=== PATIENT | female | born 1975 ===

== ENCOUNTER 2020-05-16 13:18 | Outpatient (REF) | payer MEDICAID, SELFPAY ==
--- NOTE | 2020-05-16 | XR_ITS ---
EXAMINATION: XR CHEST 2 VIEWS CLINICAL INFORMATION: Cough. COMPARISON: None. TECHNIQUE: Frontal and lateral views of the chest were obtained. FINDINGS: The heart, great vessels, pulmonary vasculature and mediastinum are normal. The lungs show no focal infiltrate, effusion or pneumothorax. There is no acute osseous abnormality. IMPRESSION: No active cardiopulmonary disease.
== END 2020-05-16 13:19 | disposition home or self-care (01) ==
LOC: HO.XRAY 13:18
PROVIDERS: PCP Internal Medicine Geriatric Medicine; Visit Provider Family Medicine
DX: R05 Cough (principal)
CPT/HCPCS: 71046

== ENCOUNTER 2020-06-16 11:22 | Outpatient (REF) | payer MEDICAID, SELFPAY ==
--- NOTE | 2020-06-16 11:50 | XR_ITS ---
EXAMINATION: XR CHEST CLINICAL INFORMATION: Dyspnea. Cough. COMPARISON: Previous chest x-ray 05/16/2020 TECHNIQUE: 2 views of the chest were obtained. FINDINGS: No significant abnormality is noted involving the heart, lungs, mediastinum, bony thorax or soft tissues. XR/XR chest 2V IMPRESSION: Unremarkable examination.
[2020-06-16 12:44] LABS: MANUAL DIFF FLAG NO
[2020-06-16 12:48] LABS: Basophils Absolute Auto 0.1 X10*3/uL (0.0-0.2); Basophils Percent Auto 0.7 % (0-2); Eosinophils Absolute Auto 0.1 X10*3/uL (0.0-0.4); Eosinophils Percent Auto 1.6 % (0-4); Hematocrit 41.2 % (37-47); Hemoglobin 13.7 g/dl (12.0-16.0); Imm Gran Abs Auto 0.04 X10*3/uL (0.00-0.03); Imm Gran Pct Auto 0.5 % (0.0-0.4); Lymphocytes Absolute Auto 1.8 X10*3/uL (1.2-4.9); Lymphocytes Percent Auto 23.5 % (20-40); Mean Corpuscular HGB Conc 33.3 g/dl (31.0-35.0); Mean Corpuscular Hemoglobin 30.6 pg (27.0-33.0); Mean Platelet Volume 8.8 fL (9.4-12.3); Monocytes Absolute Auto 0.9 X10*3/uL (0.1-1.2); Monocytes Percent Auto 12.4 % (2-11); Neutrophils Absolute Auto 4.7 X10*3/uL (2.0-8.3); Neutrophils Percent Auto 61.3 % (45-73); Platelet Count 278 X10*3/uL (160-400); Red Blood Count 4.48 X10*6/uL (4.20-5.50); Red Cell Distribution Width 12.9 % (11.0-16.0); White Blood Count 7.6 X10*3/uL (4.8-10.8)
[2020-06-16 13:27] LABS: Erythrocyte Sedimentation Rate 33 MM/HR (0-20)
[2020-06-16 13:43] LABS: Rheumatoid Factor < 15.0 IU/mL (<15.0)
[2020-06-16 13:49] LABS: Alanine Aminotransferase 50 U/L (0-31); Albumin Level 4.4 g/dL (3.5-5.0); Alkaline Phosphatase 84 U/L (39-117); Anion Gap 15 (12-20); Aspartate Amino Transferase 39 U/L (5-31); Bilirubin Total 0.3 mg/dL (0.0-1.0); Blood Urea Nitrogen 8 mg/dL (9-16); C Reactive Protein 1.07 mg/dL (< or = 0.50); Calcium 8.6 mg/dL (8.4-10.2); Carbon Dioxide 23 mmol/L (22-29); Chloride 103 mmol/L (96-108); Estimated Glomerular Filt Rate > 60; Glucose Random 142 mg/dL (60-115); Sodium 137 mmol/L (135-145); Total Protein 7.5 g/dL (6.5-8.0)
[2020-06-16 14:13] LABS: SARS COV2 IgG Negative (Negative)
[2020-06-18 14:21] LABS: Cyclic Citrullinated Peptide <16 UNITS
[2020-06-19 11:17] LABS: Anti Nuclear Antibody Pattern Nuclear, Speckled; Anti Nuclear Antibody Screen POSITIVE (NEGATIVE); Anti Nuclear Antibody Titer 1:40 titer
== END 2020-06-16 11:23 | disposition home or self-care (01) ==
LOC: HO.LAB 11:22
PROVIDERS: PCP Internal Medicine Geriatric Medicine; Visit Provider Family Medicine
DX: M13.0 Polyarthritis, unspecified (principal); R05 Cough; R06.00 Dyspnea, unspecified; Z20.828 Contact with and (suspected) exposure to other viral communicable diseases
CPT/HCPCS: 36415; 71046; 80053; 84443; 85025; 85652; 86038; 86039; 86140; 86200; 86431; 86769

== ENCOUNTER 2020-06-26 14:48 | Outpatient (REF) | payer MEDICAID, SELFPAY ==
--- NOTE | 2020-06-26 | MR_ITS ---
EXAMINATION: MR LUMBAR SPINE WITHOUT CONTRAST CLINICAL INFORMATION: Lower back pain with bilateral leg pain and numbness for 1 year. COMPARISON: None TECHNIQUE: MRI of the lumbar spine was obtained using routine sequences without contrast. FINDINGS: VERTEBRAL BODIES AND PARASPINAL STRUCTURES: Normal vertebral body alignment. The lumbar lordosis is maintained. No acute fracture or subluxation. No loss of vertebral body height. Mild loss of intervertebral disc height and disc desiccation at L4-L5 and L5-S1. No abnormal marrow signal. The visualized paraspinal soft tissues are unremarkable. CONUS MEDULLARIS AND CAUDA EQUINA: Normal, terminating at the level of L1. SPINAL LEVELS: T12-L1: No significant disc bulge. No central canal or neural foraminal stenosis. L1-L2: No significant disc bulge. No central canal or neural foraminal stenosis. L2-L3: No significant disc bulge. No central canal or neural foraminal stenosis. L3-L4: No significant disc bulge. No central canal or neural foraminal stenosis. L4-L5: Broad-based disc bulge with a shallow right paracentral disc protrusion which abuts the traversing bilateral L5 nerve roots within the lateral recesses. Bilateral facet arthropathy and thickening of the ligamentum flavum with mild central canal as well as [id number] right and mild left neural foraminal stenosis. L5-S1: Broad-based disc bulge with a shallow posterior central disc protrusion where there is a small posterior annular fissure. Mild central canal stenosis. No significant neural foraminal stenosis. MR/MR lumbar spine wo con IMPRESSION: 1. L4-L5 broad-based disc bulge with a shallow right paracentral disc protrusion which abuts the traversing bilateral L5 nerve roots within the lateral recesses. Bilateral facet arthropathy and thickening of the ligamentum flavum with mild central canal as well as [id number] right and mild left neural foraminal stenosis. 2. L5-S1 broad-based disc bulge with a shallow posterior central disc protrusion and small posterior annular fissure causing mild central canal stenosis. No significant neural foraminal stenosis.
== END 2020-06-26 14:49 | disposition home or self-care (01) ==
LOC: HO.MRI 14:48
PROVIDERS: PCP Internal Medicine Geriatric Medicine; Visit Provider Internal Medicine Geriatric Medicine
DX: M48.062 Spinal stenosis, lumbar region with neurogenic claudication (principal)
CPT/HCPCS: 72148

== ENCOUNTER 2020-07-08 09:53 | Outpatient (REF) | payer MEDICAID, SELFPAY ==
--- NOTE | 2020-07-08 | PFT_ITS ---
FLOWS: FEV1 of 97% of predicted at 2.61 L. FVC 92% of predicted at 3.04 L. FEV1 to FVC ratio of 0.86. No bronchodilator response. LUNG VOLUMES: Total lung capacity 102% of predicted at 4.86 L. Residual volume 108% of predicted at 1.76 L. Slow vital capacity 99% of predicted at 3.10 L. Expiratory reserve volume 84% of predicted at 0.85 L. Diffusion capacity is mildly decreased. IMPRESSION: No obstructive or restrictive ventilatory defect. No bronchodilator response. Decreased diffusion capacity suggests emphysema. Dayron Velasquez MD AP/[facility] / [id number]
== END 2020-07-08 09:54 | disposition home or self-care (01) ==
LOC: HO.RESP 09:53
PROVIDERS: Visit Provider Family Medicine
DX: R06.00 Dyspnea, unspecified (principal); F17.200 Nicotine dependence, unspecified, uncomplicated
CPT/HCPCS: 94060; 94727; 94729

== ENCOUNTER 2021-01-06 10:10 | Outpatient (REF) | payer MEDICAID, SELFPAY ==
--- NOTE | ~2021-01-06 | XR_ITS ---
EXAMINATION: XR BILATERAL HANDS CLINICAL INFORMATION: Anesthesia of skin COMPARISON: None TECHNIQUE: 3 views of each hand FINDINGS: 3 views of the left hand do not demonstrate any evidence of acute fracture or dislocation. Joint spaces are maintained. There is some mild spurring seen about the 2nd and 3rd distal interphalangeal joints. No erosive changes appreciated. There is mild spurring seen about the 1st carpometacarpal joint. 3 views of the right hand do not demonstrate any evidence of acute fracture or dislocation. No erosive changes are seen. Joint spaces maintained. There is some mild spurring about the 2nd distal interphalangeal joint. No erosive changes identified. There is some chronic periosteal reaction about the radial aspects of both 1st metacarpals related to tendinous sheath insertions. XR/XR hand RT min 3V IMPRESSION: Mild degenerative changes as described without significant bony abnormality appreciated.
--- NOTE | ~2021-01-06 | XR_ITS ---
EXAMINATION: XR BILATERAL HANDS CLINICAL INFORMATION: Anesthesia of skin COMPARISON: None TECHNIQUE: 3 views of each hand FINDINGS: 3 views of the left hand do not demonstrate any evidence of acute fracture or dislocation. Joint spaces are maintained. There is some mild spurring seen about the 2nd and 3rd distal interphalangeal joints. No erosive changes appreciated. There is mild spurring seen about the 1st carpometacarpal joint. 3 views of the right hand do not demonstrate any evidence of acute fracture or dislocation. No erosive changes are seen. Joint spaces maintained. There is some mild spurring about the 2nd distal interphalangeal joint. No erosive changes identified. There is some chronic periosteal reaction about the radial aspects of both 1st metacarpals related to tendinous sheath insertions. XR/XR hand LT min 3V IMPRESSION: Mild degenerative changes as described without significant bony abnormality appreciated.
== END 2021-01-06 10:11 | disposition home or self-care (01) ==
LOC: HO.XRAY 10:10
PROVIDERS: Absent Provider Internal Medicine Geriatric Medicine; PCP Internal Medicine Geriatric Medicine; Visit Provider General Practice
DX: R20.0 Anesthesia of skin (principal)
CPT/HCPCS: 73130

== ENCOUNTER 2021-02-12 08:46 | Outpatient (REF) | payer MEDICAID, SELFPAY ==
--- NOTE | 2021-02-12 08:30 | EMG_ITS ---
Bilateral median and ulnar motor and sensory studies were performed. Bilateral radial sensory studies were performed and paraspinal muscles were tested with a needle. IMPRESSION: Mild bilateral median neuropathy across carpal tunnel. MD DEVON Coreas/[place] / [id number]
== END 2021-02-12 08:47 | disposition home or self-care (01) ==
LOC: HO.NEURO 08:46
PROVIDERS: Visit Provider General Practice
DX: R20.0 Anesthesia of skin (principal)
CPT/HCPCS: 95886; 95911

== ENCOUNTER 2021-02-28 16:07 | Emergency (ER) | payer MEDICAID, SELFPAY ==
[2021-02-28 16:10] VITALS: BP 123/78; PULSE 98; RESP 16; TEMP 36.2; O2SAT 98; BMI 28.3
--- NOTE | 2021-02-28 16:39 | ED.EXTPRO ---
HPI - Extremity Problem General Chief complaint: Extremity Problem Stated complaint: Hand swelling Time Seen by Provider: 02/28/21 16:39 Related Data Previous Rx's Medication Instructions Recorded cyclobenzaprine 10 mg PO BEDTIME #10 tab 02/28/21 ibuprofen 600 mg PO Q8H PRN #20 tab 02/28/21 Allergies Allergy/AdvReac Type Severity Reaction Status Date / Time quetiapine [From SEROQUEL] AdvReac Intermediate RLS Verified 02/28/21 16:10 symptoms Review of Systems Constitutional: Constitutional: Denies weight gain and Denies weight loss Cardiovascular: Cardiovascular: Reports no additional cardiovascular complaints Respiratory: Respiratory: Reports no additional respiratory complaints Gastrointestinal: Gastrointestinal: Denies abdominal pain, Denies belching, Denies melena, Denies bloating, Denies change in bowel habits, Denies dyspepsia, Denies heartburn, Denies nausea and Denies vomiting Musculoskeletal: Musculoskeletal: Reports other (Wrist pain and back pain) Neurologic: Reports system reviewed and no additional complaints, except as documented Psychiatric: Psychiatric: Reports no additional psychiatric complaints [facility] Past Medical History Medical History (Updated 02/28/21 @ 17:01 by Roxane James [facility]) No known health problems Social History Social History Advance Directives: No Advance Directives Information Provided: No Patient : No Physical Exam Vital Signs: Vital Signs: Last Vital Signs Temp 97.1 F 02/28/21 16:10 Pulse 98 02/28/21 16:10 Resp 16 02/28/21 16:10 BP 123/78 02/28/21 16:10 Pulse Ox 98 02/28/21 16:10 Body Mass Index 28.3 Const: General: healthy appearing, no acute distress and well developed Nutritional Appearance: well nourished Orientation/consciousness: patient oriented x3 Neck: Neck: Yes normal visual inspection, Yes full ROM and Yes trachea midline Thyroid: Thyroid normal Resp: Auscultation: clear to auscultation bilaterally Cardio: Rate: regular rate Rhythm: regular rhythm GI: Inspection: Yes normal to inspection and No distended Palpation (GI): No hepatosplenomegaly present Auscultation: normal bowel sounds Skin: General skin exam: elasticity normal, turgor normal and dry skin Neuro: General: patient oriented x3 Extrem: General: Yes full ROM, Yes capillary refill normal and Yes no joint enlargement Right upper extremity: normal to inspection, full ROM, normal capillary refill and no joint enlargement Left upper extremity: normal to inspection, full ROM, normal capillary refill and no joint enlargement Course Course Course Narrative: 45-year-old female is coming here today for complaints of bilateral wrist pain. Patient reports that she has carpal tunnel and has been doing heavy lifting at work. Also reports of lower back pain. Denies any injury to either her wrist or her back. Repeated movements with her hands causing her wrist to swell some time. Patient reports that she carries heavy trace with food. No swelling on exam today. Patient reports that she has been diagnosed with arthritis in her back. I will give her ibuprofen and send her home with NSAIDs and cyclobenzaprine. Discharge Plan Discharge Clinical Impression: Pain in wrist Qualifiers: Laterality: bilateral Qualified Code(s): M25.531 - Pain in right wrist Back pain Qualifiers: Back pain location: low back pain Chronicity: unspecified Back pain laterality: bilateral Sciatica presence: without sciatica Qualified Code(s): M54.5 - Low back pain Patient Disposition: Home, Self-Care Instructions: Arthralgia (ED), Back Pain (ED) Additional Instructions: You were seen here today for complaining of bilateral wrist and back pain. You were given anti-inflammatory medication. You may take ibuprofen as ordered. You may also take cyclobenzaprine for muscle spasms. Please to not operate any heavy machinery while you taking that medication. Please follow-up with your primary care physician in 2-3 days. You may also follow-up with [facility]. Phone number is [phone] Prescriptions: New ibuprofen 600 mg tablet 600 mg PO Q8H PRN (Reason: pain) Qty: 20 RF: 0 cyclobenzaprine 10 mg tablet 10 mg PO BEDTIME Qty: 10 RF: 0 Stand Alone Forms: Work/School Release
[2021-02-28] MEDS: Ibuprofen 600 MG TABLET PO (16:57)
== END 2021-02-28 17:21 | disposition home or self-care (01) ==
PROVIDERS: Emergency Provider Internal Medicine; PCP Internal Medicine Geriatric Medicine
DX: M25.531 Pain in right wrist (principal); M25.532 Pain in left wrist; M54.5 Low back pain
CPT/HCPCS: 99283; 99284

== ENCOUNTER 2021-03-12 15:00 | Outpatient (RCR) | payer MEDICAID, SELFPAY | END 2021-03-25 09:14 | disposition home or self-care (01) | LOC: HO.PT 15:00 | PROVIDERS: PCP Internal Medicine Geriatric Medicine; Visit Provider Physician Assistant | DX: M51.16 Intervertebral disc disorders with radiculopathy, lumbar region (principal) | CPT/HCPCS: 97014; 97110; 97140; 97150; 97161; 97530 ==

== ENCOUNTER 2021-06-17 10:30 | Outpatient (REF) | payer MEDICAID, SELFPAY ==
--- NOTE | ~2021-06-17 | US_ITS ---
EXAMINATION: ULTRASOUND OF THE PELVIS CLINICAL INFORMATION: Dysmenorrhea. COMPARISON: 03/09/2018. TECHNIQUE: Transabdominal and transvaginal pelvic ultrasound. Doppler evaluation with spectral analysis was performed. A transvaginal study was performed in addition to the transabdominal study which did not yield an adequate examination of the uterus and ovaries due to superimposed distended gas-filled loops of bowel. FINDINGS: The uterus is normal in size and appearance, measuring 9.5 x 4.3 x 6 cm longitudinally, anteroposteriorly and transversely. The endometrial stripe thickness is normal, measuring 0.8 cm in thickness. No focal myometrial mass is seen. Nabothian cysts at the cervix. The ovaries bilaterally are visualized and appear normal, with the right ovary measuring 2 x 1.6 x 1.6 cm and the left ovary measuring 1.5 x 0.8 x 1.6 cm. There are normal arterial and venous spectral waveforms bilaterally. No adnexal mass or free fluid collection seen. US/US pelvic and transvaginal IMPRESSION: Unremarkable pelvic ultrasound..
== END 2021-06-17 10:31 | disposition home or self-care (01) ==
LOC: HO.US 10:30
PROVIDERS: PCP Internal Medicine Geriatric Medicine; Visit Provider Advanced Practice Midwife
DX: N94.5 Secondary dysmenorrhea (principal)
CPT/HCPCS: 76830; 76856

== ENCOUNTER 2021-08-18 11:22 | Outpatient (REF) | payer MEDICAID, SELFPAY | END 2021-08-18 11:23 | disposition home or self-care (01) | LOC: HO.LAB 11:22 | PROVIDERS: PCP Internal Medicine Geriatric Medicine; Visit Provider Obstetrics & Gynecology | DX: B97.7 Papillomavirus as the cause of diseases classified elsewhere (principal); F17.200 Nicotine dependence, unspecified, uncomplicated | CPT/HCPCS: 57454; 88305; 88342; 88360 ==

== ENCOUNTER → 2021-09-01 10:41 | Outpatient (BNVA) | payer MEDICAID, SELFPAY | PROVIDERS: Visit Provider Obstetrics & Gynecology ==

== ENCOUNTER 2022-03-31 12:38 | Outpatient (REF) | payer MEDICAID, SELFPAY ==
--- NOTE | ~2022-03-31 | XR_ITS ---
EXAMINATION: XR CHEST CLINICAL INFORMATION: COPD COMPARISON: None TECHNIQUE: 2 views of the chest were obtained. FINDINGS: No significant abnormality is noted involving the heart, lungs, mediastinum, bony thorax or soft tissues. XR/XR chest 2V IMPRESSION: Unremarkable chest examination.
== END 2022-03-31 12:39 | disposition home or self-care (01) ==
LOC: HO.XRAY 12:38
PROVIDERS: PCP Internal Medicine Geriatric Medicine; Visit Provider Internal Medicine Geriatric Medicine
DX: J44.9 Chronic obstructive pulmonary disease, unspecified (principal)
CPT/HCPCS: 71046

== ENCOUNTER 2022-04-09 08:32 | Outpatient (REF) | payer MEDICAID, SELFPAY ==
--- NOTE | ~2022-04-09 | MM_ITS ---
EXAMINATION: MM SCREENING DIGITAL BREAST TOMOSYNTHESIS, BILATERAL CLINICAL INFORMATION: Screening. Asymptomatic. The lifetime risk of breast cancer based on the Tyrer-Cuzick Model is 8%. COMPARISON: Mammography: 01/09/2020, 02/08/2018 (baseline). TECHNIQUE: Digital breast tomosynthesis is performed in both the craniocaudal and mediolateral oblique views along with computer-aided detection (CAD). Synthesized 2D images are generated from the tomosynthesis. FINDINGS: There are scattered areas of fibroglandular density (ACR BI-RADS breast composition Category b). There are no significant masses, abnormal calcifications, or other abnormalities. Parenchymal pattern is similar to prior studies. There is no developing density or architectural abnormality. The axilla and skin contours are unremarkable. No significant changes. MM/MM tomosynthesis screening BI IMPRESSION: No mammographic evidence of malignancy. ASSESSMENT: BI-RADS 1: Negative RECOMMENDATION: Routine annual mammography screening. This patient's information was entered into a reminder system with a target due date for their next mammogram.
== END 2022-04-09 08:33 | disposition home or self-care (01) ==
LOC: HO.MAMMO 08:32
PROVIDERS: PCP Internal Medicine Geriatric Medicine; Visit Provider Internal Medicine Geriatric Medicine
DX: Z12.31 Encounter for screening mammogram for malignant neoplasm of breast (principal)
CPT/HCPCS: 77063; 77067

== ENCOUNTER 2022-06-21 11:05 | Outpatient (REF) | payer MEDICAID, SELFPAY ==
--- NOTE | 2022-06-21 | PFT_ITS ---
Forced vital capacity 90%, FEV1 91%, FEV1/FVC ratio is 86, MVV 78%. Post bronchodilator therapy, there is no change. Total lung capacity 128%. Residual volume 198%. Diffusion capacity 72%. CONCLUSION: Normal pulmonary function tests. There is no evidence of obstructive or restrictive pulmonary disorder. Markedly increased residual volume indicating air trapping is probably due to technical reason. MD AZAEL Mcdaniels/[facility] / [id number]
== END 2022-06-21 11:06 | disposition home or self-care (01) ==
LOC: HO.RESP 11:05
PROVIDERS: PCP Internal Medicine Geriatric Medicine; Visit Provider Internal Medicine Geriatric Medicine
DX: J44.9 Chronic obstructive pulmonary disease, unspecified (principal)
CPT/HCPCS: 94060; 94727; 94729

== ENCOUNTER 2022-09-01 14:21 | Outpatient (REF) | payer MEDICAID, SELFPAY ==
[2022-09-02 06:15] LABS: CT PCR NOT DETECTED (Not Detect.); NG PCR NOT DETECTED (Not Detect.)
[2022-09-02 13:50] LABS: BV Int Neg Control Negative (Negative); BV Int Pos Control Positive (Positive)
[2022-09-04 03:18] LABS: HPV mRNA E6/E7 rflx Not Detected (Not Detected)
== END 2022-09-01 14:22 | disposition home or self-care (01) ==
LOC: HO.LNP 14:21
PROVIDERS: PCP Internal Medicine Geriatric Medicine; Visit Provider Obstetrics & Gynecology
DX: Z01.419 Encounter for gynecological examination (general) (routine) without abnormal findings (principal)
CPT/HCPCS: 0353U; 87480; 87510; 87624; 87660; 88142

== ENCOUNTER 2023-02-17 13:50 | Outpatient (REF) | payer MEDICAID, SELFPAY ==
--- NOTE | ~2023-02-17 | XR_ITS ---
EXAMINATION: XR pelvis and left hip XR lumbosacral spine CLINICAL INFORMATION: Left hip pain. Spondylosis without myelopathy or radiculopathy. COMPARISON: None. TECHNIQUE: Single frontal view of the pelvis and 2 views of the left hip. Frontal, lateral and both oblique views of the lumbosacral spine. FINDINGS: Pelvis and left hip: The bony alignments are intact. The cortices are intact. Articular margins, joint space and periarticular soft tissues are unremarkable. Phleboliths are seen in the pelvis. Lumbosacral spine: The heights, alignments of the lumbar vertebrae are well-maintained. Intervertebral disc heights are well-maintained. The posterior appendages are intact. The paraspinal soft tissues are unremarkable. Incidental note is made of atherosclerotic calcific disease of the aorta. XR/XR lumbar spine 6V w bending IMPRESSION: 1. Unremarkable radiographic appearance of the pelvis and left hip. 2. Atherosclerotic calcification of the distal abdominal aorta. Otherwise unremarkable radiographic appearance of the lumbosacral spine.
--- NOTE | ~2023-02-17 | XR_ITS ---
EXAMINATION: XR pelvis and left hip XR lumbosacral spine CLINICAL INFORMATION: Left hip pain. Spondylosis without myelopathy or radiculopathy. COMPARISON: None. TECHNIQUE: Single frontal view of the pelvis and 2 views of the left hip. Frontal, lateral and both oblique views of the lumbosacral spine. FINDINGS: Pelvis and left hip: The bony alignments are intact. The cortices are intact. Articular margins, joint space and periarticular soft tissues are unremarkable. Phleboliths are seen in the pelvis. Lumbosacral spine: The heights, alignments of the lumbar vertebrae are well-maintained. Intervertebral disc heights are well-maintained. The posterior appendages are intact. The paraspinal soft tissues are unremarkable. Incidental note is made of atherosclerotic calcific disease of the aorta. XR/XR hip LT w PEL1V IMPRESSION: 1. Unremarkable radiographic appearance of the pelvis and left hip. 2. Atherosclerotic calcification of the distal abdominal aorta. Otherwise unremarkable radiographic appearance of the lumbosacral spine.
== END 2023-02-17 13:51 | disposition home or self-care (01) ==
LOC: HO.XRAY 13:50
PROVIDERS: PCP Internal Medicine Geriatric Medicine; Visit Provider Nurse Practitioner Family
DX: M25.552 Pain in left hip (principal); M47.816 Spondylosis without myelopathy or radiculopathy, lumbar region; M21.70 Unequal limb length (acquired), unspecified site; G89.29 Other chronic pain
CPT/HCPCS: 72114; 73502; 99202

== ENCOUNTER 2023-03-31 18:57 | Outpatient (REF) | payer MEDICAID, SELFPAY ==
[2023-04-05 11:58] LABS: Alphahydroxymidazolam,GCMS Ur NEGATIVE; Alphahydroxytriazolam, GCMS Ur NEGATIVE; Alprazolam, GCMS Urine NEGATIVE; Flurazepam Metabolite,GCMS Ur NEGATIVE; Lorazepam GCMS Urine NEGATIVE; Nordiazepam, GCMS Urine NEGATIVE; Oxazepam, GCMS Urine NEGATIVE; Temazepam, GCMS Urine NEGATIVE
== END 2023-03-31 18:58 | disposition home or self-care (01) ==
LOC: HO.HHCLNP 18:57
PROVIDERS: Visit Provider Internal Medicine Geriatric Medicine
DX: F41.9 Anxiety disorder, unspecified (principal)
CPT/HCPCS: 80346

== ENCOUNTER 2023-05-10 16:35 | Outpatient (REF) | payer MEDICAID, SELFPAY ==
[2023-05-10 17:17] LABS: MANUAL DIFF FLAG NO
[2023-05-10 17:27] LABS: Basophils Absolute Auto 0.1 X10*3/uL (0.0-0.2); Basophils Percent Auto 0.7 % (0-2); Eosinophils Absolute Auto 0.2 X10*3/uL (0.0-0.4); Eosinophils Percent Auto 2.6 % (0-4); Hemoglobin 13.6 g/dl (12.0-16.0); Imm Gran Abs Auto 0.04 X10*3/uL (0.00-0.03); Imm Gran Pct Auto 0.5 % (0.0-0.4); Lymphocytes Absolute Auto 3.5 X10*3/uL (1.2-4.9); Lymphocytes Percent Auto 39.3 % (20-40); Mean Corpuscular HGB Conc 33.2 g/dl (31.0-35.0); Mean Corpuscular Hemoglobin 30.5 pg (27.0-33.0); Mean Corpuscular Volume 91.9 fL (80.0-98.0); Mean Platelet Volume 8.7 fL (9.4-12.3); Monocytes Absolute Auto 0.7 X10*3/uL (0.1-1.2); Monocytes Percent Auto 7.7 % (2-11); Neutrophils Absolute Auto 4.4 x10*3/uL (2.0-8.3); Neutrophils Percent Auto 49.2 % (45-73); Platelet Count 301 X10*3/uL (160-400); Red Blood Count 4.46 X10*6/uL (4.20-5.50); Red Cell Distribution Width 12.8 % (11.0-16.0); White Blood Count 8.9 X10*3/uL (4.8-10.8)
[2023-05-10 18:27] LABS: Alanine Aminotransferase 31 U/L (0-31); Albumin Level 4.1 g/dL (3.5-5.0); Alkaline Phosphatase 79 U/L (39-117); Anion Gap 12 (12-20); Aspartate Amino Transferase 21 U/L (5-31); Bilirubin Total 0.2 mg/dL (0.0-1.0); Blood Urea Nitrogen 9 mg/dL (9-16); Calcium 9.3 mg/dL (8.4-10.2); Carbon Dioxide 25 mmol/L (22-29); Chloride 107 mmol/L (96-108); Estimated Glomerular Filt Rate > 60; Glucose Random 144 mg/dL (60-115); Potassium 4.1 mmol/L (3.3-5.1); Sodium 140 mmol/L (135-145); Total Protein 7.4 g/dL (6.5-8.0)
== END 2023-05-10 16:36 | disposition home or self-care (01) ==
LOC: HO.HHCL 16:35
PROVIDERS: Visit Provider Internal Medicine Geriatric Medicine
DX: E11.9 Type 2 diabetes mellitus without complications (principal); R14.0 Abdominal distension (gaseous); R30.0 Dysuria
CPT/HCPCS: 36415; 80053; 85025

== ENCOUNTER 2023-05-19 16:20 | Outpatient (REF) | payer MEDICAID, SELFPAY | END 2023-05-19 16:21 | disposition home or self-care (01) | LOC: HO.HHCLNP 16:20 | PROVIDERS: Visit Provider Internal Medicine Geriatric Medicine | DX: Z13.89 Encounter for screening for other disorder (principal) ==

== ENCOUNTER 2023-11-03 10:31 | Outpatient (REF) | payer MEDICAID, SELFPAY ==
--- NOTE | ~2023-11-03 | XR_ITS ---
EXAMINATION: XR CHEST CLINICAL INFORMATION: 2 months with pleuritic chest pain and cough COMPARISON: 03/31/2022 TECHNIQUE: 2 views of the chest were obtained. FINDINGS: No significant abnormality is noted involving the heart, lungs, mediastinum, bony thorax or soft tissues. XR/XR chest 2V IMPRESSION: Unremarkable examination.
[2023-11-03 11:47] LABS: MANUAL DIFF FLAG NO
[2023-11-03 12:02] LABS: Basophils Absolute Auto 0.1 X10*3/uL (0.0-0.2); Basophils Percent Auto 0.8 % (0-2); Eosinophils Absolute Auto 0.2 X10*3/uL (0.0-0.4); Eosinophils Percent Auto 2.5 % (0-4); Hemoglobin 13.9 g/dl (12.0-16.0); Imm Gran Abs Auto 0.03 X10*3/uL (0.00-0.03); Imm Gran Pct Auto 0.4 % (0.0-0.4); Lymphocytes Absolute Auto 3.4 X10*3/uL (1.2-4.9); Lymphocytes Percent Auto 39.4 % (20-40); Mean Corpuscular HGB Conc 33.1 g/dl (31.0-35.0); Mean Corpuscular Hemoglobin 30.5 pg (27.0-33.0); Mean Corpuscular Volume 92.1 fL (80.0-98.0); Mean Platelet Volume 8.5 fL (9.4-12.3); Monocytes Absolute Auto 0.8 X10*3/uL (0.1-1.2); Monocytes Percent Auto 9.1 % (2-11); Neutrophils Absolute Auto 4.1 x10*3/uL (2.0-8.3); Neutrophils Percent Auto 47.8 % (45-73); Platelet Count 340 X10*3/uL (160-400); Red Blood Count 4.56 X10*6/uL (4.20-5.50); Red Cell Distribution Width 13.1 % (11.0-16.0); White Blood Count 8.5 X10*3/uL (4.8-10.8)
[2023-11-03 12:14] LABS: Rheumatoid Factor < 13.0 IU/mL (<15.0)
[2023-11-03 12:23] LABS: Alanine Aminotransferase 22 U/L (0-31); Albumin Level 4.3 g/dL (3.5-5.0); Alkaline Phosphatase 80 U/L (39-117); Anion Gap 12 (12-20); Aspartate Amino Transferase 25 U/L (5-31); Bilirubin Total 0.4 mg/dL (0.0-1.0); Blood Urea Nitrogen 14 mg/dL (9-16); Calcium 9.7 mg/dL (8.4-10.2); Carbon Dioxide 27 mmol/L (22-29); Chloride 105 mmol/L (96-108); Cholesterol 336 mg/dL (<200); Estimated Glomerular Filt Rate > 60; Glucose Random 104 mg/dL (60-115); HDL Cholesterol 59 mg/dL (>40); LDL Cholesterol Calculated 234 mg/dL (<100); Potassium 4.7 mmol/L (3.3-5.1); Sodium 139 mmol/L (135-145); Triglycerides 216 mg/dL (<150)
[2023-11-03 12:41] LABS: Creatinine Urine 91.48 mg/dL; Microalbum/Creatinine Ratio Ur 8.7 ug/mg cr (<30); Vitamin D 25-OH Total 42.5 ng/mL (>30)
[2023-11-03 13:21] LABS: Erythrocyte Sedimentation Rate 31 MM/HR (0-20)
== END 2023-11-03 10:32 | disposition home or self-care (01) ==
LOC: HO.HHCL 10:31
PROVIDERS: Visit Provider Internal Medicine Geriatric Medicine
DX: R07.81 Pleurodynia (principal); E11.9 Type 2 diabetes mellitus without complications; M25.50 Pain in unspecified joint
CPT/HCPCS: 36415; 71046; 80053; 80061; 82043; 82306; 82570; 85025; 85652; 86431

== ENCOUNTER 2024-02-07 09:46 | Outpatient (REF) | payer MEDICAID, SELFPAY ==
[2024-02-07 17:32] LABS: CT PCR NOT DETECTED (Not Detect.); NG PCR NOT DETECTED (Not Detect.)
[2024-02-10 15:28] LABS: HPV mRNA E6/E7 Not Detected (Not Detected)
== END 2024-02-07 09:47 | disposition home or self-care (01) ==
LOC: HO.LNP 09:46
PROVIDERS: PCP Internal Medicine Geriatric Medicine; Visit Provider Obstetrics & Gynecology
DX: Z01.419 Encounter for gynecological examination (general) (routine) without abnormal findings (principal); R10.2 Pelvic and perineal pain; B97.7 Papillomavirus as the cause of diseases classified elsewhere; R31.29 Other microscopic hematuria
CPT/HCPCS: 0353U; 87086; 87624; 88175; 99396

== ENCOUNTER 2024-02-07 09:46 | Outpatient (AMB) | payer MEDICAID, SELFPAY ==
--- NOTE | 2024-02-07 09:47 | MHC.OFFVIS ---
Vital Signs 02/07/24 09:49 Height 5 ft 2 in Weight 119 lb 2 oz BMI 21.8 BP 114/60 Blood Pressure Location Lt brachial Position Sitting Intake Visit Reasons: annual Allergies quetiapine [From SEROQUEL] Adverse Reaction (Intermediate, Verified 02/07/24 09:48) RLS symptoms HPI Comments Details: Presenting for annual exam. Complaining of right sided pelvic pain over the last 2 years, worse premenstrual in improved afterwards. Last Pap/HPV was negative in 09/06 Last Mammogram was BI-RADS 1 in 04/05 We previous screening colonoscopy [facility] Medical History History of renal stone History of ovarian cyst Pulmonary emphysema Depression Tobacco use Chronic bilateral low back pain with bilateral sciatica Hyperlipidemia Diabetes Surgical History History of tubal ligation History of bladder surgery H/O LEEP Tubal ligation status Family History Mother Heart disease Social History Household Members: Significant Other Housing: Apartment Alcohol intake: never Patient Tobacco Use Status: Current everyday Tobacco user Cigarette Packs Per Day: 1 Years Smoked: 25 Substance Use Type: Marijuana service: No Current occupational status: unemployed Sexual orientation: Straight/Heterosexual Gender identity: Female Female Reproductive History Menstrual Age of Menarche: 7 Duration of menses: 3-5 days Date of last menstrual period: 02/01/24 control method: none Total pregnancies: 3 Full term: 3 Number of Living Children: 2 Date of last pap smear: 09/01/22 History of abnormal pap smear: Yes (HPV+ 2020) History of STI: No Date of Mammogram: 04/09/22 History of abnormal mammogram: No Review of Systems Const All systems reviewed & are unremarkable except as noted in HPI and below Card Reports as per HPI Resp Reports as per HPI GI Reports as per HPI and Reports no additional complaints Reports as per HPI Physical Exam Vital Signs: Last Vital Signs BP 114/60 02/07/24 09:49 BMI result Body Mass Index 21.8 Const General: cooperative, healthy appearing and comfortable Chest Chest palpation & inspection: normal inspection of the chest and normal palpation of entire chest wall Breast/axilla inspection: normal inspection of the breasts and normal inspection of the axillae Breast/axilla palpation: normal palpation of the breasts, normal palpation of the axillae and no axillary lymphadenopathy Resp Effort & Inspection: normal respiratory effort Auscultation: clear to auscultation bilaterally Percussion: percussion normal Cardio Palpation: normal PMI Rate: regular rate Rhythm: regular rhythm Heart sounds: no murmurs and no rubs Peripheral pulses: Peripheral pulses 2+ throughout GI Inspection: Yes normal to inspection Palpation (GI): Soft to palpation, nontender, no guarding, not rigid and No hepatosplenomegaly present Percussion: Yes normal to percussion Auscultation: normal bowel sounds Rectal Exam - Female: deferred General: Yes bladder normal to palpation External Female Exam: No lesion Speculum Exam - Vagina: normal appearance of the vagina, normal palpation, normal vaginal discharge and not erythematous Speculum Exam - Cervix: normal appearance of the cervix and normal palpation Bimanual exam- vagina & uterus: normal bimanual exam, normal palpation, uterine size normal, bladder normal to palpation, consistency normal and normal palpation Bimanual Exam- Adnexa, other: normal adnexae, no masses and no tenderness Assessment & Plan Assessment & Plan (1) Well woman exam: Code(s): Z01.419 - Encounter for gynecological examination (general) (routine) without abnormal findings Category: Medical Plan: Co testing done. Counseled the patient about the recommended dietary allowance of 1200 mg of Calcium & 600 IU of vitamin D. Mammogram ordered. The patient was referred to GI for screening colonoscopy . The patient was instructed to perform monthly self-breast exams and schedule annual exam in a year. All questions answered and the patient verbalized understanding. (2) Pelvic pain: Code(s): R10.2 - Pelvic and perineal pain Category: Medical Plan: Urine test done in the office was negative. GC and chlamydia taken and pelvic ultrasound ordered. Discussed with the patient the differential diagnosis of pelvic pain including but not limited to adnexal, uterine masses, pelvic infections (PID), GI the (Irritable bowel syndrome, diverticulitis, others), musculoskeletal, myofascial pain abdominal wall , adhesions, endometriosis, psychological and others causes. Will check results and treat accordingly. All questions answered, the patient verbalized understanding. Instructed the patient to schedule follow-up appointment in 2 weeks (3) Microscopic hematuria: Code(s): R31.29 - Other microscopic hematuria Category: Medical Plan: Urine dip showed microscopic hematuria, urine culture sent. Will repeat urine dip in 2 weeks. Discussed with the patient the possible causes of microscopic hematuria including but not limited to: interstitial cystitis, polyps, stones, masses, urethral inflammatory processes and others. If Urine Culture is negative and repeat urine dip in 2 weeks shows persistent microscopic hematuria, will proceed with CT abdomen/pelvis and urology referral. Instructions given the patient to schedule a 2 week urine dip follow-up appointment. All questions answered and the patient verbalized understanding. Orders: Orders MM tomosynthesis screening BI Today Z12.31 - Encounter for screening mammogram for malignant neoplasm of breast US pelvic and transvaginal Today R10.2 - Pelvic and perineal pain Referrals Gastroenterology Referral Z12.11 - Encounter for screening for malignant neoplasm of colon Coding Level of Care Code Est Pt Prev Care 40-64y(19002) Diagnoses Well woman exam Z01.419 Pelvic pain R10.2 Microscopic hematuria R31.29
[2024-02-07 09:49] VITALS: BP 114/60; BMI 21.8
== END 2024-02-07 10:32 | disposition home or self-care (01) ==
PROVIDERS: PCP Internal Medicine Geriatric Medicine; Visit Provider Obstetrics & Gynecology
DX: Z01.419 Encounter for gynecological examination (general) (routine) without abnormal findings (principal); R10.2 Pelvic and perineal pain; R31.29 Other microscopic hematuria
CPT/HCPCS: 99396

== ENCOUNTER 2024-02-15 12:41 | Outpatient (REF) | payer MEDICAID, SELFPAY ==
--- NOTE | ~2024-02-15 | US_ITS ---
EXAMINATION: US PELVIS CLINICAL INFORMATION: Pain in pelvis, last menstrual period 02/02/2024, left lower quadrant pain. COMPARISON: 06/17/2021. TECHNIQUE: Ultrasound of the pelvis is performed using both transabdominal and transvaginal transducers along with Doppler. Transvaginal imaging is performed due to inadequate visualization transabdominally. FINDINGS: The uterus measures 7.8 x 4.5 x 5.8 cm. Uterus is retroverted. Endometrial thickness is 8 mm. Uterus is heterogeneous. 3.0 x 2.0 x 2.7 cm fibroid was not identified on the prior exam. No significant free fluid. Nabothian cysts. Left ovary measures 3.1 x 1.2 x 2.2 cm, volume 4.3 mL and was suboptimally visualized due to bowel gas. Left ovary best seen on transabdominal ultrasound images. Right ovary measures 3.1 x 1.2 x 1.5 cm, volume 2.9 mL. A 1.1 cm left ovarian simple cyst. There is no specific indication for additional imaging at this time. US/US pelvic and transvaginal IMPRESSION: 1. Endometrial thickness is 8 mm. 2. A 3.0 cm fibroid was not identified on the prior exam.
== END 2024-02-15 12:42 | disposition home or self-care (01) ==
LOC: HO.US 12:41
PROVIDERS: PCP Internal Medicine Geriatric Medicine; Visit Provider Obstetrics & Gynecology
DX: R10.2 Pelvic and perineal pain (principal)
CPT/HCPCS: 76830; 76856

== ENCOUNTER 2024-05-25 09:44 | Outpatient (AMB) | payer MEDICAID, SELFPAY ==
--- NOTE | 2024-05-25 09:55 | A.OFFVIS_ITS ---
Vital Signs 3 05/25/24 10:06 Height 5 ft 2 in Weight 113 lb 12.136 oz BMI 20.8 BP 110/64 Blood Pressure Location Rt brachial Position Sitting Pulse 98 Intake Visit Reasons: Colonoscopy Screening Intake Note: Benigno presents as a new patient for colonoscopy screening. CC: Patient c/o diarrhea for a week, abdominal pain, and feeling like her throat is closing up when she eats. Denies other GI symptoms. Deputy Sheriff Generalist/Bailiff Required: No Accompanied by: Self / Same As Patient Allergies quetiapine [From SEROQUEL] Adverse Reaction (Intermediate, Verified 05/25/24 10:11) RLS symptoms HPI HPI Colonoscopy Screening: Details: 48-year-old female here for preprocedural meeting to discuss a screening colonoscopy. Referral source is unknown and there is no significant medical history supplied. P.m. X Smoker COPD Diabetes Nephrolithiasis Chronic low back pain High cholesterol Depression * SURGICAL HISTORY Tubal ligation Bladder surgery - Bulkamdi implant LEEP * ALLERGIES Seroquel * [facility]: Laboratory Tests 11/03/23 10:33 WBC 8.5 RBC 4.56 Hgb 13.9 Hct 42.0 Plt Count 340 Estimated GFR > 60 Total Bilirubin 0.4 AST 25 ALT 22 Alkaline Phosphatase 80 TODAY'S VISIT Apparently, she has had diarrhea for a week and is reporting that she feels like my throat is closing every time I eat. Her youngest son just in November and she is dealing with the stress. The diarrhea was of acute on set a week ago. She is having pain in the bilateral lower quads and when the pain is bad she has nausea. Over the past 3 weeks she will have dysphagia in the area just above the sternal notch with odysonphagia with solid foods an not liquids. All of this was preceded by a severe sinus infection with 3 rounds of abx. There are no prior problems with anesthesia or sedation. She denies any cardiac problems and her respiratory/COPD is well controlled. No ID problems There is no known FHX of crc of polyps, but an aunt of stomach cancer. [facility] Medical History (Updated 05/25/24 @ 10:24 by Jina Reddy, ANP-C) HPV in female Leg length discrepancy Well woman exam History of renal stone History of ovarian cyst Pulmonary emphysema Depression Tobacco use Chronic bilateral low back pain with bilateral sciatica Hyperlipidemia Diabetes Surgical History History of tubal ligation History of bladder surgery H/O LEEP Tubal ligation status Family History Mother Heart disease Social History Household Members: Significant Other Housing: Apartment Alcohol intake: never Patient Tobacco Use Status: Current everyday Tobacco user Cigarette Packs Per Day: 1 Years Smoked: 25 Substance Use Type: Marijuana service: No Current occupational status: unemployed Sexual orientation: Straight/Heterosexual Gender identity: Female Female Reproductive History Menstrual Age of Menarche: 7 Review of Systems Const Denies fatigue, Denies fever(s), Denies night sweats, Denies poor appetite and Denies weight loss Eyes Details: glasses Reports requires corrective lenses ENT Reports Normal hearing present, Denies dental pain, Reports dysphagia, Denies hearing loss, Denies mouth pain, Denies odynophagia, Denies throat swelling, Denies tongue swelling and Reports other (Dentition adequate) Card Reports no additional complaints Resp Reports no additional complaints GI Details: Reports abdominal pain, Denies melena, Denies bloating, Denies hematochezia, Denies constipation, Denies GI cramping, Reports dysphagia, Denies excessive flatus, Denies early satiety, Reports heartburn, Reports diarrhea, Denies nausea, Denies odynophagia, Denies vomiting and Denies hematemesis Skin/Breast Denies pruritus, Denies lesions, Denies rash and Denies jaundice Neuro Reports Normal hearing present and Denies Abnormal speech present Psych Reports anxiety and Reports depression Endo Denies fatigue Aller/Immun Denies throat swelling and Denies tongue swelling Physical Exam Vital Signs: Last Vital Signs Pulse 98 05/25/24 10:06 BP 110/64 05/25/24 10:06 BMI result Body Mass Index 20.8 Const General: cooperative, no acute distress, well developed and well groomed Nutritional Appearance: well nourished Orientation/consciousness: oriented to person, oriented to place and oriented to time Limitations: No language barrier HEENT Head: Yes normocephalic and Yes atraumatic Eyes General: appearance normal, both eyes and all related structures Pupils: Equal, round and reactive pupils present Neck Neck: Yes normal visual inspection and Yes no lymphadenopathy Thyroid: Thyroid normal Resp Effort & Inspection: normal respiratory effort and able to speak in complete sentences Auscultation: clear to auscultation bilaterally Cardio Rate: regular rate Rhythm: regular rhythm Heart sounds: Normal, physiologic split S2 sound present Peripheral pulses: radial pulses present and posterior tibial pulses present GI Inspection: No distended and No Abdominal panniculus present Palpation (GI): Soft to palpation, nontender, no guarding, not rigid and No hepatosplenomegaly present Percussion: Yes normal to percussion Auscultation: normal bowel sounds Rectal Exam - Female: deferred Abdomen image: 2 1. old trauma scar 2. surgical scar Skin General skin exam: no rashes or lesions noted, turgor normal, skin not dry, no jaundice, No spider nevi and no striae Rashes: no rashes Nails: normal Neuro General: oriented to person, oriented to place and oriented to time Cranial nerves: Yes Equal, round and reactive pupils present and Yes Normal hearing present Speech: No Abnormal speech present Extrem General: Yes normal to inspection, No clubbing, No cyanosis and No edema Psych Appearance: grossly normal and well kempt Mental Status: mental status grossly normal Speech and movement: Normal speech and movement present Affect: normal affect Attitude: cooperative Thought process: Normal thought process present and not confabulating Thought content: Normal thought content present Insight: Limited insight present (Psych) Judgement: Limited judgement present (Psych) Assessment & Plan Assessment & Plan (1) Pre-op examination: Code(s): Z01.818 - Encounter for other preprocedural examination Category: Medical (2) Pulmonary emphysema: Code(s): J43.9 - Emphysema, unspecified Category: Medical (3) Dysphagia: Code(s): R13.10 - Dysphagia, unspecified Category: Medical (4) Acute diarrhea: Code(s): R19.7 - Diarrhea, unspecified Category: Medical Plan Apparently, she has had diarrhea for a week and is reporting that she feels like my throat is closing every time I eat. Her youngest son just in November and she is dealing with the stress. The diarrhea was of acute on set a week ago. She is having pain in the bilateral lower quads and when the pain is bad she has nausea. Over the past 3 weeks she will have dysphagia in the area just above the sternal notch with odysonphagia with solid foods an not liquids. All of this was preceded by a severe sinus infection with 3 rounds of abx. There are no prior problems with anesthesia or sedation. She denies any cardiac problems and her respiratory/COPD is well controlled. No ID problems There is no known FHX of crc of polyps, but an aunt of stomach cancer. Orders: Orders 2 EGD/[place] Combo - GI Use Only 05/25/24 R13.10 - Dysphagia, unspecified, R19.7 - Diarrhea, unspecified FL barium swallow 05/25/24 R13.10 - Dysphagia, unspecified GI Panel 05/25/24 R19.7 - Diarrhea, unspecified, R13.10 - Dysphagia, unspecified H pylori Ag Stool 05/25/24 R19.7 - Diarrhea, unspecified C Reactive Protein 05/25/24 R19.7 - Diarrhea, unspecified Medications: New 2 bisacodyl (Dulcolax (bisacodyl)) 10 mg (2 x 5 mg) PO BEDTIME 4 tabs 0RF 2 days peg 3350-electrolytes 236-22.74-6.74 -5.86 gram (Golytely) until fecal effluent is clear; do not exceed a total volume of 2,000 mL 240 mL PO Q10M 4,000 mL 0RF 1 day Z12.11 - Encounter for screening for malignant neoplasm of colon Coding Level of Care Code New Pt Level 3 (00322) Diagnoses Pre-op examination Z01.818 Pulmonary emphysema J43.9 Dysphagia R13.10 Acute diarrhea R19.7
[2024-05-25 10:06] VITALS: BP 110/64; PULSE 98; BMI 20.8
== END 2024-05-25 11:09 | disposition home or self-care (01) ==
PROVIDERS: PCP Internal Medicine Geriatric Medicine; Visit Provider Nurse Practitioner
DX: Z01.818 Encounter for other preprocedural examination (principal); Z12.11 Encounter for screening for malignant neoplasm of colon; R19.7 Diarrhea, unspecified; R13.10 Dysphagia, unspecified
CPT/HCPCS: 99202

== ENCOUNTER 2024-05-25 09:44 | Outpatient (REF) | payer MEDICAID, SELFPAY ==
[2024-05-25 12:47] LABS: C Reactive Protein < 0.10 mg/dL (< or = 0.50)
== END 2024-05-25 09:45 | disposition home or self-care (01) ==
LOC: HO.LAB 09:44
PROVIDERS: PCP Internal Medicine Geriatric Medicine; Visit Provider Nurse Practitioner
DX: R19.7 Diarrhea, unspecified (principal)
CPT/HCPCS: 36415; 86140

== ENCOUNTER 2024-06-18 08:26 | Outpatient (REF) | payer MEDICAID, SELFPAY ==
[2024-06-18 12:43] LABS: Creatinine Urine 250.66 mg/dL; Microalbum/Creatinine Ratio Ur 5.1 ug/mg cr (<30)
[2024-06-18 13:04] LABS: Alanine Aminotransferase 25 U/L (0-31); Albumin Level 4.2 g/dL (3.5-5.0); Alkaline Phosphatase 79 U/L (39-117); Anion Gap 16 (12-20); Aspartate Amino Transferase 30 U/L (5-31); Bilirubin Total 0.6 mg/dL (0.0-1.0); Blood Urea Nitrogen 9 mg/dL (9-16); Calcium 9.6 mg/dL (8.4-10.2); Carbon Dioxide 22 mmol/L (22-29); Chloride 107 mmol/L (96-108); Cholesterol 277 mg/dL (<200); Estimated Glomerular Filt Rate > 60; Glucose Random 95 mg/dL (60-115); HDL Cholesterol 61 mg/dL (>40); LDL Cholesterol Calculated 186 mg/dL (<100); Potassium 3.7 mmol/L (3.3-5.1); Sodium 141 mmol/L (135-145); Total Protein 7.5 g/dL (6.5-8.0); Triglycerides 151 mg/dL (<150)
== END 2024-06-18 08:27 | disposition home or self-care (01) ==
LOC: HO.HHCL 08:26
PROVIDERS: Visit Provider Internal Medicine Geriatric Medicine
DX: E11.9 Type 2 diabetes mellitus without complications (principal)
CPT/HCPCS: 36415; 80053; 80061; 82043; 82570

== ENCOUNTER 2024-06-28 14:43 | Outpatient (REF) | payer MEDICAID, SELFPAY ==
--- NOTE | 2024-06-28 14:46 | EMG_ITS ---
Chief complaint: Chronic hand numbness. EMG done by Dr. Sinha 2020 reported bilateral mild Carpal Tunnel Syndrome. Reason for referral: Evaluate for Carpal Tunnel Syndrome Referred by: Dr. Beatty Procedure done: Bilateral upper extremities NCS/EMG Precautions and/or limitations: None The limb temperature was monitored continuously and remained between 32-36 degrees C during the performance of the NCS. Nerve Conduction Studies Anti Sensory Summary Table ?Stim Site NR Onset (ms) Norm Onset (ms) Peak (ms) Norm Peak (ms) O-P Amp (?V) Norm O-P Amp Site1 Site2 Delta-0 (ms) Dist (cm) Vinicio (m/s) Norm Vinicio (m/s) Left Median Anti Sensory (2nd Digit) Wrist ? 2.8 3.8 <3.6 27.5 >10 Wrist 2nd Digit 2.8 14.0 50 Right Median Anti Sensory (2nd Digit) Wrist ? 2.8 3.7 <3.6 44.3 >10 Wrist 2nd Digit 2.8 14.0 50 Left Ulnar Anti Sensory (5th Digit) Wrist ? 2.2 3.3 <3.7 60.3 >15.0 Wrist 5th Digit 2.2 14.0 64 Right Ulnar Anti Sensory (5th Digit) Wrist ? 2.1 3.1 <3.7 58.0 >15.0 Wrist 5th Digit 2.1 14.0 67 Motor Summary Table ?Stim Site NR Onset (ms) Norm Onset (ms) O-P Amp (mV) Norm O-P Amp iAmp (mV) Amp (1st) (%) Site1 Site2 Delta-0 (ms) Dist (cm) Vinicio (m/s) Norm Vinicio (m/s) Left Median Motor (Abd Poll Brev) Wrist ? 3.7 <3.9 9.8 >4.5 10.9 100.0 Elbow Wrist 3.5 18.0 51 >45 Elbow ? 7.2 8.6 9.5 87.8 Right Median Motor (Abd Poll Brev) Wrist ? 3.7 <3.9 5.4 >4.5 6.4 100.0 Elbow Wrist 3.4 18.0 53 >45 Elbow ? 7.1 6.2 7.6 114.8 Left Ulnar Motor (Abd Dig Minimi) Wrist ? 3.0 <3.0 12.0 >5 14.8 100.0 B Elbow Wrist 2.7 15.5 57 >45 B Elbow ? 5.7 11.4 14.4 95.0 A Elbow B Elbow 1.6 10.0 63 >45 A Elbow ? 7.3 10.9 13.8 90.8 Right Ulnar Motor (Abd Dig Minimi) Wrist ? 2.7 <3.0 9.7 >5 12.6 100.0 B Elbow Wrist 3.0 16.0 53 >45 B Elbow ? 5.7 9.8 12.7 101.0 A Elbow B Elbow 1.3 10.0 77 >45 A Elbow ? 7.0 9.7 12.6 100.0 Comparison Summary Table ?Stim Site NR Peak (ms) Norm Peak (ms) P-T Amp (?V) Site1 Site2 Delta-P (ms) Norm Delta (ms) Right Median/Radial Dig I Comparison (Digit 1 - 10cm) Median ? 2.9 <2.9 76.6 Median Radial -0.1 Radial ? 3.0 <2.8 217.2 EMG ?Side Muscle Nerve Root Ins Act Fibs Psw Amp Dur Poly Recrt Int Pat Comment Right 1stDorInt Ulnar C8-T1 Nml Nml Nml Nml Nml 0 Nml Complete Right FlexCarRad Median C6-7 Nml Nml Nml Nml Nml 0 Nml Complete Right Biceps Musculocut C5-6 Nml Nml Nml Nml Nml 0 Nml Complete Right Triceps Radial C6-7-8 Nml Nml Nml Nml Nml 0 Nml Complete Right Deltoid Axillary C5-6 Nml Nml Nml Nml Nml 0 Nml Complete Left 1stDorInt Ulnar C8-T1 Nml Nml Nml Nml Nml 0 Nml Complete Left FlexCarRad Median C6-7 Nml Nml Nml Nml Nml 0 Nml Complete Left Biceps Musculocut C5-6 Nml Nml Nml Nml Nml 0 Nml Complete Left Triceps Radial C6-7-8 Nml Nml Nml Nml Nml 0 Nml Complete Left Deltoid Axillary C5-6 Nml Nml Nml Nml Nml 0 Nml Complete FINDINGS: Bilateral median sensory nerve showed prolonged peak latency. All other nerves tested were within normal. Concentric needle EMG was performed in selected muscles of the bilateral upper extremities. Study did not reveal signs of electric abnormalities as shown in the table above. IMPRESSION: 1. This is an abnormal study. 2. There is electrodiagnostic evidence for bilateral mild median neuropathy at the wrist, consistent with carpal tunnel syndrome. 3. There is no electrodiagnostic evidence for ulnar neuropathy, brachial plexopathy, or cervical radiculopathy. Thank you for your kind referral. Toyin Magana MD, JOHANNY Board Certified, [place] Board [employer] and Rehabilitation (ABPMR) Board Certified, [place] Board of Electrodiagnostic Medicine (ABEM) CODIN [phone] 2 MTDD
== END 2024-06-28 14:44 | disposition home or self-care (01) ==
LOC: HO.NEURO 14:43
PROVIDERS: PCP Internal Medicine Geriatric Medicine; Visit Provider Internal Medicine Geriatric Medicine
DX: G56.03 Carpal tunnel syndrome, bilateral upper limbs (principal)
CPT/HCPCS: 95886; 95911

== ENCOUNTER → 2024-06-28 14:46 | Outpatient (BNV) | payer MEDICAID, SELFPAY | PROVIDERS: PCP Internal Medicine Geriatric Medicine; Visit Provider Physical Medicine & Rehabilitation | DX: G56.03 Carpal tunnel syndrome, bilateral upper limbs (principal) | CPT/HCPCS: 95886; 95911 ==

== ENCOUNTER 2024-08-16 09:41 | Outpatient (REF) | payer MEDICAID, SELFPAY ==
--- NOTE | ~2024-08-16 | FL_ITS ---
EXAMINATION: XR FLUOROSCOPY UPPER GI WITH AIR CLINICAL INFORMATION: Dysphagia. COMPARISON: None TECHNIQUE: Fluoroscopic air contrast upper GI examination was performed utilizing standard techniques with thin and thick barium and effervescent granules. Numerous spot images were obtained. FINDINGS: Lateral cine images of the oropharynx and hypopharynx demonstrate normal swallow mechanism with normal epiglottic inversion and soft palate elevation. No tracheal penetration, glottic or subglottic aspiration identified. No nasopharyngeal reflux present. Hypopharyngeal structures appear normal without evidence of mass or diverticulum. There was no significant cricopharyngeal achalasia. Dual and single contrast images of the esophagus demonstrate normal caliber, contour, and mucosal pattern. No evidence of stricture, mass, or ulcerations identified. Esophageal peristalsis is mildly disorganized. No hiatus hernia identified. No significant gastroesophageal reflux was seen during the course of the examination and on reflux views. Dual contrast and single contrast images of the stomach demonstrated a normal contour. The areae gastrica have a thickened appearance, suggestive of gastritis. And mucosal pattern without evidence of mass, ulceration, or other abnormality. Contrast freely passed into the gastric antrum and duodenal bulb without delay. Single and air-contrast images of the duodenal bulb demonstrate no abnormality. The duodenal sweep has a normal appearance, course, and mucosal fold appearance. The imaged proximal jejunum has a normal fold pattern and caliber. FLUOROSCOPY TIME: 3 minutes 43 seconds Number of Spot Images: 7 Number of Cine: 15 DOSE AREA PRODUCT: 1478 uGy-m2 (microgray-meter squared) FL/FL barium swallow IMPRESSION: 1. Mildly disorganized esophageal peristalsis. 2. Thickened appearance of the areae gastrica, suggestive of gastritis. This procedure was performed by Pedro Jackson PA-C, and supervised by Dr. Kathleen. Electronically signed by: Jakob Kathleen MD 08/16/2024 03:35 PM [facility] [place]
== END 2024-08-16 09:42 | disposition home or self-care (01) ==
LOC: HO.XRAY 09:41
PROVIDERS: PCP Internal Medicine Geriatric Medicine; Visit Provider Nurse Practitioner
DX: R13.10 Dysphagia, unspecified (principal)
CPT/HCPCS: 74220

== ENCOUNTER → 2024-08-16 09:44 | Outpatient (BNV) | payer MEDICAID, SELFPAY | PROVIDERS: PCP Internal Medicine Geriatric Medicine; Visit Provider Physician Assistant Surgical | DX: K21.00 Gastro-esophageal reflux disease with esophagitis, without bleeding (principal) | CPT/HCPCS: 74246 ==

== ENCOUNTER → 2024-09-20 13:00 | Outpatient (BNVA) | payer MEDICAID, SELFPAY | PROVIDERS: PCP Internal Medicine Geriatric Medicine; Visit Provider Obstetrics & Gynecology ==

== ENCOUNTER 2024-09-26 14:32 | Outpatient (REF) | payer MEDICAID, SELFPAY ==
--- OUTSIDE RECORDS SUMMARY | 2024-09-26 15:48 | XMS_ITS | Encounter Summary ---
Author Organization [facility] [employer] [facility] Address [address] [place] [address] [address] [place] [address] Care Team Providers Care Phone Triage Specialist Name Role Phone NameSteve MD Primary Care Provider [phone] Reason for Visit * Reason Comments Med Change Request Encounter Details Date Type Department Care Team (Late Contact Info) Description 05/10/2023 Refill [facility] [address] [place] [address] [phone] NameSteve MD [address] [place] [phone] Social History Tobacco Use Types Packs/Day Years Used Date Smoking Tobacco: Every Day Cigarettes Smokeless Tobacco: Never Alcohol Use Standard Drinks/Week Comments Never 0 (1 standard drink = 0.6 oz pur e alcohol) Depression Answer Date Recorded Patient Health Questionnaire-9 Score 16 05/10/2023 Depression Answer Date Recorded Patient Health Questionnaire-2 Score 4 05/10/2023 Comments Unknown Sex and Gender Information Value Date Recorded Sex Assigned at Female 06/14/2022 10:34 AM EDT Legal Sex Female 10:34 AM EDT Gender Identity Female 06/14/2022 10:34 AM EDT Sexual Orientation Straight 06/14/2022 10 :34 AM EDT documented as of this encounter Plan of Treatment Upcoming Encounters Date Type Department Care Team (Late st Contact Info) Description 10/08/2024 3:45 PM EST Office Visit [facility] [address] [place] [address] [phone] Steve Beatty MD [address] [place] [address] [phone] 12/31/2024 2:30 PM EDT Office Visit [facility] [address] [place], [place] [phone] Denisse Rai, OD [address] [place] [address] documented as of this encounter Visit Diagnoses Not on filedocumented in this encounter Additional Health Concerns Assessment Noted Time PHQ-9 Depression Total Score: 16 023 3:49 PM EDT documented as of this encounter Care Teams Phone Triage Specialist Relationship Specialty Start Date End Date Name, MD Steve [address] [place], [place] [phone] PCP - General Family Medicine 01/23/18 [facility] 07/01/24 documented as of this encounter
--- OUTSIDE RECORDS SUMMARY | 2024-09-26 15:48 | XMS_ITS | Encounter Summary ---
Author Organization [employer] Address [address] [facility] [address] [place] [address] Care Team Providers Care Light Fixture Servicer Name Role Phone Name, Steve MCCURDY Primary Care Provider [phone] Reason for Visit * Reason Onset Date Comments Med Refill 05/26/2023 Encounter Details Date Type Department Care Team (Late st Contact Info) Description 05/26/2023 Telephone [facility] [address] [place], [place] [phone] Name, MD Steve [address] [place] [address] Med Refill Social History Tobacco Use Types Packs/Day Years Used Date Smoking Tobacco: Every Day Cigarettes Smokeless Tobacco: Never Alcohol Use Standard Drinks/Week Comments Never 0 (1 standard drink = 0.6 oz pur e alcohol) Depression Answer Date Recorded Patient Health Questionnaire-9 Score 21 01/02/2024 Patient Health Questionnaire-9 Score 21 01/02/2024 Last PHQ-9: Questionnaire Data Not on file 0 01/02/2024 Housing Stability Answer Date Recorded What is your housing situation today? I have shahzad abdi 06/09/[address] you li ve. Do you have problems with any of the following? None of the above 06/09/2023 Food Insecurity Answer Date Recorded Within the past 12 months, y ou worried that your food would run out before you got money to buy more: Never True 06/09/2023 Within the past 12 months,th e food you bought just didn't last and you didn't have enough money to get more: Never True Transportation Answer Date Recorded In the past 12 months, has l ack of transportation kept you from medical appts, meetings, work or from getting things needed for daily living? No 06/09/2023 Utilities Answer Date Recorded In the past 12 months, has t he electric, gas, oil or water company threatened to shut off services in your home? Yes 05/23/2023 Depression Answer Date Recorded Patient Health Questionnaire-2 Score 6 01/02/2024 Comments Unknown Sex and Gender Information Value Date Recorded Sex Assigned at Female 06/14/2022 10:34 AM EDT Legal Sex Female 10:34 AM EDT Gender Identity Female 06/14/2022 10:34 AM EDT Sexual Orientation Straight 06/14/2022 10 :34 AM EDT documented as of this encounter Miscellaneous Notes * Telephone Encounter - Merrill Tinsley - 05/26/2023 1:10 PM EDT Tc from pt requesting medication clonazePAM (KlonoPIN) 0.5 MG tablet to be sent to [address] [place] [phone], states [facility] on file is currently out of stock. documented in this encounter Plan of Treatment Upcoming Encounters Date Type Department Care Team (Late st Contact Info) Description 10/08/2024 3:45 PM EST Office Visit [facility] [address] [place] [address] Name, MD Steve [address] [place] [address] 12/31/2024 2:30 PM EDT Office Visit [facility] OPTOMETRY [address] [place] [address] Denisse Rai, OD [address] [place] [address] documented as of this encounter Visit Diagnoses Not on filedocumented in this encounter Additional Health Concerns Assessment Noted Time PHQ-9 Depression Total Score: 16 023 3:49 PM EDT documented as of this encounter Care Teams Light Fixture Servicer Relationship Specialty Start Date End Date Name, MD Steve [address] [place] [address] PCP - General Family Medicine 01/23/18 [facility] 07/01/24 documented as of this encounter
--- OUTSIDE RECORDS SUMMARY | 2024-09-26 15:48 | XMS_ITS | Encounter Summary ---
Author Organization [employer] Address [address] [facility] [address] [place] [address] Care Team Providers Care Life Science Teacher Name Role Phone Name, Steve MCCURDY Primary Care Provider [phone] Reason for Visit * Reason Comments Med Refill Encounter Details Date Type Department Care Team ([facility] st Contact Info) Description 12/07/2023 Refill [facility] [address] [place], [place] [phone] Name, MD Steve [address] [place] [address] Social History Tobacco Use Types Packs/Day Years Used Date Smoking Tobacco: Every Day Cigarettes Smokeless Tobacco: Never Alcohol Use Standard Drinks/Week Comments Never 0 (1 standard drink = 0.6 oz pur e alcohol) Depression Answer Date Recorded Patient Health Questionnaire-9 Score 16 05/10/2023 Housing Stability Answer Date Recorded What is [...] Description 10/08/2024 3:45 PM EST Office Visit [facility] [address] [place] [address] NameSteve MD [address] [place] [phone] 12/31/2024 2:30 PM EDT Office Visit [facility] OPTOMETRY [address] [place] [address] Fredi, Denisse, OD [address] [place] [address] documented as of this encounter Visit Diagnoses Not on filedocumented in this encounter Additional Health Concerns Assessment Noted Time PHQ-9 Depression Total Score: 16 023 3:49 PM EDT documented as of this encounter Care Teams Life Science Teacher Relationship Specialty Start Date End Date NameSteve MD [address] [place] [phone] PCP - General Family Medicine 01/23/18 [employer] [facility] 07/01/24 documented as of this encounter
--- OUTSIDE RECORDS SUMMARY | 2024-09-26 15:48 | XMS_ITS | Encounter Summary ---
Author Organization [employer] Address [address] [facility] [address] [place] [address] Care Team Providers Care Vein Pumper Name Role Phone Name, Steve MCCURDY Primary Care Provider [phone] Encounter Details Date Type Department Care Team (Late st Contact Info) Description 09/11/2024 Orders Only [facility] [address] [place] [address] Provider, MD Raisa Social History Tobacco Use Types Packs/Day Years Used Date Smoking Tobacco: Every Day Cigarettes Passive Smoke Exposure: Current Smokeless Tobacco: Never Alcohol Use Standard Drinks/Week [...] Patient Health Questionnaire-2 Score 6 01/02/2024 Comments No Sex and Gender Information Value Date Recorded Sex Assigned at Female 06/14/2022 10:34 AM EDT Legal Sex Female 10:34 AM EDT Gender Identity Female 06/14/2022 10:34 AM EDT Sexual Orientation Straight 06/14/2022 10 :34 AM EDT documented as of this encounter Plan of Treatment Upcoming Encounters Date Type Department Care Team (Late st Contact Info) Description 10/08/2024 3:45 PM EST Office Visit [facility] [address] [place] [address] Name, MD Steve [address] [place] [address] 12/31/2024 2:30 PM EDT Office Visit [facility] OPTOMETRY [address] [place] [address] Fredi, Denisse, OD [address] [place] [address] documented as of this encounter Procedures Procedure Name Priority Date/Time Associated Diagnosis Comments CT ABDOMEN PELVIS W CONTRAST Routine 09/10/2024 11:32 AM EST documented in this encounter Results * CT Abdomen Pelvis w/ Contrast (09/10/2024 11:32 AM EST) Anatomical Region Laterality Modality Body, Pelvis, Abdomen Computed T omography us Historical Provider MD GUSMAN CT PROCEDURES Final R esult documented in this encounter Visit Diagnoses Not on filedocumented in this encounter Additional Health Concerns Assessment Noted Time PHQ-9 Depression Total Score: 21 024 10:52 AM EDT documented as of this encounter Care Teams Vein Pumper Relationship Specialty Start Date End Date Name, MD Steve [address] [place] [phone] PCP - General Family Medicine 01/23/18 [facility] 07/01/24 documented as of this encounter
--- OUTSIDE RECORDS SUMMARY | 2024-09-26 15:49 | XMS_ITS | Encounter Summary ---
Author Organization [employer] [facility] [employer] Address [address] [facility] [address] [place] [address] Care Team Providers Care Manager Drug Name Role Phone Name, Steve MCCURDY Primary Care Provider [phone] Reason for Visit * Reason Comments Care Coordination CM/CHW appt reminder Encounter Details Date Type Department Care Team (Latest Contact Info) Description 09/26/2024 Patient Outreach [facility] [address] [place] [address] Name, MD Steve [address] [place] [address] Care Coordination (CM/CHW appt reminder) Social History Tobacco Use Types Packs/Day Years Used Date Smoking Tobacco: Every Day Cigarettes Passive Smoke Exposure: Current Smokeless Tobacco: Never Alcohol Use Standard Drinks/Week Comments Never 0 (1 standard drink = 0.6 oz pur e alcohol) Depression Answer Date Recorded Patient Health Questionnaire-9 Score 15 09/26/2024 Patient Health Questionnaire-9 Score 15 09/26/2024 Last PHQ-9: Questionnaire Data Not on file 0 09/26/2024 Housing Stability Answer Date Recorded What is [...] Answer Date Recorded Patient Health Questionnaire-2 Score 3 09/26/2024 Comments No Sex and Gender Information Value Date Recorded Sex Assigned at Female 06/14/2022 10:34 AM EDT Legal Sex Female 10:34 AM EDT Gender Identity Female 06/14/2022 10:34 AM EDT Sexual Orientation Straight 06/14/2022 10 :34 AM EDT documented as of this encounter Progress Notes * Cristal Jacob - 09/26/2024 10:08 AM EST CHW Cristal Jacob placed outbound call to patient introducing herself from [facility] CM Department, in regard to remind patient of Adult Complex Care program initial assessment appt for tomorrow 09/26/24@ 1PM via telephone with CM Pepe Tran RN. Patient's name and was confirmed. Patient is aware and confirmed will be available for call and has no barriers on attending call. Patient verbalized understanding and agrees with plan. documented in this encounter Plan of Treatment Upcoming Encounters Date Type Department Care Team (Late st Contact Info) Description 10/08/2024 3:45 PM EST Office Visit [facility] [address] [place] [address] Name, MD Steve [address] [place] [address] 12/31/2024 2:30 PM EDT Office Visit [facility] [address] [place] [address] Denisse Rai, OD [address] [place] [address] documented as of this encounter Visit Diagnoses Not on filedocumented in this encounter Additional Health Concerns Assessment Noted Time PHQ-9 Depression Total Score: 15 025 2:29 PM EST documented as of this encounter Care Teams Manager Drug Relationship Specialty Start Date End Date Name, MD Steve [address] [place] [address] PCP - General Family Medicine 01/23/18 [email or web address] [facility] 07/01/24 documented as of this encounter
--- OUTSIDE RECORDS SUMMARY | 2024-09-26 15:49 | XMS_ITS | Clinical Summary ---
Author Organization [employer] Address [address] [place] [address] Care Team Providers Care Licensed Veterinary Technician Name Role Phone Name, Steve MCCURDY Primary Care Provider [phone] Allergies No known active allergies Medications FREESTYLE LITE test strip USE 1 BY TO CHECK BLOOD SUGAR EVERY DAY 100 strip 07/05/20 23 Active omeprazole (PriLOSEC) [address] capsuleIndicat ions:Type 2 diabetes mellitus without complication, without long-term current use of insulin (CMS/HCC) Take 1 capsule (40 mg) by mouth before breakfast. Do not crush or chew. 30 capsule 01/02/20 24 025 Active atorvastatin (Lipitor) 40 MG tabletIndicati ons:Type 2 diabetes mellitus without complication, without long-term current use of insulin (CMS/HCC) Take 1 tablet (40 mg) by mouth Once per day. 30 tablet 01/02/20 24 025 Active dulaglutide (Trulicity) 0.75 MG/0.5ML solution pen-injectorIn dications:Type 2 diabetes mellitus without complication, without long-term current use of insulin (CMS/HCC) Inject 0.75 mg under the skin 1 (one) time per week. 4 each 01/02/20 24 Active zolpidem (Ambien) 10 MG tablet Take 10 mg by mouth at bedtime. 01/02/20 24 Active clonazePAM (KlonoPIN) 1 MG tablet TAKE 1/2 TABLET BY MOUTH THREE TIMES A DAY NEEDED FOR ANXIETY 01/05/20 24 Active venlafaxine XR (Effexor XR) 150 MG 24 hr capsule TAKE 1 CAPSULE BY MOUTH ONCE A DAY TAKE WITH 75MG 12/02/19 24 Active celecoxib (CeleBREX) 400 MG capsule TAKE 1 CAPSULE BY MOUTH TWICE A DAY FOR 20 DAYS 40 capsule 05/02/20 24 Active fluticasone furoate (Arnuity Ellipta) 100 MCG/ACT inhalerIndicat ions:Type 2 diabetes mellitus without complication, without long-term current use of insulin (CMS/[facility]) Inhale 1 puff Once per day. Rinse mouth with water after use to reduce aftertaste and incidence of candidiasis. Do not swallow. 1 each 05/09/20 24 025 Active albuterol (Ventolin HFA) 108 (90 Base) MCG/ACT inhalerIndicat ions:Type 2 diabetes mellitus without complication, without long-term current use of insulin (CMS/HCC) TAKE 2 PUFFS BY MOUTH EVERY 4 TO 6 HOURS NEEDED 18 g 1 05/24/20 24 Active SUMAtriptan (Imitrex) 25 MG tablet TAKE 1 TAB BY MOUTH AT ONSET OF MIGRAINE MAY REPEAT AFTER 2 HOURS IF HEADACHE RETURNS MAX 200MG/24HR 9 tablet 06/27/20 24 Active lidocaine (Lidoderm) 5 % patchIndicatio ns:Type 2 diabetes mellitus without complication, without long-term current use of insulin (CMS/HCC) APPLY 1 PATCH EVERY DAY MAY WEAR UP TO 12 HOURS 30 patch 06/27/20 24 Active fluticasone (Flonase) 50 MCG/ACT nasal spray ADMINISTER 1 SPRAY INTO EACH NOSTRIL ONCE PER DAY. 48 mL 08/22/19 25 Active ARIPiprazole (Abilify) 5 MG tablet Take 1 tablet by mouth Once per day. 08/22/19 25 Active melatonin 3 MG tablet Take 2 tablets by mouth if needed at bedtime for sleep. 08/22/19 25 Active venlafaxine XR (Effexor XR) 37.5 MG 24 hr capsule Take 1 capsule by mouth Once per day. 08/22/19 25 Active venlafaxine XR (Effexor XR) 75 MG 24 hr capsule TAKE 2 CAPSULES BY MOUTH EVERY MORNING. DO NOT CRUSH OR CHEW. 60 capsule 1 07/05/20 23 025 Discontinued(Me d list cleanup (will not trigger notification to Pharmacy)) Active Problems Problem Noted Date Diagnosed Date Hypokalemia 09/26/2024 Gastroenteritis 09/26/2024 Syncope 09/11/2024 Dehydration 09/11/2024 Acute gastroenteropathy due to Norovirus 025 Hypotension 09/10/2024 Subacute maxillary sinusitis 04/23/2024 Assessment & Plan (04/23/2024 4:52 PM EDT): Likely as complication of initial URI. Rx Augmentin x 7d + Flonase daily up to 1m + Nasal saline + Tyelnol prn YOUSSEF, sore throat. Advised to constant hand washing, wear masks until cough resolves , max 5d. Re consult prn. Bilateral carpal tunnel syndrome 05/10/2023 Cough 05/10/2023 Emphysema, unspecified 05/10/2023 Overview (10/31/2023): [place] [address] Pulmonary Function Report Draft Patient: Benigno Pickett MR#: [id number] 03 : 1975 Acct:[id number] Age/Sex: 44 / F ADM Date: 07/08/20 Loc: HO.RESP Attending Dr: Angélica Pierre / [facility] Ordering Physician: ANGÉLICA PIERRE MD Date of Service: 07/08/20 Procedure(s): RT pulmonary function test Accession Number(s): [id number] cc: FLOWS: FEV1 of 97% of predicted at 2.61 L. FVC 92% of predicted at 3.04 L. FEV1 to FVC ratio of 0.86. No bronchodilator response. LUNG VOLUMES: Total lung capacity 102% of predicted at 4.86 L. Residual volume 108% of predicted at 1.76 L. Slow vital capacity 99% of predicted at 3.10 L. Expiratory reserve volume 84% of predicted at 0.85 L. Diffusion capacity is mildly decreased. IMPRESSION: No obstructive or restrictive ventilatory defect. No bronchodilator response. Decreased diffusion capacity suggests emphysema. Dayron Velasquez MD Hypercholesterolemia 05/10/2023 Nipple discharge 05/10/2023 History of tubal ligation 05/10/2023 Type 2 diabetes mellitus without complication Tobacco use 10/29/2022 Neurogenic claudication 10/01/2022 Assessment & Plan (10/01/2022 5:43 PM EST): Exacerbation of chronic lumbar back pain, seen before at [facility]. She has an MRI showing a broad based disc bulge L4-5. Using baclofen and Celebrex as a bridge pain management until her ortho appointment. Depression with anxiety 02/08/2018 Resolved Problems Problem Noted Date Diagnosed Date Resolved Date Suspected respiratory disease 05/10/2023 01/02/2024 Encounters Date Type Department Care Team Description 09/26/2024 2:00 PM EST Office Visit [address] [address] Grace Wolf FNP Gastroenteritis (Primary Dx); Hypokalemia 09/26/2024 Travel 09/26/2024 Patient Outreach [address] [address] Steve Beatty MD Care Coordination (CM/CHW appt reminder) 09/24/[address] [address] Vianey Valladares [place] Chart Prep 09/13/2024 Patient Outreach [address] [address] Steve Beatty MD Transition Of Care (Tcm) (HDF- scheduled) 09/13/2024 Patient Outreach [address] [address] Steve Beatty MD Care Coordination (CM/CHW outreach) 09/13/2024 Patient Outreach [address] [address] Steve Beatty MD Care Coordination (CM/CHW outreach) 09/11/2024 Orders Only [facility] [employer] [facility] [address] [place] [address] Provider, MD Raisa 09/11/2024 Patient Outreach [address] [address] Steve Beatty MD Care Coordination (CHW facility check) 09/11/[address] [address] Pepe Tran, [place] Care Management (C3- chart review) 08/22/2024 Refill [facility] [address] [place] [address] Carolyn Novoa MD 08/21/[address] [address] Yifan Celestin MA feb recall 08/16/2024 Orders Only [facility] External Provider, [facility] 08/03/[address] [address] Yifan Celestin [place] DME-BILATERNAL WRIST BRACE 07/17/[address] [address] NameSteve MD [employer] Medical Equipment 07/10/[address] [address] Steve Beatty MD Durable Medical Equipment 07/02/[address] [address] Anibal Collado, [place] Call Back Request from Last 3 Months Immunizations Name Administration Dates Next Due Pfizer Covid-19 Vaccine 12+ 05/06/2021, 1 Pneumococcal Polysaccharide PPSV23 03/30/2022 TD (adult), 2 Lf tetanus tox oid, preservative free, adsorbed 12/08/2017 Tdap 12/08/2017 Family History Medical History Relation Name Comments Breast cancer Cousin Relation Name Status Comments Cousin Social History Tobacco Use Types Packs/Day Years Used Date Smoking Tobacco: Every Day Cigarettes Passive Smoke Exposure: Current Smokeless Tobacco: Never Tobacco Cessation:Ready to Q uit: Not Asked; Counseling Given: Not Answered Alcohol Use Standard Drinks/Week Comments Never 0 [...] Orientation Straight 06/14/2022 10 :34 AM EDT Last Filed Vital Signs Vital Sign Reading Time Taken Comments Blood Pressure 113/70 09/26/2024 2:11 PM EST Pulse 94 09/26/2024 2:11 PM EST Temperature 36.7 ??C (98.1 ??F) 09/26/2024 2:11 PM ES T Respiratory Rate 22 09/26/2024 2:11 PM EST Oxygen Saturation 98% 09/26/2024 2:11 PM EST Inhaled Oxygen Concentration - - Weight 56.5 kg (124 lb 9.6 oz) 09/26/2024 2:11 P M EST Height 157.5 cm (5' 2 ) 09/26/2024 2:11 PM EST Body Mass Index 22.79 09/26/2024 2:11 PM EST Plan of Treatment Upcoming Encounters Date Type Department Care Team (Late st Contact Info) Description 10/08/2024 3:45 PM EST Office Visit [facility] [address] [place] [phone] Name, MD Steve [address] [place] [address] 12/31/2024 2:30 PM EDT Office Visit [facility] [address] [place], [place] [phone] Denisse Rai, OD [address] [place], [place] [phone] Health Maintenance Due Date Last Done Comments CT Colonography 1975 Colonoscopy 1975 Colorectal Cancer Screening 1975 FIT DNA/Cologuard 1975 FIT 1975 FOBT 1975 HIV Screening 1975 Sigmoidoscopy 1975 Diabetes: Foot Exam 12/05/1983 Alcohol/Substance Use Screening 1985 Family Planning (PISQ) 1988 Hepatitis C Screening 12/05/1991 Hepatitis B Vaccines (1 of 3 - 19+ 3-dose series) 1992 Pneumococcal Vaccine: 50+ Years (2 of 2 - PCV) 03/30/2023 03/30/2022 Zoster Vaccines (1 of 2) 12/05/2023 Mammogram 04/09/2024 04/09/2022, 12/14, 02/09/2018 COVID-19 Vaccine ( - season) 2024 05/06/2021, 04/15/2021 Influenza Vaccine (#1) 2024 SDOH Screening 05/10/2024 05/10/2023 Diabetes: Hemoglobin A1C 11/27/2024 024, 01/02/2024, 07/20/2023, Additional history exists Depression Monitoring (PHQ-9) 03/26/2025 09/26/2024, 09/26/2024 Diabetes: Urine Protein Screening 06/18/2025 06/18/2024, 11/03/2023 Lipid Panel 06/18/2025 06/18/2024, 10/14, 03/31/2022 Pap Smear 09/01/2025 09/01/2022, 05/06/2021 Depression Screening 09/26/2025 09/26/2024, 09/26/19 25 Tobacco Screening 09/26/2025 09/26/2024 Eye Exam 12/22/2025 12/23/2023, 12/13, 12/23/2023, Additional history exists Cervical Cancer Screening 09/01/2027 HPV/Cotest 09/01/2027 09/01/2022, 04/16, 02/23/2018 DTaP/Tdap/Td Vaccines (3 - Td or Tdap) 12/09/2027 12/08/2017, 12/08/2017 RSV Patients and Patients Aged 60 years or older (1 - 1-dose 75+ series) 2048 HIB Vaccines Aged Out No longer eligi ble based on patient's age to complete this topic HPV Vaccines Aged Out No longer eligi ble based on patient's age to complete this topic Hepatitis A Vaccines Aged Out No long er eligible based on patient's age to complete this topic IPV Vaccines Aged Out No longer eligi ble based on patient's age to complete this topic Meningococcal Vaccine Aged Out No tara ayala eligible based on patient's age to complete this topic RSV under 20 months Aged Out No longe r eligible based on patient's age to complete this topic Rotavirus Vaccines Aged Out No longer eligible based on patient's age to complete this topic Procedures Procedure Name Priority Date/Time Associated Diagnosis Comments CT ABDOMEN PELVIS W CONTRAST Routine 09/10/2024 11:32 AM EST FL ESOPHAGUS BARIUM SWALLOW Routine 08/16/2024 10:00 AM EST ALBUMIN, RANDOM URINE W/CREATININE Routine 06/18/2024 8:30 AM EST Type 2 diabetes mellitus without complication, without long-term current use of insulin ([facility]/HCC) LIPID PANEL, STANDARD Routine 06/18/2024 8:30 AM EST Type 2 diabetes mellitus without complication, without long-term current use of insulin (CMS/HCC) POCT GLYCATED HEMOGLOBIN, TOTAL Routine 05/29/2024 11:39 AM EDT Type 2 diabetes mellitus without complication, without long-term current use of insulin (CMS/HCC) HPV MRNA E6/E7 REFLEX TO HPV 16, 18/45 Routine 09/01/2022 3:17 PM EST PAP SMEAR Routine 09/01/2022 3:17 PM EST MAMMOGRAM GENERIC Routine 04/09/2022 9:0 0 AM EDT from Last 3 Months or Most Recently Relevant to Health Maintenance Results * CT Abdomen Pelvis w/ Contrast (09/10/2024 11:32 AM EST) Anatomical Region Laterality Modality Body, Pelvis, Abdomen Computed T omography us Historical Provider IMG CT PROCEDURES Final R esult * FL Esophagus Barium Swallow (08/16/2024 10:00 AM EST) Anatomical Region Laterality Modality Head, Neck Radiographic Kasia ging 08/16/2024 10:0 0 AM EST Narrative 08/16/2024 3:38 PM EST ? [facility] ?[address] ?[place] [address] ? Fluoroscopy Report ? Signed ? Patient: NievesBenigno ?MR#: [id number] ?? 03 ? : 1975 ?Acct:[id number] ? Age/Sex: 48 / F ?ADM Date: 08/16/24 ? Loc: HO.XRAY ? Attending Dr: Jina Reddy ANP-C ? Ordering Physician: Jina Reddy ?? Date of Service: 08/16/24 ?? Procedure(s): FL barium swallow ?? Accession Number(s): [id number] ? cc: Jina Reddy-C; Name,Steve MCCURDY ? EXAMINATION: ?? XR FLUOROSCOPY UPPER GI WITH AIR ? CLINICAL INFORMATION: ?? Dysphagia. ? COMPARISON: ?? None ? TECHNIQUE: ?? Fluoroscopic air contrast upper GI examination was performed utilizing ?? standard techniques with thin and thick barium and effervescent ?? granules. Numerous spot images were obtained. ? FINDINGS: ?? Lateral cine images of the oropharynx and hypopharynx demonstrate ?? normal swallow mechanism with normal epiglottic inversion and soft ?? palate elevation. No tracheal penetration, glottic or subglottic ?? aspiration identified. No nasopharyngeal reflux present. Hypopharyngeal ?? structures appear normal without evidence of mass or diverticulum. ?? There was no significant cricopharyngeal achalasia. ? Dual and single contrast images of the esophagus demonstrate normal ?? caliber, contour, and mucosal pattern. No evidence of stricture, mass, ?? or ulcerations identified. Esophageal peristalsis is mildly ?? disorganized. ? No hiatus hernia identified. No significant gastroesophageal reflux was ?? seen during the course of the examination and on reflux views. ? Dual contrast and single contrast images of the stomach demonstrated a ?? normal contour. The areae gastrica have a thickened appearance, ?? suggestive of gastritis. And mucosal pattern without evidence of mass, ?? ulceration, or other abnormality. Contrast freely passed into the ?? gastric antrum and duodenal bulb without delay. ? Single and air-contrast images of the duodenal bulb demonstrate no ?? abnormality. The duodenal sweep has a normal appearance, course, and ?? mucosal fold appearance. The imaged proximal jejunum has a normal fold ?? pattern and caliber. ? FLUOROSCOPY TIME: ?? 3 minutes 43 seconds ? Number of Spot Images: 7 ?? Number of Cine: 15 ? DOSE AREA PRODUCT: ?? 1478 uGy-m2 (microgray-meter squared) ? FL/FL barium swallow ?? IMPRESSION: ?? 1. Mildly disorganized esophageal peristalsis. ? 2. Thickened appearance of the areae gastrica, suggestive of gastritis. ? This procedure was performed by Pedro Jackson PA-C, and supervised by ?? Dr. Kathleen. ? Electronically signed by: ??Jakob Kathleen MD ??08/16/2024 03:35 PM EST RP ? Dictated By: ?Pedro Jackson ? Signed By: ?<Electronically signed by Pedro Jackson in OV> ? 08/16/24 1535 ?<Electronically signed by Ajkob S Frannie MCCURDY in OV> ? 08/16/24 1538 ? DD/ 1000 ? TD/TT: 08/16/24 1015 ? Loan Servicing Officer: ? Procedure Note Shanta, Vinay - 08/16/[address] [place] [address] Fluoroscopy Report Signed Patient: Debi Pickett#: [id number] 03 : 1975Acct:[id number] Age/Sex: 48 / FADM Date: 08/16/24 Loc: HO.XRAY Attending Dr: Jina TUCKER Ordering Physician: Jina Reddy Date of Service: 08/16/24 Procedure(s): FL barium swallow Accession Number(s): [id number] cc: Jina Reddy; Name,Steve MCCURDY EXAMINATION: XR FLUOROSCOPY UPPER GI WITH AIR CLINICAL INFORMATION: Dysphagia. COMPARISON: None TECHNIQUE: Fluoroscopic air contrast upper GI examination was performed utilizing standard techniques with thin and thick barium and effervescent granules. Numerous spot images were obtained. FINDINGS: Lateral cine images of the oropharynx and hypopharynx demonstrate normal swallow mechanism with normal epiglottic inversion and soft palate elevation. No tracheal penetration, glottic or subglottic aspiration identified. No nasopharyngeal reflux present. Hypopharyngeal structures appear normal without evidence of mass or diverticulum. There was no significant cricopharyngeal achalasia. Dual and single contrast images of the esophagus demonstrate normal caliber, contour, and mucosal pattern. No evidence of stricture, mass, or ulcerations identified. Esophageal peristalsis is mildly disorganized. No hiatus hernia identified. No significant gastroesophageal reflux was seen during the course of the examination and on reflux views. Dual contrast and single contrast images of the stomach demonstrated a normal contour. The areae gastrica have a thickened appearance, suggestive of gastritis. And mucosal pattern without evidence of mass, ulceration, or other abnormality. Contrast freely passed into the gastric antrum and duodenal bulb without delay. Single and air-contrast images of the duodenal bulb demonstrate no abnormality. The duodenal sweep has a normal appearance, course, and mucosal fold appearance. The imaged proximal jejunum has a normal fold pattern and caliber. FLUOROSCOPY TIME: 3 minutes 43 seconds Number of Spot Images: 7 Number of Cine: 15 DOSE AREA PRODUCT: 1478 uGy-m2 (microgray-meter squared) FL/FL barium swallow IMPRESSION: 1. Mildly disorganized esophageal peristalsis. 2. Thickened appearance of the areae gastrica, suggestive of gastritis. This procedure was performed by Pedro Jackson PA-C, and supervised by Dr. Kathleen. Electronically signed by: Jakob Kathleen MD 08/16/2024 03:35 PM EST RP Dictated By: Pedro Jackson Signed By: <Electronically signed by Pedro Jackson in OV> 08/16/24 1535 <Electronically signed by Jakob Kathleen MD in OV> 08/16/24 1538 DD/ 1000 TD/TT: 08/16/24 1015 Loan Servicing Officer: [facility] Exter nal Provider IMG FLUOROSCOPY PROCEDURES Edited Result - Final * Albumin, Random Urine W/Creatinine (06/18/2024 8:30 AM EST) Creatinine, Urine 250.66 mg/dL [facility] Microalbumin Urine 13.0 mg/L [facility] Microalbum Creatinine Ratio Ur 5.1 <30 ug/mg cr [facility] Comment:Albumin/Creatinine R atio Reference Ranges: Normal: < 30 ug/mg creatinine Microalbuminuria: 30 - 300 ug/mg creatinineClinical Albuminuria: > 300 ug/mg creatinine Urine (Urine, Random) 06/18/2024 8:30 AM EST 06/18/2024 11:13 AM EST Steve Beatty MD LAB URINE ORDERABLES Final Resul t [facility] [address] [place] [phone] * (ABNORMAL) Lipid Panel, Standard (06/18/2024 8:30 AM EST) Triglycerides 151(H) <150 mg/dL [facility] Comment:Desirable Triglyceri de: less than 150 mg/dLBorderline High Triglyceride 150-199 mg/dLHigh Triglyceride: 200-499 mg/dLVery High Triglyceride: greater than or equal to 5OO mg/dL Cholesterol 277(H) <200 mg/dL [facility] Comment:Desirable Cholestero l: less than 200 mg/dLBorderline High Cholesterol: 200-239 mg/dLHigh Cholesterol: greater than 239 mg/dL LDL Cholesterol Calculated 186(H) <100 mg/dL [facility] Comment:Desirable LDL: less than 100 mg/dLNear Optimal/Above Optimal LDL: 110- 129 mg/dLBorderline High LDL: 130-159 mg/dLHigh LDL: 160-189 mg/dLVery High LDL: greater than or equal to 190 mg/dL HDL Cholesterol 61 >40 mg/dL [facility] Comment:Desirable HDL: great er than 40 mg/dL Note: This HDL assay may give artificially low results in patients with liver disease. Blood Venous blood specimen / Unknown 06/18/2024 8:30 AM EST 06/18/2024 11:10 AM EST us Steve Beatty MD LAB BLOOD ORDERABLES Final Resul t [facility] [address] [place] [phone] * POCT HGB A1C (05/29/2024 11:39 AM EDT) Hemoglobin A1C 5.6 4.0 - 6.0 % QC Media Lot # [id number] Lot# Expiration Date ,214,817 Blood 05/29/2024 11:3 9 AM EDT us Steve Beatty MD POINT OF CARE TEST ENTER/EDIT OR DERABLES Final Result * HPV mRNA E6/E7 w/Reflex to HPV Genotypes 16, 18/45 (09/01/2022 3:17 PM EST) HPV nRNA E6/E7 Not Detected Not Detected [facility] Comment:Methodology: Transcr iption-Mediated AmplificationThis assay detects E6/E7 viral messenger RNA (mRNA) from 14high-risk HPV types (16,18,31,33,35,39,45,51,52,56,58,59,66,68).Cervical sources are required for HPV testing.If a vaginal source from a patient who has had atotal hysterectomy with removal of cervix wassubmitted, please contact the testing laboratoryfor alternative testing options.For additional information, please refer tohttp://education.[employer]/faq/WTK832x6(This link if provided for information/educational purposes only.)THIS TEST WAS PERFORMED AT:[email or web address] [place] [address] (1)[place] [address]AAEWJDENNIS WAGGONER MD HPV mRNA E6/E7 TNP [facility] HPV 16 RNA TNP [facility] HPV 18/45 RNA TNP [facility] 09/01/2022 3:17 PM EST 09/01/2022 4:15 PM EST [facility] External Provider LAB CYT OLOGY ORDERABLES Final Result [facility] [address] [place] [address] [phone] * Pap Smear (09/01/2022 3:17 PM EST) 09/01/2022 3:17 PM EST 09/01/2022 4:15 PM EST Narrative [facility] - 09/17/2022 1:19 PM EST ----- ------- Name: Benigno Pickett ? Age/Sex: 46/F ? : 1975 Unit#: [id number] ?? Attend Dr: Efrem Samuel MD ?Re09/01/22 ?Status: DEP REF ? Location: HO.LNP ?Disch: ? ----- ------- SPEC : [id number] ? RECD: 09/01/22 ? STATUS: ??SOUT ? REQ NUM: [id number] ? CHARMAINE: 09/01/22 ? SUBM DR: Efrem Samuel MD ? ENTERED: ??09/01/22 ?SP TYPE: Pap Smr ?OTHR : Steve Beatty MD ? ORDERED: ??Pap Smear ? Interpretation ?? Satisfactory for evaluation. ?? No endocervical cells seen. ?? Negative for intraepithelial lesion or malignancy. ?? Fungal organisms consistent with Jen species. ? HPV mRNA E6/E7: ?NOT DETECTED ? This assay detects E6/E7 viral messenger RNA (mRNA) from 14 high-risk HPV types (16, 18, ?? 31, 33, 35, 39, 45, 51, 52, 56, 58, 59, 66, 68) ? HPV testing performed by [email or web address], [place], [place]. ??See reference laboratory ?? portion of the EMR for entire report. ?Clinical Information LMP: 08/11/2022 Previous PAP test: 2020, Abnormal Other history: HPV+ ? Material Received ?? ThinPrep-Cervical Copies To: ?? Name,Steve MCCURDY ?? [address] [facility] ?? [place] [address] ?? [phone] ?? Efrem Samuel MD ?? [address] [facility] [place] ?? [place] [address] ?? [phone] ----- ------- Signed (signature on file) Holley Cerna Nicholas 09/17/22 1319 ? ----- ------- ? END OF REPORT ? us [facility] External Provider LAB CYT OLOGY ORDERABLES Final Result [facility] [address] [place] [address] [phone] * Mammography Report 1 (04/09/2022 9:00 AM EDT) Anatomical Region Laterality Modality Breast Bilateral Mammography 04/09/2022 9:00 AM EDT Narrative 04/12/2022 10:00 AM EDT Refer to the Notes tab for result details [facility] Procedure: Mammography Report 1 Procedure Note Provider, MD Raisa - 11/07/2022 Refer to the Notes tab for result details [facility] Procedure: Mammography Report 1 us Steve Name MD GUSMAN BI PROCEDURES Final Result from Last 3 Months or Most Recently Relevant to Health Maintenance [place] [address] [place] [address] C3 HS FULL Care Teams Licensed Veterinary Technician Relationship Specialty Start Date End Date Name, MD Steve [address] [place] [phone] PCP - General Family Medicine 01/23/18 [facility] 07/01/24
--- OUTSIDE RECORDS SUMMARY | 2024-09-26 15:49 | XMS_ITS | Encounter Summary ---
Author Organization [employer] Address [address] [facility] 7t [place] [address] Care Team Providers Care Anthropology And Archeology Instructor Name Role Phone Name, Steve MCCURDY Primary Care Provider [phone] Reason for Visit * Reason Comments Care Coordination CM/CHW outreach Encounter Details Date Type Department Care Team (Latest Contact Info) Description 09/13/2024 Patient Outreach [facility] [address] [place], [place] [phone] Name, MD Steve [address] [place] [address] Care Coordination (CM/CHW outreach) Social History Tobacco Use Types Packs/Day Years [...] encounter Progress Notes * Cristal Jacob - 09/13/2024 9:21 AM EST CHW Cristal Jacob, placed outbound call to patient introducing herself from [facility] CM Department, in regard to offering services. Patient's name and was confirmed. Patient agrees to participate in program. Appt. for initial assessment scheduled for 09/27/24 @ 1PM tele with CM Pepe Tran RN. CHW reinforced direct contact information or for any additional questions or concerns and extended clinic hours on Mondays and Wednesdays, and [facility]. Patient provided with after-hours line for [facility], , which offer night time triage service and option to transfer to front clerk provider if needed. Patient verbalizes understanding, and able to repeat back to documentation writer. documented in this encounter Plan of Treatment Upcoming Encounters Date Type Department Care Team (Late st Contact Info) Description 10/08/2024 3:45 PM EST Office Visit [facility] [address] [place] [phone] Name, MD Steve [address] [place] [address] 12/31/2024 2:30 PM EDT Office Visit [facility] [address] [place] [address] Denisse Rai, OD [address] [place] [address] documented as of this encounter Visit Diagnoses Not on filedocumented in this encounter Additional Health Concerns Assessment Noted Time PHQ-9 Depression Total Score: 21 024 10:52 AM EDT documented as of this encounter Care Teams Anthropology And Archeology Instructor Relationship Specialty Start Date End Date Name, MD Steve [address] [place] [address] PCP - General Family Medicine 01/23/18 [employer] [facility] 07/01/24 documented as of this encounter
--- OUTSIDE RECORDS SUMMARY | 2024-09-26 15:49 | XMS_ITS | Encounter Summary ---
Author Organization [employer] Address 75 [facility] 7t [place] [address] Care Team Providers Care Tube Coverer Name Role Phone Name, Steve MCCURDY Primary Care Provider [phone] Reason for Visit * Reason Comments hospital follow up Encounter Details Date Type Department Care Team (Latest Contact Info) Description 09/26/2024 2:00 PM EST Office Visit [facility] [address] [place] [address] Grace Wolf, TANI [address] [place] [address] Gastroenteritis (Primary Dx); Hypokalemia Social History Tobacco Use Types Packs/Day Years [...] AM EDT documented as of this encounter Last Filed Vital Signs Vital Sign Reading [...] Mass Index 22.79 09/26/2024 2:11 PM EST documented in this encounter Plan of Treatment Upcoming Encounters Date Type Department Care Team (Late st Contact Info) Description 10/08/2024 3:45 PM EST Office Visit [facility] [address] [place] [address] Name, MD Steve [address] [place] [address] 12/31/2024 2:30 PM EDT Office Visit [facility] [address] [place] [address] Denisse Rai, OD [address] [place] [address] Scheduled Orders Name Type Priority Associated Diagnoses Orde r Schedule Potassium Lab Routine Hypokalemia Expected: 09/26/2024, Expires: 09/26/2025 documented as of this encounter Visit Diagnoses Diagnosis Gastroenteritis- Primary Other and unspecified noninfectious gastroenteritis and colitis Hypokalemia Hypopotassemia documented in this encounter Additional Health Concerns Assessment Noted Time PHQ-9 Depression Total Score: 15 025 2:29 PM EST documented as of this encounter Care Teams Tube Coverer Relationship Specialty Start Date End Date Name, MD Steve [address] [place] [address] PCP - General Family Medicine 01/23/18 [employer] [facility] 07/01/24 documented as of this encounter
--- OUTSIDE RECORDS SUMMARY | 2024-09-26 15:49 | XMS_ITS | Encounter Summary ---
Author Organization [employer] Address [address] [facility] 7[address] [place] [address] Care Team Providers Care Blocker And Cutter Contact Lens Name Role Phone Name, Steve MCCURDY Primary Care Provider [phone] Reason for Visit * Reason Comments Care Coordination CHW facility check Encounter Details Date Type Department Care Team (Latest Contact Info) Description 09/11/2024 Patient Outreach [facility] [address] [place], [place] [phone] Name, MD Steve [address] [place] [address] Care Coordination (CHW facility check) Social History Tobacco Use Types Packs/Day Years [...] encounter Progress Notes * Cristal Jacob - 09/11/2024 8:53 AM EST CHW Cristal Jacob placed outbound call to [facility] for discharge coordination as patient was admitted on 09/10/2024. CHW was connect to patient's nurse station spoke to medical social worker Teetee and confirmed patient is still admitted and no discharge date yet will call me after she meets with patient. Patient's name, and confirmed. CHW to follow up within the next 2 days. documented in this encounter Plan of Treatment Upcoming Encounters Date Type Department Care Team (Late st Contact Info) Description 10/08/2024 3:45 PM EST Office Visit [facility] [address] [place] [address] Name, MD Steve [address] [place] [address] 12/31/2024 2:30 PM EDT Office Visit [facility] [address] [place] [address] Denisse Rai, OD [address] [place] [address] documented as of this encounter Visit Diagnoses Not on filedocumented in this encounter Additional Health Concerns Assessment Noted Time PHQ-9 Depression Total Score: 21 024 10:52 AM EDT documented as of this encounter Care Teams Blocker And Cutter Contact Lens Relationship Specialty Start Date End Date Name, MD Steve [address] [place] [address] PCP - General Family Medicine 01/23/18 [employer] [facility] 07/01/24 documented as of this encounter
--- OUTSIDE RECORDS SUMMARY | 2024-09-26 15:49 | XMS_ITS | Encounter Summary ---
Author Organization [employer] Address [address] [facility] [address] [place] [address] Care Team Providers Care External Auditor Name Role Phone Name, Steve MCCURDY Primary Care Provider [phone] Reason for Visit * Reason Onset Date Comments Chart Prep 09/24/2024 Encounter Details Date Type Department Care Team (Late st Contact Info) Description 09/24/2024 Telephone [facility] [address] [place] [address] [facility] [place], [place] Chart Prep Social History Tobacco Use Types Packs/Day Years [...] encounter Miscellaneous Notes * Telephone Encounter - Vianey Valladares [place] - 09/24/2024 12:19 PM EST Chart Prep Labs: done Images: done Vaccines due: Covid Due, Hep B Due, PCV20 Due, Flu Due, and Shingles in pharmacy Due Referrals: Nerve conduct test completed Screenings: Colonoscopy , Mammogram, HIV screening, and Hep C Overdue care gaps: Glucose, SDOH, and PHQ-9 documented in this encounter Plan of Treatment Upcoming Encounters Date Type Department Care Team (Late st Contact Info) Description 10/08/2024 3:45 PM EST Office Visit [facility] [address] [place] [address] NameSteve MD [address] [place] [address] 12/31/2024 2:30 PM EDT Office Visit [facility] [address] [place] [address] Denisse Rai, OD [address] [place] [address] documented as of this encounter Visit Diagnoses Not on filedocumented in this encounter Additional Health Concerns Assessment Noted Time PHQ-9 Depression Total Score: 21 024 10:52 AM EDT documented as of this encounter Care Teams External Auditor Relationship Specialty Start Date End Date Steve Beatty MD [address] [place] [address] PCP - General Family Medicine 01/23/18 [employer] 07/01/24 documented as of this encounter
--- OUTSIDE RECORDS SUMMARY | 2024-09-26 15:49 | XMS_ITS | Encounter Summary ---
Author Organization [employer] Address [address] [facility] 7[address] [place] [address] Care Team Providers Care Chicken Buyer Name Role Phone Name, Steve MCCURDY Primary Care Provider [phone] Reason for Visit * Reason Comments Transition Of Care (Tcm) HDF- scheduled Encounter Details Date Type Department Care Team ([facility] st Contact Info) Description 09/13/2024 Patient Outreach [facility] [address] [place] [address] Name, MD Steve [address] [place] [address] Transition Of Care (Tcm) (HDF- scheduled) Social History Tobacco Use Types Packs/Day Years [...] as of this encounter Miscellaneous Notes * Significant Event - Laurie Townsend - 09/13/2024 9:32 AM EST 09/13/24 0931 Hospital Discharges and Admission for [facility] Type of Visit Hospital Admission Date of Admission/Visit 09/10/24 Date of Discharge 09/11/24 Facility [facility] Diagnosis Pending Disposition Discharged Home Follow-Up Actions Follow-Up Needed Provider appointment Follow-Up Outcome Spoke to Patient;Spoke to Caregiver;Booked Appointment Initial Contact Date 09/13/24 Received incoming call from the [facility]. CM Spoke with Cristal from Care Coordinators. Patient has been scheduled for an HDF appointment on 09/26/2024 at 2:[address] Loera. CM requested discharge summaries to be faxed to the Care Management Department at [phone]. CC will followup on discharge summary following patient's discharge. Insurance verified prior to scheduling. documented in this encounter Plan of Treatment Upcoming Encounters Date Type Department Care Team (Late st Contact Info) Description 10/08/2024 3:45 PM EST Office Visit [facility] [address] [place] [address] Name, MD Steve [address] [place] [address] 12/31/2024 2:30 PM EDT Office Visit [facility] [address] [place], [place] [phone] Denisse Rai, OD [address] [place] [address] documented as of this encounter Visit Diagnoses Not on filedocumented in this encounter Additional Health Concerns Assessment Noted Time PHQ-9 Depression Total Score: 21 024 10:52 AM EDT documented as of this encounter Care Teams Chicken Buyer Relationship Specialty Start Date End Date Name, MD Steve [address] [place] [address] PCP - General Family Medicine 01/23/18 [employer] [facility] 07/01/24 documented as of this encounter
--- OUTSIDE RECORDS SUMMARY | 2024-09-26 15:49 | XMS_ITS | Encounter Summary ---
Author Organization [employer] Address [address] [facility] [address] [place] [address] Care Team Providers Care Adobe Architect Name Role Phone Name, Steve MCCURDY Primary Care Provider [phone] Reason for Visit * Reason Comments Med Refill Encounter Details Date Type Department Care Team (Late st Contact Info) Description 05/01/2024 Refill [facility] [address] [place], [place] [phone] Carolyn Novoa MD [address] [place] [address] Social History Tobacco Use Types Packs/Day Years [...] Description 10/08/2024 3:45 PM EST Office Visit [facility] [address] [place] [address] Name, MD Steve [address] [place] [address] 12/31/2024 2:30 PM EDT Office Visit [facility] [address] [place] [address] Fredi, Denisse, OD [address] [place] [address] documented as of this encounter Visit Diagnoses Not on filedocumented in this encounter Additional Health Concerns Assessment Noted Time PHQ-9 Depression Total Score: 21 024 10:52 AM EDT documented as of this encounter Care Teams Adobe Architect Relationship Specialty Start Date End Date Name, MD Steve [address] [place] [address] PCP - General Family Medicine 01/23/18 [employer] [facility] 07/01/24 documented as of this encounter
--- OUTSIDE RECORDS SUMMARY | 2024-09-26 15:49 | XMS_ITS | Encounter Summary ---
Author Organization [facility] Address [address] [place] [address] Care Team Providers Care Cartridge Filler Name Role Phone Name, Steve MCCURDY Primary Care Provider [phone] Reason for Visit * Reason Comments Syncope * Auth/Cert (Routine) Specialty Diagnoses / Procedures Referred By Contganesh t Referred To Contact Diagnoses Hypotension Procedures . Jessica Alves MD [address] [place] [address] Phone: tel: fax: [facility] Emergency [address] [place] [phone] Phone: tel: Referral ID Status Reason Start Date Expiration Date Visits Re quested Visits Authorized [id number] 1 1 Encounter Details Date Type Department Care Team (Late st Contact Info) Description 09/10/2024 4:50 AM EST - 09/11/2024 3:55 PM EST Emergency [facility] Intermediate Care Unit [address] [place] [phone] Surendra Oh MD [address] [place] [id number] Priti Kohler DO [address] [place] [address] Jessica Alves MD [address] [place] [address] Sundeep Browne MD [address] [place] [phone] Syncope and collapse (Primary Dx); Acute gastroenteritis; Dehydration Discharge Disposition: Home or Self Care Social History Tobacco Use Types Packs/Day Years Used Date Smoking Tobacco: Every Day Cigarettes Tobacco Cessation:Ready to Q uit: Not Asked; Counseling Given: Not Answered Interpersonal Safety Answer Date Record ed Physical Abuse 09/11/2024 Verbal Abuse 09/11/2024 Comments Unknown Sex and Gender Information Value Date Recorded Sex Assigned at Female 09/10/2024 8:23 AM EST Legal Sex Female 8:50 PM EST Gender Identity Female 09/10/2024 8:23 AM EST Sexual Orientation Straight 09/10/2024 8: 23 AM EST documented as of this encounter Last Filed Vital Signs Vital Sign Reading Time Taken Comments Blood Pressure 123/74 09/11/2024 11:55 AM EST Pulse 64 09/11/2024 11:55 AM EST Temperature 36.8 ??C (98.2 ??F) 09/11/2024 1 1:51 AM EST Respiratory Rate 18 09/11/2024 11:5 1 AM EST Oxygen Saturation 100% 09/11/2024 11: 55 AM EST Inhaled Oxygen Concentration - - Weight 58.4 kg (128 lb 12.8 oz) 09/10/2024 7:44 PM EST Height 157.5 cm (5' 2 ) 09/10/2024 5:02 AM EST Body Mass Index 23.56 09/10/2024 5:02 AM EST documented in this encounter Functional Status * Are you deaf or do you have serious difficulty hearing? Answer Date of Assessment Author No 09/10/2024 5:42 AM EST Re Mercer RN * Are you blind or do you have serious difficulty seeing, even when wearing glasses? Answer Date of Assessment Author No 09/10/2024 5:42 AM EST Re Mercer RN * Do you have serious difficulty walking or climbing stairs? Answer Date of Assessment Author No 09/10/2024 5:42 AM EST Re Mercer RN * Do you have serious difficulty dressing or bathing? Answer Date of Assessment Author No 09/10/2024 5:42 AM Re Lassiter RN * Because of a physical, mental, or emotional condition, do you have serious difficulty doing errandsalone such as visiting the doctor? Answer Date of Assessment Author No 09/10/2024 5:42 AM Re Lassiter RN documented as of this encounter Mental Status * Because of a physical, mental, or emotional condition, do you have serious difficulty concentrating, remembering, or making decisions? (5 years old or older) Answer Entry Date Author No 09/10/2024 5:42 AM Re Lassiter RN documented in this encounter Discharge Summaries * Sundeep Browne MD - 09/11/2024 2:48 PM EST Images from the original note were not included. HARVARD DISCHARGE SUMMARY Patient Information Benigno Pickett : 1975 [48 y.o.] Admitting Provider Jessica Alves MD Discharge Provider Edmar Barrios MD, Sundeep Browne, * Primary Care Physician Steve Beatty MD Admission Date 09/10/2024 Discharge Date 09/11/2024 Summary of Hospital Problems Primary Discharge Diagnosis: Syncope Dehydration Norovirus gastroenteritis Hypokalemia Normocytic anemia Secondary Discharge Diagnosis: Diabetes mellitus Discharge Destination: Home, self-care Code Status at Discharge: Full code Hospital Course Summary As taken from the history and physical: Benigno Pickett is a 48 y.o. female past medical history significant for diabetes, hyperlipidemia, depression, anxiety, migraines headache and further history below presents to the ED for evaluation of syncopal episodes. Patient has been having gastrointestinal issues with abdominal cramping, nausea, vomiting, diarrhea since Tuesday. She has been trying to manage this at home with gbsg-osk-jijbpig medication. She also reports generalized weakness with subjective fever. 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 Arrival to ED, blood pressure 95/63, T92, respiratory 16, sat 96% room air, afebrile. Labs revealed no leukocytosis 5, mild anemia H&H 11.4/34.3, platelets 275, electrolytes WNL except mild hypokalemia 3.3, normal BUNs/creatinine 13/0.62, magnesium 2.1. CT head without contrast showed no acute intracranial findings. EKG showed normal sinus rhythm. Patient received total 3 L of IV bolus, potassium supplement, Zofran, ketorolac, and admitted hospital for further workup and treatment. The patient was then admitted to medicine for further evaluation and treatment. The following issues were addressed: Syncope Dehydration Norovirus gastroenteritis Hypokalemia Normocytic anemia Assessment and plan: Ms. Pickett presented to hospital following episode of syncope when she got up from the bed to thekitchen to drink some soda, the patient has been feeling sick for a few days since Tuesday with profuse nausea, vomiting and diarrhea, she has no sick contacts at home, she ate something at work that she believes made her sick, she was unable to keep up with her GI losses she became weak and complain ing of dizziness with ambulation. She was brought to the hospital after she passed out. The patientinitial evaluation shows evidence of hypotension, mild anemia, mild hypokalemia with normal renal function, serum test was negative, her CT scan of the brain shows no acute traumatic injury, CT scan of the abdomen and pelvis shows no evidence of acute pathology, some free fluid likely associated to aggressive IV fluid resuscitation. Her EKG was normal in sinus rhythm. Throughout the hospital stay, her cardiac telemetry shows sinus rhythm without ectopy. She was volume resuscitated with around 5 L of IV crystalloids and colloids throughout the hospital stay and her symptoms are really improved, her orthostatics are now negative, her blood pressure is normal, she is ambulatory and independent. Still having some mild dizziness with orthostasis but greatly improved. She is tolerating p.o., nausea and vomiting have resolved, still having some loose bowel movements but much improved. She has some abdominal cramps. Overall she feels improving and therefore she is interested for recheck with follow-up as an outpatient, her syncope was most likely orthostatic in the setting of severe volume depletion. Other issues treated during this admission including hypokalemia for which she was given potassium supplementation her last potassium was normal, this can be monitored as an outpatient, incidentally,she had mild anemia on admission which became more significant after IV fluid resuscitation, uncertain what is her more recent baseline, she denies any history of GI bleed, she has a history of heavy menses, prior to this admission, outpatient record shows a baseline hemoglobin around 13 back in October 2023, the patient was instructed to follow-up with PCP to evaluate her anemia, the patient acknowledged understanding. Her glucose through the hospital stay was well-controlled therefore no changes were made to her chronic medications. Providers consulted: None Procedures done: CT Abdomen Pelvis w Contrast Final Result Impression: 1. Trace bilateral pleural effusions, periportal low attenuation, and trace free fluid in the pelvis, likely secondary to fluid resuscitation. 2. Otherwise unremarkable CT of the abdomen and pelvis. [employer] MIRIAM ([id number]) -------- FINAL REPORT -------- Dictated By: Petrona Barreto Dictated Date: 09/10/2024 14:52 ET Assigned Physician: Petrona Barreto Reviewed and Electronically Signed By: Petrona Barreto Signed Date: 09/10/2024 14:58 ET Workstation ID: [id number] Transcribed By: Self Edit Transcribed Date: 09/10/2024 14:[address] Head wo Contrast Final Result 1. No acute intracranial findings. This document has been electronically signed by: Narayan Atkins MD on 09/10/2024 08:05:58 Condition upon discharge Patient is a middle-aged female, independent in her room, complains of some orthostatic dizziness at times, no nausea no vomiting, her appetite is fair, she denies any urinary symptoms, she is having occasional loose, nonbloody bowel movements, no cough or chest pain, no more fainting spells. She has some intermittent abdominal cramps. Visit Vitals BP 123/74 (BP Location: Right arm, Patient Position: Standing) Pulse 64 Temp 36.8 ??C (98.2 ??F) Resp 18 Temp (24hrs), Av.8 ??C (98.3 ??F), Min:36.5 ??C (97.7 ??F), Max:37.2 ??C (98.9 ??F) Normocephalic and atraumatic with moist oral mucosa, anicteric, fully alert and oriented Neck supple without JVD, lungs are clear to auscultation. Bilaterally, no increased work of breathing Heart regular without murmurs, heart rate is within normal limits. Abdomen is soft and nontender, bowel sounds are present, no peritoneal signs, mild abdominal discomfort. Extremities without clubbing, cyanosis or edema, patient is alert oriented x 3, grossly nonfocal, speech is clear, her gait is normal in her room. . Body mass index is 23.56 kg/m??. No results found for: PTWT , PTHT 45 minutes were spent in patient care including rhag-dj-qqts time, chart review, discussion with providers, documentation, order analyst. Moderate complexity medical decision making. This note was written using [employer] speech recognition software which is prone to typographical errors. If questions occur please do not hesitate to call this provider. Follow-Up Instructions and Recommendations Primary care provider (PCP) Steve Beatty MD [address] [place] [id number] Discharge Procedure Orders Primary care provider (PCP) Order Specific Question Answer Comments Follow-Up Within: 7 Follow-Up in: Days There are no outpatient Patient Instructions on file for this admission. Discharge Medications Your medication list START taking these medications Instructions Last Dose Given Next Dose Due acetaminophen 325 mg tablet Commonly known as: TYLENOL Take 2 tablets (650 mg total) by mouth every 6 (six) hours if needed for headaches for up to 10 days. ondansetron ODT 4 mg disintegrating tablet Commonly known as: ZOFRAN-ODT Take 1 tablet (4 mg total) by mouth every 8 (eight) hours if needed for vomiting or nausea for up to 7 days. CONTINUE taking these medications Instructions Last Dose Given Next Dose Due ARIPiprazole 5 mg tablet Commonly known as: ABILIFY Take 1 tablet (5 mg total) by mouth at bedtime. atorvastatin 40 mg tablet Commonly known as: LIPITOR Take 1 tablet (40 mg total) by mouth 1 (one) time each day. clonazePAM 1 mg tablet Commonly known as: KlonoPIN Take 1 tablet (1 mg total) by mouth 2 (two) times a day if needed for anxiety. fluticasone propionate 50 mcg/actuation nasal spray Commonly known as: FLONASE Administer 1 spray into each nostril 1 (one) time each day if needed for rhinitis. melatonin 3 mg tablet Take 2 tablets (6 mg total) by mouth at bedtime. omeprazole [address] capsule Commonly known as: PriLOSEC Take 1 capsule (40 mg total) by mouth 1 (one) time each day. SUMAtriptan 25 mg tablet Commonly known as: IMITREX Take 1 tablet (25 mg total) by mouth 1 (one) time if needed for migraine. Trulicity 0.75 mg/0.5 mL pen injector injection Generic drug: dulaglutide Inject 0.5 mL (0.75 mg total) under the skin 1 (one) time per week. venlafaxine XR 150 mg 24 hr capsule Commonly known as: EFFEXOR-XR Take 1 capsule (150 mg total) by mouth at bedtime. Take with 37.5mg daily venlafaxine XR 37.5 mg 24 hr capsule Commonly known as: EFFEXOR-XR Take 1 capsule (37.5 mg total) by mouth at bedtime. Take with 150mg daily Ventolin HFA 90 mcg/actuation inhaler Generic drug: albuterol HFA Inhale 2 puffs by mouth every 4 (four) hours if needed for wheezing or shortness of breath. every 4to 6 hours as needed zolpidem 10 mg tablet Commonly known as: AMBIEN Take 1 tablet (10 mg total) by mouth at bedtime. Where to Get Your Medications These medications were sent to [facility]/pharmacy #[id number] - [place] [address] acetaminophen 325 mg tablet ondansetron ODT 4 mg disintegrating tablet documented in this encounter Discharge Instructions * Discharge Instructions* Sundeep Browne MD - 09/10/2024 6:31 AM EST You were seen and evaluated in the emergency department today following an apparent fainting episode in the setting of a gastrointestinal illness including nausea, vomiting, diarrhea and abdominal cramping. The evaluation in the emergency department included blood work, examination, CT scan of your head. You were treated with IV fluid for rehydration, an antinausea medicine called Zofran/ondansetron andan anti-inflammatory medicine called Toradol for headache, body aches and pain. She also has a Carmona catheter which was corrected prior to discharge, was found to have new anemia compared with more recent available blood work 2 hours from October 2023, this is likely associated toheavy menses you have reported, your primary care physician can make arrangements to evaluate the cause of your anemia and treatment needed. The CT scan of your brain is reassuring. No evidence of a dangerous traumatic injury sustained fromthe fall, head injury as a result of the fainting episode. No bleeding of the brain, no skull fracture, no bruising of the brain. Fainting is likely a consequence of dehydration, and a temporary low blood pressure. Fortunately, the body responds quite quickly, and we are only passed out for a brief period of time. For your gastrointestinal symptoms, you can continue with the yfen-amf-dsuuegl antidiarrhea medicine, Imodium/loperamide. Take according to the package instructions. Please stay well-hydrated with plenty of beverages. Water, sports drinks, Pedialyte, popsicles, vitamin water, body armor, are all safe and effective. As you start to feel better, you can slowly introduce soft solids such as applesauce, rice, pudding, scrambled eggs, mashed potatoes, etc. At this time, it appears safe and appropriate to leave the hospital and return home. There, you cansafely continue to treat and recover from your illness. Please contact your primary care doctor and let them know about the visit to the emergency department. Please arrange for outpatient follow-up and reevaluation as needed. Return to the emergency department for any new, different, dangerous, life- threatening, symptoms orconditions. * Attachments The following attachments cannot be sent through Care Everywhere. * Gastroenteritis ([place]) * Fainting ([place]) * Anemia ([place]) documented in this encounter Medications at Time of Discharge ARIPiprazole (ABILIFY) 5 mg tablet Take 1 tablet (5 mg total) by mouth at bedtime. 08/22/2024 atorvastatin (LIPITOR) 40 mg tablet Take 1 tablet (40 mg total) by mouth 1 (one) time each day. melatonin 3 mg tablet Take 2 tablets (6 mg total) by mouth at bedtime. 08/22/2024 omeprazole (PriLOSEC) [address] capsule Take 1 capsule (40 mg total) by mouth 1 (one) time each day. Trulicity 0.75 mg/0.5 mL pen injector injection Inject 0.5 mL (0.75 mg total) under the skin 1 (one) time per week. 08/30/2024 venlafaxine XR (EFFEXOR-XR) 150 mg 24 hr capsule Take 1 capsule (150 mg total) by mouth at bedtime. Take with 37.5mg daily venlafaxine XR (EFFEXOR-XR) 37.5 mg 24 hr capsule Take 1 capsule (37.5 mg total) by mouth at bedtime. Take with 150mg daily 08/22/2024 zolpidem (AMBIEN) 10 mg tablet Take 1 tablet (10 mg total) by mouth at bedtime. clonazePAM (KlonoPIN) 1 mg tablet Take 1 tablet (1 mg total) by mouth 2 (two) times a day if needed for anxiety. 08/30/2024 fluticasone propionate (FLONASE) 50 mcg/actuation nasal spray Administer 1 spray into each nostril 1 (one) time each day if needed for rhinitis. 08/22/2024 SUMAtriptan (IMITREX) 25 mg tablet Take 1 tablet (25 mg total) by mouth 1 (one) time if needed for migraine. 06/27/2024 Ventolin HFA 90 mcg/actuation inhaler Inhale 2 puffs by mouth every 4 (four) hours if needed for wheezing or shortness of breath. every 4 to 6 hours as needed acetaminophen (TYLENOL) 325 mg tablet Take 2 tablets (650 mg total) by mouth every 6 (six) hours if needed for headaches for up to 10 days. 30 tablet 09/11/2024 5 ondansetron ODT (ZOFRAN-ODT) 4 mg disintegrating tablet Take 1 tablet (4 mg total) by mouth every 8 (eight) hours if needed for vomiting or nausea for up to 7 days. 20 tablet 09/11/2024 5 documented as of this encounter Ordered Prescriptions Prescription Sig Dispense Quantity Refills Last Filled Start Date End Date ondansetron ODT (ZOFRAN-ODT) 4 mg disintegrating tablet Take 1 tablet (4 mg total) by mouth every 8 (eight) hours if needed for vomiting or nausea for up to 7 days. 20 tablet 09/11/2024 5 acetaminophen (TYLENOL) 325 mg tablet Take 2 tablets (650 mg total) by mouth every 6 (six) hours if needed for headaches for up to 10 days. 30 tablet 09/11/2024 5 documented in this encounter Discharge Disposition Disposition Code Departure Means Destination Comment s Home or Self Care Car Home documented in this encounter Progress Notes * Teetee Townsend RN - 09/11/2024 3:31 PM EST 09/11/24 1531 Initial Transition Plan Initial Transition Plan Home Transportation Transportation at discharge Family What day is the transport expected? 09/11/24 Final Discharge Disposition Home or Self Care Medically cleared for [facility] home w/ Lyft to provide transport. * Teetee Townsend RN - 09/11/2024 9:27 AM EST 09/11/24 0925 Initial Transition Plan Initial Transition Plan Home Discharge Planning Living Arrangements Spouse/significant other Type of Residence Private residence Assistive Devices Eyeglasses Support Systems Spouse/significant other Medication Coverage Has Med Coverage Under Insurance Plan Yes Medication Affordability No concerns related to payment for meds Transportation Transportation at discharge Taxi (Lyft) ICC met w Pt at bedside, confirmed demographics. ROXANE: 09/12 Barriers: N/V/D w syncopal episode, Marijuana/Cannabis, IVF, GI panel, trend labs Dispo: L/W BF, works at a [employer] transportation info provided. 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 Smoking Status Every Day BSA 1.5 m?? Current Mental Status: A/O x [x]4, []3, []2, []1 Current Ambulation Status: steady gait IV Access: [x] Yes / [] No Field IV present: [] Yes / [x] No Hx of Violence: [] Yes / [x] No / [] Unknown Fall Risk:[] Yes / [x] No Yellow Bracelet Applied [] Yes / [x] No Yellow Socks Applied [] Yes / [x] No Patient Belongings inventoried and BL completed: [x] Yes / [] No Patient belongings stored in the security closet: [] Yes (If Yes please supply Security bag #): [x] No Patient Medications stored in Pharmacy: [] Yes (If Yes please supply Medication Security bag #): [x] No ED Summary of Care: Pt presented with vomiting/syncopal episode. Initially had persistent hypotension requiring 3 liters crystaloid to achieve SBP >100 Submitted by and Phone Extension: * Priti Kohler DO - 09/10/2024 1:04 PM EST ED Course as of 09/10/24 1305 Mon Sep 10, 2024 1305 On reevaluation. Patient remained hypotensive after third liter IV fluid. Her last blood pressure was 90/56. Heart rate remains at 78. However the Imodium was given to patient. She stated that the diarrhea has stopped after Imodium dose. Given her hypotension at this time. We will plan to admit the patient into the hospital for furtherobservation. Additional IV fluid be provided to the patient I reviewed her CT head scan. No sign of intracranial abnormality. Patient will be admitted to the hospital. [TC] ED Course User Index [TC] Priti Kohler DO Clinical Impressions as of 09/10/24 1305 Syncope and collapse Acute gastroenteritis Dehydration Admit to Inpatient 1. Syncope and collapse 2. Acute gastroenteritis 3. Dehydration Procedures Benigno Tatum Salstar * Jia hCeng RN - 09/10/2024 1:01 PM EST Pt reports she has not had to use bathroom after imodium. However rechecked BP and pt remains hypotensive. Provider made aware. Jia Cheng RN 09/10/24 1302 * Re Mercer RN - 09/10/2024 5:00 AM EST Pt arrives to ER via EMS from home s/p syncopal episode. Rpt she woke up to get a drink, then remembers waking up on the floor. +head strike. +loc. Rpts her is the one who heard her pass out and called EMS. C/O neck pain and generalized body pain. Arrives in c-collar. Endorses n/v/d x2days as well as subjective fevers. * Re Mercer RN - 09/10/2024 4:54 AM EST Pt arrives to ER via EMS from home s/p syncopal episode. +head strike. +loc. C/O neck pain. Arrivesin c-collar. Endorses n/v/d x2days as well as subjective fevers. Re Mercer RN 09/10/24 0456 * Surendra Oh MD - 09/10/2024 4:45 AM EST HPI Chief Complaint Patient presents with Syncope HPI This is a 48-year-old female, who presents to the emergency department, following an apparent syncopal episode which occurred at home. Patient states she has been feeling in her usual state of good health until 3 days ago, Tuesday, when she had abrupt onset of nausea, vomiting, and diarrhea with associated abdominal cramping. She states the gastrointestinal illness resulted in generalized weakness, subjective fevers, no hematemesis, no black or bloody stool. No cough, no shortness of breath, no respiratory symptoms. Patient states she has been trying to hydrate, more successful over the last day. This morning, she woke up, and was thirsty, she went to the kitchen to get a drink. There, she had an apparent unwitnessed syncopal episode. Patient states she woke up on the floor, with her partner standing over her calling her name. No reported seizure activity. No tongue trauma, no joint injury. No bowel or bladder incontinence. Patient states she still struck the back of her head on the countertop. No neck pain. No back pain. Intermittent abdominal cramping that seems to wax and wane, often improving following diarrhea. Patient states she took an nzcy-isl-lrornoy antidiarrheal, and Tylenol. Patient has a history of type 2 diabetes. Patient has a history of migraine headaches. Patient has a history of anxiety disorder, history of depression, and elevated cholesterol. Patient denies any prior episode of hypoglycemia. No prior history of syncope. No data recorded Patient History No past medical history on file. No past surgical history on file. No family history on file. Social History Tobacco Use Smoking status: Not on file Smokeless tobacco: Not on file Substance Use Topics Alcohol use: Not on file Drug use: Not on file Review of Systems Review of Systems 10+ systems were discussed and reviewed. Please see HPI above. Physical Exam ED Triage Vitals [09/10/24 0455] Temp Heart Rate Resp BP 36.8 ??C (98.2 ??F) 92 16 95/63 SpO2 Temp src Heart Rate Source Patient Position 96 % -- -- -- BP Location FiO2 (%) -- -- Physical Exam Patient is awake and alert, very well-appearing, pleasant, friendly, conversant, not acutely toxic. Normocephalic, no palpable skull fracture, no contusion, no laceration. No raccoon eyes, no hanks signs. Extraocular eye movements are intact. Visual acuity is grossly intact. No subconjunctival hemorrhage. No facial trauma. Face is symmetric. No oropharyngeal injury. No tongue injury, no dental trauma. No trismus. No stridor. Mucous membranes are moist Normal breathing, normal speech, no tachypnea, no hypoxemia, patient is conversant in complete sentences. Normal pulses, normal perfusion, no tachycardia. No cyanosis, no mottled skin. Abdomen is flat, patient is thin, soft, nontender, nondistended. No rebound or guarding. Patient has full range of motion of the back. No focal tenderness. Patient has full range of motion of all joints and extremities. No joint involvement. No deformity noted. GCS is 15. Normal strength, normal sensation, normal coordination. No focal neurodeficit noted. Visualized skin is warm dry and intact. No diaphoresis. No pallor. ED Course & MDM EKG: Normal sinus rhythm at 87 bpm. Narrow complex QRS at 88 ms. Normal QTc of 450 ms. Normal rate,normal rhythm, normal axis. No ectopy. No dysrhythmia. No A- fib or a flutter. No ECGs available for comparison. Independently viewed and interpreted by me, ED attending. ED Course as of 09/12/24 2312 TueSep 10, 2024 1305 On reevaluation. Patient remained hypotensive after third liter IV fluid. Her last blood pressure was 90/56. Heart rate remains at 78. However the Imodium was given to patient. She stated that the diarrhea has stopped after Imodium dose. Given her hypotension at this time. We will plan to admit the patient into the hospital for furtherobservation. Additional IV fluid be provided to the patient I reviewed her CT head scan. No sign of intracranial abnormality. Patient will be admitted to the hospital. [TC] ED Course User Index [TC] Priti Kohler DO Clinical Impressions as of 09/12/24 2312 Syncope and collapse Acute gastroenteritis Dehydration DDx: Hypoglycemia, versus hypovolemia, versus electrolyte abnormality, versus bradycardia, versus other cardiac dysrhythmia, Medical Decision Making MDM: This is a 48-year-old female, with type 2 diabetes, depression, anxiety, hypercholesterolemia,migraine headaches, who presents to the emergency department for evaluation of an apparent syncopalepisode in the setting of a gastrointestinal illness. In the emergency department, the patient's GCS is 15. She is awake, alert, with no evidence to suggest seizure disorder/episode or dangerous traumatic head injury. Bedside discussion with the patient reviewing the investigation into the apparent syncopal episode,in the setting of a gastrointestinal illness and subsequent head strike as a consequence of the syncope. Patient provides verbal consent for IV placement, lab testing, IV fluid, Zofran, Toradol, and CT imaging of the brain to look for skull fracture or cerebral contusion. Overall, very low index of suspicion for any intracranial trauma. Procedures Surendra Oh MD 09/10/24 0542 Surendra Oh MD 09/12/242314 documented in this encounter H&P Notes * MIRIAM Ann - 09/10/2024 1:21 PM EST Images from the original note were not included. [facility] HISTORY AND PHYSICAL Please contact author [MIRIAM Ann] via eToro/SetJam. Patient: Benigno Pickett Admission Date/Time: 09/10/2024 4:50 AM : 1975 [48 y.o.] Patient's PCP: Steve Beatty MD Attending Provider: Surendra Oh MD;Priti * CHIEF COMPLAINT Syncope HISTORY OF PRESENT ILLNESS Benigno Pickett is a 48 y.o. female past medical history significant for diabetes, hyperlipidemia,depression, anxiety, migraines headache and further history below presents to the ED for evaluationof syncopal episodes. Patient has been having gastrointestinal issues with abdominal cramping, nausea, vomiting, diarrhea since Tuesday. She has been trying to manage this at home with [id number] medication. She also reports generalized weakness with subjective fever. 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 Arrival to ED, blood pressure 95/63, T92, respiratory 16, sat 96% room air, afebrile. Labs revealed no leukocytosis 5, mild anemia H&H 11.4/34.3, platelets 275, electrolytes WNL except mild hypokalemia 3.3, normal BUNs/creatinine 13/0.62, magnesium 2.1. CT head without contrast showed no acute intracranial findings. EKG showed normal sinus rhythm. Patient received total 3 L of IV bolus, potassium supplement, Zofran, ketorolac, and admitted hospital for further workup and treatment. Review of Systems All points in 12 point review of systems are negative or as per above MEDICAL HISTORY Past Medical History Past Medical History: Diagnosis Date Anxiety Chronic insomnia Depression Diabetes mellitus (CMS/HCC) Hypercholesteremia Past Surgical History Past Surgical History: Procedure Laterality Date BLADDER SUSPENSION TUBAL LIGATION Social History reports that she has been smoking cigarettes. She does not have any smokeless tobacco history on file. She reports current drug use. Drug: Marijuana/Cannabis. Denies any illicit drug use Lives with her boyfriend Works at [employer] Family History family history includes Diabetes in her maternal grandmother; Heart disease in her mother. Allergies has No Known Allergies. Home Medications Current Outpatient Medications Medication Instructions ARIPiprazole (ABILIFY) 5 mg, oral, Nightly atorvastatin (LIPITOR) 40 mg, oral, Daily clonazePAM (KLONOPIN) 1 mg, oral, 2 times daily PRN fluticasone propionate (FLONASE) 50 mcg/actuation nasal spray 1 spray, Each Nostril, Daily PRN melatonin 6 mg, oral, Nightly omeprazole (PRILOSEC) 40 mg, oral, Daily SUMAtriptan (IMITREX) 25 mg, oral, Once as needed Trulicity 0.75 mg, subcutaneous, Weekly venlafaxine XR (EFFEXOR-XR) 150 mg, oral, Nightly, Take with 37.5mg daily venlafaxine XR (EFFEXOR-XR) 37.5 mg, oral, Nightly, Take with 150mg daily Ventolin HFA 90 mcg/actuation inhaler 2 puffs, inhalation, Every 4 hours PRN, every 4 to 6 hours asneeded zolpidem (AMBIEN) 10 mg, oral, Nightly OBJECTIVE Vitals Visit Vitals BP 90/56 Pulse 78 Temp 36.8 ??C (98.3 ??F) (Oral) Resp 16 Temp (24hrs), Av.8 ??C (98.3 ??F), Min:36.8 ??C (98.2 ??F), Max:36.8 ??C (98.3 ??F) Body mass index is 20.67 kg/m??. No results found for: PTWT , PTHT Physical Examination General: Age appropriate, pleasant. No acute distress. Laying comfortably on exam stretcher. Skin: Warm, dry, intact, no diaphoresis. HEENT: Atraumatic, normocephalic head, Patient is handling secretions without trismus or drooling. Speaking in full sentences. Neck: Soft/supple, full range of motion. No cervical spine tenderness noted. Cardiology: Regular rate and rhythm, no rubs or gallops, S1 and S2 auscultated. Respiratory: Clear to auscultation bilaterally, no wheezes, rales or rhonchi. No accessory muscle use, retractions or tripoding; speaking in full sentences without difficulties. Abdominal/GI: Abdomen is not distended, Normal bowel sounds, abdomen soft and non-tender. No CVA tenderness. Peripheral Vascular: No edema on lower legs. Radial pulse 2 + and Dorsalis Pedis 1+ bilaterally. Neurological: No focal deficit. CN II-XII grossly intact. Musculoskeletal: No calf tenderness or asymmetry. Moving all extremities at the major joint spaces without difficulty. Psychiatric: Cooperative, appropriate mood & affect. ECG: Was ECG Performed? Yes . Sinus Rhythm? Yes. Signs of acute ischemia? No Further Interpretation: NSR LAB RESULTS (most recent) HEMATOLOGY Lab Results Component Value Date WBC 5.0 09/10/2024 HGB 11.4 (L) 09/10/2024 HCT 34.3 (L) 09/10/2024 MCV 92.2 09/10/2024 PLT 275 09/10/2024 CHEMISTRY Lab Results Component Value Date GLUCOSE 127 (H) 09/10/2024 NA 137 09/10/2024 K 3.3 (L) 09/10/2024 CO2 26 09/10/2024 CL 107 09/10/2024 BUN 13 09/10/2024 CREATININE 0.62 09/10/2024 EGFR 109 09/10/2024 CALCIUM 8.2 (L) 09/10/2024 MG 2.1 09/10/2024 ANIONGAP 4 09/10/[address] Head wo Contrast Final Result 1. No acute intracranial findings. This document has been electronically signed by: Narayan Atkins MD on 09/10/2024 08:05:58 CT Abdomen Pelvis w Contrast (Results Pending) ASSESSMENT & PLAN Syncope This is more likely due to hypotension from severe dehydration. CT brain without contrast showed no acute intracranial findings. Patient denies history of seizure. Hypotension Intractable nausea, vomiting, diarrhea Patient states her symptoms started on Tuesday with diarrhea and later progressed to nausea and vomiting. States unable to keep anything p.o. since then. Reports several episodes of watery diarrhea. Admits abdominal cramping, subjective fever, chills, malaise, body aches. She is tender on palpation midepigastric area and right lower quadrant. Blood pressure sustaining in 90s systolically despite 3 L of IV bolus. In ED she was given Imodium which helped with diarrhea -Will do CT abdomen and pelvis to rule out acute findings -Respiratory viral and GI panel ordered-pending -Continue IV hydration and albumin GI panel came back positive for Norovirus Diabetes Patient takes Trulicity, does not take insulin or p.o. meds. Will check POC every 6 hours Hyperlipidemia Continue home med atorvastatin Depression and anxiety Continue home med Abilify, venlafaxine, clonazepam as needed Insomnia Continue home med zolpidem Tobacco and marijuana use Counseled on smoking cessation for greater than 5 minutes with multiple cessation techniques offered. Patient offered nicotine patch, though declines DVT Prophylaxis: Lovenox Pneumoboots Code Status: Full code HCP:her boyfriend George [phone] Alves 75 minutes or greater was spent on performing a medically appropriate history and physical examination, review of laboratory and radiology data requiring a high level of medical decision making. Disclaimer: Speech recognition software was utilized to dictate portions of this document. Errors in paving rammer may be present. Please call / cortext me if any questions. Portions of this note such ROS, Exam, Assessment and Plan were copy pasted from previous notes. Information was reviewed and changes were made accordingly. I agree with above mentioned information Cosigned by Jessica Alves MD at 09/11/2024 10:43 AM EST Associated attestation - Jessica Alves MD - 09/11/2024 10:43 AM EST This is a split/shared visit with MIRIAM Ann. I personally performed the medical decision making (MDM) for the care of this patient on 09/10/24 asdocumented below This is a 48-year-old female with diabetes and frequent migraines currently evaluated for syncopal episode. She has been having gastroenteritis since Tuesday and has had poor p.o. intake. She is hypotensive in emergency room with blood pressure 95/63. The laboratory data that I have reviewed showed mild anemia but also hypokalemia and magnesium is within normal levels. She has hyponatremia I have reviewed CT of the head that did not show any intracranial hemorrhage or masses. EKG showed normal sinus rhythm with no ischemic changes. After discussion with the emergency room team final decision has been made to admit this patient [facility] for resuscitation and repletion of electrolytes. Agree with ordering GI panel and IV hydration with electrolyte replacement along with albumin for volume expansion. Hold oral diabetic medications and cover with sliding scale if needed. Chronic management as above Jessica Alves MD 09/11/24 10:41 AM EST documented in this encounter Plan of Treatment Not on file documented as of this encounter Procedures Procedure Name Priority Date/Time Associated Diagnosis Comments POCT GLUCOSE BLOOD Routine 09/11/2024 11 :55 AM EST POCT GLUCOSE BLOOD Routine 09/11/2024 8: 05 AM EST CBC WITH AUTO DIFFERENTIAL Routine 09/11/2024 5:33 AM EST CBC AND DIFFERENTIAL Routine 09/11/2024 5:33 AM EST BASIC METABOLIC PANEL Routine 09/11/2024 5:33 AM EST POCT GLUCOSE BLOOD Routine 09/10/2024 7: 45 PM EST GASTROINTESTINAL PATHOGENS BY PCR Routine 09/10/2024 6:21 PM EST RESPIRATORY VIRUS PANEL MOLECULAR STUDY Routine 09/10/2024 3:[address] ABDOMEN PELVIS W CONTRAST STAT 09/10/2024 2:[address] HEAD WO CONTRAST STAT 09/10/2024 6 :41 AM EST CBC WITH AUTO DIFFERENTIAL STAT 09/10/2024 5:31 AM EST CBC AND DIFFERENTIAL STAT 09/10/2024 5:31 AM EST HCG, SERUM, QUALITATIVE STAT 09/10/19 5:31 AM EST MAGNESIUM STAT 09/10/2024 5:31 AM EST HEPATIC FUNCTION PANEL Add-On 5:31 AM EST BASIC METABOLIC PANEL STAT 09/10/2024 5:31 AM EST ECG 12-LEAD STAT 09/10/2024 5:14 AM EST ECG ANNOTATED 09/10/2024 documented in this encounter Results * (ABNORMAL) POCT Glucose, blood (09/11/2024 11:55 AM EST) [facility] Glucose POCT 105(H) 70 - 100 mg/dL 09/11/2024 11:56 AM EST [facility] Blood Capillary blood specimen / Unknown 09/11/2024 11:55 AM EST 09/11/2024 11:57 AM EST us Sundeep Browne MD LAB POINT OF ARE TEST DOCKED DEVICE UNSOLICITED RESULTS Final Result [facility] [address] [place] [address], [place] [phone] * POCT Glucose, blood (09/11/2024 8:05 AM EST) [facility] Glucose POCT 90 70 - 100 mg/dL 09/11/2024 8:05 AM EST [facility] Blood Capillary blood specimen / Unknown 09/11/2024 8:05 AM EST 09/11/2024 8:07 AM EST us Sundeep Browne MD LAB POINT OF C ARE TEST DOCKED DEVICE UNSOLICITED RESULTS Final Result [facility] [address] [place] [address], [place] [phone] * (ABNORMAL) CBC auto differential (09/11/2024 5:33 AM EST) [facility] WBC 5.7 4.8 - 10.8 K/[facility] LAB HEMETOLOGY METHOD 09/11/2024 6:42 AM EST [facility] RBC 3.10(L) 3.80 - 4.80 M/[facility] LAB HEMETOLOGY METHOD 09/11/2024 6:42 AM [facility] Hemoglobin 9.5(L) 11.5 - 16.0 g/dL LAB HEMETOLOGY METHOD 09/11/2024 6:42 AM [facility] Hematocrit 28.9(L) 35.0 - 47.0 % LAB HEMETOLOGY METHOD 09/11/2024 6:42 AM [facility] MCV 92.9 79.0 - 98.0 FL LAB HEMETOLOGY METHOD 09/11/2024 6:42 AM [facility] MCH 30.5 27.0 - 32.0 pcg LAB HEMETOLOGY METHOD 09/11/2024 6:42 AM [facility] MCHC 32.9 32.0 - 37.0 g/dL LAB HEMETOLOGY METHOD 09/11/2024 6:42 AM [facility] RDW 13.4 11.0 - 15.0 % LAB HEMETOLOGY METHOD 09/11/2024 6:42 AM [facility] Platelets 217 130 - 400 K/mcL LAB HEMETOLOGY METHOD 09/11/2024 6:42 AM [facility] MPV 8.5 7.0 - 11.0 FL LAB HEMETOLOGY METHOD 09/11/2024 6:42 AM [facility] NRBC 0.0 <1.0 % LAB HEMETOLOGY METHOD 09/11/2024 6:42 AM [facility] NRBC Absolute 0.00 <0.10 K/mcL LAB HEMETOLOGY METHOD 09/11/2024 6:42 AM [facility] Neutrophils Relative 40.3 % LAB HEMETOLOGY METHOD 09/11/2024 6:42 AM [facility] Lymphocytes Relative 49.1 % LAB HEMETOLOGY METHOD 09/11/2024 6:42 AM [facility] Monocytes Relative 9.1 % LAB HEMETOLOGY METHOD 09/11/2024 6:42 AM [facility] Eosinophils Relative 1.0 % LAB HEMETOLOGY METHOD 09/11/2024 6:42 AM [facility] Basophils Relative 0.3 % LAB HEMETOLOGY METHOD 09/11/2024 6:42 AM [facility] Immature Granulocytes Relative 0.2 % LAB HEMETOLOGY METHOD 09/11/2024 6:42 AM [facility] Neutrophils Absolute 2.30 1.50 - 7.00 K/mcL LAB HEMETOLOGY METHOD 09/11/2024 6:42 AM [facility] Lymphocytes Absolute 2.81 1.00 - 5.00 K/mcL LAB HEMETOLOGY METHOD 09/11/2024 6:42 AM [facility] Monocytes Absolute 0.52 0.20 - 1.00 K/mcL LAB HEMETOLOGY METHOD 09/11/2024 6:42 AM EST [facility] Eosinophils Absolute 0.06 0.00 - 0.50 K/mcL LAB HEMETOLOGY METHOD 09/11/2024 6:42 AM [facility] Basophils Absolute 0.02 0.00 - 0.20 K/mcL LAB HEMETOLOGY METHOD 09/11/2024 6:42 AM [facility] Immature Granulocytes Absolute 0.01 0.00 - 0.03 K/mcL LAB HEMETOLOGY METHOD 09/11/2024 6:42 AM [facility] Blood Venous blood specimen / Unknown Venipuncture / Unknown 09/11/2024 5:33 AM EST 09/11/2024 6:22 AM EST us [facility] LAB BLOOD ORDERABLES Final Resu lt [facility] [address] [place] [address], * (ABNORMAL) Basic metabolic panel (09/11/2024 5:33 AM EST) Sodium 142 133 - 145 mmol/L LAB CHEMISTRY METHOD 09/11/2024 7:11 AM [facility] Potassium 3.5 3.5 - 5.5 mmol/L LAB CHEMISTRY METHOD 09/11/2024 7:11 AM [facility] Chloride 114(H) 96 - 110 mmol/L LAB CHEMISTRY METHOD 09/11/2024 7:11 AM [facility] CO2 23 21 - 32 mmol/L LAB CHEMISTRY METHOD 09/11/2024 7:11 AM [facility] Anion Gap 5 3 - 11 LAB CHEMISTRY METHOD 09/11/2024 7:11 AM [facility] Glucose 86 70 - 100 mg/dL LAB CHEMISTRY METHOD 09/11/2024 7:11 AM [facility] BUN 8 5 - 25 mg/dL LAB CHEMISTRY METHOD 09/11/2024 7:11 AM [facility] Creatinine 0.45(L) 0.50 - 1.10 mg/dL LAB CHEMISTRY METHOD 09/11/2024 7:11 AM [facility] eGFR 117 >=60 mL/min/1. 73m2 LAB CHEMISTRY METHOD 09/11/2024 7:11 AM [facility] Comment:Calculation based on the??Chronic Kidney Disease Epidemiology Collaboration (CKD-EPI) equation refit??without adjustment for race. BUN/Creatinine Ratio 17.8 LAB CHEMISTRY METHOD 09/11/2024 7:11 AM [facility] Calcium 7.8(L) 8.5 - 10.5 mg/dL LAB CHEMISTRY METHOD 09/11/2024 7:11 AM [facility] Blood Venous blood specimen / Unknown Venipuncture / Unknown 09/11/2024 5:33 AM EST 09/11/2024 6:20 AM EST Jessica Alves MD LAB BLOOD ORDERABLES Final Res ult [facility] [address] [place] [address], [place] [phone] * (ABNORMAL) POCT Glucose, blood (09/10/2024 7:45 PM EST) [facility] Glucose POCT 103(H) 70 - 100 mg/dL 09/10/2024 7:46 PM EST [facility] POCT Comment RN Notified 09/10/2024 7:46 PM [facility] Blood Capillary blood specimen / Unknown 09/10/2024 7:45 PM EST 09/10/2024 7:47 PM EST Jessica Alves MD LAB POINT OF CARE TE ST DOCKED DEVICE UNSOLICITED RESULTS Final Result Performing Organization Address City/[facility]/ZIP Co de Phone Number [facility] [address] [place] [address], [place] [phone] * (ABNORMAL) Gastrointestinal pathogens molecular study (09/10/2024 6:21 PM EST) [facility] Campylobacter Detection by PCR Not Detected Not Detected LAB MICROBIOLOGY METHOD 5 8:43 PM [facility] Plesiomonas shigelloides Detection by PCR Not Detected Not Detected LAB MICROBIOLOGY METHOD 5 8:43 PM EST [facility] Salmonella Detection by PCR Not Detected Not Detected LAB MICROBIOLOGY METHOD 5 8:43 PM [facility] Vibrio Detection by PCR Not Detected Not Detected LAB MICROBIOLOGY METHOD 5 8:43 PM EST [facility] Vibrio cholerae Detection by PCR Not Detected Not Detected LAB MICROBIOLOGY METHOD 5 8:43 PM EST [facility] Yersinia enterocolitica Detection by PCR Not Detected Not Detected LAB MICROBIOLOGY METHOD 5 8:43 PM [facility] Enteroaggregative E coli EAEC Detection by PCR Not Detected Not Detected LAB MICROBIOLOGY METHOD 5 8:43 PM [facility] Enteropathogenic E coli EPEC Detection Not Detected Not Detected LAB MICROBIOLOGY METHOD 5 8:43 PM [facility] Enterotoxigenic E coli ETEC LTST Detection Not Detected Not Detected LAB MICROBIOLOGY METHOD 5 8:43 PM [facility] Shiga-like toxin producing E coli STEC STX1 STX2 Det Not Detected Not Detected LAB MICROBIOLOGY METHOD 5 8:43 PM [facility] Shigella Enteroinvasive E coli EIEC Detection Not Detected Not Detected LAB MICROBIOLOGY METHOD 5 8:43 PM [facility] Cryptosporidium Detection by PCR Not Detected Not Detected LAB MICROBIOLOGY METHOD 5 8:43 PM [facility] Cyclospora cayetanensis Detection by PCR Not Detected Not Detected LAB MICROBIOLOGY METHOD 5 8:43 PM [facility] Entamoeba histolytica Detection by PCR Not Detected Not Detected LAB MICROBIOLOGY METHOD 5 8:43 PM [facility] Giardia lamblia Detection by PCR Not Detected Not Detected LAB MICROBIOLOGY METHOD 5 8:43 PM [facility] Adenovirus F 40 41 Detection by PCR Not Detected Not Detected LAB MICROBIOLOGY METHOD 5 8:43 PM [facility] Astrovirus Detection by PCR Not Detected Not Detected LAB MICROBIOLOGY METHOD 5 8:43 PM [facility] Norovirus GI GII Detection by PCR Detected(A ) Not Detected LAB MICROBIOLOGY METHOD 5 8:43 PM [facility] Comment:Alternate method rec ommended if results do not correlate with the clinical presentation. Sapovirus Detection by PCR Not Detected Not Detected LAB MICROBIOLOGY METHOD 8:43 PM [facility] Rotavirus A Detection by PCR Not Detected Not Detected LAB MICROBIOLOGY METHOD 8:43 PM [facility] Stool Rectum structure / Unknown Non-blood Collection / Unknown 09/10/2024 6:21 PM EST 09/10/2024 7:00 PM EST [facility] - 09/10/2024 8:43 PM EST PCR testing is much more sensitive than traditional techniques and allows for the detection of low numbers of stool pathogens. The clinical correlation of PCR results with the need for treatment and clinical outcomes has not been established. Therefore the results of PCR testing for stool pathogens must be taken into clinical context when making treatment decisions. This is a diagnostic test only, repeat testing for cure is not advised. You may consider infectious disease consult for additional guidance. ??Testing Performed by [facility] LAB MICROBIOLOGY - GENERAL ORDE STEPHON Edited Result - Final [facility] [address] [place] [address], * Respiratory virus panel molecular study (09/10/2024 3:45 PM EST) Adenovirus Detection by PCR Not Detected Not Detected LAB MICROBIOLOGY METHOD 09/10/2024 4:48 PM [facility] Influenza A PCR Not Detected Not Detected LAB MICROBIOLOGY METHOD 09/10/2024 4:48 PM [facility] Influenza B PCR Not Detected Not Detected LAB MICROBIOLOGY METHOD 09/10/2024 4:48 PM [facility] Coronavirus 229E Not Detected Not Detected LAB MICROBIOLOGY METHOD 09/10/2024 4:48 PM [facility] Coronavirus HKU1 Not Detected Not Detected LAB MICROBIOLOGY METHOD 09/10/2024 4:48 PM EST [facility] Coronavirus OC43 Not Detected Not Detected LAB MICROBIOLOGY METHOD 09/10/2024 4:48 PM [facility] Coronavirus NL63 Not Detected Not Detected LAB MICROBIOLOGY METHOD 09/10/2024 4:48 PM [facility] Parainfluenza Virus 1 Not Detected Not Detected LAB MICROBIOLOGY METHOD 09/10/2024 4:48 PM [facility] Parainfluenza Virus 2 Not Detected Not Detected LAB MICROBIOLOGY METHOD 09/10/2024 4:48 PM [facility] Parainfluenza Virus 3 Not Detected Not Detected LAB MICROBIOLOGY METHOD 09/10/2024 4:48 PM [facility] Parainfluenza Virus 4 Not Detected Not Detected LAB MICROBIOLOGY METHOD 09/10/2024 4:48 PM [facility] RSV PCR Not Detected Not Detected LAB MICROBIOLOGY METHOD 09/10/2024 4:48 PM [facility] Human Metapneumovirus A and B Not Detected Not Detected LAB MICROBIOLOGY METHOD 09/10/2024 4:48 PM [facility] Rhinovirus/Entero virus Not Detected Not Detected LAB MICROBIOLOGY METHOD 09/10/2024 4:48 PM [facility] Bordetella pertussis Not Detected Not Detected LAB MICROBIOLOGY METHOD 09/10/2024 4:48 PM [facility] Bordetella parapertussis Not Detected Not Detected LAB MICROBIOLOGY METHOD 09/10/2024 4:48 PM [facility] Mycoplasma pneumo by PCR Not Detected Not Detected LAB MICROBIOLOGY METHOD 09/10/2024 4:48 PM [facility] Chlamydia pneumoniae Not Detected Not Detected LAB MICROBIOLOGY METHOD 09/10/2024 4:48 PM [facility] SARS COV-2 Not Detected Not Detected LAB MICROBIOLOGY METHOD 09/10/2024 4:48 PM [facility] Swab Both anterior nares / Unknown Non-blood Collection / Unknown 09/10/2024 3:45 PM EST 09/10/2024 3:52 PM EST Narrative [facility] ([facility]) [facility] - 09/10/2024 4:48 PM EST Testing was performed using the Flasma Respiratory Pathogen PCR Assay. All results must be correlated with the clinical findings. Results should not be used as the sole basis for diagnosis. False Negative results may occur from the presence of sequence variants in the region targeted by the assay or the presence of inhibitors. Results may be affected by concurrent antiviral/antimicrobial therapy or levels of organisms that are below the limit of detection. us Lio PINEDA LAB MICROBIOLOGY - GENERAL ORDE RABTAMICA Final Result [facility] ([facility]) [facility] [address] [place] [address], [place] [phone] * CT Abdomen Pelvis w Contrast (09/10/2024 2:32 PM EST) Anatomical Region Laterality Modality Body Computed Tomogra phy 09/10/2024 2:52 PM EST Impressions 09/10/2024 2:58 PM EST Impression: 1. Trace bilateral pleural effusions, periportal low attenuation, and trace free fluid in the pelvis, likely secondary to fluid resuscitation. 2. Otherwise unremarkable CT of the abdomen and pelvis. Crispin PINEDA ([id number]) -------- FINAL REPORT -------- Dictated By: Petrona Barreto Dictated Date: 09/10/2024 14:52 ET Assigned Physician: Petrona Barreto Reviewed and Electronically Signed By: Petrona Barreto Signed Date: 09/10/2024 14:58 ET Workstation ID: [id number] Transcribed By: Self Edit Transcribed Date: 09/10/2024 14:52 ET Narrative 09/10/2024 2:58 PM EST History: Abdominal pain, acute, nonlocalized, with nausea, vomiting and diarrhea. Comparison: No comparison imaging at this institution. Technique: Helical volumetric imaging of the abdomen and pelvis was performed during the uneventful intravenous administration of 90 cc Isovue-370. DLP: 419.14 mGy/cm GE Lightspeed VCT Iterative reconstruction technique Findings: Trace bilateral pleural effusions layer dependently and there is mild periportal low attenuation, likely secondary to fluid resuscitation. The liver is normal in size and configuration. No masses are identified. The portal vein is patent. The gallbladder is physiologically distended. No evidence of biliary obstruction is noted. The spleen, pancreas and adrenal glands are unremarkable. The kidneys are normal in position and size, with symmetric, intact nephrograms and no evidence of hydronephrosis or mass. A trace amount of free fluid is seen in the dependent portion of the pelvis. The uterus and adnexa are grossly unremarkable for age. The urinary bladder is normal. Mild atherosclerotic calcification of the abdominal aorta is seen. No evidence of bowel obstruction is identified. The appendix is normal in caliber in the right lower quadrant. No abnormal perienteric or pericolonic fat stranding is identified. The regional skeleton is intact. Procedure Note Petrona Barreto MD - 09/10/2024 History: Abdominal pain, acute, nonlocalized, with nausea, vomiting anddiarrhea. Comparison: No comparison imaging at this institution. Technique: Helical volumetric imaging of the abdomen and pelvis wasperformed during the uneventful intravenous administration of 90 ccIsovue-370. DLP: 419.14 mGy/cm Bellcopeed VCT Iterative reconstruction technique Findings: Trace bilateral pleural effusions layer dependently and there is mildperiportal low attenuation, likely secondary to fluid resuscitation. The liver is normal in size and configuration. No masses are identified.The portal vein is patent. The gallbladder is physiologically distended.No evidence of biliary obstruction is noted. The spleen, pancreas and adrenal glands are unremarkable. The kidneys are normal in position and size, with symmetric, intactnephrograms and no evidence of hydronephrosis or mass. A trace amount of free fluid is seen in the dependent portion of thepelvis. The uterus and adnexa are grossly unremarkable for age. Theurinary bladder is normal. Mild atherosclerotic calcification of the abdominal aorta is seen. No evidence of bowel obstruction is identified. The appendix is normal incaliber in the right lower quadrant. No abnormal perienteric orpericolonic fat stranding is identified. The regional skeleton is intact. IMPRESSION: Impression: 1. Trace bilateral pleural effusions, periportal low attenuation, andtrace free fluid in the pelvis, likely secondary to fluid resuscitation. 2. Otherwise unremarkable CT of the abdomen and pelvis. Crispin PINEDA ([id number]) -------- FINAL REPORT -------- Dictated By: Petrona Barreto Dictated Date: 09/10/2024 14:52 ET Assigned Physician: Petrona Barreto Reviewed and Electronically Signed By: Petrona Barreto Signed Date: 09/10/2024 14:58 ET Workstation ID: [id number] Transcribed By: Self Edit Transcribed Date: 09/10/2024 14:52 ET Lio PINEDA IMG CT PROCEDURES Final Result * CT Head wo Contrast (09/10/2024 6:41 AM EST) Anatomical Region Laterality Modality Head and Neck Computed Tomogra phy 09/10/2024 8:05 AM EST Impressions 09/10/2024 8:05 AM EST 1. No acute intracranial findings. This document has been electronically signed by: Narayan Atkins MD on 09/10/2024 08:05:58 Narrative 09/10/2024 8:[address] head without contrast Comparison: None Findings: No intra-axial mass, midline shift, hydrocephalus, or acute hemorrhage. No significant atrophy-like change or white matter disease. Incidental partially empty sella. The visualized paranasal sinuses and mastoid air cells are normal. The orbits are unremarkable. No skull fracture. Procedure Note Narayan Atkins MD - 09/10/2024 CT head without contrast Comparison: None Findings: No intra-axial mass, midline shift, hydrocephalus, or acute hemorrhage. No significant atrophy-like change or white matter disease. Incidental partially empty sella. The visualized paranasal sinuses and mastoid air cells are normal. The orbits are unremarkable. No skull fracture. IMPRESSION: 1. No acute intracranial findings. This document has been electronically signed by: Narayan Atkins MD on 09/10/2024 08:05:58 Surendra Oh MD IMG CT PROCEDURES Final Result * Hepatic function panel (09/10/2024 5:31 AM EST) Total Protein 6.6 6.0 - 8.0 g/dL LAB CHEMISTRY METHOD 09/10/2024 2:39 PM [facility] Albumin 3.3 3.2 - 5.0 g/dL LAB CHEMISTRY METHOD 09/10/2024 2:39 PM [facility] Total Bilirubin 0.2 0.0 - 1.4 mg/dL LAB CHEMISTRY METHOD 09/10/2024 2:39 PM [facility] Bilirubin, Direct <0.1 0.0 - 0.3 mg/dL LAB CHEMISTRY METHOD 09/10/2024 2:39 PM [facility] Bilirubin, Indirect LAB CHEMISTRY METHOD 09/10/2024 2:39 PM [facility] Comment:Unable to calculate Indirect Bilirubin. ALT (SGPT) 31 10 - 60 unit/L LAB CHEMISTRY METHOD 09/10/2024 2:39 PM [facility] AST (SGOT) 26 10 - 42 unit/L LAB CHEMISTRY METHOD 09/10/2024 2:39 PM [facility] Alkaline Phosphatase 65 42 - 121 unit/L LAB CHEMISTRY METHOD 09/10/2024 2:39 PM [facility] Blood Venous blood specimen / Unknown Venipuncture / Unknown 09/10/2024 5:31 AM EST 09/10/2024 5:41 AM EST us Lio PINEDA LAB BLOOD ORDERABLES Final Resu lt [facility] [address] [place] [address], [place] [phone] * hCG, serum, qualitative (09/10/2024 5:31 AM EST) Pathologist [facility] hCG Qual Negative Negative 09/10/2024 6:28 AM EST [facility] Blood Venous blood specimen / Unknown Venipuncture / Unknown 09/10/2024 5:31 AM EST 09/10/2024 5:41 AM EST us Surendra Oh MD LAB BLOOD ORDERABLES Final Res ult [facility] [address] [place] [address], * (ABNORMAL) CBC auto differential (09/10/2024 5:31 AM EST) WBC 5.0 4.8 - 10.8 K/mcL LAB HEMETOLOGY METHOD 09/10/2024 6:23 AM [facility] RBC 3.70(L) 3.80 - 4.80 M/mcL LAB HEMETOLOGY METHOD 09/10/2024 6:23 AM [facility] Hemoglobin 11.4(L) 11.5 - 16.0 g/dL LAB HEMETOLOGY METHOD 09/10/2024 6:23 AM [facility] Hematocrit 34.3(L) 35.0 - 47.0 % LAB HEMETOLOGY METHOD 09/10/2024 6:23 AM [facility] MCV 92.2 79.0 - 98.0 FL LAB HEMETOLOGY METHOD 09/10/2024 6:23 AM [facility] MCH 30.6 27.0 - 32.0 pcg LAB HEMETOLOGY METHOD 09/10/2024 6:23 AM [facility] MCHC 33.2 32.0 - 37.0 g/dL LAB HEMETOLOGY METHOD 09/10/2024 6:23 AM [facility] RDW 13.2 11.0 - 15.0 % LAB HEMETOLOGY METHOD 09/10/2024 6:23 AM [facility] Platelets 275 130 - 400 K/mcL LAB HEMETOLOGY METHOD 09/10/2024 6:23 AM [facility] MPV 8.3 7.0 - 11.0 FL LAB HEMETOLOGY METHOD 09/10/2024 6:23 AM [facility] NRBC 0.0 <1.0 % LAB HEMETOLOGY METHOD 09/10/2024 6:23 AM [facility] NRBC Absolute 0.00 <0.10 K/mcL LAB HEMETOLOGY METHOD 09/10/2024 6:23 AM [facility] Neutrophils Relative 60.2 % LAB HEMETOLOGY METHOD 09/10/2024 6:23 AM [facility] Lymphocytes Relative 23.2 % LAB HEMETOLOGY METHOD 09/10/2024 6:23 AM [facility] Monocytes Relative 14.2 % LAB HEMETOLOGY METHOD 09/10/2024 6:23 AM [facility] Eosinophils Relative 1.0 % LAB HEMETOLOGY METHOD 09/10/2024 6:23 AM [facility] Basophils Relative 0.6 % LAB HEMETOLOGY METHOD 09/10/2024 6:23 AM [facility] Immature Granulocytes Relative 0.8 % LAB HEMETOLOGY METHOD 09/10/2024 6:23 AM [facility] Neutrophils Absolute 3.02 1.50 - 7.00 K/mcL LAB HEMETOLOGY METHOD 09/10/2024 6:23 AM [facility] Lymphocytes Absolute 1.16 1.00 - 5.00 K/mcL LAB HEMETOLOGY METHOD 09/10/2024 6:23 AM [facility] Monocytes Absolute 0.71 0.20 - 1.00 K/mcL LAB HEMETOLOGY METHOD 09/10/2024 6:23 AM [facility] Eosinophils Absolute 0.05 0.00 - 0.50 K/mcL LAB HEMETOLOGY METHOD 09/10/2024 6:23 AM EST [facility] Basophils Absolute 0.03 0.00 - 0.20 K/[facility] HEMETOLOGY METHOD 09/10/2024 6:23 AM EST [facility] Immature Granulocytes Absolute 0.04(H) 0.00 - 0.03 K/[facility] LAB HEMETOLOGY METHOD 09/10/2024 6:23 AM EST [facility] Blood Venous blood specimen / Unknown Venipuncture / Unknown 09/10/2024 5:31 AM EST 09/10/2024 6:22 AM EST us Surendra Oh MD LAB BLOOD ORDERABLES Final Res ult Performing Organization Address City/[facility]/ZIP Co de Phone Number [facility] [address] [place] [address], [place] [phone] * Magnesium (09/10/2024 5:31 AM EST) Pathologist [facility] Magnesium 2.1 1.9 - 2.6 mg/dL LAB CHEMISTRY METHOD 09/10/2024 6:05 AM EST [facility] Blood Venous blood specimen / Unknown Venipuncture / Unknown 09/10/2024 5:31 AM EST 09/10/2024 5:41 AM EST us Surendra Oh MD LAB BLOOD ORDERABLES Final Res ult [facility] [address] [place] [address], [place] [phone] * (ABNORMAL) Basic metabolic panel (09/10/2024 5:31 AM EST) Sodium 137 133 - 145 mmol/L LAB CHEMISTRY METHOD 09/10/2024 6:05 AM EST [facility] Potassium 3.3(L) 3.5 - 5.5 mmol/L LAB CHEMISTRY METHOD 09/10/2024 6:05 AM [facility] Chloride 107 96 - 110 mmol/L LAB CHEMISTRY METHOD 09/10/2024 6:05 AM [facility] CO2 26 21 - 32 mmol/L LAB CHEMISTRY METHOD 09/10/2024 6:05 AM [facility] Anion Gap 4 3 - 11 LAB CHEMISTRY METHOD 09/10/2024 6:05 AM [facility] Glucose 127(H) 70 - 100 mg/dL LAB CHEMISTRY METHOD 09/10/2024 6:05 AM [facility] BUN 13 5 - 25 mg/dL LAB CHEMISTRY METHOD 09/10/2024 6:05 AM [facility] Creatinine 0.62 0.50 - 1.10 mg/dL LAB CHEMISTRY METHOD 09/10/2024 6:05 AM [facility] eGFR 109 >=60 mL/min/1. 73m2 LAB CHEMISTRY METHOD 09/10/2024 6:05 AM [facility] Comment:Calculation based on the??Chronic Kidney Disease Epidemiology Collaboration (CKD-EPI) equation refit??without adjustment for race. BUN/Creatinine Ratio 21.0 LAB CHEMISTRY METHOD 09/10/2024 6:05 AM [facility] Calcium 8.2(L) 8.5 - 10.5 mg/dL LAB CHEMISTRY METHOD 09/10/2024 6:05 AM [facility] Blood Venous blood specimen / Unknown Venipuncture / Unknown 09/10/2024 5:31 AM EST 09/10/2024 5:41 AM EST us Surendra Oh MD LAB BLOOD ORDERABLES Final Res ult [facility] [address] [place] [address], * ECG 12 lead (09/10/2024 5:14 AM EST) Ventricular Rate ECG 87 BPM GEMUSE Atrial Rate 87 BPM GEMUSE P-R Interval 162 ms GEMUSE QRS Duration 88 ms GEMUSE Q-T Interval 374 ms GEMUSE QTc 450 ms GEMUSE P Wave [place] 78 degrees GEMUSE R [place] 65 degrees GEMUSE T [place] 59 degrees GEMUSE ECG Interpretation Normal sinus rhythm No previous ECGs available Confirmed by VIELKA NAIDU ([id number]) on 09/10/2024 9:10:00 PM GEMUSE 09/10/2024 5:14 AM EST 09/10/2024 9:10 PM EST Surendra Oh MD ECG ORDERABLES Final Result GEMUSE * ECG-Annotated (09/10/2024) Provider Onbase ECG ORDERABLES Final Result documented in this encounter Visit Diagnoses Diagnosis Hypotension- Primary Unspecified hypotension Syncope and collapse Acute gastroenteritis Other and unspecified noninfectious gastroenteritis and colitis Dehydration Syncope Syncope and collapse Dehydration Acute gastroenteropathy due to Norovirus documented in this encounter Admitting Diagnoses Diagnosis Hypotension Unspecified hypotension Dehydration documented in this encounter Administered Medications Inactive Administered Medications - up to 3 most recent administrations Medication Order MAR Action Action Date Dose Rate Site acetaminophen (TYLENOL) tablet 650 mg 650 mg, oral, Every 6 hours PRN, headaches, Starting on Tue09/11/24 at 0051 Given 09/11/2024 1:40 AM EST 650 mg albumin human 25 % infusion 25 g 25 g, intravenous, Once, On Tue09/10/24 at 1318, For 1 dose, FOR HYPOVOLEMIC SHOCK: Infuse 5% Albumin as rapidly as tolerated (500 mL over 1 - 2 hr) or (250 mL over 30 - 60 min), as blood volume approaches normal then infusion rate should not exceed 1 mL/min. Infusing too rapidly may cause vascular overload which may lead to pulmonary edema or cardiac failure. ROUTINE REPLACEMENT: (non-critical) Infuse 5% or 25% Albumin @ 100 mL/hr for routine albumin replacement in non-critical situations. Faster infusion rates are appropriate for hypovolemic shock (see above). ADMINISTRATION NOTE: A 15-micron filter is only required for Buminate; however, filters are NOT required for all other brands (Albuked, Albuminar, Albuminex, AlbuRx, Albutein, Flexbumin, Kedbumin, Plasbumin). Do not exceed 1 mL/minute in patients with normal plasma volume; 3 mL/minute in patients with hypoproteinemia., Indications: hypovolemic shockIndications:hypovolemic shock New Bag 09/10/2024 1:26 PM EST 25 g 100 mL/hr ARIPiprazole (ABILIFY) tablet 5 mg 5 mg, oral, Nightly, First dose on Tue09/10/24 at 2100 Given 09/10/2024 11:06 PM EST 5 mg atorvastatin (LIPITOR) tablet 40 mg 40 mg, oral, Daily, First dose on Tue09/10/24 at 1552 Given 09/11/2024 8:47 AM EST 40 mg Given 09/10/2024 5:05 PM EST 40 mg enoxaparin (LOVENOX) injection 40 mg 40 mg, subcutaneous, Every 24 hours scheduled, First dose on Tue09/11/24 at 0900, Indication: VTE/PE Prophylaxis Given 09/11/2024 8:47 AM EST 40 mg Left Upper Abdomen iopamidoL (ISOVUE-370) 370 mg iodine /mL (76 %) injection 90 mL 90 mL, intravenous, Once in imaging, Starting on Tue09/10/24 at 1425, For 1 dose Given 09/10/2024 2:26 PM EST 90 mL ketorolac (TORADOL) injection 15 mg 15 mg, intravenous, Once, On Tue09/10/24 at 0526, For 1 dose Given 09/10/2024 5:37 AM EST 15 mg lactated Ringer's infusion 125 mL/hr, intravenous, Continuous, Starting on Tue09/10/24 at 1317 Rate/Dose Verify 09/11/2024 1:19 PM EST 125 mL/hr 125 mL/hr New Bag 09/11/2024 6:15 AM EST 125 mL/hr 125 mL/hr Rate/Dose Verify 09/11/2024 6:00 AM EST 125 mL/hr 125 mL/ hr loperamide (IMODIUM) capsule 4 mg 4 mg, oral, Once, On Tue09/10/24 at 1034, For 1 dose Given 09/10/2024 10:59 AM EST 4 mg ondansetron (PF) (ZOFRAN) injection 4 mg 4 mg, intravenous, Once, On Tue09/10/24 at 0526, For 1 dose Given 09/10/2024 5:38 AM EST 4 mg ondansetron (PF) (ZOFRAN) injection 4 mg 4 mg, intravenous, Every 8 hours PRN, vomiting, nausea, Starting on Tue09/10/24 at 1417, -ONLY give IV if patient is unable to take orally. -If inadequate response within 30 minutes, proceed to next-line agent or contact provider if no further options ordered. ondansetron ODT (ZOFRAN-ODT) disintegrating tablet 4 mg 4 mg, oral, Every 8 hours PRN, vomiting, nausea, Starting on Tue09/10/24 at 1417, -Give IV if patient is unable to take orally. -If inadequate response within 30 minutes, proceed to next-line agent or contact provider if no further options ordered. For ODT tablets: -Do not remove from blister pack until just before administering. -Patient should allow tablet to dissolve on tongue. pantoprazole (PROTONIX) EC tablet 40 mg 40 mg, oral, Every morning before breakfast, First dose on Tue09/11/24 at 0700, Do not crush, chew, or split. Given 09/11/2024 6:15 AM EST 40 mg potassium chloride (KLOR-CON M20) CR tablet 40 mEq 40 mEq, oral, Once, On Tue09/10/24 at 0719, For 1 dose, Tablet may be swallowed whole (do not crush/chew/suck on) OR broken in half and each half swallowed separately OR dissolved (whole tablet) in ~4 ounces of water (allow ~2 minutes to dissolve, stir well and administer immediately). Given 09/10/2024 7:28 AM EST 40 mEq potassium chloride (KLOR-CON M20) CR tablet 40 mEq 40 mEq, oral, Once, On Tue09/11/24 at 0915, For 1 dose, Tablet may be swallowed whole (do not crush/chew/suck on) OR broken in half and each half swallowed separately OR dissolved (whole tablet) in ~4 ounces of water (allow ~2 minutes to dissolve, stir well and administer immediately). Given 09/11/2024 9:33 AM EST 40 mEq sodium chloride 0.9 % bolus 1,000 mL 1,000 mL, intravenous, at 2,000 mL/hr, Administer over 30 Minutes, Once, On Tue09/10/24 at 0526, For 1 dose New Bag 09/10/2024 5:38 AM EST 1,000 mL 2000 mL/hr sodium chloride 0.9 % bolus 1,000 mL 1,000 mL, intravenous, at 2,000 mL/hr, Administer over 30 Minutes, Once, On Tue09/10/24 at 0819, For 1 dose New Bag 09/10/2024 8:37 AM EST 1,000 mL 2000 mL/hr sodium chloride 0.9 % bolus 1,000 mL 1,000 mL, intravenous, at 2,000 mL/hr, Administer over 30 Minutes, Once, On Tue09/10/24 at 1034, For 1 dose New Bag 09/10/2024 10:59 AM EST 1,000 mL 2000 mL/hr sodium chloride 0.9 % flush 10 mL 10 mL, intravenous, Once, On Tue09/10/24 at 1426, For 1 dose Given 09/10/2024 2:26 PM EST 10 mL venlafaxine XR (EFFEXOR-XR) 24 hr capsule 150 mg 150 mg, oral, Nightly, First dose on Tue09/10/24 at 2100, Capsule may be swallowed whole, or may be opened and its contents sprinkled on applesauce if consumed immediately without chewing. Do not crush or chew. Given 09/10/2024 11:05 PM EST 150 mg venlafaxine XR (EFFEXOR-XR) 24 hr capsule 37.5 mg 37.5 mg, oral, Nightly, First dose on Tue09/10/24 at 2100, Capsule may be swallowed whole, or may be opened and its contents sprinkled on applesauce if consumed immediately without chewing. Do not crush or chew. Given 09/10/2024 11:05 PM EST 37.5 mg zolpidem (AMBIEN) tablet 10 mg 10 mg, oral, Nightly, First dose on Tue09/10/24 at 2100 Given 09/10/2024 9:04 PM EST 10 mg documented in this encounter Historical Medications * This list may reflect changes made after this encounter. zolpidem (AMBIEN) 10 mg tablet Take 1 tablet (10 mg total) by mouth at bedtime. venlafaxine XR (EFFEXOR-XR) 37.5 mg 24 hr capsule Take 1 capsule (37.5 mg total) by mouth at bedtime. Take with 150mg daily 08/22/2024 venlafaxine XR (EFFEXOR-XR) 150 mg 24 hr capsule Take 1 capsule (150 mg total) by mouth at bedtime. Take with 37.5mg daily SUMAtriptan (IMITREX) 25 mg tablet Take 1 tablet (25 mg total) by mouth 1 (one) time if needed for migraine. 06/27/2024 omeprazole (PriLOSEC) [address] capsule Take 1 capsule (40 mg total) by mouth 1 (one) time each day. melatonin 3 mg tablet Take 2 tablets (6 mg total) by mouth at bedtime. 08/22/2024 fluticasone propionate (FLONASE) 50 mcg/actuation nasal spray Administer 1 spray into each nostril 1 (one) time each day if needed for rhinitis. 08/22/2024 Trulicity 0.75 mg/0.5 mL pen injector injection Inject 0.5 mL (0.75 mg total) under the skin 1 (one) time per week. 08/30/2024 clonazePAM (KlonoPIN) 1 mg tablet Take 1 tablet (1 mg total) by mouth 2 (two) times a day if needed for anxiety. 08/30/2024 atorvastatin (LIPITOR) 40 mg tablet Take 1 tablet (40 mg total) by mouth 1 (one) time each day. ARIPiprazole (ABILIFY) 5 mg tablet Take 1 tablet (5 mg total) by mouth at bedtime. 08/22/2024 Ventolin HFA 90 mcg/actuation inhaler Inhale 2 puffs by mouth every 4 (four) hours if needed for wheezing or shortness of breath. every 4 to 6 hours as needed added in this encounter Active and Recently Administered Medications Times are shown in EST. Scheduled Medication Order 09/09/2024 09/10/2024 09/11/2024 albumin human 25 % infusion 25 g (COMPLETED) 25 g, intravenous, Once, On Tue09/10/24 at 1318, For 1 dose, FOR HYPOVOLEMIC SHOCK: Infuse 5% Albumin as rapidly as tolerated (500 mL over 1 - 2 hr) or (250 mL over 30 - 60 min), as blood volume approaches normal then infusion rate should not exceed 1 mL/min. Infusing too rapidly may cause vascular overload which may lead to pulmonary edema or cardiac failure. ROUTINE REPLACEMENT: (non-critical) Infuse 5% or 25% Albumin @ 100 mL/hr for routine albumin replacement in non-critical situations. Faster infusion rates are appropriate for hypovolemic shock (see above). ADMINISTRATION NOTE: A 15-micron filter is only required for Buminate; however, filters are NOT required for all other brands (Albuked, Albuminar, Albuminex, AlbuRx, Albutein, Flexbumin, Kedbumin, Plasbumin). Do not exceed 1 mL/minute in patients with normal plasma volume; 3 mL/minute in patients with hypoproteinemia., Indications: hypovolemic shock 1326 (New Bag - Provider: Jia Cheng RN)1542 (Stopped - Provider: Jia Cheng RN) ARIPiprazole (ABILIFY) tablet 5 mg 5 mg, oral, Nightly, First dose on Tue09/10/24 at 2100 2306 (Given - Provider: Polina Combs RN) atorvastatin (LIPITOR) tablet 40 mg 40 mg, oral, Daily, First dose on Tue09/10/24 at 1552 1705 (Given - Provider: Osbaldo Cavazos RN) 0847 (Given - Provider: Jewels Buchanan, MILAD) enoxaparin (LOVENOX) injection 40 mg 40 mg, subcutaneous, Every 24 hours scheduled, First dose on Tue09/11/24 at 0900, Indication: VTE/PE Prophylaxis 0847 (Given - Provid er: Jewels Buchanan RN) iopamidoL (ISOVUE-370) 370 mg iodine /mL (76 %) injection 90 mL (COMPLETED) 90 mL, intravenous, Once in imaging, Starting on Tue09/10/24 at 1425, For 1 dose 1426 (Given - Provider: Re Velarde) ketorolac (TORADOL) injection 15 mg (COMPLETED) 15 mg, intravenous, Once, On Tue09/10/24 at 0526, For 1 dose 0537 (Given - Provider: Re Mercer RN) loperamide (IMODIUM) capsule 4 mg (COMPLETED) 4 mg, oral, Once, On Tue09/10/24 at 1034, For 1 dose 1059 (Given - Provider: Noemy Corona RN) ondansetron (PF) (ZOFRAN) injection 4 mg (COMPLETED) 4 mg, intravenous, Once, On Tue09/10/24 at 0526, For 1 dose 0538 (Given - Provider: Re Mercer RN) pantoprazole (PROTONIX) EC tablet 40 mg 40 mg, oral, Every morning before breakfast, First dose on Tue09/11/24 at 0700, Do not crush, chew, or split. 0615 (Given - Provid er: Polina Combs RN) potassium chloride (KLOR-CON M20) CR tablet 40 mEq (COMPLETED) 40 mEq, oral, Once, On Tue09/10/24 at 0719, For 1 dose, Tablet may be swallowed whole (do not crush/chew/suck on) OR broken in half and each half swallowed separately OR dissolved (whole tablet) in ~4 ounces of water (allow ~2 minutes to dissolve, stir well and administer immediately). 0728 (Given - Provider: Noemy Corona RN) potassium chloride (KLOR-CON M20) CR tablet 40 mEq (COMPLETED) 40 mEq, oral, Once, On Tue09/11/24 at 0915, For 1 dose, Tablet may be swallowed whole (do not crush/chew/suck on) OR broken in half and each half swallowed separately OR dissolved (whole tablet) in ~4 ounces of water (allow ~2 minutes to dissolve, stir well and administer immediately). 0933 (Given - Provid er: Jewels Buchanan RN) sodium chloride 0.9 % bolus 1,000 mL (COMPLETED) 1,000 mL, intravenous, at 2,000 mL/hr, Administer over 30 Minutes, Once, On Tue09/10/24 at 0526, For 1 dose 0538 (New Bag - Provider: Re Mercer RN)0608 (Stopped - Provider: Noemy Corona RN) sodium chloride 0.9 % bolus 1,000 mL (COMPLETED) 1,000 mL, intravenous, at 2,000 mL/hr, Administer over 30 Minutes, Once, On Tue09/10/24 at 0819, For 1 dose 0837 (New Bag - Provider: Noemy Corona RN)0907 (Stopped - Provider: Noemy Corona RN) sodium chloride 0.9 % bolus 1,000 mL (COMPLETED) 1,000 mL, intravenous, at 2,000 mL/hr, Administer over 30 Minutes, Once, On Tue09/10/24 at 1034, For 1 dose 1059 (New Bag - Provider: Noemy Corona RN)1252 (Stopped - Provider: Jia Cheng RN) sodium chloride 0.9 % flush 10 mL (COMPLETED) 10 mL, intravenous, Once, On Tue09/10/24 at 1426, For 1 dose 1426 (Given - Provider: Re Velarde) venlafaxine XR (EFFEXOR-XR) 24 hr capsule 150 mg 150 mg, oral, Nightly, First dose on Tue09/10/24 at 2100, Capsule may be swallowed whole, or may be opened and its contents sprinkled on applesauce if consumed immediately without chewing. Do not crush or chew. 2305 (Given - Provider: Polina Combs RN) venlafaxine XR (EFFEXOR-XR) 24 hr capsule 37.5 mg 37.5 mg, oral, Nightly, First dose on Tue09/10/24 at 2100, Capsule may be swallowed whole, or may be opened and its contents sprinkled on applesauce if consumed immediately without chewing. Do not crush or chew. 2305 (Given - Provider: Polina Combs RN) zolpidem (AMBIEN) tablet 10 mg 10 mg, oral, Nightly, First dose on Tue09/10/24 at 2100 2104 (Given - Provider: Polina Combs RN) Continuous Medication Order 09/09/2024 09/10/2024 09/11/2024 lactated Ringer's infusion 125 mL/hr, intravenous, Continuous, Starting on Tue09/10/24 at 1317 1326 (New Bag - Provider: Jia Cheng RN)2308 (New Bag - Provider: Polina Combs RN) 0124 (Rate/Dose Verify - Provider: Polina Combs RN)0600 (Rate/Dose Verify - Provider: Polina Combs RN)0615 (New Bag - Provider: Polina Combs RN)1319 (Rate/Dose Verify - Provider: Jewels Buchanan, RN)1509 (Stopped - Provider: Rachel Thapa RN) PRN Medication Order 09/09/2024 09/10/2024 09/11/2024 acetaminophen (TYLENOL) tablet 650 mg 650 mg, oral, Every 6 hours PRN, headaches, Starting on Tue09/11/24 at 0051 0140 (Given - Provid er: Polina Combs RN) clonazePAM (KlonoPIN) tablet 1 mg 1 mg, oral, 2 times daily PRN, anxiety, Starting on Tue09/10/24 at 1551, HAZARDOUS Drug Precautions - Low Risk (Category A/NIOSH Group 3) Reproductive Risk Only: - Single pair of ASTM standard D6978 certified chemotherapy gloves - Eye protection (goggles or face shield) required only with a potential for facial contact (i.e. concern for spitting or vomiting of the dose during or after administration) - Staff at reproductive risk (actively trying to conceive, or may be become , and ): chemo certified gown and an N95 respirator required when crushing meds (crushing of tabs allowed only in closed pouches) or opening of capsules only for allowable dosage forms ondansetron (PF) (ZOFRAN) injection 4 mg(Linked Group 1) 4 mg, intravenous, Every 8 hours PRN, vomiting, nausea, Starting on Tue09/10/24 at 1417, -ONLY give IV if patient is unable to take orally. -If inadequate response within 30 minutes, proceed to next-line agent or contact provider if no further options ordered. ondansetron ODT (ZOFRAN-ODT) disintegrating tablet 4 mg(Linked Group 1) 4 mg, oral, Every 8 hours PRN, vomiting, nausea, Starting on Tue09/10/24 at 1417, -Give IV if patient is unable to take orally. -If inadequate response within 30 minutes, proceed to next-line agent or contact provider if no further options ordered. For ODT tablets: -Do not remove from blister pack until just before administering. -Patient should allow tablet to dissolve on tongue. Linked Groups Order Group 1: ondansetron ODT (ZOFRAN-ODT) disintegrating tablet 4 mgJump to med 4 mg, oral, Every 8 hours PRN, vomiting, nausea, Starting on 09/10/24 at 1417, -Give IV if patient is unable to take orally. -If inadequate response within 30 minutes, proceed to next-line agent or contact provider if no further options ordered. For ODT tablets: -Do not remove from blister pack until just before administering. -Patient should allow tablet to dissolve on tongue. Or ondansetron (PF) (ZOFRAN) injection 4 mgJump to med 4 mg, intravenous, Every 8 hours PRN, vomiting, nausea, Starting on Tue09/10/24 at 1417, -ONLY give IV if patient is unable to take orally. -If inadequate response within 30 minutes, proceed to next-line agent or contact provider if no further options ordered. documented in this encounter Orders Medications Ordered That Malachi ht Not Have Been Administered Count Last Ordered Date First Ordered Date clonazePAM (KlonoPIN) tablet 1 mg 1 025 ondansetron (PF) (ZOFRAN) injection 4 mg 1 09/10/2024 ondansetron ODT (ZOFRAN-ODT) disintegrating tablet 4 mg 1 09/10/2024 sodium chloride 0.9 % bolus 1,000 mL 1 08/16 Nursing Count Last Ordered Date First Orde red Date FOLLOW UP PRIMARY PHYSICIAN 1 09/11/2024 VITAL SIGNS 1 09/10/2024 Admission Count Last Ordered Date First Orde red Date INITIATE OBSERVATION STATUS 1 09/10/2024 Transfer Count Last Ordered Date First Orde red Date ED TO FLOOR BED REQUEST 1 09/10/2024 Discharge Count Last Ordered Date First Orde red Date DISCHARGE PATIENT 1 09/11/2024 documented in this encounter Additional Health Concerns Infection Onset Date Last Indicated Resolved Time Respiratory Rule-Out 09/10/2024 09/10/2024 025 4:48 PM EST COVID-19 Rule-Out 09/10/2024 09/10/2024 09/10/2024 4:48 PM EST Gastrointestinal Rule-Out 09/10/2024 09/10/20242025 8:40 PM EST Norovirus 09/10/2024 09/10/2024 documented as of this encounter Care Teams Cartridge Filler Relationship Specialty Start Date End Date Name, MD Steve [address] [place] [address] PCP - General Internal Medicine 09/10/24 documented as of this encounter
--- OUTSIDE RECORDS SUMMARY | 2024-09-26 15:49 | XMS_ITS | Encounter Summary ---
Author Organization [employer] Address [address] [facility] 7t [place] [address] Care Team Providers Care Marine Engineering Professor Name Role Phone Name, Steve MCCURDY Primary Care Provider [phone] Encounter Details Date Type Department Care Team (Latest Contact Info) Description 09/26/2024 Travel Social History Tobacco Use Types Packs/Day Years [...] Description 10/08/2024 3:45 PM EST Office Visit [facility] MEDICINE [address] [place] [address] Name, MD Steve [address] [place] [address] 12/31/2024 2:30 PM EDT Office Visit [facility] OPTOMETRY [address] [place], [place] [phone] Fredi, Denisse, OD [address] [place] [address] documented as of this encounter Visit Diagnoses Not on filedocumented in this encounter Additional Health Concerns Assessment Noted Time PHQ-9 Depression Total Score: 15 025 2:29 PM EST documented as of this encounter Care Teams Marine Engineering Professor Relationship Specialty Start Date End Date Name, MD Steve [address] [place] [address] PCP - General Family Medicine 01/23/18 [facility] 07/01/24 documented as of this encounter
--- OUTSIDE RECORDS SUMMARY | 2024-09-26 15:49 | XMS_ITS | Encounter Summary ---
Author Organization [employer] Address [address] [facility] 7t [place] [address] Care Team Providers Care Shaper Set Up Operator Name Role Phone Name, Steve MCCURDY Primary Care Provider [phone] Reason for Visit * Reason Onset Date Comments Care Management 09/11[facility] Encounter Details Date Type Department Care Team ([facility] st Contact Info) Description 09/11/2024 Telephone [facility] MEDICINE [address] [place] [address] Pepe Tran, MILAD [address] [place] [address] Care Management ([facility]- chart review) Social History Tobacco Use Types Packs/Day Years [...] encounter Miscellaneous Notes * Telephone Encounter - Pepe Tran RN - 09/11/2024 8:14 AM EST JESÚS Tran RN, performed chart review, in anticipation of initial assessment with patient, as patient has stratified for Adult Complex Care through the ADT feed. History significant for bilateral carpal tunnel syndrome, cough, emphysema, neurogenic claudication, Type 2 DM, subacute maxillary sinusitis, depression with anxiety, tobacco use, hypercholesterolemia, and history of tubal ligation. Specialists include [facility] GI, [facility] Women's Services, [facility] Pain Medicine and [facility] PT. ED visits within the last 12 months include [facility] ED 09/10/24 and [facility] ED 05/11/24. Patient admitted to [facility] on 09/10/24.Discharge pending. Last appointment in PCP office on 05/29/24. Next appointment scheduled for 10/08/24 at 3:45pm for f/u with PCP. documented in this encounter Plan of Treatment Upcoming Encounters Date Type Department Care Team (Late st Contact Info) Description 10/08/2024 3:45 PM EST Office Visit [facility] MEDICINE [address] [place] [phone] Name, MD Setve [address] [place] [address] 12/31/2024 2:30 PM EDT Office Visit [facility] OPTOMETRY [address] [place], [place] [phone] Denisse Rai, OD [address] [place] [address] documented as of this encounter Visit Diagnoses Not on filedocumented in this encounter Additional Health Concerns Assessment Noted Time PHQ-9 Depression Total Score: 21 024 10:52 AM EDT documented as of this encounter Care Teams Shaper Set Up Operator Relationship Specialty Start Date End Date Name, MD Steve [address] [place] [address] PCP - General Family Medicine 01/23/18 [facility] 07/01/24 documented as of this encounter
--- OUTSIDE RECORDS SUMMARY | 2024-09-26 15:49 | XMS_ITS | Encounter Summary ---
Author Organization [employer] Address [address] [place] [address] [address] [place] [address] Care Team Providers Care Business Services Associate Name Role Phone Name, Steve MCCURDY Primary Care Provider [phone] Reason for Visit * Reason Comments Med Refill Encounter Details Date Type Department Care Team (Late st Contact Info) Description 09/21/2022 Refill [facility] MED & PEDS [address] [place] [address] Steve Beatty MD [address] [place] [phone] Tobacco use Social History Tobacco Use Types Packs/Day Years Used Date Smoking Tobacco: Never Assessed Comments Unknown Sex and Gender Information Value [...] Description 10/08/2024 3:45 PM EST Office Visit [facility] MEDICINE [address] [place], [place] [phone] Steve Beatty MD [address] [place] [address] 12/31/2024 2:30 PM EDT Office Visit [facility] OPTOMETRY [address] [place] [address] Denisse Daniels, OD [address] [place] [address] documented as of this encounter Visit Diagnoses Diagnosis Tobacco use documented in this encounter Care Teams Business Services Associate Relationship Specialty Start Date End Date Name, MD Steve [address] [place] [address] PCP - General Family Medicine 01/23/18 [facility] 07/01/24 documented as of this encounter
--- OUTSIDE RECORDS SUMMARY | 2024-09-26 15:49 | XMS_ITS | Encounter Summary ---
Author Organization [employer] Address [address] [facility] [address]t [place] [address] Care Team Providers Care Paper Products Machine Operator Name Role Phone Name, Steve MCCURDY Primary Care Provider [phone] Reason for Visit * Reason Comments Care Coordination CM/CHW outreach Encounter Details Date Type Department Care Team (Latest Contact Info) Description 09/13/2024 Patient Outreach [facility] MEDICINE [address] [place], [place] [phone] Name, MD Steve [address] [place] [address] Care Coordination (CM/CHW outreach) Social History Tobacco [...] Progress Notes * Cristal Jacob - 09/13/2024 9:03 AM EST CHW Cristal Jacob placed call to patient, both phones are disco, spoke to patient's daughter angel who stated patients' phone is not working and will relay the message to her mom. CHW will reattempt in within 5 days. documented in this encounter Plan of Treatment Upcoming Encounters Date Type Department Care Team (Late st Contact Info) Description 10/08/2024 3:45 PM EST Office Visit [facility] MEDICINE [address] [place] [address] Name, MD Steve [address] [place] [address] 12/31/2024 2:30 PM EDT Office Visit [facility] OPTOMETRY [address] [place] [address] Denisse Rai, RUSS [address] [place] [address] documented as of this encounter Visit Diagnoses Not on filedocumented in this encounter Additional Health Concerns Assessment Noted Time PHQ-9 Depression Total Score: 21 024 10:52 AM EDT documented as of this encounter Care Teams Paper Products Machine Operator Relationship Specialty Start Date End Date Name, MD Steve [address] [place] [address] PCP - General Family Medicine 01/23/18 [facility] 07/01/24 documented as of this encounter
--- OUTSIDE RECORDS SUMMARY | 2024-09-26 15:49 | XMS_ITS | Encounter Summary ---
Author Organization [employer] Address [address] [facility] [address] [place] [address] Care Team Providers Care Primary Care Coordinator Name Role Phone Name, Steve MCCURDY Primary Care Provider [phone] Reason for Visit * Reason Onset Date Comments Med Refill 09/16/2023 Encounter Details Date Type Department Care Team (Late st Contact Info) Description 09/16/2023 Refill [facility] MEDICINE [address] [place], [place] [phone] Name, MD Steve [address] [place] [address] Social History Tobacco Use Types Packs/Day Years [...] Description 10/08/2024 3:45 PM EST Office Visit [facility] MEDICINE [address] [place] [address] NameSteve MD [address] [place] [address] 12/31/2024 2:30 PM EDT Office Visit [facility] OPTOMETRY [address] [place], [place] [phone] Fredi, Denisse, OD [address] [place] [address] documented as of this encounter Visit Diagnoses Not on filedocumented in this encounter Additional Health Concerns Assessment Noted Time PHQ-9 Depression Total Score: 16 023 3:49 PM EDT documented as of this encounter Care Teams Primary Care Coordinator Relationship Specialty Start Date End Date Name, MD Steve [address] [place] [address] PCP - General Family Medicine 01/23/18 [facility] 07/01/24 documented as of this encounter
--- OUTSIDE RECORDS SUMMARY | 2024-09-26 15:49 | XMS_ITS | Clinical Summary ---
Author Organization [facility] Address [address] [place] [address] Phone Care Team Providers Care Leader Tier Name Role Phone Name, Steve MCCURDY Primary Care Provider [phone] Allergies No known active allergies Medications Ventolin HFA 90 mcg/actuation inhaler Inhale 2 puffs by mouth every 4 (four) hours if needed for wheezing or shortness of breath. every 4 to 6 hours as needed Active ARIPiprazole (ABILIFY) 5 mg tablet Take 1 tablet (5 mg total) by mouth at bedtime. 08/22/19 25 Active atorvastatin (LIPITOR) 40 mg tablet Take 1 tablet (40 mg total) by mouth 1 (one) time each day. Active clonazePAM (KlonoPIN) 1 mg tablet Take 1 tablet (1 mg total) by mouth 2 (two) times a day if needed for anxiety. 08/30/19 25 Active Trulicity 0.75 mg/0.5 mL pen injector injection Inject 0.5 mL (0.75 mg total) under the skin 1 (one) time per week. 08/30/19 25 Active fluticasone propionate (FLONASE) 50 mcg/actuation nasal spray Administer 1 spray into each nostril 1 (one) time each day if needed for rhinitis. 08/22/19 25 Active melatonin 3 mg tablet Take 2 tablets (6 mg total) by mouth at bedtime. 08/22/19 25 Active omeprazole (PriLOSEC) [address] capsule Take 1 capsule (40 mg total) by mouth 1 (one) time each day. Active SUMAtriptan (IMITREX) 25 mg tablet Take 1 tablet (25 mg total) by mouth 1 (one) time if needed for migraine. 06/27/20 24 Active venlafaxine XR (EFFEXOR-XR) 150 mg 24 hr capsule Take 1 capsule (150 mg total) by mouth at bedtime. Take with 37.5mg daily Active venlafaxine XR (EFFEXOR-XR) 37.5 mg 24 hr capsule Take 1 capsule (37.5 mg total) by mouth at bedtime. Take with 150mg daily 08/22/19 25 Active zolpidem (AMBIEN) 10 mg tablet Take 1 tablet (10 mg total) by mouth at bedtime. Active acetaminophen (TYLENOL) 325 mg tablet Take 2 tablets (650 mg total) by mouth every 6 (six) hours if needed for headaches for up to 10 days. 30 tablet 09/11/19 25 025 ondansetron ODT (ZOFRAN-ODT) 4 mg disintegrating tablet Take 1 tablet (4 mg total) by mouth every 8 (eight) hours if needed for vomiting or nausea for up to 7 days. 20 tablet 09/11/19 25 025 Active Problems Problem Noted Date Diagnosed Date Syncope 09/11/2024 Dehydration 09/11/2024 Acute gastroenteropathy due to Norovirus 025 Hypotension 09/10/2024 Encounters Date Type Department Care Team Description 09/10/2024 4:50 AM EST - 09/11/2024 3:55 PM [facility] [address] [place] [id number] Surendra Oh MD Cheng, Ting Ho Danny, DO Bukalo, Nermina, MD Santoyo-Pacheco, Omar D, MD Syncope and collapse (Primary Dx); Acute gastroenteritis; Dehydration Discharge Disposition: Home or Self Care from Last 3 Months Surgical History Surgery Date Site/Laterality Comments TUBAL LIGATION BLADDER SUSPENSION Medical History Medical History Date Comments Diabetes mellitus (CMS/HCC) Hypercholesteremia Depression Anxiety Chronic insomnia Family History Medical History Relation Name Comments Diabetes Maternal Grandmother Heart disease Mother Relation Name Status Comments Maternal Grandmother Mother Social History Tobacco Use Types Packs/Day Years [...] Orientation Straight 09/10/2024 8: 23 AM EST Obstetrics History Last Filed Vital Signs Vital Sign Reading [...] Mass Index 23.56 09/10/2024 5:02 AM EST Plan of Treatment Health Maintenance Due Date Last Done Comments Diabetes: Annual Foot Exam 12/05/1983 Diabetes: Annual Retina Eye Exam 12/05/1983 Hepatitis B Vaccines (1 of 3 - 19+ 3-dose series) 1992 Pneumococcal Vaccine: 50+ Years (2 of 2 - PCV) 03/30/2023 03/30/2022 Pneumococcal Vaccine: Pediatrics (0 to 5 Years) and At-Risk Patients (6 to 64 Years) (2 of 2 - PCV) 03/30/2023 03/30/2022 Colorectal Cancer Screening: Colonoscopy 09/09/2023 HIV Screening 09/09/2023 Hepatitis C Screening 09/09/2023 Social Influencers of Health Screening 09/09/2023 Zoster Vaccines (1 of 2) 12/05/2023 Breast Cancer Screening 04/09/2024 04/09/2022 COVID-19 Vaccine (2023-2 5 season) 2024 05/06/2021, 04/15/2021 Influenza Vaccine (#1) 2024 Diabetes: Annual Urine Albumin-Creatinine Ratio (uACR) 09/10/2024 Diabetes: Blood Sugar Contro l Test (HGBA1C) 11/27/2024 05/29/2024 Depression Screening 01/01/2025 01/02/2024 Cervical Cancer Screening: P ap Smear 09/01/2025 09/01/2022 Diabetes: Annual GFR (Glomerular Filtration Rate) 09/11/2025 09/11/2024, 09/10/2024, 06/18/2024 DTaP,Tdap,and Td Vaccines (3 - Td or Tdap) 12/09/2027 12/08/2017, 12/08/2017 Cholesterol Screening (Lipid Panel) 06/18/2029 06/18/2024 HIB Vaccines Aged Out No longer eligi [...] on patient's age to complete this topic MMR Vaccines Aged Out No longer eligi ble based on patient's age to complete this topic Meningococcal ACWY Vaccine Aged Out N o longer eligible based on patient's age to complete this topic Meningococcal B Vacine Aged Out No lo nger eligible based on patient's age to complete this topic RSV Immunization Patients Under 20 months Aged Out No longer eligible b ased on patient's age to complete this topic Varicella Vaccines Aged Out No longer eligible based [...] CONTRAST STAT 09/10/2024 6 :41 AM EST HEPATIC FUNCTION PANEL Add-On 5:31 AM EST HCG, SERUM, QUALITATIVE STAT 09/10/19 5:31 AM EST CBC WITH AUTO DIFFERENTIAL STAT 09/10/2024 5:31 AM EST MAGNESIUM STAT 09/10/2024 5:31 AM EST BASIC METABOLIC PANEL STAT 09/10/2024 5:31 AM EST CBC AND DIFFERENTIAL STAT 09/10/2024 5:31 AM EST ECG 12-LEAD STAT 09/10/2024 5:14 AM EST ECG ANNOTATED 09/10/2024 from Last 3 Months Results * (ABNORMAL) POCT Glucose, blood (09/11/2024 11:55 AM EST) Only the most recent of3 resultswithin the time period is included. Glucose POCT 105(H) 70 - 100 mg/dL 09/11/2024 11:56 AM EST [facility] Blood Capillary blood specimen / Unknown 09/11/2024 11:55 AM EST 09/11/2024 11:57 AM EST us Sundeep Browne MD LAB POINT OF C ARE TEST DOCKED DEVICE UNSOLICITED RESULTS Final Result [facility] [address] [place] [address], * (ABNORMAL) CBC auto differential (09/11/2024 5:33 AM EST) Only the most recent of2 resultswithin the time period is included. WBC 5.7 4.8 - 10.8 K/mcL LAB HEMETOLOGY METHOD 09/11/2024 6:42 AM [facility] RBC 3.10(L) 3.80 - 4.80 M/mcL LAB HEMETOLOGY METHOD 09/11/2024 6:42 AM [facility] Hemoglobin 9.5(L) 11.5 - 16.0 g/dL LAB HEMETOLOGY METHOD 09/11/2024 6:42 AM [facility] Hematocrit 28.9(L) 35.0 - 47.0 % LAB HEMETOLOGY METHOD 09/11/2024 6:42 AM EST [facility] MCV 92.9 79.0 - 98.0 FL LAB HEMETOLOGY METHOD 09/11/2024 6:42 AM EST [facility] MCH 30.5 27.0 - 32.0 pcg LAB HEMETOLOGY METHOD 09/11/2024 6:42 AM EST [facility] MCHC 32.9 32.0 - 37.0 g/dL LAB HEMETOLOGY METHOD 09/11/2024 6:42 AM EST [facility] RDW 13.4 11.0 - 15.0 % LAB HEMETOLOGY METHOD 09/11/2024 6:42 AM [facility] Platelets 217 130 - 400 K/mcL LAB HEMETOLOGY METHOD 09/11/2024 6:42 AM [facility] MPV 8.5 7.0 - 11.0 FL LAB HEMETOLOGY METHOD 09/11/2024 6:42 AM EST [facility] NRBC 0.0 <1.0 % LAB HEMETOLOGY METHOD 09/11/2024 6:42 AM [facility] NRBC Absolute 0.00 <0.10 K/mcL LAB HEMETOLOGY METHOD 09/11/2024 6:42 AM [facility] Neutrophils Relative 40.3 % LAB HEMETOLOGY METHOD 09/11/2024 6:42 AM [facility] Lymphocytes Relative 49.1 % LAB HEMETOLOGY METHOD 09/11/2024 6:42 AM [facility] Monocytes Relative 9.1 % LAB HEMETOLOGY METHOD 09/11/2024 6:42 AM [facility] Eosinophils Relative 1.0 % LAB HEMETOLOGY METHOD 09/11/2024 6:42 AM [facility] Basophils Relative 0.3 % LAB HEMETOLOGY METHOD 09/11/2024 6:42 AM [facility] Immature Granulocytes Relative 0.2 % LAB HEMETOLOGY METHOD 09/11/2024 6:42 AM [facility] Neutrophils Absolute 2.30 1.50 - 7.00 K/mcL LAB HEMETOLOGY METHOD 09/11/2024 6:42 AM [facility] Lymphocytes Absolute 2.81 1.00 - 5.00 K/mcL LAB HEMETOLOGY METHOD 09/11/2024 6:42 AM [facility] Monocytes Absolute 0.52 0.20 - 1.00 K/mcL LAB HEMETOLOGY METHOD 09/11/2024 6:42 AM [facility] Eosinophils Absolute 0.06 0.00 - 0.50 K/mcL LAB HEMETOLOGY METHOD 09/11/2024 6:42 AM [facility] Basophils Absolute 0.02 0.00 - 0.20 K/mcL LAB HEMETOLOGY METHOD 09/11/2024 6:42 AM [facility] Immature Granulocytes Absolute 0.01 0.00 - 0.03 K/mcL LAB HEMETOLOGY METHOD 09/11/2024 6:42 AM EST [facility] Blood Venous blood specimen / Unknown Venipuncture / Unknown 09/11/2024 5:33 AM EST 09/11/2024 6:22 AM EST Lio PINEDA LAB BLOOD ORDERABLES Final Resu lt [facility] [address] [place] [address], [place] [phone] * (ABNORMAL) Basic metabolic panel (09/11/2024 5:33 AM EST) Only the most recent of2 resultswithin the time period is included. Sodium 142 133 - 145 mmol/L LAB CHEMISTRY METHOD 09/11/2024 7:11 AM [facility] Potassium 3.5 3.5 - 5.5 mmol/L LAB CHEMISTRY METHOD 09/11/2024 7:11 AM [facility] Chloride 114(H) 96 - 110 mmol/L LAB CHEMISTRY METHOD 09/11/2024 7:11 AM [facility] CO2 23 21 - 32 mmol/L LAB CHEMISTRY METHOD 09/11/2024 7:11 AM [facility] Anion Gap 5 3 - 11 LAB CHEMISTRY METHOD 09/11/2024 7:11 AM [facility] Glucose 86 70 - 100 mg/dL LAB CHEMISTRY METHOD 09/11/2024 7:11 AM [facility] BUN 8 5 - 25 mg/dL LAB CHEMISTRY METHOD 09/11/2024 7:11 AM [facility] Creatinine 0.45(L) 0.50 - 1.10 mg/dL LAB CHEMISTRY METHOD 09/11/2024 7:11 AM [facility] eGFR 117 >=60 mL/min/1. 73m2 LAB CHEMISTRY METHOD 09/11/2024 7:11 AM [facility] Comment:Calculation based on the??Chronic Kidney Disease Epidemiology Collaboration (CKD-EPI) equation refit??without adjustment for race. BUN/Creatinine Ratio 17.8 LAB CHEMISTRY METHOD 09/11/2024 7:11 AM [facility] Calcium 7.8(L) 8.5 - 10.5 mg/dL LAB CHEMISTRY METHOD 09/11/2024 7:11 AM [facility] Blood Venous blood specimen / Unknown Venipuncture / Unknown 09/11/2024 5:33 AM EST 09/11/2024 6:20 AM EST us Jessica Alves MD LAB BLOOD ORDERABLES Final Res ult [facility] [address] [place] [address], [place] [phone] * (ABNORMAL) Gastrointestinal pathogens molecular study (09/10/2024 6:21 PM EST) Campylobacter Detection by PCR Not Detected Not Detected LAB MICROBIOLOGY METHOD 5 8:43 PM [facility] Plesiomonas shigelloides Detection by PCR Not Detected Not Detected LAB MICROBIOLOGY METHOD 5 8:43 PM [facility] Salmonella Detection by PCR Not Detected Not Detected LAB MICROBIOLOGY METHOD 5 8:43 PM [facility] Vibrio Detection by PCR Not Detected Not Detected LAB MICROBIOLOGY METHOD 5 8:43 PM [facility] Vibrio cholerae Detection by PCR Not Detected Not Detected LAB MICROBIOLOGY METHOD 5 8:43 PM [facility] Yersinia enterocolitica Detection by PCR Not Detected Not Detected LAB MICROBIOLOGY METHOD 5 8:43 PM [facility] Enteroaggregative E coli EAEC Detection by PCR Not Detected Not Detected LAB MICROBIOLOGY METHOD 5 8:43 PM [facility] Enteropathogenic E coli EPEC Detection Not Detected Not Detected LAB MICROBIOLOGY METHOD 5 8:43 PM [facility] Enterotoxigenic E coli ETEC LTST Detection Not Detected Not Detected LAB MICROBIOLOGY METHOD 5 8:43 PM [facility] Shiga-like toxin producing E coli STEC STX1 STX2 Det Not Detected Not Detected LAB MICROBIOLOGY METHOD 5 8:43 PM [facility] Shigella Enteroinvasive E coli EIEC Detection Not Detected Not Detected LAB MICROBIOLOGY METHOD 5 8:43 PM [facility] Cryptosporidium Detection by PCR Not Detected Not Detected LAB MICROBIOLOGY METHOD 5 8:43 PM [facility] Cyclospora cayetanensis Detection by PCR Not Detected Not Detected LAB MICROBIOLOGY METHOD 5 8:43 PM [facility] Entamoeba histolytica Detection by PCR Not Detected Not Detected LAB MICROBIOLOGY METHOD 5 8:43 PM [facility] Giardia lamblia Detection by PCR Not Detected Not Detected LAB MICROBIOLOGY METHOD 5 8:43 PM [facility] Adenovirus F 40 41 Detection by PCR Not Detected Not Detected LAB MICROBIOLOGY METHOD 5 8:43 PM [facility] Astrovirus Detection by PCR Not Detected Not Detected LAB MICROBIOLOGY METHOD 5 8:43 PM [facility] Norovirus GI GII Detection by PCR Detected(A ) Not Detected LAB MICROBIOLOGY METHOD 5 8:43 PM [facility] Comment:Alternate method rec ommended if results do not correlate with the clinical presentation. Sapovirus Detection by PCR Not Detected Not Detected LAB MICROBIOLOGY METHOD 5 8:43 PM [facility] Rotavirus A Detection by PCR Not Detected Not Detected LAB MICROBIOLOGY METHOD 8:43 PM [facility] Stool Rectum structure / Unknown Non-blood Collection / Unknown 09/10/2024 6:21 PM EST 09/10/2024 7:00 PM EST [facility] - 09/10/2024 8:43 PM EST PCR [...] PCR Lio PINEDA LAB MICROBIOLOGY - GENERAL [place]UL[place] SZYMANSKI Edited Result - Final [facility] [address] [place] [address], * Respiratory virus panel molecular study (09/10/2024 3:45 PM EST) Adenovirus Detection by PCR Not Detected Not Detected LAB MICROBIOLOGY METHOD 09/10/2024 4:48 PM [facility] Influenza A PCR Not Detected Not Detected LAB MICROBIOLOGY METHOD 09/10/2024 4:48 PM [facility] Influenza B PCR Not Detected Not Detected LAB MICROBIOLOGY METHOD 09/10/2024 4:48 PM [facility] Coronavirus 229E Not Detected Not Detected LAB MICROBIOLOGY METHOD 09/10/2024 4:48 PM [facility] Coronavirus HKU1 Not Detected Not Detected LAB MICROBIOLOGY METHOD 09/10/2024 4:48 PM [facility] Coronavirus OC43 Not Detected Not Detected LAB MICROBIOLOGY METHOD 09/10/2024 4:48 PM [facility] Coronavirus NL63 Not Detected Not Detected LAB MICROBIOLOGY METHOD 09/10/2024 4:48 PM [facility] Parainfluenza Virus 1 Not Detected Not Detected LAB MICROBIOLOGY METHOD 09/10/2024 4:48 PM [facility] Parainfluenza Virus 2 Not Detected Not Detected LAB MICROBIOLOGY METHOD 09/10/2024 4:48 PM [facility] Parainfluenza Virus 3 Not Detected Not Detected LAB MICROBIOLOGY METHOD 09/10/2024 4:48 PM [facility] Parainfluenza Virus 4 Not Detected Not Detected LAB MICROBIOLOGY METHOD 09/10/2024 4:48 PM [facility] RSV PCR Not Detected Not Detected LAB MICROBIOLOGY METHOD 09/10/2024 4:48 PM [facility] Human Metapneumovirus A and B Not Detected Not Detected LAB MICROBIOLOGY METHOD 09/10/2024 4:48 PM [facility] Rhinovirus/Entero virus Not Detected Not Detected LAB MICROBIOLOGY METHOD 09/10/2024 4:48 PM [facility] Bordetella pertussis Not Detected Not Detected LAB MICROBIOLOGY METHOD 09/10/2024 4:48 PM [facility] Bordetella parapertussis Not Detected Not Detected LAB MICROBIOLOGY METHOD 09/10/2024 4:48 PM [facility] Mycoplasma pneumo by PCR Not Detected Not Detected LAB MICROBIOLOGY METHOD 09/10/2024 4:48 PM [facility] Chlamydia pneumoniae Not Detected Not Detected LAB MICROBIOLOGY METHOD 09/10/2024 4:48 PM [facility] SARS COV-2 Not Detected Not Detected LAB MICROBIOLOGY METHOD 09/10/2024 4:48 PM [facility] Swab Both anterior nares / Unknown Non-blood Collection / Unknown 09/10/2024 3:45 PM EST 09/10/2024 3:52 PM EST [facility] - 09/10/2024 4:48 PM EST Testing was performed using the Hyphen 8 Respiratory Pathogen PCR Assay. All results must [...] that are below the limit of detection. [facility] Final Result [facility]) [facility] [address] [place] [address], * CT Abdomen Pelvis w Contrast (09/10/2024 2:32 PM EST) Anatomical Region Laterality Modality Body Computed Tomogra phy 09/10/2024 2:52 PM EST Impressions 09/10/2024 2:58 PM EST Impression: 1. Trace bilateral pleural effusions, periportal low attenuation, and trace free fluid in the pelvis, likely secondary to fluid resuscitation. 2. Otherwise unremarkable CT of the abdomen and pelvis. Crispin PINEDA ([id number]) -------- FINAL REPORT -------- Dictated By: Petrona Barreto Dictated Date: 09/10/2024 14:52 ET Assigned Physician: Petrona Barreto Reviewed and Electronically Signed By: Petrona Barreto Signed Date: 09/10/2024 14:58 ET Workstation ID: [id number] Transcribed By: Self Edit Transcribed Date: 09/10/2024 14:52 ET Narrative 09/10/2024 2:58 PM EST History: Abdominal pain, acute, nonlocalized, with nausea, vomiting and diarrhea. Comparison: No comparison imaging at this institution. Technique: Helical volumetric imaging of the abdomen and pelvis was performed during the uneventful intravenous administration of 90 cc Isovue-370. DLP: 419.14 mGy/cm Zauber VCT Iterative reconstruction technique Findings: Trace bilateral [...] administration of 90 ccIsovue-370. DLP: 419.14 mGy/cm Zauber VCT Iterative reconstruction technique Findings: Trace bilateral [...] unremarkable CT of the abdomen and pelvis. Appear Here [place] ([id number]) -------- FINAL REPORT -------- Dictated By: Petrona Barreto Dictated Date: 09/10/2024 14:52 ET Assigned Physician: Petrona Barreto Reviewed and Electronically Signed By: Petrona Barreto Signed Date: 09/10/2024 14:58 ET Workstation ID: [id number] Transcribed By: Self Edit Transcribed Date: 09/10/2024 [...] MD IMG CT PROCEDURES Final Result * hCG, serum, qualitative (09/10/2024 5:31 AM EST) hCG Qual Negative Negative 09/10/2024 6:28 AM EST [facility] Blood Venous blood specimen / Unknown Venipuncture / Unknown 09/10/2024 5:31 AM EST 09/10/2024 5:41 AM EST us Surendra Oh MD LAB BLOOD ORDERABLES Final Res ult Performing Organization Address City/[facility]/ZIP Co de Phone Number [facility] [address] [place] [address], [place] [phone] * Magnesium (09/10/2024 5:31 AM EST) Magnesium 2.1 1.9 - 2.6 mg/dL LAB CHEMISTRY METHOD 09/10/2024 6:05 AM EST [facility] Blood Venous blood specimen / Unknown Venipuncture / Unknown 09/10/2024 5:31 AM EST 09/10/2024 5:41 AM EST us Surendra Oh MD LAB BLOOD ORDERABLES Final Res ult Performing Organization Address City/[facility]/ZIP Co de Phone Number [facility] [address] [place] [address], [place] [phone] * Hepatic function panel (09/10/2024 5:31 AM EST) Total Protein 6.6 6.0 - 8.0 g/dL LAB CHEMISTRY METHOD 09/10/2024 2:39 PM [facility] Albumin 3.3 3.2 - 5.0 g/dL LAB CHEMISTRY METHOD 09/10/2024 2:39 PM [facility] Total Bilirubin 0.2 0.0 - 1.4 mg/dL LAB CHEMISTRY METHOD 09/10/2024 2:39 PM [facility] Bilirubin, Direct <0.1 0.0 - 0.3 mg/dL LAB CHEMISTRY METHOD 09/10/2024 2:39 PM [facility] Bilirubin, Indirect LAB CHEMISTRY METHOD 09/10/2024 2:39 PM EST [facility] Comment:Unable to calculate Indirect Bilirubin. ALT (SGPT) 31 10 - 60 unit/L LAB CHEMISTRY METHOD 09/10/2024 2:39 PM EST [facility] AST (SGOT) 26 10 - 42 unit/L LAB CHEMISTRY METHOD 09/10/2024 2:39 PM EST [facility] Alkaline Phosphatase 65 42 - 121 unit/L LAB CHEMISTRY METHOD 09/10/2024 2:39 PM EST [facility] Blood Venous blood specimen / Unknown Venipuncture / Unknown 09/10/2024 5:31 AM EST 09/10/2024 5:41 AM EST Lio Cox PA LAB BLOOD ORDERABLES Final Resu lt Performing Organization Address City/[facility]/ZIP Co de Phone Number [facility]) [facility] [address] [place] [address], [place] [phone] * ECG 12 lead (09/10/2024 5:14 AM EST) Ventricular Rate ECG 87 BPM GEMUSE Atrial Rate 87 BPM GEMUSE P-R Interval 162 ms GEMUSE QRS Duration 88 ms GEMUSE Q-T Interval 374 ms GEMUSE QTc 450 ms GEMUSE P Wave Painter 78 degrees GEMUSE R Painter 65 degrees GEMUSE T Painter 59 degrees GEMUSE ECG Interpretation Normal sinus rhythm No previous ECGs available Confirmed by VIELKA NAIDU ([id number]) on 09/10/2024 9:10:00 PM GEMUSE 09/10/2024 5:14 AM EST 09/10/2024 9:10 PM EST us Surendra Oh MD ECG ORDERABLES Final Result GEMUSE * ECG-Annotated (09/10/2024) Provider Onrima MCCURDY ECG ORDERABLES Final Result from Last 3 Months Additional Health Concerns Infection Onset Date Last Indicated Norovirus 09/10/2024 09/10/2024 Insurance MEDICAID - [place] Advance Directives Documents on File Type Date Recorded Patient Slab Polisher Expl anation Advance Directives and Living Will 09/13/2024 9:15 AM PROXY Advance Directives and Living Will 09/11/2024 11:18 AM George Lynne Health Care Proxy * Full Code - Confirmed (Latest Code Status on File) Date Activated Date Inactivated Comments 09/10/2024 2:17 PM 09/11/2024 6:[address] atus was ascertained in the following way: Code status discussion: discussion with patient To update the patient's code status, place a code status order. Do not modify or discontinue any currently active code status orders. * Full Code - Default Date Activated Date Inactivated Comments 09/10/2024 1:16 PM 09/10/2024 2:17 PM This is orde r is used when code status has not been discussed with the patient, or code status is otherwise unknown/unconfirmed To update the patient's code status, place a code status order. Do not modify or discontinue any currently active code status orders. Healthcare Agents on File Name Relationship Healthcare Agent Relationsnd p Communication Hollie Lynne Daughter Second Danii hoyt Health Care Agent Care Teams Leader Tier Relationship Specialty Start Date End Date Name, MD [address] [place] [address] PCP - General Internal Medicine 09/10/24
== END 2024-09-26 14:33 | disposition home or self-care (01) ==
LOC: HO.HHCL 14:32
PROVIDERS: Visit Provider Nurse Practitioner Family
DX: E87.6 Hypokalemia (principal)
CPT/HCPCS: 36415; 84132

== ENCOUNTER 2024-10-12 11:12 | Outpatient (REF) | payer MEDICAID, SELFPAY ==
--- OUTSIDE RECORDS SUMMARY | 2024-10-12 13:12 | XMS_ITS | Encounter Summary ---
Author Organization [employer] Address 75 [facility] 7t [place] [address] Care Team Providers Care Club Steward Name Role Phone Name, Steve MCCURDY Primary Care Provider Pepe Tran RN Unavailable [phone] Reason for Visit * Reason Comments Care Coordination SDOH f/u Encounter Details Date Type Department Care Team (Latest Contact Info) Description 10/11/2024 Patient Outreach [facility] [address] [place], [place] [phone] Name, MD Steve [address] [place] [address] Care Coordination (SDOH f/u) Social History Tobacco Use Types Packs/Day Years [...] encounter Progress Notes * Cristal Jacob - 10/11/2024 11:40 AM EST CHW Cristal Jacob placed outbound call to patient to follow up on SDOH needs. Patient's name, and address confirmed. Patient states is doing well. No further questions or concerns. CHW reinforced direct contact information or CM for any additional questions or concerns and extended clinic hours on Mondays and Wednesdays, and Walk-In Urgent Care Located in [facility] of [facility]. Patient provided with after-hours line for [facility], , which offer night time triage service and option to transfer to roofing contractor provider if needed. Patient verbalizes understanding, and able to repeat back to headline writer. A follow up call willbe placed within 10 days, patient agrees with plan. documented in this encounter Plan of Treatment Upcoming Encounters Date Type Department Care Team (Late st Contact Info) Description 12/31/2024 2:30 PM EDT Office Visit [facility] [address] [place] [address] Denisse Rai, OD [address] [place], [place] [phone] 01/10/2025 10:30 AM EDT Office Visit [facility] [address] [place] [address] Name, MD Steve [address] [place] [address] documented as of this encounter Visit Diagnoses Not on filedocumented in this encounter Additional Health Concerns Assessment Noted Time PHQ-9 Depression Total Score: 15 025 2:29 PM EST documented as of this encounter Care Teams Club Steward Relationship Specialty Start Date End Date Name, MD Steve [address] [place] [address] PCP - General Family Medicine 01/23/18 Pepe Tran, MILAD [address] [place] [address] Plasma SpecialistScrew Machine Setter 09/27/24 [email or web address] [facility] 07/01/24 documented as of this encounter
--- OUTSIDE RECORDS SUMMARY | 2024-10-12 13:12 | XMS_ITS | Encounter Summary ---
Author Organization [employer] Address 75 [facility] 7t [place] [address] Care Team Providers Care Quill Machine Operator Name Role Phone Name, Steve MCCURDY Primary Care Provider [phone] Reason for Visit * Reason Comments Care Coordination CM/CHW outreach Encounter Details Date Type Department Care Team (Latest Contact Info) Description 09/13/2024 Patient Outreach [facility] [address] [place], [place] [phone] Name, MD Steve [address] [place] [address] Care Coordination (CM/CHW outreach) Social History Tobacco [...] 2:30 PM EDT Office Visit [facility] [address] [place] [address] Fredi, Denisse, OD 230 [place] [address] 01/10/2025 10:30 AM EDT Office Visit [facility] [address] [place] [address] Name, MD Steve [address] [place] [address] documented as of this encounter Visit Diagnoses Not on filedocumented in this encounter Additional Health Concerns Assessment Noted Time PHQ-9 Depression Total Score: 21 024 10:52 AM EDT documented as of this encounter Care Teams Quill Machine Operator Relationship Specialty Start Date End Date Name, MD Steve [address] [place] [address] PCP - General Family Medicine 01/23/18 [employer] [facility] 07/01/24 documented as of this encounter
--- OUTSIDE RECORDS SUMMARY | 2024-10-12 13:12 | XMS_ITS | Encounter Summary ---
Author Organization [facility] Address 75 [facility] 7t [place] [address] Care Team Providers Care Grape Crusher Name Role Phone Name, Steve MCCURDY Primary Care Provider [phone] Reason for Visit * Reason Comments Care Coordination CM/CHW outreach Encounter Details Date Type Department Care Team (Latest Contact Info) Description 09/13/2024 Patient Outreach [facility] 230 [place], [place] [phone] Name, MD Steve [address] [place] [address] Care Coordination (CM/CHW outreach) Social History Tobacco [...] outbound call to patient introducing herself from [facility] CM Department, in regard to offering services. Patient's name and was confirmed. Patient agrees to participate in program. Appt. for initial assessment scheduled for 09/27/24 @ 1PM tele with CM Pepe Tran RN. CHW reinforced direct contact information or for any additional questions or concerns and extended clinic hours on Mondays and Wednesdays, and [facility]. Patient provided with after-hours line for [facility], , which offer night time triage service and option to transfer to accreditation coordinator provider if needed. Patient verbalizes understanding, and able to repeat back to telegraphic typewriter operator chief. documented in this encounter Plan of Treatment Upcoming Encounters Date Type Department Care Team (Late st Contact Info) Description 12/31/2024 2:30 PM EDT Office Visit [facility] [address], [place] [phone] Denisse Rai, OD [address] [place], [place] [phone] 01/10/2025 10:30 AM EDT Office Visit [facility] [address] [place] [address] Name, MD Steve [address] [place] [address] documented as of this encounter Visit Diagnoses Not on filedocumented in this encounter Additional Health Concerns Assessment Noted Time PHQ-9 Depression Total Score: 21 024 10:52 AM EDT documented as of this encounter Care Teams Grape Crusher Relationship Specialty Start Date End Date Name, MD Steve [address] [place] [address] PCP - General Family Medicine 01/23/18 [employer] [facility] 07/01/24 documented as of this encounter
--- OUTSIDE RECORDS SUMMARY | 2024-10-12 13:12 | XMS_ITS | Encounter Summary ---
Author Organization [employer] Address 75 [facility] 7t [place] [address] Care Team Providers Care Cork Painter And Grader Name Role Phone Name, Steve MCCURDY Primary Care Provider [phone] Pepe Tran RN Unavailable [phone] Reason for Visit * Reason Onset Date Comments Durable Medical Equipment 10/09/2024 Wrist splints Encounter Details Date Type Department Care Team (Late st Contact Info) Description 10/09/2024 Telephone [facility] [address] [place], [place] [phone] Name, MD Steve [address] [place], [place] [phone] Durable Medical Equipment (Wrist splints) Social History Tobacco Use Types Packs/Day Years [...] encounter Miscellaneous Notes * Telephone Encounter - Zara Hayes - 10/09/2024 8:01 AM EST RX for wrist splints faxed to [facility] . Confirmation received and sent to scan. If patient calls to check status on above, please advise them to contact [facility] at [phone]. * Telephone Encounter - Zara Hayes - 10/09/2024 8:01 AM EST ----- Message from Steve Beatty MD sent at 10/08/2024 5:14 PM EST ----- This patient has been for new prescription for wrist splints. We prescribed her wrist splints in the past for carpal tunnel syndrome but apparently the prescription was not accepted because of her insurance documented in this encounter Plan of Treatment Upcoming Encounters Date Type Department Care Team (Late st Contact Info) Description 12/31/2024 2:30 PM EDT Office Visit [facility] OPTOM[facility] [address] [place] [address] Denisse Rai, OD [address] [place] [address] 01/10/2025 10:30 AM EDT Office Visit [facility] [address] [place], [place] [phone] Name, MD Steve [address] [place] [address] documented as of this encounter Visit Diagnoses Not on filedocumented in this encounter Additional Health Concerns Assessment Noted Time PHQ-9 Depression Total Score: 15 025 2:29 PM EST documented as of this encounter Care Teams Cork Painter And Grader Relationship Specialty Start Date End Date Name, MD Steve [address] [place], [place] [phone] PCP - General Family Medicine 01/23/18 Pepe Tran RN [address] [place] [address] Committee MemberPrincipal Database Developer 09/27/24 [employer] [facility] 07/01/24 documented as of this encounter
--- OUTSIDE RECORDS SUMMARY | 2024-10-12 13:12 | XMS_ITS | Encounter Summary ---
Author Organization [email or web address] Address 75 [facility] 7t [place] [address] Care Team Providers Care Agency Sales Management Assistant Name Role Phone Steve Beatty MD Primary Care Provider [phone] Pepe Tran RN Unavailable [phone] Reason for Referral * Consultation (Routine) - Authorized Specialty Diagnoses / Procedures Referred By Jacqueline zafar Referred To Contact Podiatry Diagnoses Callus of foot Steve Beatty MD [address] [place] [address] Phone: tel: fax: Case Roy DPM [address] [address] Phone: tel: fax: Referral ID Status Reason Start Date Expiration Date Visits Requested Visits Authorized [id number] Authorized Specialty Services Required 10/08/2024 10/08/2025 1 1 * Consultation (Routine) - Authorized Specialty Diagnoses / Procedures Referred By Jacqueline zafar Referred To Contact Hand Surgery Diagnoses Bilateral carpal tunnel syndrome Steve Beatty MD [address] [place] [address] Phone: tel: fax: [facility] [address] [place] [address] Phone: tel: Referral ID Status Reason Start Date Expiration Date Visits Requested Visits Authorized [id number] Authorized Specialty Services Required 10/08/2024 10/08/2025 6 6 Reason for Visit * Reason Comments Follow-up Encounter Details Date Type Department Care Team (Late st Contact Info) Description 10/08/2024 3:45 PM EST Office Visit [facility] [place] [address] Name, MD Steve [address] [place] [address] Type 2 diabetes mellitus without complication, without long-term current use of insulin (CMS/HCC) (Primary Dx); Bilateral carpal tunnel syndrome; Hand swelling; Callus of foot; Tinea pedis of both feet Social History Tobacco Use Types Packs/Day Years [...] Sign Reading Time Taken Comments Blood Pressure 103/67 10/08/2024 4:01 PM EST Pulse 87 10/08/2024 4:01 PM EST Temperature 35.8 ??C (96.4 ??F) 10/08/2024 4:01 PM ES T Respiratory Rate 16 10/08/2024 4:01 PM EST Oxygen Saturation 97% 10/08/2024 4:01 PM EST Inhaled Oxygen Concentration - - Weight 55.4 kg (122 lb 3.2 oz) 10/08/2024 4:01 P M EST Height - - Body Mass Index 22.35 09/26/2024 2:11 PM EST documented in this encounter Progress Notes * Steve Beatty MD - 10/08/2024 3:45 PM EST Subjective Patient ID: Benigno Pickett is a 48 y.o. female who presents for Follow-up. HPI Patient comes for a follow-up visit. Blood sugar is very well-controlled on current dose of Trulicity. She is not having any GI side effects of the medication. She has bilateral carpal tunnel syndrome. She has not seen hand surgery yet and I have referred hertoday. She continues to have symptoms of bilateral hand numbness and weakness. She also tells me she has occasional hand swelling. The physician that read her nerve conduction study in June recommended that she tells me about occasional symptom of bilateral hand swelling she has on and off and also that she has a family history of rheumatoid arthritis. She does not have any hand swelling during her visit today. She also asked me for a new prescription for wrist splints. I prescribed a wristsplints in the past but apparently the [facility] that she went to did not accept her in surance. Review of Systems Constitutional: Negative for chills and fever. HENT: Negative for sore throat. Respiratory: Negative for cough, shortness of breath and wheezing. Cardiovascular: Negative for chest pain, palpitations and leg swelling. Gastrointestinal: Negative for abdominal pain. Musculoskeletal: See HPI Visit Vitals BP 103/67 Pulse 87 Temp 96.4 ??F (35.8 ??C) (Temporal) Resp 16 Wt 122 lb 3.2 oz (55.4 kg) SpO2 97% BMI 22.35 kg/m?? OB Status Having periods Smoking Status Every Day BSA 1.56 m?? Objective Physical Exam Constitutional: Appearance: Normal appearance. Cardiovascular: Rate and Rhythm: Normal rate and regular rhythm. Pulses: Dorsalis pedis pulses are 2+ on the right side and 2+ on the left side. Posterior tibial pulses are 2+ on the right side and 2+ on the left side. Heart sounds: No murmur heard. No gallop. Pulmonary: Effort: Pulmonary effort is normal. No respiratory distress. Breath sounds: Normal breath sounds. No wheezing. Musculoskeletal: Right lower leg: No edema. Left lower leg: No edema. Right foot: Normal range of motion. Left foot: Normal range of motion. Feet: Right foot: Protective Sensation: 5 sites tested. 5 sites sensed. Toenail Condition: Right toenails are normal. Left foot: Protective Sensation: 5 sites tested. 5 sites sensed. Toenail Condition: Left toenails are normal. Comments: Dry cracked heel skin, calluses in both toes, mild tinea pedis on both feet Neurological: Mental Status: She is alert. Lab Results Component Value Date HGBA1C 5.8 10/08/2024 HGBA1C 5.6 05/29/2024 HGBA1C 5.7 01/02/2024 HGBA1C 6.6 (A) 07/20/2023 HGBA1C 9.2 (A) 05/10/2023 HGBA1C 7.5 (H) 03/31/2022 Assessment/Plan Diagnoses and all orders for this visit: Type 2 diabetes mellitus without complication, without long-term current use of insulin ([facility]) Comments: Well-controlled. Continue current meds and avoid sweets. Orders: - POCT Glucose - POCT HGB A1C Bilateral carpal tunnel syndrome Comments: Referral to hand surgery. I will message PA specialist to get her new wrist splints Orders: - Referral to Hand Surgery; Future Hand swelling Comments: History of hand swelling on and off. Family history of rheumatoid arthritis. I recommended evaluation with blood work listed below. Orders: - Sed Rate by Modified Westergren; Future - Rheumatoid Factor; Future Callus of foot Comments: I prescribed the patient urea cream for the heels. Clotrimazole cream between the toes. Referral topodiatry. Orders: - urea (Carmol) 10 % cream; Apply topically if needed for dry skin. - Referral to Podiatry; Future Tinea pedis of both feet Comments: See above Orders: - clotrimazole (Lotrimin) 1 % cream; Apply topically 2 times daily for 28 days. documented in this encounter Plan of Treatment Upcoming Encounters Date Type Department Care Team (Late st Contact Info) Description 12/31/2024 2:30 PM EDT Office Visit [facility] [address] [place] [address] Fredi, Denisse, OD [address] [place] [address] 01/10/2025 10:30 AM EDT Office Visit [facility] [address] [place] [address] Steve Beatty MD [address] [place] [address] Scheduled Orders Name Type Priority Associated Diagnoses Orde r Schedule Sed Rate by Modified Westergren Lab Routine Hand swelling Expected: 10/08/2024, Expires: 10/08/2025 Rheumatoid Factor Lab Routine Hand swelling Expected: 10/08/2024, Expires: 10/08/2025 Scheduled Referrals Name Type Priority Associated Diagnoses Orde r Schedule Referral to Hand Surgery Outpatient Referral Routine Bilateral carpal tunnel syndrome Expected: 10/08/2024 (Approximate), Expires: 10/08/2025 Referral to Podiatry Outpatient Referral Routine Callus of foot Expected: 10/08/2024 (Approximate), Expires: 10/08/2025 documented as of this encounter Procedures Procedure Name Priority Date/Time Associated Diagnosis Comments POCT GLYCATED HEMOGLOBIN, TOTAL Routine 10/08/2024 4:23 PM EST Type 2 diabetes mellitus without complication, without long-term current use of insulin ([facility]) POCT GLUCOSE Routine 10/08/2024 4:19 PM EST Type 2 diabetes mellitus without complication, without long-term current use of insulin ([facility]) documented in this encounter Results * POCT HGB A1C (10/08/2024 4:23 PM EST) Hemoglobin A1C 5.8 4.0 - 6.0 % QC Media Lot # [id number] Lot# Expiration Date 71,626 Blood 10/08/2024 4:23 PM EST us Steve Beatty MD POINT OF CARE TEST ENTER/EDIT OR DERABLES Final Result * POCT Glucose (10/08/2024 4:19 PM EST) Glucose Blood, POC 96 60 - 200 mg/dL QC Media Lot # [id number] Lot# Expiration Date 53,025 Blood Capillary blood specimen / Unknown 10/08/2024 4:19 PM EST us Steve Beatty MD POINT OF CARE TEST ENTER/EDIT OR DERABLES Final Result documented in this encounter Visit Diagnoses Diagnosis Type 2 diabetes mellitus without complication, without long-term current use of insulin ([facility])- Primary Bilateral carpal tunnel syndrome Carpal tunnel syndrome Hand swelling Swelling of limb Callus of foot Corns and callosities Tinea pedis of both feet documented in this encounter Additional Health Concerns Assessment Noted Time PHQ-9 Depression Total Score: 15 025 2:29 PM EST documented as of this encounter Care Teams Agency Sales Management Assistant Relationship Specialty Start Date End Date Name, MD Steve [address] [place] [address] PCP - General Family Medicine 01/23/18 Pepe Tran RN [address] [place] [address] Block HandlerStore Operations Specialist 09/27/24 [employer] [facility] 07/01/24 documented as of this encounter
--- OUTSIDE RECORDS SUMMARY | 2024-10-12 13:12 | XMS_ITS | Encounter Summary ---
Author Organization [employer] Address 75 [facility] 7t [place] [address] Care Team Providers Care Toolsmith Name Role Phone Name, Steve MCCURDY Primary Care Provider Pepe Tran RN Unavailable [phone] Reason for Visit * Reason Onset Date Comments Med Refill 09/16/2023 Encounter Details Date Type Department Care Team (Late st Contact Info) Description 09/16/2023 Refill [facility] [address] [place], [place] [phone] Name, MD Steve [address] [place], [place] [phone] Social History Tobacco Use Types Packs/Day Years [...] Visit [facility] [address] [place] [address] Fredi, Denisse, OD [address] [place] [address] 01/10/2025 10:30 AM EDT Office Visit [facility] [address] [place] [address] Name, MD Steve [address] [place] [address] documented as of this encounter Visit Diagnoses Not on filedocumented in this encounter Additional Health Concerns Assessment Noted Time PHQ-9 Depression Total Score: 16 023 3:49 PM EDT documented as of this encounter Care Teams Toolsmith Relationship Specialty Start Date End Date Name, MD Steve [address] [place] [address] PCP - General Family Medicine 01/23/18 Pepe Tran, MILAD [address] [place] [address] Software Developer Mid LevelGrey Percher 09/27/24 [facility] 07/01/24 documented as of this encounter
--- OUTSIDE RECORDS SUMMARY | 2024-10-12 13:12 | XMS_ITS | Encounter Summary ---
Author Organization [email or web address] Address 75 [facility] 7t [place] [address] Care Team Providers Care Juice Scaleman Name Role Phone Name, Steve MCCURDY Primary Care Provider [phone] Pepe Tran RN Unavailable [phone] Encounter Details Date Type Department Care Team (Latest Contact Info) Description 10/07/2024 Travel Social History Tobacco Use Types Packs/Day [...] Description 12/31/2024 2:30 PM EDT Office Visit [facility] OPT[facility]ETRY [address] [place] [address] FrediDenisse rice, OD [address] [place] [address] 01/10/2025 10:30 AM EDT Office Visit [facility] [address] [place] [address] Name, MD Steve [address] [place] [address] documented as of this encounter Visit Diagnoses Not on filedocumented in this encounter Additional Health Concerns Assessment Noted Time PHQ-9 Depression Total Score: 15 025 2:29 PM EST documented as of this encounter Care Teams Juice Scaleman Relationship Specialty Start Date End Date Name, MD Steve [address] [place] [address] PCP - General Family Medicine 01/23/18 Pepe Tran RN [address] [place] [address] Gutter Mouth CutterCarbon Capture Power Plant Engineer 09/27/24 [facility] 07/01/24 documented as of this encounter
--- OUTSIDE RECORDS SUMMARY | 2024-10-12 13:12 | XMS_ITS | Encounter Summary ---
Author Organization [employer] Address 75 [facility] 7t [place] [address] Care Team Providers Care Quartz Cutter Name Role Phone Name, Steve MCCURDY Primary Care Provider [phone] Pepe Tran RN Unavailable [phone] Reason for Visit * Reason Onset Date Comments Care Management 10/11/2024 C3CM- f/u call Encounter Details Date Type Department Care Team ([facility] st Contact Info) Description 10/11/2024 Telephone [facility] [address] [place], [place] [phone] Name, MD Steve [address] [place] [address] Care Management (C3CM- f/u call) Social History Tobacco Use Types Packs/Day Years [...] Telephone Encounter - Pepe Tran RN - 10/11/2024 11:40 AM EST CM Pepe Tran RN and ERASTOW Cristal Jacob placed outbound call to patient. Patient's name, and address confirmed. Patient states is doing well with no recent illnesses or emergency room visits.Patient confirms attending visit with PCP on 10/08/24. She states the visit went well. Per patient, sugars have been well controlled. Patient is aware that labs were ordered. She states she has not yet completed them but intends on doing so once the PT1 has been set. ADI Bee will assist. JESÚS informed patient that the script for wrist splints was sent to [facility] on 10/09. CM provided patient with office number. CM also advised that a referral to [facility] was placed. Advised no appt scheduled yet. CM provided patient with office contact information and advised that she contactthe office to schedule an appt. She agrees. Patient confirms that she was able to burr picker the meds that were prescribed by PCP following her office visit. She reports using Rx as directed and denies any concerns at this time. Patient has also not been contacted by Podiatry. JESÚS provided her with office contact information. She agrees to call the office to schedule an appt. Patient is aware that her visit with BUS AND TROLLEY DISPATCHER was rescheduled to 10/19/24 at 10:30am. She is requesting PT1. ADI Bee will assist with setting this up and will contact patient with a status. She agrees. No further questions or concerns. CM reinforced direct contact information or CHW for any additional questions or concerns. Education provided on Walk-In Urgent Care located in [facility]. Patient provided with after-hours line for [facility], , which offer night time triage service and option to transfer to nylon machine operator provider if needed. Patient verbalizes understanding, and able to repeat back to physician underwriter. A follow up call will be placed within 10 days, patientagrees with plan. documented in this encounter Plan of Treatment Upcoming Encounters Date Type Department Care Team ([facility] st Contact Info) Description 12/31/2024 2:30 PM EDT Office Visit [facility] [address] [place], [place] [phone] Fredi, Denisse, OD [address] [place] [address] 01/10/2025 10:30 AM EDT Office Visit [facility] MED[facility] [address] [place] [address] NameSteve MD [address] [place] [address] documented as of this encounter Visit Diagnoses Not on filedocumented in this encounter Additional Health Concerns Assessment Noted Time PHQ-9 Depression Total Score: 15 025 2:29 PM EST documented as of this encounter Care Teams Quartz Cutter Relationship Specialty Start Date End Date Steve Beatty MD [address] [place] [address] PCP - General Family Medicine 01/23/18 Pepe Tran RN [address] [place] [address] Photo TechnologistEyeglass Lens Generator 09/27/24 [facility] 07/01/24 documented as of this encounter
--- OUTSIDE RECORDS SUMMARY | 2024-10-12 13:12 | XMS_ITS | Encounter Summary ---
Author Organization [email or web address] Address 75 [facility] 7t [place] [address] Care Team Providers Care Frame Assembler Name Role Phone Name, Steve MCCURDY Primary Care Provider [phone] Pepe Tran RN Unavailable [phone] Reason for Visit * Reason Comments Care Coordination SDOH f/u Encounter Details Date Type Department Care Team (Latest Contact Info) Description 10/05/2024 Patient Outreach [facility] [address] [place], [place] [phone] Name, MD Steve [address] [place] [address] Care Coordination (SDOH f/u) Social History Tobacco [...] encounter Progress Notes * Cristal Jacob - 10/05/2024 1:23 PM EST CHW Cristal Jacob placed outbound call to patient to follow up on SDOH needs. Patient's name, and address confirmed. Patient states is doing well. Patient states she is struggling with food insecurity, CHW will send referral to flex services for project [employer] program and should get a call withing 5-7 days. CHW also let patient know that her pt1 was scheduled for appt with PCP on 10/08/24 forpick up time at 315pm. Patient understood and agreed to call me if there are any issues. No further questions or concerns. CHW reinforced direct contact information or CM for any additional questions or concerns and extended clinic hours on Mondays and Wednesdays, and Walk-In Urgent Care Located in [facility] of [facility]. Patient provided with after-hours line for [facility], , which offer night time triage service and option to transfer to court collections officer provider if needed. Patient verbalizes understanding, and able to repeat back to promotion writer. A follow up call willbe placed within 10 days, patient agrees with plan. documented in this encounter Plan of Treatment Upcoming Encounters Date Type Department Care Team (Allegra guerin Contact Info) Description 12/31/2024 2:30 PM EDT Office Visit [facility] OPT[facility] [address] [place], [place] [phone] Denisse Rai, OD [address] [place] [address] 01/10/2025 10:30 AM EDT Office Visit [facility] [address] [place] [address] Name, MD Steve [address] [place] [address] documented as of this encounter Visit Diagnoses Not on filedocumented in this encounter Additional Health Concerns Assessment Noted Time PHQ-9 Depression Total Score: 15 025 2:29 PM EST documented as of this encounter Care Teams Frame Assembler Relationship Specialty Start Date End Date Name, MD Steve [address] [place] [address] PCP - General Family Medicine 01/23/18 Pepe Tran RN [address] [place] [address] Clinical Trials SpecialistMetallurgical Engineer 09/27/24 [email or web address] [facility] 07/01/24 documented as of this encounter
--- OUTSIDE RECORDS SUMMARY | 2024-10-12 13:12 | XMS_ITS | Encounter Summary ---
Author Organization [employer] Address 75 [facility] 7t [place] [address] Care Team Providers Care Power And Recovery Shift Engineer Name Role Phone Name, Steve MCCURDY Primary Care Provider [phone] Pepe Tran RN Unavailable [phone] Reason for Visit * Reason Comments Med Refill Encounter Details Date Type Department Care Team (Late st Contact Info) Description 12/07/2023 Refill [facility] [address] [place], [place] [phone] Name, MD Steve [address] [place], [place] [phone] Social History Tobacco Use Types Packs/Day Years [...] Description 12/31/2024 2:30 PM EDT Office Visit [facility] OPTOMETRY [address] [place] [address] Fredi, Denisse, OD [address] [place] [address] 01/10/2025 10:30 AM EDT Office Visit [facility] [address] [place] [address] Name, MD Steve [address] [place] [address] documented as of this encounter Visit Diagnoses Not on filedocumented in this encounter Additional Health Concerns Assessment Noted Time PHQ-9 Depression Total Score: 16 023 3:49 PM EDT documented as of this encounter Care Teams Power And Recovery Shift Engineer Relationship Specialty Start Date End Date Name, MD Steve [address] [place] [address] PCP - General Family Medicine 01/23/18 Pepe Tran, MILAD [address] [place] [address] Medical Reimbursement SpecialistReview Coordinator 09/27/24 [employer] [facility] 07/01/24 documented as of this encounter
--- OUTSIDE RECORDS SUMMARY | 2024-10-12 13:12 | XMS_ITS | Clinical Summary ---
Author Organization [facility] Address [address] [place] [address] Phone Care Team Providers Care Singe Winder Name Role Phone Name, Steve MCCURDY Primary Care Provider [phone] Allergies No known active allergies Medications Ventolin [...] 4:50 AM EST - 09/11/2024 3:[address] [facility] [address] [place] [phone] Surendra Oh MD Cheng, Ting Ho [...] - 100 mg/dL 09/11/2024 11:56 AM EST [facility] ([facility]) [facility] Blood Capillary blood specimen / Unknown 09/11/2024 11:55 AM EST 09/11/2024 11:57 AM EST us Sundeep Browne MD LAB POINT OF C ARE TEST DOCKED DEVICE UNSOLICITED RESULTS Final Result [facility] [address] [place] [address], * (ABNORMAL) CBC auto differential (09/11/2024 5:33 AM EST) Only the most recent of2 resultswithin the time period is included. WBC 5.7 4.8 - 10.8 K/mcL LAB HEMETOLOGY METHOD 09/11/2024 6:[address] [facility] RBC 3.10(L) 3.80 - 4.80 M/mcL LAB HEMETOLOGY METHOD 09/11/2024 6:[address] [facility] Hemoglobin 9.5(L) 11.5 - 16.0 g/dL LAB HEMETOLOGY METHOD 09/11/2024 6:[address] [facility] Hematocrit 28.9(L) 35.0 - 47.0 % LAB HEMETOLOGY METHOD 09/11/2024 6:42 AM EST [facility] MCV 92.9 79.0 - 98.0 FL LAB HEMETOLOGY METHOD 09/11/2024 6:42 AM EST [facility] MCH 30.5 27.0 - 32.0 pcg LAB HEMETOLOGY METHOD 09/11/2024 6:42 AM EST [facility] MCHC 32.9 32.0 - 37.0 g/dL LAB HEMETOLOGY METHOD 09/11/2024 6:42 AM EST [facility] RDW 13.4 11.0 - 15.0 % LAB HEMETOLOGY METHOD 09/11/2024 6:[address] [facility] Platelets 217 130 - 400 K/mcL LAB HEMETOLOGY METHOD 09/11/2024 6:[address] [facility] MPV 8.5 7.0 - 11.0 FL LAB HEMETOLOGY METHOD 09/11/2024 6:42 AM EST [facility] NRBC 0.0 <1.0 % LAB HEMETOLOGY METHOD 09/11/2024 6:[address] [facility] NRBC Absolute 0.00 <0.10 K/mcL LAB HEMETOLOGY METHOD 09/11/2024 6:[address] [facility] Neutrophils Relative 40.3 % LAB HEMETOLOGY METHOD 09/11/2024 6:[address] [facility] Lymphocytes Relative 49.1 % LAB HEMETOLOGY METHOD 09/11/2024 6:[address] [facility] Monocytes Relative 9.1 % LAB HEMETOLOGY METHOD 09/11/2024 6:[address] [facility] Eosinophils Relative 1.0 % LAB HEMETOLOGY METHOD 09/11/2024 6:[address] [facility] Basophils Relative 0.3 % LAB HEMETOLOGY METHOD 09/11/2024 6:[address] [facility] Immature Granulocytes Relative 0.2 % LAB HEMETOLOGY METHOD 09/11/2024 6:[address] [facility] Neutrophils Absolute 2.30 1.50 - 7.00 K/mcL LAB HEMETOLOGY METHOD 09/11/2024 6:[address] [facility] Lymphocytes Absolute 2.81 1.00 - 5.00 K/mcL LAB HEMETOLOGY METHOD 09/11/2024 6:[address] [facility] Monocytes Absolute 0.52 0.20 - 1.00 K/mcL LAB HEMETOLOGY METHOD 09/11/2024 6:[address] [facility] Eosinophils Absolute 0.06 0.00 - 0.50 K/mcL LAB HEMETOLOGY METHOD 09/11/2024 6:[address] [facility] Basophils Absolute 0.02 0.00 - 0.20 K/mcL LAB HEMETOLOGY METHOD 09/11/2024 6:[address] [facility] Immature Granulocytes Absolute 0.01 0.00 - 0.03 K/mcL LAB HEMETOLOGY METHOD 09/11/2024 6:42 AM EST [facility] Blood Venous blood specimen / Unknown Venipuncture / Unknown 09/11/2024 5:33 AM EST 09/11/2024 6:22 AM EST Lio PINEDA LAB BLOOD ORDERABLES Final Resu lt [facility] [address] [place] [address], [place] [phone] * (ABNORMAL) Basic metabolic panel (09/11/2024 5:33 AM EST) Only the most recent of2 resultswithin the time period is included. Sodium 142 133 - 145 mmol/L LAB CHEMISTRY METHOD 09/11/2024 7:[address] [facility] Potassium 3.5 3.5 - 5.5 mmol/L LAB CHEMISTRY METHOD 09/11/2024 7:[address] [facility] Chloride 114(H) 96 - 110 mmol/L LAB CHEMISTRY METHOD 09/11/2024 7:[address] [facility] CO2 23 21 - 32 mmol/L LAB CHEMISTRY METHOD 09/11/2024 7:[address] [facility] Anion Gap 5 3 - 11 LAB CHEMISTRY METHOD 09/11/2024 7:[address] [facility] Glucose 86 70 - 100 mg/dL LAB CHEMISTRY METHOD 09/11/2024 7:[address] [facility] BUN 8 5 - 25 mg/dL LAB CHEMISTRY METHOD 09/11/2024 7:[address] [facility] Creatinine 0.45(L) 0.50 - 1.10 mg/dL LAB CHEMISTRY METHOD 09/11/2024 7:[address] [facility] eGFR 117 >=60 mL/min/1. 73m2 LAB CHEMISTRY METHOD 09/11/2024 7:[address] [facility] Comment:Calculation based on the??Chronic Kidney Disease Epidemiology Collaboration (CKD-EPI) equation refit??without adjustment for race. BUN/Creatinine Ratio 17.8 LAB CHEMISTRY METHOD 09/11/2024 7:[address] [facility] Calcium 7.8(L) 8.5 - 10.5 mg/dL LAB CHEMISTRY METHOD 09/11/2024 7:[address] [facility] Blood Venous blood specimen / Unknown Venipuncture / Unknown 09/11/2024 5:33 AM EST 09/11/2024 6:20 AM EST us Jessica Alves MD LAB BLOOD ORDERABLES Final Res ult [facility] [address] [place] [address], [place] [phone] * (ABNORMAL) Gastrointestinal pathogens molecular study (09/10/2024 6:21 PM EST) Campylobacter Detection by PCR Not Detected Not Detected LAB MICROBIOLOGY METHOD 5 8:[address] [facility] Plesiomonas shigelloides Detection by PCR Not Detected Not Detected LAB MICROBIOLOGY METHOD 5 8:[address] [facility] Salmonella Detection by PCR Not Detected Not Detected LAB MICROBIOLOGY METHOD 5 8:[address] [facility] Vibrio Detection by PCR Not Detected Not Detected LAB MICROBIOLOGY METHOD 5 8:[address] [facility] Vibrio cholerae Detection by PCR Not Detected Not Detected LAB MICROBIOLOGY METHOD 5 8:[address] [facility] Yersinia enterocolitica Detection by PCR Not Detected Not Detected LAB MICROBIOLOGY METHOD 5 8:[address] [facility] Enteroaggregative E coli EAEC Detection by PCR Not Detected Not Detected LAB MICROBIOLOGY METHOD 5 8:[address] [facility] Enteropathogenic E coli EPEC Detection Not Detected Not Detected LAB MICROBIOLOGY METHOD 5 8:[address] [facility] Enterotoxigenic E coli ETEC LTST Detection Not Detected Not Detected LAB MICROBIOLOGY METHOD 5 8:[address] [facility] Shiga-like toxin producing E coli STEC STX1 STX2 Det Not Detected Not Detected LAB MICROBIOLOGY METHOD 5 8:[address] [facility] Shigella Enteroinvasive E coli EIEC Detection Not Detected Not Detected LAB MICROBIOLOGY METHOD 5 8:[address] [facility] Cryptosporidium Detection by PCR Not Detected Not Detected LAB MICROBIOLOGY METHOD 5 8:[address] [facility] Cyclospora cayetanensis Detection by PCR Not Detected Not Detected LAB MICROBIOLOGY METHOD 5 8:[address] [facility] Entamoeba histolytica Detection by PCR Not Detected Not Detected LAB MICROBIOLOGY METHOD 5 8:[address] [facility] Giardia lamblia Detection by PCR Not Detected Not Detected LAB MICROBIOLOGY METHOD 5 8:[address] [facility] Adenovirus F 40 41 Detection by PCR Not Detected Not Detected LAB MICROBIOLOGY METHOD 5 8:[address] [facility] Astrovirus Detection by PCR Not Detected Not Detected LAB MICROBIOLOGY METHOD 5 8:[address] [facility] Norovirus GI GII Detection by PCR Detected(A ) Not Detected LAB MICROBIOLOGY METHOD 5 8:[address] [facility] Comment:Alternate method rec ommended if results do not correlate with the clinical presentation. Sapovirus Detection by PCR Not Detected Not Detected LAB MICROBIOLOGY METHOD 5 8:[address] [facility] Rotavirus A Detection by PCR Not Detected Not Detected LAB MICROBIOLOGY METHOD 8:[address] [facility] Stool Rectum structure / Unknown Non-blood Collection / Unknown 09/10/2024 6:21 PM EST 09/10/2024 7:00 PM EST [facility] - 09/10/2024 8:43 PM [...] GENERAL SULTANA SZYMANSKI Edited Result - Final [facility] [address] [place] [address], * Respiratory virus panel molecular study (09/10/2024 3:45 PM EST) Adenovirus Detection by PCR Not Detected Not Detected LAB MICROBIOLOGY METHOD 09/10/2024 4:[address] [facility] Influenza A PCR Not Detected Not Detected LAB MICROBIOLOGY METHOD 09/10/2024 4:[address] [facility] Influenza B PCR Not Detected Not Detected LAB MICROBIOLOGY METHOD 09/10/2024 4:[address] [facility] Coronavirus 229E Not Detected Not Detected LAB MICROBIOLOGY METHOD 09/10/2024 4:[address] [facility] Coronavirus HKU1 Not Detected Not Detected LAB MICROBIOLOGY METHOD 09/10/2024 4:[address] [facility] Coronavirus OC43 Not Detected Not Detected LAB MICROBIOLOGY METHOD 09/10/2024 4:[address] [facility] Coronavirus NL63 Not Detected Not Detected LAB MICROBIOLOGY METHOD 09/10/2024 4:[address] [facility] Parainfluenza Virus 1 Not Detected Not Detected LAB MICROBIOLOGY METHOD 09/10/2024 4:[address] [facility] Parainfluenza Virus 2 Not Detected Not Detected LAB MICROBIOLOGY METHOD 09/10/2024 4:[address] [facility] Parainfluenza Virus 3 Not Detected Not Detected LAB MICROBIOLOGY METHOD 09/10/2024 4:[address] [facility] Parainfluenza Virus 4 Not Detected Not Detected LAB MICROBIOLOGY METHOD 09/10/2024 4:[address] [facility] RSV PCR Not Detected Not Detected LAB MICROBIOLOGY METHOD 09/10/2024 4:[address] [facility] Human Metapneumovirus A and B Not Detected Not Detected LAB MICROBIOLOGY METHOD 09/10/2024 4:[address] [facility] Rhinovirus/Entero virus Not Detected Not Detected LAB MICROBIOLOGY METHOD 09/10/2024 4:[address] [facility] Bordetella pertussis Not Detected Not Detected LAB MICROBIOLOGY METHOD 09/10/2024 4:[address] [facility] Bordetella parapertussis Not Detected Not Detected LAB MICROBIOLOGY METHOD 09/10/2024 4:[address] [facility] Mycoplasma pneumo by PCR Not Detected Not Detected LAB MICROBIOLOGY METHOD 09/10/2024 4:[address] [facility] Chlamydia pneumoniae Not Detected Not Detected LAB MICROBIOLOGY METHOD 09/10/2024 4:[address] [facility] SARS COV-2 Not Detected Not Detected LAB MICROBIOLOGY METHOD 09/10/2024 4:[address] [facility] Swab Both anterior nares / Unknown Non-blood Collection / Unknown 09/10/2024 3:45 PM EST 09/10/2024 3:52 PM EST [facility] - 09/10/2024 4:48 PM EST Testing was performed using the [employer] In[employer] Respiratory Pathogen PCR Assay. All results must [...] detection. Lio PINEDA LAB [facility]CROBIOLOGY - [facility] Final Result [facility] ([facility]) [facility] [address] [place] [address], * CT Abdomen Pelvis w Contrast (09/10/2024 2:32 PM EST) Anatomical Region Laterality Modality Body Computed Tomogra phy 09/10/2024 2:52 PM EST Impressions 09/10/2024 2:58 PM EST Impression: 1. Trace bilateral pleural effusions, periportal low attenuation, and trace free fluid in the pelvis, likely secondary to fluid resuscitation. 2. Otherwise unremarkable CT of the abdomen and pelvis. Crispin PINEDA ([id number]) -------- FINAL REPORT -------- Dictated By: Petrona Barreto Dictated Date: 09/10/2024 14:52 ET Assigned Physician: Petrona Barreto Reviewed and Electronically Signed By: Petrona Barreto Signed Date: 09/10/2024 14:58 ET Workstation ID: [id number] Transcribed By: Self Edit Transcribed Date: 09/10/2024 14:52 ET Narrative 09/10/2024 2:58 PM EST History: Abdominal pain, acute, nonlocalized, with nausea, vomiting and diarrhea. Comparison: No comparison imaging at this institution. Technique: Helical volumetric imaging of the abdomen and pelvis was performed during the uneventful intravenous administration of 90 cc Isovue-370. DLP: 419.14 mGy/cm [employer]ix VCT Iterative reconstruction technique Findings: Trace bilateral [...] administration of 90 ccIsovue-370. DLP: 419.14 mGy/cm [employer] VCT Iterative reconstruction technique Findings: Trace bilateral [...] unremarkable CT of the abdomen and pelvis. [employer] [place] ([id number]) -------- FINAL REPORT -------- Dictated By: Petrona Barreto Dictated Date: 09/10/2024 14:52 ET Assigned Physician: Petrona Barreto Reviewed and Electronically Signed By: Petrona Barreto Signed Date: 09/10/2024 14:58 ET Workstation ID: [id number] Transcribed By: Self Edit Transcribed Date: 09/10/2024 [...] Qual Negative Negative 09/10/2024 6:28 AM EST [facility] Blood Venous blood specimen / Unknown Venipuncture / Unknown 09/10/2024 5:31 AM EST 09/10/2024 5:41 AM EST us Surendra Oh MD LAB BLOOD ORDERABLES Final Res ult Performing Organization Address City/[facility]/ZIP Co de Phone Number [facility] [address] [place] [address], [place] [phone] * Magnesium (09/10/2024 5:31 AM EST) Magnesium 2.1 1.9 - 2.6 mg/dL LAB CHEMISTRY METHOD 09/10/2024 6:05 AM EST [facility] Blood Venous blood specimen / Unknown Venipuncture / Unknown 09/10/2024 5:31 AM EST 09/10/2024 5:41 AM EST us Surendra Oh MD LAB BLOOD ORDERABLES Final Res ult Performing Organization Address City/[facility]/ZIP Co de Phone Number [facility] [address] [place] [address], [place] [phone] * Hepatic function panel (09/10/2024 5:31 AM EST) Total Protein 6.6 6.0 - 8.0 g/dL LAB CHEMISTRY METHOD 09/10/2024 2:[address] [facility] Albumin 3.3 3.2 - 5.0 g/dL LAB CHEMISTRY METHOD 09/10/2024 2:[address] [facility] Total Bilirubin 0.2 0.0 - 1.4 mg/dL LAB CHEMISTRY METHOD 09/10/2024 2:[address] [facility] Bilirubin, Direct <0.1 0.0 - 0.3 mg/dL LAB CHEMISTRY METHOD 09/10/2024 2:[address] [facility] Bilirubin, Indirect LAB CHEMISTRY METHOD 09/10/2024 2:39 PM EST [facility] Comment:Unable to calculate Indirect Bilirubin. ALT (SGPT) 31 10 - 60 unit/L LAB CHEMISTRY METHOD 09/10/2024 2:39 PM EST [facility] AST (SGOT) 26 10 - 42 unit/L LAB CHEMISTRY METHOD 09/10/2024 2:39 PM EST [facility] Alkaline Phosphatase 65 42 - 121 unit/L LAB CHEMISTRY METHOD 09/10/2024 2:39 PM EST [facility] Blood Venous blood specimen / Unknown Venipuncture / Unknown 09/10/2024 5:31 AM EST 09/10/2024 5:41 AM EST Lio Cox PA LAB BLOOD ORDERABLES Final Resu lt Performing Organization Address City/[facility]/ZIP Co de Phone Number [facility]) [facility] [address] [place] [address], [place] [phone] * ECG 12 lead (09/10/2024 5:14 AM EST) Ventricular Rate ECG 87 BPM GEMUSE Atrial Rate 87 BPM GEMUSE P-R Interval 162 ms GEMUSE QRS Duration 88 ms GEMUSE Q-T Interval 374 ms GEMUSE QTc 450 ms GEMUSE P Wave Gay 78 degrees GEMUSE R Gay 65 degrees GEMUSE T Gay 59 degrees GEMUSE ECG Interpretation Normal sinus [...] Documents on File Type Date Recorded 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
--- OUTSIDE RECORDS SUMMARY | 2024-10-12 13:12 | XMS_ITS | Encounter Summary ---
Author Organization [employer] Address 75 [facility] 7t [place] [address] Care Team Providers Care Medical Claims Manager Name Role Phone Name, Steve MCCURDY Primary Care Provider [phone] Pepe Tran RN Unavailable [phone] Encounter Details Date Type Department Care Team (Late st Contact Info) Description 09/11/2024 Orders Only [facility] [address] [place] [address] Provider, MD Raisa Social History Tobacco Use [...] Description 12/31/2024 2:30 PM EDT Office Visit [facility] [address] [place] [address] Fredi, Denisse, OD [address] [place] [address] 01/10/2025 10:30 AM EDT Office Visit [facility] [address] [place] [address] Name, MD Steve [address] [place] [address] documented as of this encounter Procedures Procedure [...] documented as of this encounter Care Teams Medical Claims Manager Relationship Specialty Start Date End Date Name, MD Steve [address] [place] [phone] PCP - General Family Medicine 01/23/18 Pepe Tran RN [address] [place] [address] Computer Service TechnicianLivestock Laborer 09/27/24 [employer] [facility] 07/01/24 documented as of this encounter
--- OUTSIDE RECORDS SUMMARY | 2024-10-12 13:12 | XMS_ITS | Encounter Summary ---
Author Organization [employer] Address 75 [facility] 7t [place] [address] Care Team Providers Care Customer Marketing Assistant Name Role Phone Name, Steve MCCURDY Primary Care Provider [phone] Pepe Tran RN Unavailable [phone] Reason for Visit * Reason Comments Med Refill Encounter Details Date Type Department Care Team (Late st Contact Info) Description 10/04/2024 Refill [facility] [address] [place], [place] [phone] Name, MD Steve [address] [place] [address] Social History Tobacco Use Types Packs/Day Years [...] 2:30 PM EDT Office Visit [facility] OPTOMETRY [address] [place] [place], [place] [phone] Fredi, Denisse, OD [address] [place] [address] 01/10/2025 10:30 AM EDT Office Visit [facility] [address] [place] [address] Name, MD Steve [address] [place] [address] documented as of this encounter Visit Diagnoses Not on filedocumented in this encounter Additional Health Concerns Assessment Noted Time PHQ-9 Depression Total Score: 15 025 2:29 PM EST documented as of this encounter Care Teams Customer Marketing Assistant Relationship Specialty Start Date End Date Name, MD Steve [address] [place] [address] PCP - General Family Medicine 01/23/18 Pepe Tran RN [address] [place] [address] Senior Case ManagerMilk Of Lime Slaker 09/27/24 [employer] [facility] 07/01/24 documented as of this encounter
--- OUTSIDE RECORDS SUMMARY | 2024-10-12 13:12 | XMS_ITS | Encounter Summary ---
Author Organization [employer] Address [address] [facility] 7t [place] [address] Care Team Providers Care Hot Plate Plywood Press Offbearer Name Role Phone Name, Steve MCCURDY Primary Care Provider [phone] Pepe Tran RN Unavailable Reason for Visit * Reason Comments Med Refill Encounter Details Date Type Department Care Team (Late Contact Info) Description 09/21/2022 Refill [facility] [address] [place] [address] Name, MD Steve [address] [place], [place] [phone] Tobacco use Social History Tobacco Use Types [...] Encounters Date Type Department Care Team (Late Contact Info) Description 12/31/2024 2:30 PM EDT Office Visit [facility] OPT[facility]ET[facility] [address] [place], [place] [phone] Fredi, Denisse, OD [address] [place], [place] [phone] 01/10/2025 10:30 AM EDT Office Visit [facility] [address] [place] [address] Name, MD Steve [address] [place] [address] documented as of this encounter Visit Diagnoses Diagnosis Tobacco use documented in this encounter Care Teams Hot Plate Plywood Press Offbearer Relationship Specialty Start Date End Date Name, MD Steve [address] [place] [address] PCP - General Family Medicine 01/23/18 Pepe Tran RN [address] [place] [address] Explosive Ordnance Disposal SpecialistTar Roofer 09/27/24 [employer] [facility] 07/01/24 documented as of this encounter
--- OUTSIDE RECORDS SUMMARY | 2024-10-12 13:12 | XMS_ITS | Encounter Summary ---
Author Organization [employer] [facility] Address [address] [place] [address] [address] [place] [address] Care Team Providers Care Maintenance Helper Name Role Phone Name, Steve MCCURDY Primary Care Provider [phone] Pepe Tran RN Unavailable [phone] Reason for Visit * Reason Comments Med Change Request Encounter Details Date Type Department Care Team ([facility] Contact Info) Description 05/10/2023 Refill [facility] MED[facility]INE [address] [place], [place] [phone] Name, MD Steve [address] [place], [place] [phone] Social History Tobacco Use Types Packs/Day Years [...] Upcoming Encounters Date Type Department Care Team ([facility] Contact Info) Description 12/31/2024 2:30 PM EDT Office Visit [facility] OPTOMETRY [address] [place], [place] [phone] Jackson Rain, OD [address] [place] [address] 01/10/2025 10:30 AM EDT Office Visit [facility] MEDICINE [address] [place] [address] Name, MD Steve [address] [place] [address] documented as of this encounter Visit Diagnoses Not on filedocumented in this encounter Additional Health Concerns Assessment Noted Time PHQ-9 Depression Total Score: 16 023 3:49 PM EDT documented as of this encounter Care Teams Maintenance Helper Relationship Specialty Start Date End Date Name, MD Steve [address] [place] [address] PCP - General Family Medicine 01/23/18 Pepe Tran RN [address] [place] [id number] [employer] EngineerLathe Winder 09/27/24 [facility] 07/01/24 documented as of this encounter
--- OUTSIDE RECORDS SUMMARY | 2024-10-12 13:12 | XMS_ITS | Encounter Summary ---
Author Organization [employer] Address [address] [facility] 7t [place] [address] Care Team Providers Care Database Security Administrator Name Role Phone Name, Steve MCCURDY Primary Care Provider [phone] Reason for Visit * Reason Comments Transition Of Care (Tcm) HDF- scheduled Encounter Details Date Type Department Care Team ([facility] st Contact Info) Description 09/13/2024 Patient Outreach [facility] MEDICINE [address] [place] [address] Name, MD Steve [address] [place] [address] Transition Of Care (Tcm) (HDF- scheduled) Social [...] Admission/Visit 09/10/24 Date of Discharge 09/11/24 Facility [facility] Diagnosis Pending Disposition Discharged Home Follow-Up Actions [...] faxed to the Care Management Department at [phone]. CC will followup on discharge summary following patient's discharge. Insurance verified prior to scheduling. documented in this encounter Plan of Treatment Upcoming Encounters Date Type Department Care Team (Late st Contact Info) Description 12/31/2024 2:30 PM EDT Office Visit [facility] OPTOMETRY [address] [place] [address] Fredi, Denisse, OD [address] [place], [place] [phone] 01/10/2025 10:30 AM EDT Office Visit [facility] MEDICINE [address] [place] [address] Name, MD Steve Tisha [facility] [place] [address] documented as of this encounter Visit Diagnoses Not on filedocumented in this encounter Additional Health Concerns Assessment Noted Time PHQ-9 Depression Total Score: 21 024 10:52 AM EDT documented as of this encounter Care Teams Database Security Administrator Relationship Specialty Start Date End Date Name, MD Steve T[facility] [place] [address] PCP - General Family Medicine 01/23/18 [employer] [facility] 07/01/24 documented as of this encounter
--- OUTSIDE RECORDS SUMMARY | 2024-10-12 13:13 | XMS_ITS | Encounter Summary ---
Author Organization [employer] Address [address] [facility] 7t [place] [address] Care Team Providers Care Photogrammetric Engineer Name Role Phone Name, Steve MCCURDY Primary Care Provider [phone] Pepe Tran RN Unavailable [phone] Reason for Visit * Reason Comments Med Refill Encounter Details Date Type Department Care Team (Late st Contact Info) Description 05/01/2024 Refill [facility] [address] [place], [place] [phone] Carolyn Novoa MD [address] [place] [address] Social History Tobacco Use Types Packs/Day Years [...] 12/31/2024 2:30 PM EDT Office Visit [facility] OPTOMETRY [address] [place] [address] Fredi, Denisse, OD [address] [place] [address] 01/10/2025 10:30 AM EDT Office Visit [facility] MEDICINE [address] [place] [address] Name, MD Steve [address] [place] [address] documented as of this encounter Visit Diagnoses Not on filedocumented in this encounter Additional Health Concerns Assessment Noted Time PHQ-9 Depression Total Score: 21 024 10:52 AM EDT documented as of this encounter Care Teams Photogrammetric Engineer Relationship Specialty Start Date End Date Name, MD Steve [address] [place] [address] PCP - General Family Medicine 01/23/18 Pepe Tran RN [address] [place] [address] Fisher LinePsychiatric Social Worker Supervisor 09/27/24 [email or web address] [facility] 07/01/24 documented as of this encounter
--- OUTSIDE RECORDS SUMMARY | 2024-10-12 13:13 | XMS_ITS | Encounter Summary ---
Author Organization [employer] Address [address] [facility] 7t [place] [address] Care Team Providers Care Mobile Home Laborer Name Role Phone Name, Steve MCCURDY Primary Care Provider [phone] Reason for Visit * Reason Onset Date Comments Chart Prep 09/24/2024 Encounter Details Date Type Department Care Team (Late st Contact Info) Description 09/24/2024 Telephone [facility] MED[facility]INE [address] [place] [address] [facility] [place], [place] Chart Prep Social History Tobacco Use [...] Description 12/31/2024 2:30 PM EDT Office Visit [facility] OPTOMETRY [address] [place] [address] Fredi, Denisse, OD [address] [place] [address] 01/10/2025 10:30 AM EDT Office Visit [facility] MEDICINE [address] [place] [address] NameSteve MD [address] [place] [address] documented as of this encounter Visit Diagnoses Not on filedocumented in this encounter Additional Health Concerns Assessment Noted Time PHQ-9 Depression Total Score: 21 024 10:52 AM EDT documented as of this encounter Care Teams Mobile Home Laborer Relationship Specialty Start Date End Date NameSteve MD [address] [place] [address] PCP - General Family Medicine 01/23/18 [employer] [facility] 07/01/24 documented as of this encounter
--- OUTSIDE RECORDS SUMMARY | 2024-10-12 13:13 | XMS_ITS | Encounter Summary ---
Author Organization [employer] Address [address] [facility] 7t [place] [address] Care Team Providers Care Steam Bone Press Tender Name Role Phone Name, Steve MCCURDY Primary Care Provider [phone] Reason for Visit * Reason Comments hospital follow up Encounter Details Date Type Department Care Team (Latest Contact Info) Description 09/26/2024 2:00 PM EST Office Visit [facility] MEDICINE [address] [place] [address] Grace Wolf FNP [address] [place] [address] Gastroenteritis due to norovirus (Primary Dx); Hypokalemia Social History Tobacco Use [...] documented in this encounter Progress Notes * TANI Gonzalez - 09/26/2024 2:00 PM EST Benigno Pickett who presents to the office today for a follow up after discharge from [facility] on the 09/11/24 . Patient was admitted on 09/10/24 with complaint of syncope Diagnoses: Syncope, Dehydration, Norovirus gastroenteritis, Hypokalemia & Normocytic anemia Diabetes mellitus New medication: Acetaminophen & ondansetron Adjusted medication: None Discontinued meds: None Discharge instructions: Home with self care. Continue to take your home medications DME required: None Current Outpatient Medications: albuterol (Ventolin HFA) 108 (90 Base) MCG/ACT inhaler, TAKE 2 PUFFS BY MOUTH EVERY 4 TO 6 HOURS ASNEEDED, Disp: 18 g, Rfl: 1 ARIPiprazole (Abilify) 5 MG tablet, Take 1 tablet by mouth Once per day., Disp: , Rfl: atorvastatin (Lipitor) 40 MG tablet, Take 1 tablet (40 mg) by mouth Once per day., Disp: 30 tablet,Rfl: 11 celecoxib (CeleBREX) 400 MG capsule, TAKE 1 CAPSULE BY MOUTH TWICE A DAY FOR 20 DAYS, Disp: 40 capsule, Rfl: 0 clonazePAM (KlonoPIN) 1 MG tablet, TAKE 1/2 TABLET BY MOUTH THREE TIMES A DAY NEEDED FOR ANXIETY, Disp: , Rfl: dulaglutide (Trulicity) 0.75 MG/0.5ML solution pen-injector, Inject 0.75 mg under the skin 1 (one) time per week., Disp: 4 each, Rfl: 11 fluticasone (Flonase) 50 MCG/ACT nasal spray, ADMINISTER 1 SPRAY INTO EACH NOSTRIL ONCE PER DAY., Disp: 48 mL, Rfl: 0 fluticasone furoate (Arnuity Ellipta) 100 MCG/ACT inhaler, Inhale 1 puff Once per day. Rinse mouth with water after use to reduce aftertaste and incidence of candidiasis. Do not swallow., Disp: 1 each, Rfl: 11 FREESTYLE LITE test strip, USE 1 BY TO CHECK BLOOD SUGAR EVERY DAY, Disp: 100 strip, Rfl: 11 lidocaine (Lidoderm) 5 % patch, APPLY 1 PATCH EVERY DAY MAY WEAR UP TO 12 HOURS, Disp: 30 patch, Rfl: 0 melatonin 3 MG tablet, Take 2 tablets by mouth if needed at bedtime for sleep., Disp: , Rfl: omeprazole (PriLOSEC) [address] capsule, Take 1 capsule (40 mg) by mouth before breakfast. Do not crush or chew., Disp: 30 capsule, Rfl: 11 SUMAtriptan (Imitrex) 25 MG tablet, TAKE 1 TAB BY MOUTH AT ONSET OF MIGRAINE MAY REPEAT AFTER 2 HOURS IF HEADACHE RETURNS MAX 200MG/24HR, Disp: 9 tablet, Rfl: 0 venlafaxine XR (Effexor XR) 150 MG 24 hr capsule, TAKE 1 CAPSULE BY MOUTH ONCE A DAY TAKE WITH 75MG, Disp: , Rfl: venlafaxine XR (Effexor XR) 37.5 MG 24 hr capsule, Take 1 capsule by mouth Once per day., Disp: , Rfl: zolpidem (Ambien) 10 MG tablet, Take 10 mg by mouth at bedtime., Disp: , Rfl: Review of Systems Constitutional: Negative for appetite change and fever. Respiratory: Negative for cough, chest tightness, shortness of breath and wheezing. Cardiovascular: Negative for chest pain and palpitations. Gastrointestinal: Negative for abdominal pain, diarrhea, nausea and vomiting. Neurological: Negative for dizziness, syncope, weakness, light-headedness and numbness. Psychiatric/Behavioral: Negative for suicidal ideas. Objectives: Visit Vitals BP 113/70 (BP Location: Left arm, Patient Position: Sitting, BP Cuff Size: Large adult) Pulse 94 Temp 98.1 ??F (36.7 ??C) (Temporal) Resp 22 Ht 5' 2 (1.575 m) Wt 124 lb 9.6 oz (56.5 kg) SpO2 98% BMI 22.79 kg/m?? OB Status Having periods Smoking Status Every Day BSA 1.57 m?? Potassium 3.3 09/10/24 Lab Results Component Value Date HGBA1C 5.6 05/29/2024 Physical Exam Vitals reviewed. Constitutional: Appearance: Normal appearance. HENT: Head: Atraumatic. Cardiovascular: Rate and Rhythm: Normal rate and regular rhythm. Pulses: Normal pulses. Heart sounds: Normal heart sounds. No murmur heard. Pulmonary: Effort: Pulmonary effort is normal. Breath sounds: Normal breath sounds. No wheezing. Neurological: Mental Status: She is alert and oriented to person, place, and time. Psychiatric: Mood and Affect: Mood normal. Behavior: Behavior normal. Problem List Items Addressed This Visit Gastroenteritis due to norovirus - Primary Admitted to [facility] 09/10/24 for syncope, dehydration, and hypokalemia related to Norovirus gastroenteritis. Appears well hydrated and well nourished Reports am at my baseline Denies nausea, syncope, palpation, chest pain, muscle cramping, or weakness. Plan to repeat potassium level Patient teaching on symptoms of Norovirus, prevention and spreading of Norovirus Relevant Orders Potassium (Completed) Hypokalemia Potassium 3.3 09/10/24 Normal heart rate and sound Negative for nausea, syncope, palpation, chest pain, muscle cramping, and weakness Repeat potassium level and treat accordingly Relevant Orders Potassium (Completed) MENTAL HEALTH PROGRAM MANAGER Resident Attestation: Patient was seen and evaluated by Grace FREIRE in collaboration with Marek Crocuh MD who has reviewed my assessment and plan. I, Marek Crouch MD, have reviewed the resident's note and agree with the assessment & planof care as documented above. documented in this encounter Plan of Treatment Upcoming Encounters Date Type Department Care Team (Late st Contact Info) Description 12/31/2024 2:30 PM EDT Office Visit [facility] OPTOMETRY [address] [place] [address] Denisse Rai, OD [address] [place] [address] 01/10/2025 10:30 AM EDT Office Visit [facility] MEDICINE [address] [place] [address] Name, MD Steve [address] [place] [address] documented as of this encounter Procedures Procedure Name Priority Date/Time Associated Diagnosis Comments POTASSIUM Routine 09/26/2024 2:34 PM EST Gastroenteritis due to norovirus Hypokalemia documented in this encounter Results * Potassium (09/26/2024 2:34 PM EST) Potassium 4.0 3.3 - 5.1 mmol/L [facility] Blood Venous blood specimen / Unknown 09/26/2024 2:34 PM EST 09/26/2024 4:12 PM EST us Grace FREIRE LAB BLOOD ORDERABLES Final Res ult [facility] [address] [place] [address] [phone] documented in this encounter Visit Diagnoses Diagnosis Gastroenteritis due to norovirus- Primary Hypokalemia Hypopotassemia documented in this encounter Additional Health Concerns Assessment Noted Time PHQ-9 Depression Total Score: 15 025 2:29 PM EST documented as of this encounter Care Teams Steam Bone Press Tender Relationship Specialty Start Date End Date Name, MD Steve [address] [place] [address] PCP - General Family Medicine 01/23/18 [employer] [facility] 07/01/24 documented as of this encounter
--- OUTSIDE RECORDS SUMMARY | 2024-10-12 13:13 | XMS_ITS | Encounter Summary ---
Author Organization [employer] Address [address] [facility] 7t [place] [address] Care Team Providers Care Supervisor Crack Off Name Role Phone Name, Steve MCCURDY Primary Care Provider [phone] Encounter Details Date Type Department Care Team [...] EDT Office Visit [facility] OPTOMETRY [address] [place] [address] Fredi, Denisse, OD [address] [place] [address] 01/10/2025 10:30 AM EDT Office Visit [facility] MEDICINE [address] [place] [address] Name, MD Steve [address] [place] [address] documented as of this encounter Visit Diagnoses Not on filedocumented in this encounter Additional Health Concerns Assessment Noted Time PHQ-9 Depression Total Score: 15 025 2:29 PM EST documented as of this encounter Care Teams Supervisor Crack Off Relationship Specialty Start Date End Date Name, MD Steve [address] [place] [address] PCP - General Family Medicine 01/23/18 [employer] [facility] 07/01/24 documented as of this encounter
--- OUTSIDE RECORDS SUMMARY | 2024-10-12 13:13 | XMS_ITS | Encounter Summary ---
Author Organization [employer] Address [address] [facility] 7t [place] [address] Care Team Providers Care Boat Painter Name Role Phone Name, Steve MCCURDY Primary Care Provider [phone] Pepe Tran RN Unavailable [phone] Reason for Visit * Reason Comments Care Coordination PT1 Encounter Details Date Type Department Care Team (Latest Contact Info) Description 10/02/2024 Patient Outreach [facility] MEDICINE [address] [place], [place] [phone] Name, MD Steve [address] [place] [address] Care Coordination (PT1) Social History Tobacco Use Types Packs/Day Years [...] encounter Progress Notes * Cristal Jacob - 10/02/2024 2:56 PM EST CHW Cristal Jacob scheduled PT1 to appt on 10/08/24 with PCP at [facility] at 345pm. PT1 will picker box operator patient at 315pm, will remind patient of appt. documented in this encounter Plan of Treatment Upcoming Encounters Date Type Department Care Team (Late st Contact Info) Description 12/31/2024 2:30 PM EDT Office Visit [facility] OPTOMETRY [address] [place] [address] Fredi, Denisse, OD [address] [place] [address] 01/10/2025 10:30 AM EDT Office Visit [facility] MEDICINE [address] [place] [address] Name, MD Steve [address] [place] [address] documented as of this encounter Visit Diagnoses Not on filedocumented in this encounter Additional Health Concerns Assessment Noted Time PHQ-9 Depression Total Score: 15 025 2:29 PM EST documented as of this encounter Care Teams Boat Painter Relationship Specialty Start Date End Date Name, MD Steve [address] [place] [address] PCP - General Family Medicine 01/23/18 Pepe Tran, MILAD [address] [place] [address] Assembler Small ProductsPipe Assembly Worker 09/27/24 [employer] [facility] 07/01/24 documented as of this encounter
--- OUTSIDE RECORDS SUMMARY | 2024-10-12 13:13 | XMS_ITS | Clinical Summary ---
Author Organization [employer] Address [address] [facility] 7t [place] [address] Care Team Providers Care Failure Analysis Engineer Name Role Phone Name, Steve MCCURDY Primary Care Provider [phone] Pepe Tran RN Unavailable [phone] Allergies No known active allergies Medications omeprazole (PriLOSEC) [address] capsuleIndicat ions:Type [...] without long-term current use of insulin (CMS/HCC) Inhale 1 puff Once per day. Rinse mouth with water after use to reduce aftertaste and incidence of candidiasis. Do not swallow. 1 each 11 05/09/20 24 025 Active albuterol (Ventolin HFA) 108 (90 Base) MCG/ACT inhalerIndicat ions:Type 2 diabetes mellitus without complication, without long-term current use of insulin (CMS/HCC) TAKE 2 PUFFS BY MOUTH EVERY 4 TO 6 HOURS NEEDED 18 g 1 05/24/20 24 Active fluticasone (Flonase) 50 MCG/ACT nasal [...] mouth Once per day. 08/22/19 25 Active SUMAtriptan (Imitrex) 25 MG tablet TAKE 1 TAB BY MOUTH AT ONSET OF MIGRAINE MAY REPEAT AFTER 2 HOURS IF HEADACHE RETURNS MAX 200MG/24HR 9 tablet 10/04/19 25 Active FREESTYLE LITE test strip USE 1 BY TO CHECK BLOOD SUGAR EVERY DAY 100 strip 11 10/04/19 25 Active lidocaine (Lidoderm) 5 % patchIndicatio ns:Type 2 diabetes mellitus without complication, without long-term current use of insulin (CMS/HCC) APPLY 1 PATCH EVERY DAY MAY WEAR UP TO 12 HOURS. 12 HOURS ON 12 HOURS OFF 30 patch 10/04/19 25 Active urea (Carmol) 10 % creamIndicatio ns:Callus of foot Apply topically if needed for dry skin. 85 g 1 10/08/19 25 026 Active clotrimazole (Lotrimin) 1 % creamIndicatio ns:Tinea pedis of both feet Apply topically 2 times daily for 28 days. 30 g 5 10/08/19 25 025 Active FREESTYLE LITE test strip USE 1 BY TO CHECK BLOOD SUGAR EVERY DAY 100 strip 11 07/05/20 23 025 Discontinued venlafaxine XR (Effexor XR) 75 MG 24 hr capsule TAKE 2 CAPSULES BY MOUTH EVERY MORNING. DO NOT CRUSH OR CHEW. 60 capsule 1 07/05/20 23 025 Discontinued(Me d list cleanup (will not trigger notification to Pharmacy)) SUMAtriptan (Imitrex) 25 MG tablet TAKE 1 TAB BY MOUTH AT ONSET OF MIGRAINE MAY REPEAT AFTER 2 HOURS IF HEADACHE RETURNS MAX 200MG/24HR 9 tablet 06/27/20 24 025 Discontinued lidocaine (Lidoderm) 5 % patchIndicatio ns:Type 2 diabetes mellitus without complication, without long-term current use of insulin ([facility]) APPLY 1 PATCH EVERY DAY MAY WEAR UP TO 12 HOURS 30 patch 06/27/20 025 Discontinued Active Problems Problem Noted Date Diagnosed Date Gastroenteritis due to norovirus 09/27/2024 Hypokalemia 09/26/2024 Syncope 09/11/2024 Dehydration 09/11/2024 Acute gastroenteropathy [...] Cough 05/10/2023 Emphysema, unspecified 05/10/2023 Overview (10/31/2023): [address] [address] Pulmonary Function Report Draft Patient: Benigno Pickett MR#: [id number] : 1975 Acct:[id number] Age/Sex: 44 / F ADM Date: 07/08/20 Loc: HO.RESP Attending Dr: Angélica Peirre / [facility] Ordering Physician: ANGÉLICA PIERRE MD Date of Service: 07/08/20 Procedure(s): RT pulmonary function test Accession Number(s): [id number] cc: FLOWS: FEV1 of 97% of predicted [...] chronic lumbar back pain, seen before at [facility]. She has an MRI showing a broad based disc bulge L4-5. Using baclofen and Celebrex as a bridge pain management until her ortho appointment. Depression with anxiety 02/08/2018 Resolved Problems Problem Noted Date Diagnosed Date Resolved Date Suspected respiratory disease 05/10/2023 01/02/2024 Encounters Date Type Department Care Team Description 10/11/2024 Patient Outreach [facility] MEDICINE [address] [place] [address] Name, MD Steve Care Coordination (SDOH f/u) 10/11/[address] [address] Name, MD Steve Care Management (C3CM- f/u call) 10/09/[address] [phone] Steve Beatty MD Durable Medical Equipment (Wrist splints) 10/08/2024 3:45 PM EST Office Visit [address] [address] Steve Beatty MD Type 2 diabetes mellitus without complication, without long-term current use of insulin (CMS/HCC) (Primary Dx); Bilateral carpal tunnel syndrome; Hand swelling; Callus of foot; Tinea pedis of both feet 10/07/2024 Travel 10/05/2024 Patient Outreach [address] [address] Steve Beatty MD Care Coordination ([facility] f/u) 10/04/[address] [address] Steve Beatty MD 10/04/[address] [address] [place], Marlin, PERSONNEL MANAGER Type 2 diabetes mellitus without complication, without long-term current use of insulin (CMS/HCC) 10/02/2024 Patient Outreach [address] [address] Steve Beatty MD Care Coordination (PT1) 09/27/[address] [address] Steve Beatty MD Care Management (C3CM- initial assessment/enrollment) 09/27/[address] [address] Steve Beatty MD 09/26/2024 2:00 PM EST Office Visit [address] [phone] Grace Wolf, PERSONNEL MANAGER Gastroenteritis due to norovirus (Primary Dx); Hypokalemia 09/26/2024 Travel 09/26/2024 Patient Outreach [address] [address] Steve Beatty MD Care Coordination (CM/CHW appt reminder) 09/24/[address] [address] iVaney Valladares [place] Chart Prep 09/13/2024 Patient Outreach [address] [address] Steve Beatty MD Transition Of Care (Tcm) (HDF- scheduled) 09/13/2024 Patient Outreach [address] [address] Steve Beatty MD Care Coordination (CM/CHW outreach) 09/13/2024 Patient Outreach [address] [address] Steve Beatty MD Care Coordination (CM/CHW outreach) 09/11/2024 Orders Only [facility] [address] [place] [address] ProviderRaisa MD 09/11/2024 Patient Outreach [address] [address] Steve Beatty MD Care Coordination (W facility check) 09/11/[address] [address] Pepe Tran, MILAD Care Management (C3CM- chart review) 08/22/2024 Refill [facility] [address] [place] [address] Carolyn Nvooa MD 08/21/[address] [address] Yifan Celestin MA feb recall 08/16/2024 Orders Only [facility] External Provider, [facility] 08/03/[address] [address] Yifan Celestin [place] DME-BILATERNAL WRIST BRACE 07/17/[address] [address] Steve Beatty MD Durable Medical Equipment from Last 3 Months Immunizations Name Administration Dates Next Due Pfizer Covid-19 Vaccine 12+ 05/06/2021, Pneumococcal Polysaccharide PPSV23 03/30/2022 TD (adult), 2 [...] oz) 10/08/2024 4:01 P M EST Height 157.5 cm (5' 2 ) 09/26/2024 2:11 PM EST Body Mass Index 22.35 09/26/2024 2:11 PM EST Plan of Treatment Upcoming Encounters Date Type Department Care Team (Late st Contact Info) Description 12/31/2024 2:30 PM EDT Office Visit [facility] OPTOMETRY [address] [place] [address] Fredi, Denisse, OD [address] [place] [address] 01/10/2025 10:30 AM EDT Office Visit [facility] MEDICINE [address] [place] [address] Name, MD Steve [address] [place] [address] Health Maintenance Due Date Last Done Comments CT Colonography 1975 Colonoscopy 1975 Colorectal Cancer Screening 1975 FIT DNA/Cologuard 1975 FIT 1975 FOBT 1975 HIV Screening 1975 Sigmoidoscopy 1975 Alcohol/Substance Use Screening 1985 Family Planning (PISQ) 1988 Hepatitis C Screening 12/05/1991 Hepatitis B Vaccines (1 of 3 - 19+ 3-dose series) 1992 Pneumococcal Vaccine: 50+ Years (2 of 2 - PCV) 03/30/2023 03/30/2022 Zoster Vaccines (1 of 2) 12/05/2023 Mammogram 04/09/2024 04/09/2022, 0502/2020, 02/09/2018 COVID-19 Vaccine ( - 2023- season) 2024 05/06/2021, 04/15/2021 Influenza Vaccine (#1) 2024 SDOH Screening 05/10/2024 05/10/2023 Depression Monitoring (PHQ-9) 03/26/2025 09/26/2024, 09/26/2024 Diabetes: Hemoglobin A1C 04/07/2025 025, 05/29/2024, 01/02/2024, Additional history exists Diabetes: Urine Protein Screening 06/18/2025 06/18/2024, 11/03/2023 Lipid Panel 06/18/2025 06/18/2024, 10/14, 03/31/2022 Pap Smear 09/01/2025 09/01/2022, 05/06/2021 Depression Screening 09/26/2025 09/26/2024, 09/26/19 Tobacco Screening 09/26/2025 09/26/2024 Diabetes: Foot Exam 10/08/2025 10/08/2024, 10/08/2024, 10/08/2024, Additional history exists Eye Exam 12/22/2025 12/23/2023, 12/13, 12/23/2023, Additional [...] complication, without long-term current use of insulin ([facility]) POCT GLUCOSE Routine 10/08/2024 4:19 PM EST Type 2 diabetes mellitus without complication, without long-term current use of insulin ([facility]) POTASSIUM Routine 09/26/2024 2:34 PM EST Gastroenteritis due to norovirus Hypokalemia CT ABDOMEN PELVIS W CONTRAST Routine 09/10/2024 11:32 AM EST FL ESOPHAGUS BARIUM SWALLOW Routine 08/16/2024 10:00 AM EST ALBUMIN, RANDOM URINE W/CREATININE Routine 06/18/2024 8:30 AM EST Type 2 diabetes mellitus without complication, without long-term current use of insulin ([facility]) LIPID PANEL, STANDARD Routine 06/18/2024 8:30 AM EST Type 2 diabetes mellitus without complication, without long-term current use of insulin ([facility]) HPV MRNA E6/E7 REFLEX TO HPV 16, 18/45 Routine 09/01/2022 3:17 PM EST PAP SMEAR Routine 09/01/2022 3:17 PM EST MAMMOGRAM GENERIC Routine 04/09/2022 9:0 0 AM EDT from Last 3 Months or Most Recently Relevant to Health Maintenance Results * POCT HGB A1C (10/08/2024 4:23 PM EST) Hemoglobin A1C 5.8 4.0 - 6.0 % QC Media Lot # [id number] Lot# Expiration Date 85,483 Blood 10/08/2024 4:23 PM EST tSeve Beatty MD POINT OF CARE TEST ENTER/EDIT OR DERABLES Final Result * POCT Glucose (10/08/2024 4:19 PM EST) Glucose Blood, POC 96 60 - 200 mg/dL QC Media Lot # [id number] Lot# Expiration Date 53 Blood Capillary blood specimen / Unknown 10/08/2024 4:19 PM EST Steve Beatty MD POINT OF CARE TEST ENTER/EDIT OR DERABLES Final Result * Potassium (09/26/2024 2:34 PM EST) Pathologist [facility] Potassium 4.0 3.3 - 5.1 mmol/L [facility] Blood Venous blood specimen / Unknown 09/26/2024 2:34 PM EST 09/26/2024 4:12 PM EST Grace Wolf PERSONNEL MANAGER LAB BLOOD ORDERABLES Final Res ult Performing Organization Address City/State/[facility] Co de Phone Number [facility] [address] [place] [phone] * CT Abdomen Pelvis w/ Contrast (09/10/2024 11:32 AM EST) Anatomical Region Laterality Modality Body, Pelvis, Abdomen Computed T omography Historical Provider IMG CT PROCEDURES Final R esult * FL Esophagus Barium Swallow (08/16/2024 10:00 AM EST) Anatomical Region Laterality Modality Head, Neck Radiographic Kasia ging 08/16/2024 10:0 0 AM EST Narrative 08/16/2024 3:38 PM EST ? [facility] ?[address] ?[place] [address] ? Fluoroscopy Report ? Signed ? Patient: Orellano,Benigno ?MR#: [id number] ?? 03 ? : 1975 ?Acct:[id number] ? Age/Sex: 48 / F ?ADM Date: 01/02/25 ? Loc: HO.XRAY ? Attending Dr: Jina TUCKER ? Ordering Physician: Jina Reddy ?? Date of Service: 08/16/24 ?? Procedure(s): FL barium swallow ?? Accession Number(s): [id number] ? cc: Jina Reddy; Name,Steve MCCURDY ? EXAMINATION: ?? XR FLUOROSCOPY [...] OV> ? 08/16/24 1535 ?<Electronically signed by Jakob Kathleen MD in OV> ? 08/16/24 1538 ? DD/ 1000 ? TD/TT: 08/16/24 1015 ? Patient Service Coordinator: ? Procedure Note Donotpepeinterpreter, Image - 08/16/[address] [address] Fluoroscopy Report Signed Patient: Debi Pickett#: [id number] 03 : 1975Acct:[id number] Age/Sex: 48 / FADM Date: 08/16/24 Loc: MOMO Attending Dr: Jina TUCKER Ordering Physician: Jina Reddy Date of Service: 08/16/24 Procedure(s): FL barium swallow Accession Number(s): [id number] cc: Jina Reddy; Name,Steve MCCURDY EXAMINATION: XR [...] 08/16/24 1538 DD/ 1000 TD/TT: 08/16/24 1015 Patient Service Coordinator: us [facility] Exter nal Provider IMG FLUOROSCOPY PROCEDURES Edited Result - Final * Albumin, Random Urine W/Creatinine (06/18/2024 8:30 AM EST) Creatinine, Urine 250.66 mg/dL [facility] Microalbumin Urine 13.0 mg/L [facility] Microalbum Creatinine Ratio Ur 5.1 <30 ug/mg cr [facility] Comment:Albumin/Creatinine R atio Reference Ranges: Normal: < 30 ug/mg creatinine Microalbuminuria: 30 - 300 ug/mg creatinineClinical Albuminuria: > 300 ug/mg creatinine Urine (Urine, Random) 06/18/2024 8:30 AM EST 06/18/2024 11:13 AM EST Steve Beatty MD LAB URINE ORDERABLES Final Resul t [facility] [address] [place] [phone] * (ABNORMAL) Lipid Panel, Standard (06/18/2024 8:30 AM EST) Triglycerides 151(H) <150 mg/dL [facility] Comment:Desirable Triglyceri de: less than 150 mg/dLBorderline High Triglyceride 150-199 mg/dLHigh Triglyceride: 200-499 mg/dLVery High Triglyceride: greater than or equal to 5OO mg/dL Cholesterol 277(H) <200 mg/dL [facility] Comment:Desirable Cholestero l: less than 200 mg/dLBorderline High Cholesterol: 200-239 mg/dLHigh Cholesterol: greater than 239 mg/dL LDL Cholesterol Calculated 186(H) <100 mg/dL [facility] Comment:Desirable LDL: less than 100 mg/dLNear Optimal/Above Optimal LDL: 110- 129 mg/dLBorderline High LDL: 130-159 mg/dLHigh LDL: 160-189 mg/dLVery High LDL: greater than or equal to 190 mg/dL HDL Cholesterol 61 >40 mg/dL [facility] Comment:Desirable HDL: great er than 40 mg/dL Note: This HDL assay may give artificially low results in patients with liver disease. Blood Venous blood specimen / Unknown 06/18/2024 8:30 AM EST 06/18/2024 11:10 AM EST us Steve Name LAB BLOOD ORDERABLES Final Resul t [facility] [address] [place] [phone] * HPV mRNA E6/E7 w/Reflex to HPV Genotypes 16, 18/45 (09/01/2022 3:17 PM EST) HPV nRNA E6/E7 Not Detected Not Detected [facility] Comment:Methodology: Transcr iption-Mediated AmplificationThis assay detects E6/E7 viral messenger RNA (mRNA) from 14high-risk HPV types (16,18,31,33,35,39,45,51,52,56,58,59,66,68).Cervical sources are required for HPV testing.If a vaginal source from a patient who has had atotal hysterectomy with removal of cervix wassubmitted, please contact the testing laboratoryfor alternative testing options.For additional information, please refer tohttp://[email or web address]/faq/YBT577f5(This link if provided for information/educational purposes only.)THIS TEST WAS PERFORMED AT:[employer] [place] [address] (NL1)[place] [address]OLGTWDENNIS WAGGONER MD HPV mRNA E6/E7 TNP [facility] HPV 16 RNA TNP [facility] HPV 18/45 RNA [facility] 09/01/2022 3:17 PM EST 09/01/2022 4:15 PM EST [facility] External Provider LAB CYT OLOGY ORDERABLES Final Result Performing Organization Address City/State/[facility] Co de Phone Number [facility] [address] [place] [phone] * Pap Smear (09/01/2022 3:17 PM EST) 09/01/2022 3:17 PM EST 09/01/2022 4:15 PM EST Narrative [facility] - 09/17/2022 1:19 PM EST ----- ------- Name: Benigno Pickett ? Age/Sex: 46/F ? : 1975 Unit#: [id number] ?? Attend Dr: Efrem Samuel MD ?Re09/01/22 ?Status: DEP REF ? Location: HO.LNP ?Disch: ? ----- ------- SPEC : [id number] ? RECD: 09/01/22 ? STATUS: ??SOUT ? REQ NUM: [id number] ? CHARMAINE: 09/01/22 ? SUBM DR: Efrem Samuel MD ? ENTERED: ??09/01/22 ?SP TYPE: Pap Smr ?OTHR DR: NameSteve MD ? ORDERED: ??Pap Smear ? Interpretation [...] 66, 68) ? HPV testing performed by [facility], [place], [place]. ??See reference laboratory ?? portion of the EMR for entire report. ?Clinical Information LMP: 08/11/2022 Previous PAP test: 2020, Abnormal Other history: HPV+ ? Material Received ?? ThinPrep-Cervical Copies To: ?? Name,Steve MCCURDY ?? [address] [facility] ?? [place] [address] ?? [phone] ?? Efrem Samuel MD ?? [address] [facility] [address] [facility] ?? [place] [address] ?? [phone] ----- ------- Signed (signature on file) Holley Cerna Nicholas 09/17/22 5459 ? ----- ------- ? END OF REPORT ? [facility] External Provider LAB [facility] ORDERABLES Final Result [facility] [address] [place] [phone] * Mammography Report 1 (04/09/2022 9:00 AM EDT) Anatomical Region Laterality Modality Breast Bilateral Mammography 04/09/2022 9:00 AM EDT Narrative 04/12/2022 10:00 AM EDT Refer to the Notes tab for result details [facility] Procedure: Mammography Report 1 Procedure Note Provider, MD Raisa - 11/07/2022 Refer to the Notes tab for result details [facility] Procedure: Mammography Report 1 us Steve Name IMG BI PROCEDURES Final Result from Last 3 Months or Most Recently Relevant to Health Maintenance [place] [address] C[facility] Care Teams Failure Analysis Engineer Relationship Specialty Start Date End Date Name, MD Steve [address] [place] [address] PCP - General Family Medicine 01/23/18 Pepe Tran RN [address] [place] [phone] Camera MechanicAuto Tune Up Mechanic 09/27/24 [employer] [facility] 07/01/24
--- OUTSIDE RECORDS SUMMARY | 2024-10-12 13:13 | XMS_ITS | Encounter Summary ---
Author Organization [employer] Address [address] [facility] 7t [place] [address] Care Team Providers Care Seo Coordinator Name Role Phone Name, Steve MCCURDY Primary Care Provider [phone] Pepe Tran RN Unavailable [phone] Reason for Visit * Reason Comments Med Refill Encounter Details Date Type Department Care Team (Late st Contact Info) Description 10/04/2024 Refill [facility] MEDICINE [address] [place], [place] [phone] [facility] [address] [place] [address] Type 2 diabetes mellitus without complication, without long-term current use of insulin ([facility]) Social History Tobacco Use Types Packs/Day Years [...] Description 12/31/2024 2:30 PM EDT Office Visit [facility] OPTOMETRY [address] [place] [address] Fredi, Denisse, OD [address] [place] [address] 01/10/2025 10:30 AM EDT Office Visit [facility] MEDICINE [address] [place] [address] Name, MD Steve [address] [place] [address] documented as of this encounter Visit Diagnoses Diagnosis Type 2 diabetes mellitus without complication, without long-term current use of insulin ([facility]) documented in this encounter Additional Health Concerns Assessment Noted Time PHQ-9 Depression Total Score: 15 025 2:29 PM EST documented as of this encounter Care Teams Seo Coordinator Relationship Specialty Start Date End Date Steve Beatty MD [address] [place] [address] PCP - General Family Medicine 01/23/18 Pepe Tran RN [address] [place] [address] Pond SupervisorEnergy Broker 09/27/24 [employer] [facility] 07/01/24 documented as of this encounter
--- OUTSIDE RECORDS SUMMARY | 2024-10-12 13:13 | XMS_ITS | Encounter Summary ---
Author Organization [employer] Address 75 [facility] [address]t [place] [address] Care Team Providers Care Dewer Name Role Phone Name, Steve MCCURDY Primary Care Provider [phone] Reason for Visit * Reason Comments Care Coordination CM/CHW appt reminder Encounter Details Date Type Department Care Team (Latest Contact Info) Description 09/26/2024 Patient Outreach [facility] MEDICINE [address] [place] [address] Name, MD Steve [address] [place] [address] Care Coordination (CM/CHW appt reminder) Social History [...] outbound call to patient introducing herself from [facility] CM Department, in regard to remind patient [...] Description 12/31/2024 2:30 PM EDT Office Visit [facility] OPTOMETRY [address] [place] [address] Denisse Rai, OD [address] [place] [address] 01/10/2025 10:30 AM EDT Office Visit [facility] MEDICINE [address] [place] [address] Name, MD Steve [address] [place] [address] documented as of this encounter Visit Diagnoses Not on filedocumented in this encounter Additional Health Concerns Assessment Noted Time PHQ-9 Depression Total Score: 15 025 2:29 PM EST documented as of this encounter Care Teams Dewer Relationship Specialty Start Date End Date Name, MD Steve [address] [place] [address] PCP - General Family Medicine 01/23/18 [employer] [facility] 07/01/24 documented as of this encounter
--- OUTSIDE RECORDS SUMMARY | 2024-10-12 13:13 | XMS_ITS | Encounter Summary ---
Author Organization [employer] Address 75 [facility] 7t [place] [address] Care Team Providers Care Front Office Director Name Role Phone Name, Steve MCCURDY Primary Care Provider [phone] Pepe Tran RN Unavailable [phone] Encounter Details Date Type Department Care Team (Late st Contact Info) Description 09/27/2024 Telephone [facility] MEDICINE [address] [place], [place] [phone] Name, MD Steve [address] [place] [address] Social History Tobacco Use Types Packs/Day Years [...] encounter Miscellaneous Notes * Telephone Encounter - Minal Patiño RN - 09/27/2024 12:27 PM EST TC placed to pt to inform of below provider message. Pt verbalized understanding and denies furtherquestions or concerns at this time. ----- Message from Grace Wolf sent at 09/27/2024 12:27 PM EST ----- Can you please inform Benigno that the test result shows her potassium is back to normal level. Thank you documented in this encounter Plan of Treatment Upcoming Encounters Date Type Department Care Team (Late st Contact Info) Description 12/31/2024 2:30 PM EDT Office Visit [facility] OPTOMETRY [address] [place] [address] Denisse Rai, OD [address] [place] [address] 01/10/2025 10:30 AM EDT Office Visit [facility] MEDICINE [address] [place] [address] Name, MD Steve [address] [place] [address] documented as of this encounter Visit Diagnoses Not on filedocumented in this encounter Additional Health Concerns Assessment Noted Time PHQ-9 Depression Total Score: 15 025 2:29 PM EST documented as of this encounter Care Teams Front Office Director Relationship Specialty Start Date End Date Name, MD Steve [address] [place] [address] PCP - General Family Medicine 01/23/18 Pepe Tran RN [address] [place] [address] Electrician BusCredit Card Analyst 09/27/24 [employer] [facility] 07/01/24 documented as of this encounter
--- OUTSIDE RECORDS SUMMARY | 2024-10-12 13:13 | XMS_ITS | Encounter Summary ---
Author Organization [employer] Address [address] [facility] [address] [place] [address] Care Team Providers Care Livestock Commission Agent Name Role Phone Name, Steve MCCURDY Primary Care Provider [phone] Pepe Tran RN Unavailable [phone] Reason for Visit * Reason Onset Date Comments Care Management 09/27/2024 C3CM- initial as sessment/enrollment Encounter Details Date Type Department Care Team (Late st Contact Info) Description 09/27/2024 Telephone [facility] MEDICINE [address] [place], [place] [phone] Name, MD Steve [address] [place] [address] Care Management (C3- initial assessment/enrollment) Social History Tobacco Use Types Packs/Day Years [...] Telephone Encounter - Pepe Tran RN - 09/27/2024 2:26 PM EST JESÚS Tran RN, provided notification to PCP Name of patient's enrollment into [facility] Program. JESÚS Tran RN, completed care plan and sent to HIM to be scanned into the medical record. PCP notified and awaiting review from provider. CM plan - CM will assist patient with appointment reminders, - CM will assist patient with transportation to medical appointments, and SDOH needs as needed. -CM will provide education on disease processes and management * Telephone Encounter - Pepe Tran RN - 09/27/2024 2:25 PM EST JESÚS Tran RN placed outbound call to patient for agreed upon time for initial assessment for enrollment into Adult Care Management Program. Patient's name, , and address were verified. Benigno is a 48 year old female with prior medical history of type 2 diabetes mellitus, depression, anxiety, hypercholesterolemia, bilateral carpal tunnel syndrome, asthma, COPD, PTSD, emphysema, tobacco use. Patient report being followed by behavioral health via tele visits. Patient talks to her therapist every 2 weeks and her psychiatrist every month. Patient report excessive worrying about the future. She state is able to communicate with her therapist/psychiatrist as needed and also has the number to crisis. Patient report feeling depressed and anxious every day. Patient denies any SI/HI. Patient report that listening to music helps with her anxiety/depression. Patient reports being followed by [facility] and next appointment with Dr. Lion is on 04/03/25. Patient is followed by [facility] optometry and next eye exam is on 12/31/24. Patient does wear glasses. Patient denies any hearing concerns. Patient state that the last time she saw her dentist was 3 years ago. Patient denies use of any assistive devices. Patient state she was prescribed wrist brace in the past for her carpal tunnel but was not covered by her insurance. CM advised pt to bring it up during her next appointment with PCP on 10/08/24. Patient reports that 3 weeks ago her partner called the ambulance for patient due to passing out. Patient was diagnosed with norovirus, dehydration, and hypotension. Patient state she is doing well post ED visit. Patient reports not being on a special diet and denies exercising. Does report losing weight and her appetite has been less due to using trulicity injection weekly. Patient reportsthat she check her blood sugar with fingerstick and her glucose has been well controlled. Patient reports that she smokes cigarettes and marijuana. Denies any illegal drug use. Patient lives in an apartment with her partner and grandson who is 3 yrs old. Patient feels safe in her apartment. Patientis currently on a payment plan for her light bill. Patient receives snap and franz benefit. Patient report often running out of food. 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 CM will assist patient with appointment reminders, transportation for medical appointments, and SDOH needs as needed. Patient denies any further questions or concerns at this time. Care management program explained and contact information given. Patient verbalizes understanding, and able to repeat back to job specification writer. A follow up call will be placed within 10 days, patient agrees with plan. documented in this encounter Plan of Treatment Upcoming Encounters Date Type Department Care Team (Late st Contact Info) Description 12/31/2024 2:30 PM EDT Office Visit [facility] OPTOMETRY [address] [place] [address] Fredi Denisse, OD [address] [place] [address] 01/10/2025 10:30 AM EDT Office Visit [facility] MEDICINE [address] [place] [address] Name, MD Steve [address] [place], [place] [phone] documented as of this encounter Visit Diagnoses Not on filedocumented in this encounter Additional Health Concerns Assessment Noted Time PHQ-9 Depression Total Score: 15 025 2:29 PM EST documented as of this encounter Care Teams Livestock Commission Agent Relationship Specialty Start Date End Date Name, MD Steve [address] [place] [address] PCP - General Family Medicine 01/23/18 Pepe Tran RN [address] [place] [address] Gaming Cage WorkerPatch Driller 09/27/24 Maintenance Assistant [facility] 07/01/24 documented as of this encounter
[2024-10-12 14:00] LABS: Rheumatoid Factor < 13.0 IU/mL (<15.0)
[2024-10-12 14:41] LABS: Erythrocyte Sedimentation Rate 23 MM/HR (0-20)
== END 2024-10-12 11:13 | disposition home or self-care (01) ==
LOC: HO.HHCL 11:12
PROVIDERS: Visit Provider Internal Medicine Geriatric Medicine
DX: M79.89 Other specified soft tissue disorders (principal)
CPT/HCPCS: 36415; 85652; 86431

== ENCOUNTER 2024-10-19 10:01 | Outpatient (AMB) | payer MEDICAID, SELFPAY ==
--- NOTE | 2024-10-19 10:10 | A.OFFVIS_ITS ---
Vital Signs 10/19/24 10:27 Height 5 ft 2 in Weight 124 lb BMI 22.7 Intake Visit Reasons: urine dip Electronics Engineering Technologist Required: No Information Interpreted: non-clinical & clinical Accompanied by: Self / Same As Patient Allergies quetiapine [From SEROQUEL] Adverse Reaction (Intermediate, Verified 10/19/24 10:28) RLS symptoms Is last menstrual period known: Yes Last menstrual period: 09/19/24 HPI Comments Details: Presenting for repeat urine dip, last visit urine dip showed microscopic hematuria, urine culture was negative REPLACED BY [facility] Medical History Leg length discrepancy History of renal stone History of ovarian cyst Pulmonary emphysema Depression Tobacco use Chronic bilateral low back pain with bilateral sciatica Hyperlipidemia 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 Surgical History History of tubal ligation History of bladder surgery H/O LEEP Tubal ligation status Family History Mother Heart disease Social History Household Members: Significant Other Housing: Apartment Alcohol intake: never Patient Tobacco Use Status: Current everyday Tobacco user Cigarette Packs Per Day: 1 Years Smoked: 25 Substance Use Type: Marijuana service: No Current occupational status: unemployed Sexual orientation: Straight/Heterosexual Gender identity: Female Female Reproductive History Menstrual Age of Menarche: 7 Date of last menstrual period: 09/19/24 control method: permanent sterilization Review of Systems Const All systems reviewed & are unremarkable except as noted in HPI and below Reports as per HPI and Reports no additional complaints GI Reports no additional complaints Reports no additional complaints Assessment & Plan Assessment & Plan (1) Microscopic hematuria: Code(s): R31.29 - Other microscopic hematuria Category: Medical Plan: Repeat urine dip showed no evidence of microscopic hematuria, the patient was reassured. All questions answered, the patient verbalized understanding Coding Level of Care Code Est Pt Level 3 (34594) Diagnoses Microscopic hematuria R31.29
[2024-10-19 10:27] VITALS: BMI 22.7
== END 2024-10-19 10:36 | disposition home or self-care (01) ==
LOC: HO.HWS 10:01
PROVIDERS: PCP Internal Medicine Geriatric Medicine; Visit Provider Obstetrics & Gynecology
DX: R31.29 Other microscopic hematuria (principal)
CPT/HCPCS: 99213

== ENCOUNTER → 2024-10-19 10:01 | Outpatient (BNVA) | payer MEDICAID, SELFPAY | PROVIDERS: PCP Internal Medicine Geriatric Medicine; Visit Provider Obstetrics & Gynecology | DX: R31.29 Other microscopic hematuria (principal) | CPT/HCPCS: 81002; 99212 ==

== ENCOUNTER 2024-11-30 10:43 | Outpatient (AMB) | payer MEDICAID, SELFPAY ==
--- NOTE | 2024-11-30 10:49 | A.OFFVIS_ITS ---
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 She drops loaves of bread at work and some days she states even carrying the oven pans some days is difficult. Gripping, gasping, and squeezing exacerbate her symptoms. At night she sleeps on her hands unintentionally and wakes up with her symptoms worse. She presents today with bilateral Velcro wrist splints and says they do not alleviate her symptoms. EMG/NCS done on 06/28/24 IMPRESSION: 1. This is an abnormal study. 2. There is electrodiagnostic evidence for bilateral mild median neuropathy at the wrist, consistent with carpal tunnel syndrome. 3. There is no electrodiagnostic evidence for ulnar neuropathy, brachial plexopathy, or cervical radiculopathy. 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 She drops loaves of bread at work and some days she states even carrying the oven pans some days is difficult. Gripping, grasping, and squeezing exacerbate her symptoms. At night she sleeps on her hands unintentionally and wakes up with her symptoms worse. She presents today with bilateral Velcro wrist splints and says they do not alleviate her symptoms. EMG/NCS done on 06/28/24 IMPRESSION: 1. This is an abnormal study. 2. There is electrodiagnostic evidence for bilateral mild median neuropathy at the wrist, consistent with carpal tunnel syndrome. 3. There is no electrodiagnostic evidence for ulnar neuropathy, brachial plexopathy, or cervical radiculopathy. 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 Surgical History History of tubal ligation History of bladder surgery H/O LEEP Tubal ligation status Family History Mother Heart disease Social History Household Members: Significant Other Housing: Apartment Alcohol intake: never Patient Tobacco Use Status: Current everyday Tobacco user Cigarette Packs Per Day: 1 Years Smoked: 25 Substance Use Type: Marijuana service: No Current occupational status: unemployed Sexual orientation: Straight/Heterosexual Gender identity: Female Female Reproductive History Menstrual Age of Menarche: 7 Physical Exam Vital Signs: BMI result Body Mass Index 22.5 Assessment & Plan Assessment & Plan (1) Bilateral carpal tunnel syndrome: Code(s): G56.03 - Carpal tunnel syndrome, bilateral upper limbs Category: Medical Plan History of Present Illness The patient is a 48-year-old female presenting with symptoms indicative of bilateral carpal tunnel syndrome confirmed by EMG and nerve conduction studies. She reports persistent numbness and tingling in the hands, with continuous pain in her fingers and associated functional impairment. The left hand is reported as more problematic, and there is a noted deterioration in her ability to perform daily tasks and care for her grandson. Symptoms are unrelieved by wrist braces used during sleep. There was no detected cubital tunnel syndrome in tests, despite the occasional feeling of her arm falling asleep. Review of Systems - Musculoskeletal: Reports numbness, tingling, and pain in the hands and fingers, with arm weakness. - Neurological: Reports whole arm occasionally falls asleep ; denies shooting pain into the hand. Systems reviewed and are negative except as per HPI and below Physical Exam Neuro: Diminished sensation of the tips of all digits of bilateral hands in the office today No thenar or intrinsic wasting. Good APB muscle firing and good finger cross. Vascular: Capillary refill brisk. ROM: Patient can make a fist and extend all their digits. Skin: No lacerations or abrasions noted. General: No ecchymosis. No erythema or evidence of infection. Results - Tests and Diagnostics: EMG and nerve conduction study indicated bilateral carpal tunnel syndrome; no evidence of cubital tunnel syndrome. Procedure Plan Management of bilateral carpal tunnel syndrome entails scheduling a carpal tunnel release surgery for the left hand to relieve nerve compression and alleviate symptoms. The procedure will occur under local anesthesia to mitigate risks associated with general anesthesia. I have detailed that insufficient recovery of sensation might occur due to the long duration of the patient's symptoms. While the recent diagnostics did not confirm cubital tunnel involvement, monitoring postoperative recovery will guide further management. The patient was provided with instructions on recovery logistics and activity restrictions. Future surgical needs will be evaluated based on initial surgical outcomes. I educated the patient about the condition. I discussed both operative and nonoperative treatment options. The patient would like to proceed with surgery. The risks and benefits of operative treatment were discussed with the patient and the patient wishes to proceed with surgery. These risks include, but are not limited to, risk of damage to blood vessels, nerves, tendons, infection, recurrence, incomplete relief of preoperative symptoms, persistent pain, possibl e need for further surgery, and the risks associated with regional blocks and/or anesthesia. Plan is to take the patient to the operating room at some point in the next few weeks for the following procedures: 1. Left carpal tunnel release under local All of the preoperative paperwork including the consent was discussed today. All of the patient's questions were answered in the clinic today. The patient understands that they will be in contact with our certified surgical tech/first assistant to discuss scheduling their procedure. Patient reports diabetes, last A1c 5.8 Denies blood thinners, asthma, heart issues, lung issues, kidney issues, or current smoking. Patient was informed and verbally consented to the use of an ambient scribe for clinic note documentation during this visit. Discussion Notes I discussed with the patient the confirmed diagnosis of bilateral carpal tunnel syndrome based on EMG findings. An understanding of the disease and the surgical option was addressed, emphasizing the surgery's goal to relieve nerve compression and improve functionality. The potential risk of not achieving full sensory recovery was explained, given the chronicity of her symptoms. Alternative management involving cubital tunnel surgery was touched upon, contingent on postoperative outcomes from the carpal tunnel release. We agreed to conduct surgery under local anesthesia, underscoring the quick recovery aspect and smaller risk profile compared to general anesthesia. Postoperative care includes temporary lifting restrictions and follow-up scheduling. After discussing this, the patient agreed to proceed with surgery starting on the left hand. Patient Instructions - Wear wrist braces during sleep to alleviate nighttime symptoms. - Prepare for left hand surgery; maintain the hand clean and dry postoperatively. - Avoid lifting objects heavier than a cellphone with the operated hand for four weeks. - Schedule follow-up for suture removal two weeks post-surgery. - Seek immediate medical attention if experiencing worsening pain, fever, or signs of infection. - Contact museum service scheduler to secure a surgical date. - Avoid underwater activities such as baths or swimming until advised postoperatively. Coding Level of Care Code New Pt Level 4 (17091) Diagnoses Bilateral carpal tunnel syndrome G56.03
[2024-11-30 10:50] VITALS: BMI 22.5
--- OUTSIDE RECORDS SUMMARY | 2024-11-30 11:45 | XMS_ITS | Encounter Summary ---
Author Organization [employer] [facility] Address [address] [place] [address] [address] [place] [address] Care Team Providers Care Head Rigger Name Role Phone Name, Steve MCCURDY Primary Care Provider [phone] Pepe Tran RN Unavailable [phone] Reason for Visit * Reason Comments Med Change Request Encounter Details Date Type Department Care Team ([facility] Contact Info) Description 05/10/2023 Refill [facility] MEDICINE [address] [place], [place] [phone] Name, MD Steve [address] [place], [place] [phone] Social History Tobacco Use Types Packs/Day Years [...] Upcoming Encounters Date Type Department Care Team ([facility] Contact Info) Description 12/31/2024 3:00 PM EDT Office Visit [facility] OPTOMETRY [address] [place] [address] [place] Rain, OD [address] [place] [address] 01/10/2025 10:30 AM EDT Office Visit [facility] MEDICINE [address] [place] [address] Name, MD Steve [address] [place] [address] documented as of this encounter Visit Diagnoses Not on filedocumented in this encounter Additional Health Concerns Assessment Noted Time PHQ-9 Depression Total Score: 16 023 3:49 PM EDT documented as of this encounter Care Teams Head Rigger Relationship Specialty Start Date End Date Name, MD Steve [address] [place] [address] PCP - General Family Medicine 01/23/18 Pepe Tran RN [address] [place] [id number] High School Music TeacherPayroll Accountant 09/27/24 mention [facility] 07/01/24 documented as of this encounter
--- OUTSIDE RECORDS SUMMARY | 2024-11-30 11:45 | XMS_ITS | Encounter Summary ---
Author Organization [employer] Address [address] [facility] [address] [place] [address] Care Team Providers Care Anesthesiologist And Critical Care Name Role Phone Name, Steve MCCURDY Primary Care Provider [phone] Pepe Tran RN Unavailable [phone] Encounter Details Date Type Department Care Team (Late st Contact Info) Description 09/11/2024 Orders Only [facility] [address] [place] [address] Provider, MD Raisa Social History Tobacco Use [...] Team (Late st Contact Info) Description 12/31/2024 3:00 PM EDT Office Visit [facility] OPTOMETRY [address] [place] [address] Fredi, Denisse, OD [address] [place] [address] 01/10/2025 10:30 AM EDT Office Visit [facility] MEDICINE [address] [place] [address] Name, MD Steve [address] [place] [address] documented as of this encounter Procedures Procedure [...] documented as of this encounter Care Teams Anesthesiologist And Critical Care Relationship Specialty Start Date End Date Name, MD Steve [address] [place] [phone] PCP - General Family Medicine 01/23/18 Pepe Tran RN [address] [place] [address] Distributing ClerkFloor Director 09/27/24 [employer] [facility] 07/01/24 documented as of this encounter
--- OUTSIDE RECORDS SUMMARY | 2024-11-30 11:45 | XMS_ITS | Encounter Summary ---
Author Organization [employer] Address [address] [facility] [address]t [place] [address] Care Team Providers Care Analyst Microbiology Lab Name Role Phone Name, Steve MCCURDY Primary Care Provider [phone] Pepe Tran RN Unavailable [phone] Reason for Visit * Reason Onset Date Comments Med Refill 09/16/2023 Encounter Details Date Type Department Care Team (Late st Contact Info) Description 09/16/2023 Refill [facility] MEDICINE [address] [place], [place] [phone] Name, MD Steve [address] [place], [place] [phone] Social History Tobacco Use Types Packs/Day Years [...] Description 12/31/2024 3:00 PM EDT Office Visit [facility] OPTOMETRY [address] [place] [address] Fredi, Denisse, OD [address] [place] [address] 01/10/2025 10:30 AM EDT Office Visit [facility] MEDICINE [address] [place] [address] Name, MD Steve [address] [place] [address] documented as of this encounter Visit Diagnoses Not on filedocumented in this encounter Additional Health Concerns Assessment Noted Time PHQ-9 Depression Total Score: 16 023 3:49 PM EDT documented as of this encounter Care Teams Analyst Microbiology Lab Relationship Specialty Start Date End Date Name, MD Steve [address] [place] [address] PCP - General Family Medicine 01/23/18 Pepe Tran, [place] [address] [place] [address] And Building 09/27/24 [employer] [facility] 07/01/24 documented as of this encounter
--- OUTSIDE RECORDS SUMMARY | 2024-11-30 11:45 | XMS_ITS | Encounter Summary ---
Author Organization [employer] Address [address] [facility] 7t [place] [address] Care Team Providers Care News Clipping Cutter Name Role Phone Name, Steve MCCURDY Primary Care Provider [phone] Pepe Tran RN Unavailable [phone] Reason for Visit * Reason Comments Med Refill Encounter Details Date Type Department Care Team (Late st Contact Info) Description 12/07/2023 Refill [facility] MEDICINE [address] [place], [place] [phone] Name, MD Steve [address] [place], [place] [phone] Social History Tobacco Use Types Packs/Day Years Used Date Smoking Tobacco: Every Day Cigarettes Smokeless Tobacco: Never Alcohol Use Standard Drinks/Week Comments Never 0 (1 standard drink = 0.6 oz pur e alcohol) Depression Answer Date Recorded Patient Health Questionnaire-9 Score 16 05/10/2023 Housing Stability Answer Date Recorded What is your housing situation today? I have shahzad adbi 06/09/[address] you li [...] 3:00 PM EDT Office Visit [facility] OPTOMETRY [address] [place] [address] Fredi, Denisse, OD [address] [place] [address] 01/10/2025 10:30 AM EDT Office Visit [facility] MEDICINE [address] [place] [address] Name, MD Steve [address] [place] [address] documented as of this encounter Visit Diagnoses Not on filedocumented in this encounter Additional Health Concerns Assessment Noted Time PHQ-9 Depression Total Score: 16 023 3:49 PM EDT documented as of this encounter Care Teams News Clipping Cutter Relationship Specialty Start Date End Date Name, MD Steve [address] [place] [address] PCP - General Family Medicine 01/23/18 Pepe Tran, [place] [address] [place] [address] Shipfitter HelperAutomotive Services Manager 09/27/24 ethority [facility] 07/01/24 documented as of this encounter
--- OUTSIDE RECORDS SUMMARY | 2024-11-30 11:46 | XMS_ITS | Encounter Summary ---
Author Organization [employer] Address [address] [facility] 7t [place] [address] Care Team Providers Care Research And Development Chemist Name Role Phone Name, Steve MCCURDY Primary Care Provider [phone] Pepe Tran RN Unavailable [phone] Reason for Visit * Reason Onset Date Comments Care Management 11/27/2024 C3CM- f/u call l Encounter Details Date Type Department Care Team (Late st Contact Info) Description 11/27/2024 Telephone [facility] MEDICINE [address] [place], [place] [phone] Name, MD Steve [address] [place] [address] Care Management (C3CM- f/u call [facility]) Social History Tobacco Use Types Packs/Day Years [...] Telephone Encounter - Pepe Tran RN - 11/27/2024 3:58 PM EDT CM Pepe Tran RN placed outbound call to patient for follow up call. No answer at this time. LVM introducing herself from [facility] CM Department. Requested call back. CM reinforced direct contact information for any additional questions or concerns. Education provided on Walk-In Urgent Care located in [facility] of [facility]. Patient provided with after-hours line for [facility], , which offer night time triage service and option to transfer to telecommunications network engineer provider if needed. CM also reminded patient of her scheduled visit with [facility] Ortho on 11/30/24 at 11:00am at [address] in [place], [place]. Advised patient f/u with CM as needed. CM will attempt another follow up call within 10 days. documented in this encounter Plan of Treatment Upcoming Encounters Date Type Department Care Team ([facility] st Contact Info) Description 12/31/2024 3:00 PM EDT Office Visit [facility] OPTOMETRY [address] [place] [phone] Denisse Rai, OD [address] [place] [address] 01/10/2025 10:30 AM EDT Office Visit [facility] MEDICINE [address] [place] [address] Name, MD Steve [address] [place] [address] documented as of this encounter Visit Diagnoses Not on filedocumented in this encounter Additional Health Concerns Assessment Noted Time PHQ-9 Depression Total Score: 15 025 2:29 PM EST documented as of this encounter Care Teams Research And Development Chemist Relationship Specialty Start Date End Date Name, MD Steve [address] [place] [address] PCP - General Family Medicine 01/23/18 Pepe Tran RN [address] [place] [phone] Chicken CleanerMaterial Clerk 09/27/24 [employer] [facility] 07/01/24 documented as of this encounter
--- OUTSIDE RECORDS SUMMARY | 2024-11-30 11:46 | XMS_ITS | Encounter Summary ---
Author Organization [employer] Address [address] [facility] 7t [place] [address] Care Team Providers Care Upsetter Helper Name Role Phone Name, Steve MCCURDY Primary Care Provider [phone] Pepe Tran RN Unavailable [phone] Reason for Visit * Reason Comments Care Coordination SDOH/appt reminder Encounter Details Date Type Department Care Team (Latest Contact Info) Description 11/29/2024 Patient Outreach [facility] MEDICINE [address] [place], [place] [phone] Name, MD Steve 230 [place] [address] Care Coordination (SDOH/appt reminder) Social History Tobacco Use Types Packs/Day [...] encounter Progress Notes * Cristal Jacob - 11/29/2024 2:18 PM EDT CHW Cristal Jacob placed call to patient to remind of appt for [facility] Ortho 11/30/24 at 11:00am, patient stated she will attend. CHW let her know that PT1 will be picking her up at 1030. Patient stated she was able to activate the food voucher debit card and was able to buy veggies and fruits, patientis very grateful. Patient is also looking for a 2-bedroom apartment due to patient trying to get custody of grandchild. CHW will mail out a couple of low income apt applications. CHW will follow up with patient within 10 days. documented in this encounter Plan of Treatment Upcoming Encounters Date Type Department Care Team (Late st Contact Info) Description 12/31/2024 3:00 PM EDT Office Visit [facility] OPTOMETRY [address] [place], [place] [phone] Fredi, Denisse, OD [address] [place] [address] 01/10/2025 10:30 AM EDT Office Visit [facility] MEDICINE [address] [place] [address] Name, MD Steve [address] [place] [address] documented as of this encounter Visit Diagnoses Not on filedocumented in this encounter Additional Health Concerns Assessment Noted Time PHQ-9 Depression Total Score: 15 025 2:29 PM EST documented as of this encounter Care Teams Upsetter Helper Relationship Specialty Start Date End Date Name, MD Steve [address] [place] [address] PCP - General Family Medicine 01/23/18 Pepe Tran RN [address] [place] [address] Mold WasherRubbish Collector 09/27/24 [employer] [facility] 07/01/24 documented as of this encounter
--- OUTSIDE RECORDS SUMMARY | 2024-11-30 11:46 | XMS_ITS | Clinical Summary ---
Author Organization [employer] Address [address] [facility] 7t [place] [address] Care Team Providers Care Mangle Tender Name Role Phone Name, Steve MCCURDY Primary Care Provider [phone] Pepe Tran RN Unavailable [phone] Allergies No known active allergies Medications [...] 1 each 11 05/09/20 24 025 Active ARIPiprazole (Abilify) 5 MG tablet Take 1 tablet by mouth Once per day. 08/22/19 25 Active melatonin 3 MG tablet Take 2 tablets by mouth if needed at bedtime for sleep. 08/22/19 25 Active venlafaxine XR (Effexor XR) 37.5 MG 24 hr capsule Take 1 capsule by mouth Once per day. 08/22/19 25 Active FREESTYLE LITE test strip USE 1 BY TO CHECK BLOOD SUGAR EVERY DAY 100 strip 11 10/04/19 25 Active urea (Carmol) 10 % creamIndicatio ns:Callus of foot Apply topically if needed for dry skin. 85 g 1 10/08/19 25 026 Active SUMAtriptan (Imitrex) 25 MG tablet TAKE 1 TAB BY MOUTH AT ONSET OF MIGRAINE MAY REPEAT AFTER 2 HOURS IF HEADACHE RETURNS MAX 200MG/24HR 9 tablet 11/01/19 25 Active albuterol (Ventolin HFA) 108 (90 Base) MCG/ACT inhalerIndicat ions:Type 2 diabetes mellitus without complication, without long-term current use of insulin (CMS/HCC) INHALE 2 PUFFS BY MOUTH EVERY 4 TO 6 HOURS NEEDED 18 g 1 11/01/19 25 Active lidocaine (Lidoderm) 5 % patchIndicatio ns:Type 2 diabetes mellitus without complication, without long-term current use of insulin (CMS/HCC) APPLY 1 PATCH EVERY DAY MAY WEAR UP TO 12 HOURS. 12 HOURS ON 12 HOURS OFF 30 patch 11/01/19 25 Active fluticasone (Flonase) 50 MCG/ACT nasal spray ADMINISTER 1 SPRAY INTO EACH NOSTRIL ONCE PER DAY. 32 mL 1 11/21/19 25 025 Active fluticasone (Flonase) 50 MCG/ACT nasal spray ADMINISTER 1 SPRAY INTO EACH NOSTRIL ONCE PER DAY. 48 mL 08/22/19 25 025 Discontinued clotrimazole (Lotrimin) 1 % creamIndicatio ns:Tinea pedis of both feet Apply topically 2 times daily for 28 days. 30 g 5 10/08/19 25 025 Active Problems Problem Noted Date [...] Cough 05/10/2023 Emphysema, unspecified 05/10/2023 Overview (10/31/2023): [place] [address] Pulmonary Function Report Draft Patient: Benigno Pickett MR#: [id number] 03 : 1975 Acct:[id number] Age/Sex: 44 / F ADM Date: 07/08/20 Loc: HO.RESP Attending Dr: Angélica Pierre / [facility] Ordering Physician: ANGÉLICA PIERRE MD Date of Service: 07/08/20 Procedure(s): RT pulmonary function test Accession Number(s): [id number] cc: FLOWS: FEV1 of 97% of predicted [...] chronic lumbar back pain, seen before at [facility]. She has an MRI showing a broad based disc bulge L4-5. Using baclofen and Celebrex as a bridge pain management until her ortho appointment. Depression with anxiety 02/08/2018 Resolved Problems Problem Noted Date Diagnosed Date Resolved Date Suspected respiratory disease 05/10/2023 01/02/2024 Encounters Date Type Department Care Team Description 11/29/2024 Patient Outreach [facility] MEDICINE [address] [place] [address] Stvee Beatty MD Care Coordination (SDOH/appt reminder) 11/27/2024 Telephone [facility] MEDICINE [address] [place] [phone] Steve Beatty MD Care Management (C3CM- f/u call lvm) 11/20/2024 Patient Outreach [facility] MED[facility]INE [address] [place] [address] Steve Beatty MD 11/20/2024 Refill [facility] WALK[facility]IN [facility]ENTER [address] [place] [address] Carolyn Novoa MD 11/15/2024 Telephone [facility] MEDICINE [address] [place] [address] Steve Beatty MD Care Management (C3CM- f/u call) 11/08/2024 Patient Outreach [facility] MED[facility]INE [address] [place] [address] Steve Beatty MD Care Coordination (PT1) 11/06/[address] [address] Steve Beatty MD Care Management (C3CM- f/u call) 10/31/[address] [address] Steve Beatty MD Type 2 diabetes mellitus without complication, without long-term current use of insulin (CMS/HCC) 10/26/2024 Population Health Risk Score [facility] (C3) [address] [address] Provider, Population Health Generic 10/25/[address] [address] Steve Beatty MD Care Management (C3- f/u call) 10/25/2024 Patient Outreach [address] [address] Steve Beatty MD Care Coordination (SDOH) 10/17/2024 Patient Outreach [address] [address] Steve Beatty MD Care Coordination (PT1) 10/11/2024 Patient Outreach [address] [address] Steve Beatty MD Care Coordination (SDOH f/u) 10/11/[address] [address] Steve Beatty MD Care Management (C3- f/u call) 10/09/[address] [address] Steve Beatty MD Durable Medical Equipment (Wrist splints) 10/08/2024 3:45 PM EST Office Visit [address] [address] Steve Beatty MD Type 2 diabetes mellitus without complication, without long-term current use of insulin (CMS/HCC) (Primary Dx); Bilateral carpal tunnel syndrome; Hand swelling; Callus of foot; Tinea pedis of both feet 10/07/2024 Travel 10/05/2024 Patient Outreach [address] [address] Steve Beatty MD Care Coordination (SDOH f/u) 10/04/2024 Refill [facility] MED[facility] [address] [place] [address] Steve Beatty MD 10/04/[address] [address] Mobile, [place], AIR QUALITY CONSULTANT Type 2 diabetes mellitus without complication, without long-term current use of insulin ([facility]) 10/02/2024 Patient Outreach [address] [address] Steve Beatty MD Care Coordination (PT1) 09/27/[address] [address] Steve Beatty MD Care Management (C3CM- initial assessment/enrollment) 09/27/[address] [address] Steve Beatty MD 09/26/2024 2:00 PM EST Office Visit [address] [address] Grace Wolf, AIR QUALITY CONSULTANT Gastroenteritis due to norovirus (Primary Dx); Hypokalemia 09/26/2024 Travel 09/26/2024 Patient Outreach [address] [address] Steve Beatty MD Care Coordination (CM/CHW appt reminder) 09/24/[address] [address] Vianey Valladares [place] Chart Prep 09/13/2024 Patient Outreach [address] [address] Steve Beatty MD Transition Of Care (Tcm) (HDF- scheduled) 09/13/2024 Patient Outreach [address] [address] Steve Beatty MD Care Coordination (CM/CHW outreach) 09/13/2024 Patient Outreach [address] [address] Steve Beatty MD Care Coordination (CM/CHW outreach) 09/11/2024 Orders Only [facility] [address] [place] [address] Provider, MD Raisa 09/11/2024 Patient Outreach [facility] MEDICINE [address] [place] [address] Name, MD Steve Care Coordination (CHW facility check) 09/11/2024 Telephone [facility] MEDICINE [address] [place], [place] [phone] Pepe Tran RN Care Management (C3- chart review) from Last 3 Months Immunizations Name Administration [...] Description 12/31/2024 3:00 PM EDT Office Visit [facility] OPTOMETRY [address] [place] [address] Fredi, Denisse, OD 230 [place] [address] 01/10/2025 10:30 AM EDT Office Visit [facility] MEDICINE [address] [place] [address] Name, MD Steve [address] [place] [address] Health Maintenance Due Date Last Done Comments [...] 04/09/2022, 12/14, 02/09/2018 COVID-19 Vaccine ( - 2023- season) 2024 05/06/2021, 04/15/2021 Influenza Vaccine (#1) 2024 SDOH Screening 05/10/2024 05/10/2023 Depression Monitoring 03/26/2025 09/26/2024, 025 Diabetes: Hemoglobin A1C 04/07/2025 025, 05/29/2024, 01/02/2024, Additional history exists Diabetes: Urine Protein Screening 06/18/2025 06/18/2024, 11/03/2023 Lipid Panel 06/18/2025 06/18/2024, 10/14, 03/31/2022 Pap Smear 09/01/2025 09/01/2022, 05/06/2021 Depression Screening 09/26/2025 09/26/2024, 09/26/19 25 Tobacco Screening 09/26/2025 09/26/2024 Diabetes: Foot Exam [...] Procedure Name Priority Date/Time Associated Diagnosis Comments RHEUMATOID FACTOR Routine 10/12/2024 11: 13 AM EST Hand swelling SED RATE BY MODIFIED WESTERGREN Routine 10/12/2024 11:13 AM EST Hand swelling POCT GLYCATED HEMOGLOBIN, TOTAL Routine 10/08/2024 4:23 PM EST Type 2 diabetes mellitus without complication, without long-term current use of insulin (CMS/HCC) POCT GLUCOSE Routine 10/08/2024 4:19 PM EST Type 2 diabetes mellitus without complication, without long-term current use of insulin (CMS/HCC) POTASSIUM Routine 09/26/2024 2:34 PM EST Gastroenteritis due to norovirus Hypokalemia CT ABDOMEN PELVIS W CONTRAST Routine 09/10/2024 11:32 AM EST ALBUMIN, RANDOM URINE W/CREATININE Routine 06/18/2024 8:30 AM EST Type 2 diabetes mellitus without complication, without long-term current use of insulin (CMS/HCC) LIPID PANEL, STANDARD Routine 06/18/2024 8:30 AM EST Type 2 diabetes mellitus without complication, without long-term current use of insulin (CMS/HCC) HPV MRNA E6/E7 REFLEX TO HPV 16, 18/45 Routine 09/01/2022 3:17 PM EST PAP SMEAR Routine 09/01/2022 3:17 PM EST MAMMOGRAM GENERIC Routine 04/09/2022 9:0 0 AM EDT from Last 3 Months or Most Recently Relevant to Health Maintenance Results * (ABNORMAL) Sed Rate by Modified Hugoergren (10/12/2024 11:13 AM EST) Erythrocyte Sedimentation Rate 23(H) 0 - 20 MM/HR [facility] Comment:Patients with polycy themia and many hemoglobin abnormalitiesmay have depressed sed rates whereas patients with anemiamay have elevated sed rates. Blood Venous blood specimen / Unknown 10/12/2024 11:13 AM EST 10/12/2024 1:14 PM EST us Steve Beatty MD LAB BLOOD ORDERABLES Final Resul t Performing Organization Address City/[facility]/ZIP Co de Phone Number [facility] [address] [place] [phone] * Rheumatoid Factor (10/12/2024 11:13 AM EST) Rheumatoid Factor <13.0 <15.0 IU/mL [facility] Blood Venous blood specimen / Unknown 10/12/2024 11:13 AM EST 10/12/2024 1:24 PM EST us Steve Beatty MD LAB BLOOD ORDERABLES Final Resul t Performing Organization Address City/[facility]/ZIP Co de Phone Number [facility] [address] [place] [phone] * POCT HGB A1C (10/08/2024 4:23 PM EST) Hemoglobin A1C 5.8 4.0 - 6.0 % QC Media Lot # [id number] Lot# Expiration Date 29,730 Blood 10/08/2024 4:23 PM EST Steve Name POINT OF CARE TEST ENTER/EDIT OR DERABLES Final Result * POCT Glucose (10/08/2024 4:19 PM EST) Glucose Blood, POC 96 60 - 200 mg/dL QC Media Lot # [id number] Lot# Expiration Date Blood Capillary blood specimen / Unknown 10/08/2024 4:19 PM EST Steve Name POINT OF CARE TEST ENTER/EDIT OR DERABLES Final Result * Potassium (09/26/2024 2:34 PM EST) [facility] Potassium 4.0 3.3 - 5.1 mmol/L [facility] Blood Venous blood specimen / Unknown 09/26/2024 2:34 PM EST 09/26/2024 4:12 PM EST Grace Wolf AIR QUALITY CONSULTANT LAB BLOOD ORDERABLES Final Res ult Performing Organization Address City/State/[facility] Co de Phone Number [facility] [address] [place] [phone] * CT Abdomen Pelvis w/ Contrast (09/10/2024 11:32 AM EST) Anatomical Region Laterality Modality Body, Pelvis, Abdomen Computed T omography Historical Provider IMG CT PROCEDURES Final R esult * Albumin, Random Urine W/Creatinine (06/18/2024 8:30 AM EST) Creatinine, Urine 250.66 mg/dL [facility] Microalbumin Urine 13.0 mg/L [facility] Microalbum Creatinine Ratio Ur 5.1 <30 ug/mg cr [facility] Comment:Albumin/Creatinine R atio Reference Ranges: Normal: < 30 ug/mg creatinine Microalbuminuria: 30 - 300 ug/mg creatinineClinical Albuminuria: > 300 ug/mg creatinine Urine (Urine, Random) 06/18/2024 8:30 AM EST 06/18/2024 11:13 AM EST us Steve Beatty MD LAB URINE ORDERABLES Final Resul t Performing Organization Address [facility] Co de Phone Number [facility] [address] [place] [phone] * (ABNORMAL) Lipid Panel, Standard (06/18/2024 8:30 AM EST) Triglycerides 151(H) <150 mg/dL [facility] Comment:Desirable Triglyceri de: less than 150 mg/dLBorderline High Triglyceride 150-199 mg/dLHigh Triglyceride: 200-499 mg/dLVery High Triglyceride: greater than or equal to 5OO mg/dL Cholesterol 277(H) <200 mg/dL [facility] Comment:Desirable Cholestero l: less than 200 mg/dLBorderline High Cholesterol: 200-239 mg/dLHigh Cholesterol: greater than 239 mg/dL LDL Cholesterol Calculated 186(H) <100 mg/dL [facility] Comment:Desirable LDL: less than 100 mg/dLNear Optimal/Above Optimal LDL: 110- 129 mg/dLBorderline High LDL: 130-159 mg/dLHigh LDL: 160-189 mg/dLVery High LDL: greater than or equal to 190 mg/dL HDL Cholesterol 61 >40 mg/dL [facility] Comment:Desirable HDL: great er than 40 mg/dL Note: This HDL assay may give artificially low results in patients with liver disease. Blood Venous blood specimen / Unknown 06/18/2024 8:30 AM EST 06/18/2024 11:10 AM EST us Steve Beatty MD LAB BLOOD ORDERABLES Final Resul t Performing Organization Address [facility] Co de Phone Number [facility] [address] [place] [phone] * HPV mRNA E6/E7 w/Reflex to HPV Genotypes 16, 18/45 (09/01/2022 3:17 PM EST) HPV nRNA E6/E7 Not Detected Not Detected [facility] Comment:Methodology: Transcr iption-Mediated AmplificationThis assay detects E6/E7 viral messenger RNA (mRNA) from 14high-risk HPV types (16,18,31,33,35,39,45,51,52,56,58,59,66,68).Cervical sources are required for HPV testing.If a vaginal source from a patient who has had atotal hysterectomy with removal of cervix wassubmitted, please contact the testing laboratoryfor alternative testing options.For additional information, please refer tohttp://education.[employer]/faq/XVK554w4(This link if provided for information/educational purposes only.)THIS TEST WAS PERFORMED AT:[employer] [address] ([facility], [facility])[place] [phone] WAGGONER MD HPV mRNA E6/E7 [facility] HPV 16 RNA [facility] HPV 18/45 RNA [facility] 09/01/2022 3:17 PM EST 09/01/2022 4:15 PM EST us [facility] External Provider LAB CYT OLOGY ORDERABLES Final Result [facility] [address] [place] [phone] * Pap Smear (09/01/2022 3:17 PM EST) 09/01/2022 3:17 PM EST 09/01/2022 4:15 PM EST Narrative [facility] - 09/17/2022 1:19 PM EST ----- ------- Name: Benigno Pickett ? Age/Sex: 46/F ? : 1975 Unit#: [id number] ?? Attend Dr: Efrem Samuel MD ?Re09/01/22 ?Status: DEP REF ? Location: HO.LNP ?Disch: ? ----- ------- SPEC : [id number] ? RECD: 09/01/22 ? STATUS: ??SOUT ? REQ NUM: [id number] ? CHARMAINE: 09/01/22[address] ? SUBM DR: Efrem Samuel MD ? ENTERED: ??09/01/22 ?SP TYPE: Pap Smr ?OTHR : Name,Steve MCCURDY ? ORDERED: ??Pap Smear ? Interpretation ?? Satisfactory for evaluation. ?? No endocervical cells seen. ?? Negative for intraepithelial lesion or malignancy. ?? Fungal organisms consistent with Jne species. ? HPV mRNA E6/E7: ?NOT DETECTED ? This assay detects E6/E7 viral messenger RNA (mRNA) from 14 high-risk HPV types (16, 18, ?? 31, 33, 35, 39, 45, 51, 52, 56, 58, 59, 66, 68) ? HPV testing performed by [employer], [place], [place]. ??See reference laboratory ?? portion of the EMR for entire report. ?Clinical Information LMP: 08/11/2022 Previous PAP test: 2020, Abnormal Other history: HPV+ ? Material Received ?? ThinPrep-Cervical Copies To: ?? Name,Steve MCCURDY ?? [address] [facility] ?? [place] [address] ?? [phone] ?? Efrem Samuel MD ?? [address] [facility] ?? [place] [address] ?? [phone] ----- ------- Signed (signature on file) Holley Cerna Nicholas 09/17/22 7179 ? ----- ------- ? END OF REPORT ? [facility] External Provider LAB CYT OLOGY ORDERABLES Final Result [facility] [address] [place] [address] [phone] * Mammography Report 1 (04/09/2022 9:00 [...] Most Recently Relevant to Health Maintenance Insurance [facility] C3 HS FULL Care Teams Mangle Tender Relationship Specialty Start Date End Date Name, MD Steve [address] [place] [phone] PCP - General Family Medicine 01/23/18 Pepe Tran RN [address] [place] [phone] Speech And Language TutorOutsole Handler 09/27/24 [employer] [facility] 07/01/24
--- OUTSIDE RECORDS SUMMARY | 2024-11-30 11:46 | XMS_ITS | Encounter Summary ---
Author Organization [employer] Address [address] [facility] 7t [place] [address] Care Team Providers Care Inking Machine Tender Name Role Phone Name, Steve MCCURDY Primary Care Provider Pepe Tran RN Unavailable Reason for Visit * Reason Comments Med Refill Encounter Details Date Type Department Care Team (Late Contact Info) Description 09/21/[address] [facility] [address] [place] [address] Name, MD Steve [address] [place], [place] [phone] Tobacco use Social History Tobacco Use Types [...] Care Team (Late Contact Info) Description 12/31/2024 3:00 PM EDT Office Visit [facility] OPTOMETRY [address] [place], [place] [phone] FrediDenisse rice, OD [address] [place], [place] [phone] 01/10/2025 10:30 AM EDT Office Visit [facility] MED[facility] [address] [place] [address] Name, MD Steve [address] [place] [address] documented as of this encounter Visit Diagnoses Diagnosis Tobacco use documented in this encounter Care Teams Inking Machine Tender Relationship Specialty Start Date End Date Name, MD Steve [address] [place] [address] PCP - General Family Medicine 01/23/18 Pepe Tran RN [address] [place] [address] Water Resource ManagerDevelopmental Education Instructor 09/27/24 [employer] [facility] 07/01/24 documented as of this encounter
--- OUTSIDE RECORDS SUMMARY | 2024-11-30 11:46 | XMS_ITS | Encounter Summary ---
Author Organization [facility] Address [address] [facility] 7[address] [place] [address] Care Team Providers Care Cryptographic Technician Name Role Phone Name, Steve MCCURDY Primary Care Provider [phone] Pepe Tran RN Unavailable [phone] Reason for Visit * Reason Comments Med Refill Encounter Details Date Type Department Care Team (Late st Contact Info) Description 05/01/2024 Refill [facility] [address] [place], [place] [phone] Carolyn Novoa MD [address] [place] [address] Social History Tobacco Use Types Packs/Day Years [...] Description 12/31/2024 3:00 PM EDT Office Visit [facility] OPTOMETRY [address] [place] [address] Fredi, Denisse, OD [address] [place] [address] 01/10/2025 10:30 AM EDT Office Visit [facility] MEDICINE [address] [place] [address] Name, MD Steve [address] [place] [address] documented as of this encounter Visit Diagnoses Not on filedocumented in this encounter Additional Health Concerns Assessment Noted Time PHQ-9 Depression Total Score: 21 024 10:52 AM EDT documented as of this encounter Care Teams Cryptographic Technician Relationship Specialty Start Date End Date Name, MD Steve [address] [place] [address] PCP - General Family Medicine 01/23/18 Pepe Tran RN [address] [place] [id number] Showroom ManagerAssembly Line Leader 09/27/24 [employer] [facility] 07/01/24 documented as of this encounter
--- OUTSIDE RECORDS SUMMARY | 2024-11-30 11:46 | XMS_ITS | Clinical Summary ---
Author Organization [facility] Address [address] [place] [address] Phone Care Team Providers Care General Utility Machine Operator Name Role Phone Name, Steve MCCURDY Primary Care Provider [phone] Allergies No known active allergies Medications Ventolin HFA 90 mcg/actuation inhaler Inhale 2 puffs by mouth every 4 (four) hours if needed for wheezing or shortness of breath. every 4 to 6 hours as needed Active ARIPiprazole (ABILIFY) 5 mg tablet Take 1 tablet (5 mg total) by mouth at bedtime. 5 Active atorvastatin (LIPITOR) 40 mg tablet Take 1 tablet (40 mg total) by mouth 1 (one) time each day. Active clonazePAM (KlonoPIN) 1 mg tablet Take 1 tablet (1 mg total) by mouth 2 (two) times a day if needed for anxiety. 5 Active Trulicity 0.75 mg/0.5 mL pen injector injection Inject 0.5 mL (0.75 mg total) under the skin 1 (one) time per week. 5 Active fluticasone propionate (FLONASE) 50 mcg/actuation nasal spray Administer 1 spray into each nostril 1 (one) time each day if needed for rhinitis. 5 Active melatonin 3 mg tablet Take 2 tablets (6 mg total) by mouth at bedtime. 5 Active omeprazole (PriLOSEC) [address] capsule Take 1 capsule (40 mg total) by mouth 1 (one) time each day. Active SUMAtriptan (IMITREX) 25 mg tablet Take 1 tablet (25 mg total) by mouth 1 (one) time if needed for migraine. 4 Active venlafaxine XR (EFFEXOR-XR) 150 mg 24 hr capsule Take 1 capsule (150 mg total) by mouth at bedtime. Take with 37.5mg daily Active venlafaxine XR (EFFEXOR-XR) 37.5 mg 24 hr capsule Take 1 capsule (37.5 mg total) by mouth at bedtime. Take with 150mg daily 5 Active zolpidem (AMBIEN) 10 mg tablet Take 1 tablet (10 mg total) by mouth at bedtime. Active Active Problems Problem Noted Date Diagnosed Date Syncope 09/11/2024 Dehydration 09/11/2024 Acute gastroenteropathy due to Norovirus 025 Hypotension 09/10/2024 Encounters Date Type Department Care Team Description 09/10/2024 4:50 AM EST - 09/11/2024 3:55 PM EST Hospital Encounter [facility] [address] [place] [phone] Surendra Oh MD Cheng, Ting Ho Danny, DO Bukalo, Nermina, MD Santoyo-Pachec o, Omar D, MD Syncope and collapse (Primary Dx); Acute gastroenteritis; Dehydration Discharge Disposition: Home or Self Care from Last 3 Months Surgical History Surgery Date Site/Laterality Comments TUBAL LIGATION BLADDER SUSPENSION Medical History Medical History Date Comments Diabetes mellitus ([facility] V24, CMS/HCC V28) Hypercholesteremia Depression Anxiety Chronic insomnia Family History [...] 09/10/2024 5:02 AM EST Plan of Treatment Upcoming Encounters Date Type Department Care Team ([facility] st Contact Info) Description 12/27/2024 10:45 AM EDT Office Visit Orthopedic Surgery - [place] [address] [phone] Case Roy, DPM [address] [address] Health Maintenance Due Date Last Done Comments [...] Breast Cancer Screening 04/09/2024 04/09/2022 COVID-19 Vaccine (3 - 2023-2 5 season) 2024 05/06/2021, 04/15/2021 Diabetes: Annual Urine Albumin-Creatinine Ratio (uACR) 09/10/2024 Diabetes: Blood Sugar Contro l Test (HGBA1C) 11/27/2024 05/29/2024 Depression Screening 01/01/2025 01/02/2024 Influenza Vaccine (Season Ended) 2025 Cervical Cancer Screening: P ap Smear 09/01/2025 [...] age to complete this topic Meningococcal B Vaccine Aged Out No l onger eligible based on patient's age to complete [...] - 100 mg/dL 09/11/2024 11:56 AM EST [facility] ([facility] [[email or web address] Blood Capillary blood specimen / Unknown 09/11/2024 11:55 AM EST 09/11/2024 11:57 AM EST us Sundeep Browne MD LAB POINT OF C ARE TEST DOCKED DEVICE UNSOLICITED RESULTS Final Result [facility] [address] [place] [address], * (ABNORMAL) CBC auto differential (09/11/2024 5:33 AM EST) Only the most recent of2 resultswithin the time period is included. WBC 5.7 4.8 - 10.8 K/mcL LAB HEMETOLOGY METHOD 09/11/2024 6:42 AM [facility] RBC 3.10(L) 3.80 - 4.80 M/mcL LAB HEMETOLOGY METHOD 09/11/2024 6:42 AM [facility] Hemoglobin 9.5(L) 11.5 - 16.0 g/dL LAB HEMETOLOGY METHOD 09/11/2024 6:42 AM [facility] Hematocrit 28.9(L) 35.0 - 47.0 % LAB HEMETOLOGY METHOD 09/11/2024 6:42 AM [facility] MCV 92.9 79.0 - 98.0 FL LAB HEMETOLOGY METHOD 09/11/2024 6:42 AM [facility] MCH 30.5 27.0 - 32.0 pcg LAB HEMETOLOGY METHOD 09/11/2024 6:42 AM [facility] MCHC 32.9 32.0 - 37.0 g/dL LAB HEMETOLOGY METHOD 09/11/2024 6:42 AM [facility] RDW 13.4 11.0 - 15.0 % LAB HEMETOLOGY METHOD 09/11/2024 6:42 AM [facility] Platelets 217 130 - 400 K/mcL LAB HEMETOLOGY METHOD 09/11/2024 6:42 AM [facility] MPV 8.5 7.0 - 11.0 FL LAB HEMETOLOGY METHOD 09/11/2024 6:42 AM [facility] NRBC 0.0 <1.0 % LAB HEMETOLOGY METHOD 09/11/2024 6:42 AM [facility] NRBC Absolute 0.00 <0.10 K/mcL LAB HEMETOLOGY METHOD 09/11/2024 6:42 AM [facility] Neutrophils Relative 40.3 % LAB HEMETOLOGY METHOD 09/11/2024 6:42 AM [facility] Lymphocytes Relative 49.1 % LAB HEMETOLOGY METHOD 09/11/2024 6:42 AM [facility] Monocytes Relative 9.1 % LAB HEMETOLOGY METHOD 09/11/2024 6:42 AM [facility] Eosinophils Relative 1.0 % LAB HEMETOLOGY METHOD 09/11/2024 6:42 AM [facility] Basophils Relative 0.3 % LAB HEMETOLOGY METHOD 09/11/2024 6:42 AM [facility] Immature Granulocytes Relative 0.2 % LAB HEMETOLOGY METHOD 09/11/2024 6:42 AM [facility] Neutrophils Absolute 2.30 1.50 - 7.00 K/mcL LAB HEMETOLOGY METHOD 09/11/2024 6:42 AM [facility] Lymphocytes Absolute 2.81 1.00 - 5.00 K/mcL LAB HEMETOLOGY METHOD 09/11/2024 6:42 AM [facility] Monocytes Absolute 0.52 0.20 - 1.00 K/mcL LAB HEMETOLOGY METHOD 09/11/2024 6:42 AM [facility] Eosinophils Absolute 0.06 0.00 - 0.50 K/mcL LAB HEMETOLOGY METHOD 09/11/2024 6:42 AM [facility] Basophils Absolute 0.02 0.00 - 0.20 K/mcL LAB HEMETOLOGY METHOD 09/11/2024 6:42 AM [facility] Immature Granulocytes Absolute 0.01 0.00 - 0.03 K/mcL LAB HEMETOLOGY METHOD 09/11/2024 6:42 AM [facility] Blood Venous blood specimen / Unknown Venipuncture / Unknown 09/11/2024 5:33 AM EST 09/11/2024 6:22 AM EST us Lio PINEDA LAB BLOOD ORDERABLES Final Resu lt [facility] [address] [place] [address], * (ABNORMAL) Basic metabolic panel (09/11/2024 5:33 AM EST) Only the most recent of2 resultswithin the time period is included. Sodium 142 133 - 145 mmol/L LAB CHEMISTRY METHOD 09/11/2024 7:11 AM [facility] Potassium 3.5 3.5 - 5.5 mmol/L LAB CHEMISTRY METHOD 09/11/2024 7:11 AM [facility] Chloride 114(H) 96 - 110 mmol/L LAB CHEMISTRY METHOD 09/11/2024 7:11 AM [facility] CO2 23 21 - 32 mmol/L LAB CHEMISTRY METHOD 09/11/2024 7:11 AM [facility] Anion Gap 5 3 - 11 LAB CHEMISTRY METHOD 09/11/2024 7:11 AM [facility] Glucose 86 70 - 100 mg/dL LAB CHEMISTRY METHOD 09/11/2024 7:11 AM [facility] BUN 8 5 - 25 mg/dL LAB CHEMISTRY METHOD 09/11/2024 7:11 AM [facility] Creatinine 0.45(L) 0.50 - 1.10 mg/dL LAB CHEMISTRY METHOD 09/11/2024 7:11 AM [facility] eGFR 117 >=60 mL/min/1. 73m2 LAB CHEMISTRY METHOD 09/11/2024 7:11 AM EST [facility] Comment:Calculation based on the??Chronic Kidney Disease Epidemiology Collaboration (CKD-EPI) equation refit??without adjustment for race. BUN/Creatinine Ratio 17.8 LAB CHEMISTRY METHOD 09/11/2024 7:11 AM [facility] Calcium 7.8(L) 8.5 - 10.5 mg/dL LAB CHEMISTRY METHOD 09/11/2024 7:11 AM EST [facility] Blood Venous blood specimen / Unknown Venipuncture / Unknown 09/11/2024 5:33 AM EST 09/11/2024 6:20 AM EST us Jessica Alves MD LAB BLOOD ORDERABLES Final Res ult [facility] [address] [place] [address], * (ABNORMAL) Gastrointestinal pathogens molecular study (09/10/2024 6:21 PM EST) Campylobacter Detection by PCR Not Detected Not Detected LAB MICROBIOLOGY METHOD 5 8:43 PM [facility] Plesiomonas shigelloides Detection by PCR Not Detected Not Detected LAB MICROBIOLOGY METHOD 5 8:43 PM [facility] Salmonella Detection by PCR Not Detected Not Detected LAB MICROBIOLOGY METHOD 5 8:43 PM [facility] Vibrio Detection by PCR Not Detected Not Detected LAB MICROBIOLOGY METHOD 5 8:43 PM [facility] Vibrio cholerae Detection by PCR Not Detected Not Detected LAB MICROBIOLOGY METHOD 5 8:43 PM [facility] Yersinia enterocolitica Detection by PCR Not Detected Not Detected LAB MICROBIOLOGY METHOD 5 8:43 PM [facility] Enteroaggregative E coli EAEC Detection by PCR Not Detected Not Detected LAB MICROBIOLOGY METHOD 5 8:43 PM [facility] Enteropathogenic E coli EPEC Detection Not Detected Not Detected LAB MICROBIOLOGY METHOD 5 8:43 PM [facility] Enterotoxigenic E coli ETEC LTST Detection Not Detected Not Detected LAB MICROBIOLOGY METHOD 5 8:43 PM [facility] Shiga-like toxin producing E coli STEC STX1 STX2 Det Not Detected Not Detected LAB MICROBIOLOGY METHOD 5 8:43 PM [facility] Shigella Enteroinvasive E coli EIEC Detection Not Detected Not Detected LAB MICROBIOLOGY METHOD 5 8:43 PM [facility] Cryptosporidium Detection by PCR Not Detected Not Detected LAB MICROBIOLOGY METHOD 5 8:43 PM [facility] Cyclospora cayetanensis Detection by PCR Not Detected Not Detected LAB MICROBIOLOGY METHOD 5 8:43 PM [facility] Entamoeba histolytica Detection by PCR Not Detected Not Detected LAB MICROBIOLOGY METHOD 5 8:43 PM [facility] Giardia lamblia Detection by PCR Not Detected Not Detected LAB MICROBIOLOGY METHOD 5 8:43 PM [facility] Adenovirus F 40 41 Detection by PCR Not Detected Not Detected LAB MICROBIOLOGY METHOD 5 8:43 PM [facility] Astrovirus Detection by PCR Not Detected Not Detected LAB MICROBIOLOGY METHOD 5 8:43 PM [facility] Norovirus GI GII Detection by PCR Detected(A ) Not Detected LAB MICROBIOLOGY METHOD 5 8:43 PM [facility] Comment:Alternate method rec ommended if results do not correlate with the clinical presentation. Sapovirus Detection by PCR Not Detected Not Detected LAB MICROBIOLOGY METHOD 5 8:43 PM [facility] Rotavirus A Detection by PCR Not Detected Not Detected LAB MICROBIOLOGY METHOD 8:43 PM EST [facility] Stool Rectum structure / Unknown Non-blood Collection / Unknown 09/10/2024 6:21 PM EST 09/10/2024 7:[address] [facility] - 09/10/2024 8:43 PM EST [...] GENERAL SULTANA SZYMANSKI Edited Result - Final [facility] [address] [place] [address], [place] [phone] * Respiratory virus panel molecular study (09/10/2024 3:45 PM EST) Adenovirus Detection by PCR Not Detected Not Detected LAB MICROBIOLOGY METHOD 09/10/2024 4:48 PM [facility] Influenza A PCR Not Detected Not Detected LAB MICROBIOLOGY METHOD 09/10/2024 4:48 PM [facility] Influenza B PCR Not Detected Not Detected LAB MICROBIOLOGY METHOD 09/10/2024 4:48 PM [facility] Coronavirus 229E Not Detected Not Detected LAB MICROBIOLOGY METHOD 09/10/2024 4:48 PM [facility] Coronavirus HKU1 Not Detected Not Detected LAB MICROBIOLOGY METHOD 09/10/2024 4:48 PM EST [facility] Coronavirus OC43 Not Detected Not Detected LAB MICROBIOLOGY METHOD 09/10/2024 4:48 PM EST [facility] Coronavirus NL63 Not Detected Not Detected LAB MICROBIOLOGY METHOD 09/10/2024 4:48 PM [facility] Parainfluenza Virus 1 Not Detected Not Detected LAB MICROBIOLOGY METHOD 09/10/2024 4:48 PM [facility] Parainfluenza Virus 2 Not Detected Not Detected LAB MICROBIOLOGY METHOD 09/10/2024 4:48 PM [facility] Parainfluenza Virus 3 Not Detected Not Detected LAB MICROBIOLOGY METHOD 09/10/2024 4:48 PM [facility] Parainfluenza Virus 4 Not Detected Not Detected LAB MICROBIOLOGY METHOD 09/10/2024 4:48 PM [facility] RSV PCR Not Detected Not Detected LAB MICROBIOLOGY METHOD 09/10/2024 4:48 PM [facility] Human Metapneumovirus A and B Not Detected Not Detected LAB MICROBIOLOGY METHOD 09/10/2024 4:48 PM [facility] Rhinovirus/Entero virus Not Detected Not Detected LAB MICROBIOLOGY METHOD 09/10/2024 4:48 PM [facility] Bordetella pertussis Not Detected Not Detected LAB MICROBIOLOGY METHOD 09/10/2024 4:48 PM [facility] Bordetella parapertussis Not Detected Not Detected LAB MICROBIOLOGY METHOD 09/10/2024 4:48 PM [facility] Mycoplasma pneumo by PCR Not Detected Not Detected LAB MICROBIOLOGY METHOD 09/10/2024 4:48 PM [facility] Chlamydia pneumoniae Not Detected Not Detected LAB MICROBIOLOGY METHOD 09/10/2024 4:48 PM [facility] SARS COV-2 Not Detected Not Detected LAB MICROBIOLOGY METHOD 09/10/2024 4:48 PM [facility] Swab Both anterior nares / Unknown Non-blood Collection / Unknown 09/10/2024 3:45 PM EST 09/10/2024 3:52 PM EST Narrative [facility] - 09/10/2024 4:48 PM EST Testing was performed using the Bio[employer] Respiratory Pathogen PCR Assay. All results must [...] detection. Lio PINEDA LAB MICROBIOLOGY - GENERAL ORD STEPHON Final Result [facility] ([facility] [[email or web address] [address] [place] [address], [place] [phone] * CT Abdomen Pelvis w Contrast (09/10/2024 2:32 PM EST) Anatomical Region Laterality Modality Body Computed Tomogra phy 09/10/2024 2:52 PM EST Impressions 09/10/2024 2:58 PM EST Impression: 1. Trace bilateral pleural effusions, periportal low attenuation, and trace free fluid in the pelvis, likely secondary to fluid resuscitation. 2. Otherwise unremarkable CT of the abdomen and pelvis. Crispin PINEDA ([id number]) -------- FINAL REPORT -------- Dictated By: Petrona Barreto Dictated Date: 09/10/2024 14:52 ET Assigned Physician: Petrona Barreto Reviewed and Electronically Signed By: Petrona Barreto Signed Date: 09/10/2024 14:58 ET Workstation ID: [id number] Transcribed By: Self Edit Transcribed Date: 09/10/2024 14:52 ET Narrative 09/10/2024 2:58 PM EST History: Abdominal pain, acute, nonlocalized, with nausea, vomiting and diarrhea. Comparison: No comparison imaging at this institution. Technique: Helical volumetric imaging of the abdomen and pelvis was performed during the uneventful intravenous administration of 90 cc Isovue-370. DLP: 419.14 mGy/cm [employer]. VCT Iterative reconstruction technique Findings: Trace bilateral [...] administration of 90 ccIsovue-370. DLP: 419.14 mGy/cm [employer]. VCT Iterative reconstruction technique Findings: Trace bilateral [...] unremarkable CT of the abdomen and pelvis. [place] ([id number]) -------- FINAL REPORT -------- Dictated By: Petrona Barreto Dictated Date: 09/10/2024 14:52 ET Assigned Physician: Petrona Barreto Reviewed and Electronically Signed By: Petrona Barreto Signed Date: 09/10/2024 14:58 ET Workstation ID: [id number] Transcribed By: Self Edit Transcribed Date: 09/10/2024 [...] Qual Negative Negative 09/10/2024 6:28 AM EST [facility] Blood Venous blood specimen / Unknown Venipuncture / Unknown 09/10/2024 5:31 AM EST 09/10/2024 5:41 AM EST Surendra Oh MD LAB BLOOD ORDERABLES Final Res ult Performing Organization Address City/[facility]/ZIP Co de Phone Number [facility] [address] [place] [address], [place] [phone] * Magnesium (09/10/2024 5:31 AM EST) Pathologist [facility] Magnesium 2.1 1.9 - 2.6 mg/dL LAB CHEMISTRY METHOD 09/10/2024 6:05 AM [facility] Blood Venous blood specimen / Unknown Venipuncture / Unknown 09/10/2024 5:31 AM EST 09/10/2024 5:41 AM EST Surendra Oh MD LAB BLOOD ORDERABLES Final Res ult Performing Organization Address City/[facility]/ZIP Co de Phone Number [facility] [address] [place] [address], [place] [phone] * Hepatic function panel (09/10/2024 5:31 AM EST) Total Protein 6.6 6.0 - 8.0 g/dL LAB CHEMISTRY METHOD 09/10/2024 2:39 PM EST [facility] Albumin 3.3 3.2 - 5.0 g/dL LAB CHEMISTRY METHOD 09/10/2024 2:39 PM [facility] Total Bilirubin 0.2 0.0 - 1.4 mg/dL LAB CHEMISTRY METHOD 09/10/2024 2:39 PM [facility] Bilirubin, Direct <0.1 0.0 - 0.3 mg/dL LAB CHEMISTRY METHOD 09/10/2024 2:39 PM EST [facility] Bilirubin, Indirect LAB CHEMISTRY METHOD 09/10/2024 2:39 PM EST [facility] Comment:Unable to calculate Indirect Bilirubin. ALT (SGPT) 31 10 - 60 unit/L LAB CHEMISTRY METHOD 09/10/2024 2:39 PM EST [facility] AST (SGOT) 26 10 - 42 unit/L LAB CHEMISTRY METHOD 09/10/2024 2:39 PM EST [facility] Alkaline Phosphatase 65 42 - 121 unit/L LAB CHEMISTRY METHOD 09/10/2024 2:39 PM EST [facility] Blood Venous blood specimen / Unknown Venipuncture / Unknown 09/10/2024 5:31 AM EST 09/10/2024 5:41 AM EST us Lio PINEDA LAB BLOOD ORDERABLES Final Resu lt Performing Organization Address City/[facility]/ZIP Co de Phone Number [facility]) [facility] [address] [place] [address], [place] [phone] * ECG 12 lead (09/10/2024 5:14 AM EST) Ventricular Rate ECG 87 BPM [facility] Atrial Rate 87 BPM [facility] P-R Interval 162 ms [facility] QRS Duration 88 ms G[facility] Q-T Interval 374 ms GEM[facility] QTc 450 ms GEM[facility] P Wave [place] 78 degrees GEMUSE R [place] 65 degrees GEMUSE T [place] 59 degrees GEMUSE ECG Interpretation Normal sinus rhythm No previous ECGs available Confirmed by VIELKA NAIDU ([id number]) on 09/10/2024 9:10:00 PM GEM[facility] 09/10/2024 5:14 AM EST 09/10/2024 9:10 PM EST us Surendra Oh MD ECG ORDERABLES Final Result [facility] * ECG-Annotated (09/10/2024) us Provider Onbase ECG ORDERABLES Final Result from Last 3 Months Additional Health Concerns Infection Onset Date Last Indicated Norovirus 09/10/2024 09/10/2024 Insurance MEDICAID - [place] Advance Directives Documents on File Type Date Recorded Patient Site Technician Expl anation Advance Directives and Living Will [...] Agents on File Name Relationship Healthcare Agent [facility] Dariana Lynne Daughter Second [place] te Health Care Agent Care Teams General Utility Machine Operator Relationship Specialty Start Date End Date Name, MD Steve [address] [place] [address] PCP - General Internal Medicine 09/10/24
== END 2024-11-30 11:36 | disposition home or self-care (01) ==
LOC: HO.HOS 10:44
PROVIDERS: PCP Internal Medicine Geriatric Medicine
DX: G56.03 Carpal tunnel syndrome, bilateral upper limbs (principal)
CPT/HCPCS: 99204

== ENCOUNTER → 2024-11-30 10:43 | Outpatient (BNVA) | payer MEDICAID, SELFPAY | PROVIDERS: PCP Internal Medicine Geriatric Medicine | DX: G56.03 Carpal tunnel syndrome, bilateral upper limbs (principal) | CPT/HCPCS: 99212 ==

== ENCOUNTER 2024-12-13 07:19 | Day surgery (SDC) | payer MEDICAID, SELFPAY ==
--- OUTSIDE RECORDS SUMMARY | 2024-11-30 14:05 | XMS_ITS | Encounter Summary ---
Author Organization [employer] Address [address] [facility] 7t [place] [address] Care Team Providers Care Cost Manager Name Role Phone Name, Steve MCCURDY Primary Care Provider [phone] Pepe Tran RN Unavailable [phone] Encounter Details Date Type Department Care Team (Late st Contact Info) Description 09/11/2024 Orders Only [facility] [address] [place] [address] Provider, MD Raisa Social History Tobacco Use [...] Description 12/31/2024 3:00 PM EDT Office Visit [facility] OPTOMETRY [address] [place] [address] Fredi, Denisse, OD [address] [place] [address] 01/10/2025 10:30 AM EDT Office Visit [facility] MEDICINE [address] [place] [address] Name, MD Steve [address] [place] [address] documented as of this encounter Procedures Procedure [...] documented as of this encounter Care Teams Cost Manager Relationship Specialty Start Date End Date Name, MD Steve [address] [place] [address] [phone] PCP - General Family Medicine 01/23/18 Pepe Tran RN [address] [place] [phone] Maintenance WorkerCell Tender Helper 09/27/24 [employer] [facility] 07/01/24 documented as of this encounter
--- OUTSIDE RECORDS SUMMARY | 2024-11-30 14:05 | XMS_ITS | Encounter Summary ---
Author Organization [employer] Address [address] [facility] 7t [place] [address] Care Team Providers Care Caustic Plant Worker Name Role Phone Name, Steve MCCURDY Primary Care Provider [phone] Pepe Tran RN Unavailable [phone] Reason for Visit * Reason Comments Med Refill Encounter Details Date Type Department Care Team (Late st Contact Info) Description 12/07/2023 Refill [facility] [address] [place], [place] [phone] Name, MD Steve [address] [place], [place] [phone] Social History Tobacco Use Types Packs/Day Years [...] Description 12/31/2024 3:00 PM EDT Office Visit [facility] [address] [place] [address] Fredi, Denisse, OD [address] [place] [address] 01/10/2025 10:30 AM EDT Office Visit [facility] [address] [place] [address] Name, MD Steve [address] [place] [address] documented as of this encounter Visit Diagnoses Not on filedocumented in this encounter Additional Health Concerns Assessment Noted Time PHQ-9 Depression Total Score: 16 023 3:49 PM EDT documented as of this encounter Care Teams Caustic Plant Worker Relationship Specialty Start Date End Date Name, MD Steve [address] [place] [address] PCP - General Family Medicine 01/23/18 Pepe Tran, MILAD [address] [place] [address] Receiver StockerPhotographic Aide 09/27/24 [employer] [facility] 07/01/24 documented as of this encounter
--- OUTSIDE RECORDS SUMMARY | 2024-11-30 14:05 | XMS_ITS | Encounter Summary ---
Author Organization webme [facility] Address [address] [place] [address] [address] [place] [address] Care Team Providers Care Spice Miller Name Role Phone Name, Steve MCCURDY Primary Care Provider [phone] Pepe Tran RN Unavailable [phone] Reason for Visit * Reason Comments Med Change Request Encounter Details Date Type Department Care Team ([facility] Contact Info) Description 05/10/2023 Refill [facility] [address] [place], [place] [phone] Name, MD Steve [address] [place], [place] [phone] Social History Tobacco Use Types Packs/Day Years [...] Upcoming Encounters Date Type Department Care Team ([facility] Contact Info) Description 12/31/2024 3:00 PM EDT Office Visit [facility] [address] [place] [address] Jackson Rain, OD [address] [place] [address] 01/10/2025 10:30 AM EDT Office Visit [facility] [address] [place] [address] Name, MD Steve [address] [place] [address] documented as of this encounter Visit Diagnoses Not on filedocumented in this encounter Additional Health Concerns Assessment Noted Time PHQ-9 Depression Total Score: 16 023 3:49 PM EDT documented as of this encounter Care Teams Spice Miller Relationship Specialty Start Date End Date Name, MD Steve [address] [place] [address] PCP - General Family Medicine 01/23/18 Pepe Tran RN [address] [place] [address] Forgeman HelperEngineering Vice President 09/27/24 [employer] [facility] 07/01/24 documented as of this encounter
--- OUTSIDE RECORDS SUMMARY | 2024-11-30 14:05 | XMS_ITS | Encounter Summary ---
Author Organization [employer] Address [address] [facility] 7t [place] [address] Care Team Providers Care Cotton Chopper Name Role Phone Name, Steve MCCURDY Primary Care Provider [phone] Pepe Tran RN Unavailable [phone] Reason for Visit * Reason Onset Date Comments Med Refill 09/16/2023 Encounter Details Date Type Department Care Team (Late st Contact Info) Description 09/16/2023 Refill [facility] [address] [place], [place] [phone] Name, MD Steve [address] [place], [place] [phone] Social History Tobacco Use Types Packs/Day Years [...] Description 12/31/2024 3:00 PM EDT Office Visit [facility] [address] [place] [address] Fredi, Denisse, OD [address] [place] [address] 01/10/2025 10:30 AM EDT Office Visit [facility] [address] [place] [address] Name, MD Steve [address] [place] [address] documented as of this encounter Visit Diagnoses Not on filedocumented in this encounter Additional Health Concerns Assessment Noted Time PHQ-9 Depression Total Score: 16 023 3:49 PM EDT documented as of this encounter Care Teams Cotton Chopper Relationship Specialty Start Date End Date Name, MD Steve [address] [place] [address] PCP - General Family Medicine 01/23/18 Pepe Tran, MILAD [address] [place] [address] Yard WorkerCoffee Shop Manager 09/27/24 [place] [facility] 07/01/24 documented as of this encounter
--- OUTSIDE RECORDS SUMMARY | 2024-11-30 14:06 | XMS_ITS | Encounter Summary ---
Author Organization [employer] Address [address] [facility] 7t [place] [address] Care Team Providers Care Waiter/Waitress Counter Name Role Phone Name, Steve MCCURDY Primary Care Provider [phone] Pepe Tran RN Unavailable [phone] Reason for Visit * Reason Comments Med Refill Encounter Details Date Type Department Care Team (Late st Contact Info) Description 05/01/2024 Refill [facility] [address] [place], [place] [phone] Carolyn Novoa MD [address] [place] [address] Social History Tobacco Use Types Packs/Day Years [...] Description 12/31/2024 3:00 PM EDT Office Visit [facility] [address] [place] [address] Fredi, Denisse, OD [address] [place] [address] 01/10/2025 10:30 AM EDT Office Visit [facility] [address] [place] [address] Name, MD Steve [address] [place] [address] documented as of this encounter Visit Diagnoses Not on filedocumented in this encounter Additional Health Concerns Assessment Noted Time PHQ-9 Depression Total Score: 21 024 10:52 AM EDT documented as of this encounter Care Teams Waiter/Waitress Counter Relationship Specialty Start Date End Date Name, MD Steve [address] [place] [address] PCP - General Family Medicine 01/23/18 Pepe Tran RN [address] [place] [address] Contact Center AnalystWatch Manufacturing Supervisor 09/27/24 [employer] [facility] 07/01/24 documented as of this encounter
--- OUTSIDE RECORDS SUMMARY | 2024-11-30 14:06 | XMS_ITS | Encounter Summary ---
Author Organization [employer] Address 75 [facility] 7t [place] [address] Care Team Providers Care Hedge Trimmer Name Role Phone Name, Steve MCCURDY Primary Care Provider [phone] Pepe Tran RN Unavailable [phone] Reason for Visit * Reason Comments Care Coordination SDOH/appt reminder Encounter Details Date Type Department Care Team (Latest Contact Info) Description 11/29/2024 Patient Outreach [facility] [address] [place], [place] [phone] Name, MD Steve [address] [place] [address] Care Coordination (SDOH/appt reminder) Social History Tobacco [...] to patient to remind of appt for [facility] Orth[facility] 11/30/24 at 11:00am, patient stated she [...] Description 12/31/2024 3:00 PM EDT Office Visit [facility] [address] [place], [place] [phone] Fredi, Denisse, OD [address] [place] [address] 01/10/2025 10:30 AM EDT Office Visit [facility] [address] [place] [address] Name, MD Steve [address] [place] [address] documented as of this encounter Visit Diagnoses Not on filedocumented in this encounter Additional Health Concerns Assessment Noted Time PHQ-9 Depression Total Score: 15 025 2:29 PM EST documented as of this encounter Care Teams Hedge Trimmer Relationship Specialty Start Date End Date Name, MD Steve [address] [place] [address] PCP - General Family Medicine 01/23/18 Pepe Tran RN [address] [place] [address] Twisting Frame ChangerNurse Discharge Planner 09/27/24 [employer] [facility] 07/01/24 documented as of this encounter
--- OUTSIDE RECORDS SUMMARY | 2024-11-30 14:06 | XMS_ITS | Encounter Summary ---
Author Organization [employer] Address 75 [facility] 7t [place] [address] Care Team Providers Care Shaving Machine Operator Name Role Phone Name, Steve MCCURDY Primary Care Provider [phone] Pepe Tran RN Unavailable [phone] Reason for Visit * Reason Comments Med Refill Encounter Details Date Type Department Care Team (Late Contact Info) Description 09/21/2022 Refill [facility] [address] [place] [address] Name, MD Steve [address] [place], [place] [phone] Tobacco use Social History Tobacco Use Types [...] Description 12/31/2024 3:00 PM EDT Office Visit [facility] [address] [place], [place] [phone] FrediDenisse rice, OD [address] [place], [place] [phone] 01/10/2025 10:30 AM EDT Office Visit [facility] [address] [place] [address] Name, MD Steve [address] [place] [address] documented as of this encounter Visit Diagnoses Diagnosis Tobacco use documented in this encounter Care Teams Shaving Machine Operator Relationship Specialty Start Date End Date Name, MD Steve [address] [place] [address] PCP - General Family Medicine 01/23/18 Pepe Tran RN [address] [place] [address] Bark Press OperatorPublic Affairs Officer 09/27/24 [employer] [facility] 07/01/24 documented as of this encounter
--- OUTSIDE RECORDS SUMMARY | 2024-11-30 14:06 | XMS_ITS | Clinical Summary ---
Author Organization [facility] Address [address] [place] [address] Phone Care Team Providers Care Salesforce Trainer Name Role Phone Name, Steve MCCURDY Primary Care Provider [phone] Allergies No known active allergies Medications Ventolin [...] - 09/11/2024 3:55 PM EST Hospital Encounter [facility] [address] [place] [phone] Surendra Oh MD Cheng, Ting Ho Danny, DO Bukalo, Nermina, MD Santoyo-Pachec o, Omar D, MD Syncope and collapse (Primary Dx); Acute gastroenteritis; Dehydration Discharge Disposition: Home or Self Care from Last 3 Months Surgical History Surgery Date Site/Laterality Comments TUBAL LIGATION BLADDER SUSPENSION Medical History Medical History Date Comments Diabetes mellitus ([facility] V24, CMS/HCC V28) Hypercholesteremia Depression Anxiety Chronic [...] Upcoming Encounters Date Type Department Care Team ([facility] st Contact Info) Description 12/27/2024 10:45 AM EDT Office Visit Orthopedic Surgery - [place] [address] [phone] Case Roy, DPM [address] [address] Health Maintenance Due Date Last Done Comments [...] - 100 mg/dL 09/11/2024 11:56 AM EST [facility] ([facility] Blood Capillary blood specimen / Unknown 09/11/2024 11:55 AM EST 09/11/2024 11:57 AM EST us Sundeep Browne MD LAB POINT OF C ARE TEST DOCKED DEVICE UNSOLICITED RESULTS Final Result [facility] [address] [place] [address], * (ABNORMAL) CBC auto differential (09/11/2024 5:33 AM EST) Only the most recent of2 resultswithin the time period is included. WBC 5.7 4.8 - 10.8 K/mcL LAB HEMETOLOGY METHOD 09/11/2024 6:42 AM [facility] RBC 3.10(L) 3.80 - 4.80 M/mcL LAB HEMETOLOGY METHOD 09/11/2024 6:42 AM [facility] Hemoglobin 9.5(L) 11.5 - 16.0 g/dL LAB HEMETOLOGY METHOD 09/11/2024 6:42 AM [facility] Hematocrit 28.9(L) 35.0 - 47.0 % LAB HEMETOLOGY METHOD 09/11/2024 6:42 AM [facility] MCV 92.9 79.0 - 98.0 FL LAB HEMETOLOGY METHOD 09/11/2024 6:42 AM [facility] MCH 30.5 27.0 - 32.0 pcg LAB HEMETOLOGY METHOD 09/11/2024 6:42 AM [facility] MCHC 32.9 32.0 - 37.0 g/dL LAB HEMETOLOGY METHOD 09/11/2024 6:42 AM [facility] RDW 13.4 11.0 - 15.0 % LAB HEMETOLOGY METHOD 09/11/2024 6:42 AM [facility] Platelets 217 130 - 400 K/mcL LAB HEMETOLOGY METHOD 09/11/2024 6:42 AM [facility] MPV 8.5 7.0 - 11.0 FL LAB HEMETOLOGY METHOD 09/11/2024 6:42 AM [facility] NRBC 0.0 <1.0 % LAB HEMETOLOGY METHOD 09/11/2024 6:42 AM [facility] NRBC Absolute 0.00 <0.10 K/mcL LAB HEMETOLOGY METHOD 09/11/2024 6:42 AM [facility] Neutrophils Relative 40.3 % LAB HEMETOLOGY METHOD 09/11/2024 6:42 AM [facility] Lymphocytes Relative 49.1 % LAB HEMETOLOGY METHOD 09/11/2024 6:42 AM [facility] Monocytes Relative 9.1 % LAB HEMETOLOGY METHOD 09/11/2024 6:42 AM [facility] Eosinophils Relative 1.0 % LAB HEMETOLOGY METHOD 09/11/2024 6:42 AM [facility] Basophils Relative 0.3 % LAB HEMETOLOGY METHOD 09/11/2024 6:42 AM [facility] Immature Granulocytes Relative 0.2 % LAB HEMETOLOGY METHOD 09/11/2024 6:42 AM [facility] Neutrophils Absolute 2.30 1.50 - 7.00 K/mcL LAB HEMETOLOGY METHOD 09/11/2024 6:42 AM [facility] Lymphocytes Absolute 2.81 1.00 - 5.00 K/mcL LAB HEMETOLOGY METHOD 09/11/2024 6:42 AM [facility] Monocytes Absolute 0.52 0.20 - 1.00 K/mcL LAB HEMETOLOGY METHOD 09/11/2024 6:42 AM [facility] Eosinophils Absolute 0.06 0.00 - 0.50 K/mcL LAB HEMETOLOGY METHOD 09/11/2024 6:42 AM [facility] Basophils Absolute 0.02 0.00 - 0.20 K/mcL LAB HEMETOLOGY METHOD 09/11/2024 6:42 AM [facility] Immature Granulocytes Absolute 0.01 0.00 - 0.03 K/mcL LAB HEMETOLOGY METHOD 09/11/2024 6:42 AM [facility] Blood Venous blood specimen / Unknown Venipuncture / Unknown 09/11/2024 5:33 AM EST 09/11/2024 6:22 AM EST us Lio PINEDA LAB BLOOD ORDERABLES Final Resu lt [facility] [address] [place] [address], * (ABNORMAL) Basic metabolic panel (09/11/2024 5:33 AM EST) Only the most recent of2 resultswithin the time period is included. Sodium 142 133 - 145 mmol/L LAB CHEMISTRY METHOD 09/11/2024 7:11 AM [facility] Potassium 3.5 3.5 - 5.5 mmol/L LAB CHEMISTRY METHOD 09/11/2024 7:11 AM [facility] Chloride 114(H) 96 - 110 mmol/L LAB CHEMISTRY METHOD 09/11/2024 7:11 AM [facility] CO2 23 21 - 32 mmol/L LAB CHEMISTRY METHOD 09/11/2024 7:11 AM [facility] Anion Gap 5 3 - 11 LAB CHEMISTRY METHOD 09/11/2024 7:11 AM [facility] Glucose 86 70 - 100 mg/dL LAB CHEMISTRY METHOD 09/11/2024 7:11 AM [facility] BUN 8 5 - 25 mg/dL LAB CHEMISTRY METHOD 09/11/2024 7:11 AM [facility] Creatinine 0.45(L) 0.50 - 1.10 mg/dL LAB CHEMISTRY METHOD 09/11/2024 7:11 AM [facility] eGFR 117 >=60 mL/min/1. 73m2 LAB CHEMISTRY METHOD 09/11/2024 7:11 AM EST [facility] Comment:Calculation based on the??Chronic Kidney Disease Epidemiology Collaboration (CKD-EPI) equation refit??without adjustment for race. BUN/Creatinine Ratio 17.8 LAB CHEMISTRY METHOD 09/11/2024 7:11 AM [facility] Calcium 7.8(L) 8.5 - 10.5 mg/dL LAB CHEMISTRY METHOD 09/11/2024 7:11 AM EST [facility] Blood Venous blood specimen / Unknown Venipuncture / Unknown 09/11/2024 5:33 AM EST 09/11/2024 6:20 AM EST us eJssica Alves MD LAB BLOOD ORDERABLES Final Res ult [facility] [address] [place] [address], * (ABNORMAL) Gastrointestinal pathogens molecular study (09/10/2024 6:21 PM EST) Campylobacter Detection by PCR Not Detected Not Detected LAB MICROBIOLOGY METHOD 5 8:43 PM [facility] Plesiomonas shigelloides Detection by PCR Not Detected Not Detected LAB MICROBIOLOGY METHOD 5 8:43 PM [facility] Salmonella Detection by PCR Not Detected Not Detected LAB MICROBIOLOGY METHOD 5 8:43 PM [facility] Vibrio Detection by PCR Not Detected Not Detected LAB MICROBIOLOGY METHOD 5 8:43 PM [facility] Vibrio cholerae Detection by PCR Not Detected Not Detected LAB MICROBIOLOGY METHOD 5 8:43 PM [facility] Yersinia enterocolitica Detection by PCR Not Detected Not Detected LAB MICROBIOLOGY METHOD 5 8:43 PM [facility] Enteroaggregative E coli EAEC Detection by PCR Not Detected Not Detected LAB MICROBIOLOGY METHOD 5 8:43 PM [facility] Enteropathogenic E coli EPEC Detection Not Detected Not Detected LAB MICROBIOLOGY METHOD 5 8:43 PM [facility] Enterotoxigenic E coli ETEC LTST Detection Not Detected Not Detected LAB MICROBIOLOGY METHOD 5 8:43 PM [facility] Shiga-like toxin producing E coli STEC STX1 STX2 Det Not Detected Not Detected LAB MICROBIOLOGY METHOD 5 8:43 PM [facility] Shigella Enteroinvasive E coli EIEC Detection Not Detected Not Detected LAB MICROBIOLOGY METHOD 5 8:43 PM [facility] Cryptosporidium Detection by PCR Not Detected Not Detected LAB MICROBIOLOGY METHOD 5 8:43 PM [facility] Cyclospora cayetanensis Detection by PCR Not Detected Not Detected LAB MICROBIOLOGY METHOD 5 8:43 PM [facility] Entamoeba histolytica Detection by PCR Not Detected Not Detected LAB MICROBIOLOGY METHOD 5 8:43 PM [facility] Giardia lamblia Detection by PCR Not Detected Not Detected LAB MICROBIOLOGY METHOD 5 8:43 PM [facility] Adenovirus F 40 41 Detection by PCR Not Detected Not Detected LAB MICROBIOLOGY METHOD 5 8:43 PM [facility] Astrovirus Detection by PCR Not Detected Not Detected LAB MICROBIOLOGY METHOD 5 8:43 PM [facility] Norovirus GI GII Detection by PCR Detected(A ) Not Detected LAB MICROBIOLOGY METHOD 5 8:43 PM [facility] Comment:Alternate method rec ommended if results do not correlate with the clinical presentation. Sapovirus Detection by PCR Not Detected Not Detected LAB MICROBIOLOGY METHOD 5 8:43 PM [facility] Rotavirus A Detection by PCR Not Detected Not Detected LAB MICROBIOLOGY METHOD 8:43 PM EST [facility] Stool Rectum structure / Unknown Non-blood Collection / Unknown 09/10/2024 6:21 PM EST 09/10/2024 7:00 PM EST [facility] - 09/10/2024 8:43 PM EST [...] GENERAL SULTANA SZYMANSKI Edited Result - Final [facility] [address] [place] [address], [place] [phone] * Respiratory virus panel molecular study (09/10/2024 3:45 PM EST) Adenovirus Detection by PCR Not Detected Not Detected LAB MICROBIOLOGY METHOD 09/10/2024 4:48 PM [facility] Influenza A PCR Not Detected Not Detected LAB MICROBIOLOGY METHOD 09/10/2024 4:48 PM [facility] Influenza B PCR Not Detected Not Detected LAB MICROBIOLOGY METHOD 09/10/2024 4:48 PM [facility] Coronavirus 229E Not Detected Not Detected LAB MICROBIOLOGY METHOD 09/10/2024 4:48 PM [facility] Coronavirus HKU1 Not Detected Not Detected LAB MICROBIOLOGY METHOD 09/10/2024 4:48 PM EST [facility] Coronavirus OC43 Not Detected Not Detected LAB MICROBIOLOGY METHOD 09/10/2024 4:48 PM EST [facility] Coronavirus NL63 Not Detected Not Detected LAB MICROBIOLOGY METHOD 09/10/2024 4:48 PM [facility] Parainfluenza Virus 1 Not Detected Not Detected LAB MICROBIOLOGY METHOD 09/10/2024 4:48 PM [facility] Parainfluenza Virus 2 Not Detected Not Detected LAB MICROBIOLOGY METHOD 09/10/2024 4:48 PM [facility] Parainfluenza Virus 3 Not Detected Not Detected LAB MICROBIOLOGY METHOD 09/10/2024 4:48 PM [facility] Parainfluenza Virus 4 Not Detected Not Detected LAB MICROBIOLOGY METHOD 09/10/2024 4:48 PM [facility] RSV PCR Not Detected Not Detected LAB MICROBIOLOGY METHOD 09/10/2024 4:48 PM [facility] Human Metapneumovirus A and B Not Detected Not Detected LAB MICROBIOLOGY METHOD 09/10/2024 4:48 PM [facility] Rhinovirus/Entero virus Not Detected Not Detected LAB MICROBIOLOGY METHOD 09/10/2024 4:48 PM [facility] Bordetella pertussis Not Detected Not Detected LAB MICROBIOLOGY METHOD 09/10/2024 4:48 PM [facility] Bordetella parapertussis Not Detected Not Detected LAB MICROBIOLOGY METHOD 09/10/2024 4:48 PM [facility] Mycoplasma pneumo by PCR Not Detected Not Detected LAB MICROBIOLOGY METHOD 09/10/2024 4:48 PM [facility] Chlamydia pneumoniae Not Detected Not Detected LAB MICROBIOLOGY METHOD 09/10/2024 4:48 PM [facility] SARS COV-2 Not Detected Not Detected LAB MICROBIOLOGY METHOD 09/10/2024 4:48 PM [facility] Swab Both anterior nares / Unknown Non-blood Collection / Unknown 09/10/2024 3:45 PM EST 09/10/2024 3:52 PM EST Narrative [facility] - 09/10/2024 4:48 PM EST Testing was performed using the [employer] Respiratory Pathogen PCR Assay. All results must [...] MICROBIOLOGY - GENERAL ORD STEPHON Final Result [facility] ([facility]) [facility] [address] [place] [address], [place] [phone] * CT Abdomen Pelvis w Contrast (09/10/2024 2:32 PM EST) Anatomical Region Laterality Modality Body Computed Tomogra phy 09/10/2024 2:52 PM EST Impressions 09/10/2024 2:58 PM EST Impression: 1. Trace bilateral pleural effusions, periportal low attenuation, and trace free fluid in the pelvis, likely secondary to fluid resuscitation. 2. Otherwise unremarkable CT of the abdomen and pelvis. Crispin PINEDA ([id number]) -------- FINAL REPORT -------- Dictated By: Petrona Barreto Dictated Date: 09/10/2024 14:52 ET Assigned Physician: Petrona Barreto Reviewed and Electronically Signed By: Petrona Barreto Signed Date: 09/10/2024 14:58 ET Workstation ID: [id number] Transcribed By: Self Edit Transcribed Date: 09/10/2024 14:52 ET Narrative 09/10/2024 2:58 PM EST History: Abdominal pain, acute, nonlocalized, with nausea, vomiting and diarrhea. Comparison: No comparison imaging at this institution. Technique: Helical volumetric imaging of the abdomen and pelvis was performed during the uneventful intravenous administration of 90 cc Isovue-370. DLP: 419.14 mGy/cm Frogdice VCT Iterative reconstruction technique Findings: Trace bilateral [...] administration of 90 ccIsovue-370. DLP: 419.14 mGy/cm Frogdice VCT Iterative reconstruction technique Findings: Trace bilateral [...] of the abdomen and pelvis[place] ([id number]) -------- FINAL REPORT -------- Dictated By: Petrona Barreto Dictated Date: 09/10/2024 14:52 ET Assigned Physician: Petrona Barreto Reviewed and Electronically Signed By: Petrona Barreto Signed Date: 09/10/2024 14:58 ET Workstation ID: [id number] Transcribed By: Self Edit Transcribed Date: 09/10/2024 [...] Qual Negative Negative 09/10/2024 6:28 AM EST [facility] Blood Venous blood specimen / Unknown Venipuncture / Unknown 09/10/2024 5:31 AM EST 09/10/2024 5:41 AM EST Surendra Oh MD LAB BLOOD ORDERABLES Final Res ult Performing Organization Address City/[facility]/ZIP Co de Phone Number [facility] [address] [place] [address], [place] [phone] * Magnesium (09/10/2024 5:31 AM EST) Pathologist [facility] Magnesium 2.1 1.9 - 2.6 mg/dL LAB CHEMISTRY METHOD 09/10/2024 6:05 AM [facility] Blood Venous blood specimen / Unknown Venipuncture / Unknown 09/10/2024 5:31 AM EST 09/10/2024 5:41 AM EST Surendra Oh MD LAB BLOOD ORDERABLES Final Res ult Performing Organization Address City/[facility]/ZIP Co de Phone Number [facility] [address] [place] [address], [place] [phone] * Hepatic function panel (09/10/2024 5:31 AM EST) Total Protein 6.6 6.0 - 8.0 g/dL LAB CHEMISTRY METHOD 09/10/2024 2:39 PM EST [facility] Albumin 3.3 3.2 - 5.0 g/dL LAB CHEMISTRY METHOD 09/10/2024 2:39 PM [facility] Total Bilirubin 0.2 0.0 - 1.4 mg/dL LAB CHEMISTRY METHOD 09/10/2024 2:39 PM [facility] Bilirubin, Direct <0.1 0.0 - 0.3 mg/dL LAB CHEMISTRY METHOD 09/10/2024 2:39 PM EST [facility] Bilirubin, Indirect LAB CHEMISTRY METHOD 09/10/2024 2:39 PM EST [facility] Comment:Unable to calculate Indirect Bilirubin. ALT (SGPT) 31 10 - 60 unit/L LAB CHEMISTRY METHOD 09/10/2024 2:39 PM EST [facility] AST (SGOT) 26 10 - 42 unit/L LAB CHEMISTRY METHOD 09/10/2024 2:39 PM EST [facility] Alkaline Phosphatase 65 42 - 121 unit/L LAB CHEMISTRY METHOD 09/10/2024 2:39 PM EST [facility] Blood Venous blood specimen / Unknown Venipuncture / Unknown 09/10/2024 5:31 AM EST 09/10/2024 5:41 AM EST us Lio PINEDA LAB BLOOD ORDERABLES Final Resu lt Performing Organization Address City/[facility]/ZIP Co de Phone Number [facility]) [facility] [address] [place] [address], [place] [phone] * ECG 12 lead (09/10/2024 5:14 AM EST) Ventricular Rate ECG 87 BPM GEMUSE Atrial Rate 87 BPM GEMUSE P-R Interval 162 ms GEMUSE QRS Duration 88 ms GEMUSE Q-T Interval 374 ms GEMUSE QTc 450 ms GEMUSE P Wave Strandquist 78 degrees GEMUSE R Strandquist 65 degrees GEMUSE T Strandquist 59 degrees GEMUSE ECG Interpretation Normal sinus [...] Documents on File Type Date Recorded 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
--- OUTSIDE RECORDS SUMMARY | 2024-11-30 14:06 | XMS_ITS | Clinical Summary ---
Author Organization [facility] [employer] Address [address] [facility] 7t [place] [address] Care Team Providers Care Cushion Stuffer Name Role Phone Name, Steve MCCURDY Primary Care Provider [phone] Pepe Tran RN Unavailable Allergies No known active allergies Medications omeprazole [...] Cough 05/10/2023 Emphysema, unspecified 05/10/2023 Overview (10/31/2023): [place] [address] Pulmonary Function Report Draft Patient: Benigno Pickett MR#: [id number] 03 : 1975 Acct:[id number] Age/Sex: 44 / F ADM Date: 07/08/20 Loc: HO.RESP Attending Dr: Angélica Pierre / [facility] Ordering Physician: ANGÉLICA PIERRE MD Date of Service: 07/08/20 Procedure(s): RT pulmonary function test Accession Number(s): [id number] cc: FLOWS: FEV1 of 97% of predicted [...] chronic lumbar back pain, seen before at [facility]. She has an MRI showing a broad based disc bulge L4-5. Using baclofen and Celebrex as a bridge pain management until her ortho appointment. Depression with anxiety 02/08/2018 Resolved Problems Problem Noted Date Diagnosed Date Resolved Date Suspected respiratory disease 05/10/2023 01/02/2024 Encounters Date Type Department Care Team Description 11/29/2024 Patient Outreach [facility] [address] [place] [phone] Steve Beatty MD Care Coordination (SDOH/appt reminder) 11/27/2024 Telephone [facility] [address] [place] [phone] Steve Beatty MD Care Management (C3CM- f/u call lvm) 11/20/2024 Patient Outreach [facility]INE [address] [place] [phone] Steve Beatty MD 11/20/2024 Refill [facility] [address] [place] [address] Carolyn Novoa MD 11/15/2024 Telephone [facility] [address] [place] [address] Steve Beatty MD Care Management (C3CM- f/u call) 11/08/2024 Patient Outreach [facility] [address] [place] [address] Steve Beatty MD Care Coordination (PT1) 11/06/[address] [address] Steve Beatty MD Care Management (C3CM- f/u call) 10/31/[address] [address] Steve Beatty MD Type 2 diabetes mellitus without complication, without long-term current use of insulin (CMS/HCC) 10/26/2024 Population Health Risk Score [facility] (C3) [address] [phone] Provider, Population Health Generic 10/25/[address] [address] Steve Beatty MD Care Management (C3- f/u call) 10/25/2024 Patient Outreach [address] [address] Steve Beatty MD Care Coordination (SDOH) 10/17/2024 Patient Outreach [address] [address] Steve Beatty MD Care Coordination (PT1) 10/11/2024 Patient Outreach [address] [address] Steve Beatty MD Care Coordination (SDOH f/u) 10/11/[address] [address] Steve Beatty MD Care Management (C3- f/u call) 10/09/[address] [address] Steve Beatty MD Durable Medical Equipment (Wrist splints) 10/08/2024 3:45 PM EST Office Visit [address] [address] Steve Beatty MD Type 2 diabetes mellitus without complication, without long-term current use of insulin (CMS/HCC) (Primary Dx); Bilateral carpal tunnel syndrome; Hand swelling; Callus of foot; Tinea pedis of both feet 10/07/2024 Travel 10/05/2024 Patient Outreach [address] [address] Steve Beatty MD Care Coordination (SDOH f/u) 10/04/2024 Refill [facility] [address] [place] [address] Steve Beatty MD 10/04/[address] [address] [place], [place], HIGHWAY LANDSCAPE ARCHITECT Type 2 diabetes mellitus without complication, without long-term current use of insulin ([facility]) 10/02/2024 Patient Outreach [address] [address] Steve Beatty MD Care Coordination (PT1) 09/27/[address] [address] Steve Beatty MD Care Management (C3CM- initial assessment/enrollment) 09/27/[address] [address] Steve Beatty MD 09/26/2024 2:00 PM EST Office Visit [address] [address] Grace Wolf, HIGHWAY LANDSCAPE ARCHITECT Gastroenteritis due to norovirus (Primary Dx); Hypokalemia 09/26/2024 Travel 09/26/2024 Patient Outreach [address] [address] Steve Beatty MD Care Coordination (CM/CHW appt reminder) 09/24/[address] [address] Vianey Valladares [place] Chart Prep 09/13/2024 Patient Outreach [address] [address] Steve Beatty MD Transition Of Care (Tcm) (HDF- scheduled) 09/13/2024 Patient Outreach [address] [address] Steve Beatty MD Care Coordination (CM/CHW outreach) 09/13/2024 Patient Outreach [address] [address] Steve Beatty MD Care Coordination (CM/CHW outreach) 09/11/2024 Orders Only [facility] [address] [place] [address] Provider, MD Raisa 09/11/2024 Patient Outreach [facility] [address] [place] [address] Name, MD Steve Care Coordination (CHW facility check) 09/11/2024 Telephone [facility] [address] [place], [place] [phone] Pepe Tran RN Care Management (C3- chart [...] Description 12/31/2024 3:00 PM EDT Office Visit [facility] [address] [place] [address] Fredi, Denisse, OD [address] [place] [address] 01/10/2025 10:30 AM EDT Office Visit [facility] [address] [place] [address] Name, MD Steve [address] [place] [address] Health Maintenance Due Date Last Done Comments [...] Sedimentation Rate 23(H) 0 - 20 MM/HR [facility] Comment:Patients with polycy themia and many hemoglobin abnormalitiesmay have depressed sed rates whereas patients with anemiamay have elevated sed rates. Blood Venous blood specimen / Unknown 10/12/2024 11:13 AM EST 10/12/2024 1:14 PM EST us Steve Beatty MD LAB BLOOD ORDERABLES Final Resul t Performing Organization Address City/[facility]/ZIP Co de Phone Number [facility] [address] [place] [phone] * Rheumatoid Factor (10/12/2024 11:13 AM EST) Rheumatoid Factor <13.0 <15.0 IU/mL [facility] Blood Venous blood specimen / Unknown 10/12/2024 11:13 AM EST 10/12/2024 1:24 PM EST us Steve Beatty MD LAB BLOOD ORDERABLES Final Resul t Performing Organization Address City/[facility]/ZIP Co de Phone Number [facility] [address] [place] [phone] * POCT HGB A1C (10/08/2024 4:23 PM EST) Hemoglobin A1C 5.8 4.0 - 6.0 % [employer] Lot # [id number] Lot# Expiration Date [id number] Blood 10/08/2024 4:23 PM EST Steve Name [...] Result * Potassium (09/26/2024 2:34 PM EST) [facility] Potassium 4.0 3.3 - 5.1 mmol/L [facility] Blood Venous blood specimen / Unknown 09/26/2024 2:34 PM EST 09/26/2024 4:12 PM EST Grace Wolf HIGHW[address] LANDSCAPE ARCHITECT LAB BLOOD ORDERABLES Final Res ult Performing Organization Address City/State/[facility] Co de Phone Number [facility] [address] [place] [phone] * CT Abdomen Pelvis w/ Contrast (09/10/2024 11:32 AM EST) Anatomical Region Laterality Modality Body, Pelvis, Abdomen Computed T omography Historical Provider IMG CT PROCEDURES Final R esult * Albumin, Random Urine W/Creatinine (06/18/2024 8:30 AM EST) Creatinine, Urine 250.66 mg/dL [facility] Microalbumin Urine 13.0 mg/L [facility] Microalbum Creatinine Ratio Ur 5.1 <30 ug/mg cr [facility] Comment:Albumin/Creatinine R atio Reference Ranges: Normal: < 30 ug/mg creatinine Microalbuminuria: 30 - 300 ug/mg creatinineClinical Albuminuria: > 300 ug/mg creatinine Urine (Urine, Random) 06/18/2024 8:30 AM EST 06/18/2024 11:13 AM EST us Steve Beatty MD LAB URINE ORDERABLES Final Resul t Performing Organization Address [facility] Co de Phone Number [facility] [address] [place] [phone] [phone] * (ABNORMAL) Lipid Panel, Standard (06/18/2024 8:30 AM EST) Triglycerides 151(H) <150 mg/dL [facility] Comment:Desirable Triglyceri de: less than 150 mg/dLBorderline High Triglyceride 150-199 mg/dLHigh Triglyceride: 200-499 mg/dLVery High Triglyceride: greater than or equal to 5OO mg/dL Cholesterol 277(H) <200 mg/dL [facility] Comment:Desirable Cholestero l: less than 200 mg/dLBorderline High Cholesterol: 200-239 mg/dLHigh Cholesterol: greater than 239 mg/dL LDL Cholesterol Calculated 186(H) <100 mg/dL [facility] Comment:Desirable LDL: less than 100 mg/dLNear Optimal/Above Optimal LDL: 110- 129 mg/dLBorderline High LDL: 130-159 mg/dLHigh LDL: 160-189 mg/dLVery High LDL: greater than or equal to 190 mg/dL HDL Cholesterol 61 >40 mg/dL [facility] Comment:Desirable HDL: great er than 40 mg/dL Note: This HDL assay may give artificially low results in patients with liver disease. Blood Venous blood specimen / Unknown 06/18/2024 8:30 AM EST 06/18/2024 11:10 AM EST us Steve Beatty MD LAB BLOOD ORDERABLES Final Resul t Performing Organization Address [facility] Co de Phone Number [facility] [address] [place] [phone] [phone] * HPV mRNA E6/E7 w/Reflex to HPV Genotypes 16, 18/45 (09/01/2022 3:17 PM EST) HPV nRNA E6/E7 Not Detected Not Detected [facility] Comment:Methodology: Transcr iption-Mediated AmplificationThis assay detects E6/E7 viral messenger RNA (mRNA) from 14high-risk HPV types (16,18,31,33,35,39,45,51,52,56,58,59,66,68).Cervical sources are required for HPV testing.If a vaginal source from a patient who has had atotal hysterectomy with removal of cervix wassubmitted, please contact the testing laboratoryfor alternative testing options.For additional information, please refer tohttp://education.Broadersheet/faq/ZVS418e7(This link if provided for information/educational purposes only.)THIS TEST WAS PERFORMED AT:[facility] [address] ([facility] [phone] WAGGONER MD HPV mRNA E6/E7 [facility] HPV 16 RNA [facility] HPV 18/45 RNA [facility] 09/01/2022 3:17 PM EST 09/01/2022 4:15 PM EST us [facility] External Provider LAB CYT OLOGY ORDERABLES Final Result [facility] [address] [place] [phone] * Pap Smear (09/01/2022 3:17 PM EST) 09/01/2022 3:17 PM EST 09/01/2022 4:15 PM EST Narrative [facility] - 09/17/2022 1:19 PM EST ----- ------- Name: Benigno Pickett ? Age/Sex: 46/F ? : 1975 Unit#: [id number] ?? Attend Dr: Efrem Samuel MD ?Re09/01/22 ?Status: DEP REF ? Location: HO.LNP ?Disch: ? ----- ------- SPEC : [id number] ? RECD: 09/01/22 ? STATUS: ??SOUT ? REQ NUM: [id number] ? CHARMAINE: 09/01/22172 ? SUBM DR: Efrem Samuel MD ? [...] 66, 68) ? HPV testing performed by [employer], [place], [place]. ??See reference laboratory ?? portion of the EMR for entire report. ?Clinical Information LMP: 08/11/2022 Previous PAP test: 2020, Abnormal Other history: HPV+ ? Material Received ?? ThinPrep-Cervical Copies To: ?? Name,Steve MCCURDY ?? [address] [facility] ?? [place] [address] ?? [phone] ?? Efrem Samuel MD ?? [address] [facility] ?? [place] [address] ?? [phone] ----- ------- Signed (signature on file) Holley Cerna Nicholas 09/17/22 8079 ? ----- ------- ? END OF REPORT ? [facility] External Provider LAB CYT OLOGY ORDERABLES Final Result [facility] [address] [place] [address] [phone] * Mammography Report 1 (04/09/2022 9:00 [...] Most Recently Relevant to Health Maintenance Insurance [facility] C3 HS FULL Care Teams Cushion Stuffer Relationship Specialty Start Date End Date Name, MD Steve [address] [place] [phone] PCP - General Family Medicine 01/23/18 Pepe Tran RN [address] [place] [phone] Pipe Smoking Machine OperatorClient Services Manager 09/27/24 [employer] [facility] 07/01/24
--- OUTSIDE RECORDS SUMMARY | 2024-11-30 14:06 | XMS_ITS | Encounter Summary ---
Author Organization [employer] Address [address] [facility] 7t [place] [address] Care Team Providers Care Lab Animal Technologist Name Role Phone Name, Steve MCCURDY Primary Care Provider [phone] Pepe Tran RN Unavailable [phone] Reason for Visit * Reason Onset Date Comments Care Management 11/27/2024 C3CM- f/u call l Encounter Details Date Type Department Care Team (Late st Contact Info) Description 11/27/2024 Telephone [facility] [address] [place], [place] [phone] Name, MD Steve [address] [place] [address] Care Management (C3CM- f/u call [facility]) Social History Tobacco Use Types Packs/Day Years [...] at this time. LVM introducing herself from [facility] CM Department. Requested call back. CM reinforced direct contact information for any additional questions or concerns. Education provided on Walk-In Urgent Care located in [facility]. Patient provided with after-hours line for [facility], , which offer night time triage service and option to transfer to monorail helper provider if needed. CM also reminded patient of her scheduled visit with [facility] Ortho on 11/30/24 at 11:00am at [address] in [place], [place]. Advised patient f/u with CM as needed. CM will attempt another follow up call within 10 days. documented in this encounter Plan of Treatment Upcoming Encounters Date Type Department Care Team ([facility] st Contact Info) Description 12/31/2024 3:00 PM EDT Office Visit [facility] [address] [place] [address] Denisse Rai, OD [address] [place] [address] 01/10/2025 10:30 AM EDT Office Visit [facility] [address] [place] [address] Name, MD Steve [address] [place] [address] documented as of this encounter Visit Diagnoses Not on filedocumented in this encounter Additional Health Concerns Assessment Noted Time PHQ-9 Depression Total Score: 15 025 2:29 PM EST documented as of this encounter Care Teams Lab Animal Technologist Relationship Specialty Start Date End Date Name, MD Steve [address] [place] [address] PCP - General Family Medicine 01/23/18 Pepe Tran RN [address] [place] [address] WarehousemanWheat And Oats Flake Miller 09/27/24 [employer] [facility] 07/01/24 documented as of this encounter
[2024-12-13 08:38] VITALS: BP 106/55; PULSE 72; RESP 16; TEMP 36.6; O2SAT 98; BMI 24.9
[2024-12-13 09:41] LABS: Glucose, Whole Blood 131 mg/dL (60-115)
--- NOTE | 2024-12-13 09:44 | PC.NURSE ---
pt had questionable vasovagal response about [address] bedside block done. layed flat, ewt=192. bp satble 110/60, 56 98% ra,, 102/53, 65, 98% ra. slight sternal rub needed to arouse pt, but only lasted few seconds. clammy, dizzy. felt better after a few seconds, sat up and snack given
--- NOTE | 2024-12-13 10:16 | MHC.SHP ---
Pre-Procedural Eval Section A - 24 Hr Update-Section A only Date of Service: 12/13/24 The patient is an INPATIENT: No Changes since office visit: No Cold of Flu in the past 2 weeks, No New Medical Problems, No Changes in Medication and No Patient answered all questions The patient has been examined within 24 hours of the surgical procedure. The History & Physical has been completed within 30 days and I have reviewed it.: Yes Section B - Complete if H&P > 30 days Chief Complaint: Carpal tunnel syndrome, left upper limb Allergies: Allergies Allergy/AdvReac Type Severity Reaction Status Date / Time quetiapine [From SEROQUEL] AdvReac Intermediate RLS Verified 12/13/24 08:39 symptoms Plan Diagnosis/Plan: Unchanged I have reviewed the history and physical and performed a pertinent physical examination on my patient. No changes have occurred unless specified. Time Spent With Patient Time: Total time managing care of this patient today ____ minutes.
--- NOTE | 2024-12-13 10:16 | W.PM.OPN ---
Operative Note Operative Note Date of Service: 12/13/24 Narrative: Preop diagnosis: 1. Left Carpal tunnel syndrome Postop diagnosis: same Procedure: 1. Left Carpal tunnel release Surgeon: Michelle Koo MD Oxyacetylene Torch Operator: Harman PINEDA Anesthesia: local block using 1% lidocaine with epinephrine Findings: Thickened transverse carpal ligament. EBL: Less than 5 mL Specimens: None Complications: None Disposition: Brought to recovery room in stable condition Plan: Follow-up for 10-14 days for wound check and suture removal Indications: The patient is 49 years old, with left carpal tunnel syndrome that has been unresponsive to nonoperative management. The risks and benefits of operative treatment including but not limited to risk of damage to blood vessels, nerves, tendons, infection, persistent pain, persistent symptoms, or possible need for additional surgery were discussed with the patient and the patient wishes to proceed with surgery. Procedure: Once consent was obtained a local block was performed using a combination of 1% lidocaine with epinephrine. The patient was then brought back to the operating suite and placed on the operative table in supine position. The left upper extremity was prepped and draped in a standard surgical fashion. Once assured that we had a good block, a 2.0 cm longitudinal incision was made centered over the carpal tunnel. The incision was made through the skin to the subcutaneous tissues using a #15 blade. Dissection was made down to the level of the transverse carpal ligament with care being taken to protect the palmar cutaneous nerve. Once the transverse carpal ligament was clearly visualized, a longitudinal incision was made in the transverse carpal ligament 1st using a #15 blade, then using tenotomy scissors under direct visualization. Care was taken to look for and protect the motor branch of the median nerve when seen in this area. Once satisfied with our carpal tunnel release the wound was copiously irrigated with normal saline and hemostasis was obtained with a brief period of local pressure. The skin edges were reapproximated with some 5.0 nylon suture material and a sterile dressing was applied. The patient appears to have tolerated the procedure well and with no complications. All digits were well vascularized at the conclusion of the case.
[2024-12-13 11:52] VITALS: BP 104/62; PULSE 79; RESP 16; O2SAT 97
== END 2024-12-13 11:55 | disposition home or self-care (01) ==
PROVIDERS: PCP Internal Medicine Geriatric Medicine; Visit Provider Orthopaedic Surgery
PROC: (CPT 64721; principal; 2024-12-13 10:40)
DX: G56.02 Carpal tunnel syndrome, left upper limb (principal); E78.5 Hyperlipidemia, unspecified; E11.9 Type 2 diabetes mellitus without complications; J43.9 Emphysema, unspecified; M21.70 Unequal limb length (acquired), unspecified site; G89.29 Other chronic pain; M54.42 Lumbago with sciatica, left side; M54.41 Lumbago with sciatica, right side; F32.A Depression, unspecified; Z87.442 Personal history of urinary calculi; Z88.0 Allergy status to penicillin; F17.210 Nicotine dependence, cigarettes, uncomplicated; Z98.890 Other specified postprocedural states; Z56.0 Unemployment, unspecified
CPT/HCPCS: 64721; 82947; J0171; J2003

== ENCOUNTER → 2024-12-13 07:19 | Outpatient (BNV) | payer MEDICAID, SELFPAY | PROVIDERS: PCP Internal Medicine Geriatric Medicine; Visit Provider Orthopaedic Surgery | DX: G56.02 Carpal tunnel syndrome, left upper limb (principal) | CPT/HCPCS: 64721 ==

== ENCOUNTER 2024-12-28 12:54 | Outpatient (AMB) | payer MEDICAID, SELFPAY ==
--- OUTSIDE RECORDS SUMMARY | 2024-12-28 12:56 | XMS_ITS | Encounter Summary ---
Author Organization [email or web address] Address [address] [facility] 7t [place] [address] Care Team Providers Care Montessori Toddler Teacher Name Role Phone Name, Steve MCCURDY Primary Care Provider [phone] Pepe Tran RN Unavailable [phone] Reason for Visit * Reason Comments Med Change Request Encounter Details Date Type Department Care Team (Late st Contact Info) Description 05/10/2023 Refill [facility] [address] [place], [place] [phone] Name, MD Steve [address] [place] [address] Social History Tobacco Use Types Packs/Day Years [...] AM EDT documented as of this encounter Functional Status * Over the past 2 weeks, how often have you been bothered by any of the following problems? Question Answer Date of Assessment Author Patient Health Questionnaire-2 Score 4 04/16 3:49 PM EDT Alaina Jacob * If you checked off any problems on this questionnaire so far, Question Answer Date of Assessment Author How difficult have these problems made it for you to do your work, take care of things at home, or get along with other people? Very difficult 05/10/2023 3:49 PM Brenda Aguilar * Over the past 2 weeks, how often have you been bothered by any of the following problems? Question Answer Date of Assessment Author Little interest or pleasure in doing things Several days 05/10/2023 3:49 PM Vaishali Aguilar Feeling down, depressed, or hopeless Nearly every day 05/10/2023 3:49 PM Brenda Aguilar Trouble falling or staying asleep, or sleeping too much Nearly every day 05/10/2023 3:49 PM Brenda Aguilar Feeling tired or having little energy More than half the days 05/10/2023 3:49 PM Alaina Aguilar Poor appetite or overeating Nearly every day 05/10/2023 3:49 PM Brenda Aguilar Feeling bad about yourself - or that you are a failure or have let yourself or your family down Nearly every day 05/10/2023 3:49 PM Brenda Aguilar Trouble concentrating on things, such as reading the newspaper or watching television Several days 05/10/2023 3:49 PM Brenda Aguilar Moving or speaking so slowly that other people could have noticed? Or the opposite - being so fidgety or restless that you have been moving around a lot more than usual. Not at all 05/10/2023 3:49 PM Brenda Aguilar Thoughts that you would be better off or hurting yourself in some way Not at all 05/10/2023 3:49 PM Brenda Aguilar Patient Health Questionnaire-9 Score 16 05/10/2023 3:49 PM Mary Aguilar documented as of this encounter Plan of Treatment Upcoming Encounters Date Type Department Care Team (Late st Contact Info) Description 12/31/2024 3:00 PM EDT Office Visit [facility] [address] [place] [address] Denisse Rai, OD [address] [place] [address] 01/10/2025 10:30 AM EDT Office Visit [facility] [address] [place] [address] Name, MD Steve [address] [place] [address] documented as of this encounter Visit Diagnoses Not on filedocumented in this encounter Additional Health Concerns Assessment Noted Time PHQ-9 Depression Total Score: 16 023 3:49 PM EDT documented as of this encounter Care Teams Montessori Toddler Teacher Relationship Specialty Start Date End Date Name, MD Steve [address] [place] [address] PCP - General Family Medicine 01/23/18 Pepe Tran RN [address] [place] [phone] Wetlands TechnicianManager Van 09/27/24 [facility] 07/01/24 documented as of this encounter
--- OUTSIDE RECORDS SUMMARY | 2024-12-28 12:56 | XMS_ITS | Encounter Summary ---
Author Organization [employer] Address [address] [facility] 7t [place] [address] Care Team Providers Care Sport Intern Name Role Phone Name, Steve MCCURDY Primary Care Provider [phone] Pepe Tran RN Unavailable [phone] Encounter Details Date Type Department Care Team (Late st Contact Info) Description 09/11/2024 Orders Only [facility] [address] [place] [address] Provider, MD Raisa Social History Tobacco Use [...] Description 12/31/2024 3:00 PM EDT Office Visit [facility] [address] [place] [address] Fredi, Denisse, OD [address] [place] [address] 01/10/2025 10:30 AM EDT Office Visit [facility] [address] [place] [address] Name, MD Steve [address] [place] [address] documented as of this encounter Procedures Procedure [...] documented as of this encounter Care Teams Sport Intern Relationship Specialty Start Date End Date Name, MD Steve [address] [place] [phone] PCP - General Family Medicine 01/23/18 Pepe Tran RN [address] [place] [address] Raisin Separator OperatorDirector Of Media 09/27/24 [employer] [facility] 07/01/24 documented as of this encounter
--- OUTSIDE RECORDS SUMMARY | 2024-12-28 12:56 | XMS_ITS | Clinical Summary ---
Author Organization [facility] Address [address] [place] [address] Phone Care Team Providers Care Netezza Architect Name Role Phone Name, Steve MCCURDY Primary Care Provider [phone] Allergies No known active allergies Medications Ventolin [...] mg total) by mouth at bedtime. Active ammonium lactate (AmLactin) 12 % lotion Apply topically if needed for dry skin. 400 g 5 12/28/19 26 Active terbinafine (LamISIL) 250 mg tablet Take 1 tablet (250 mg total) by mouth 1 (one) time each day. 30 each 5 01/27/20 25 Active Active Problems Problem Noted Date Diagnosed Date Syncope 09/11/2024 Dehydration 09/11/2024 Acute gastroenteropathy due to Norovirus 025 Hypotension 09/10/2024 Encounters Date Type Department Care Team Description 12/27/2024 10:45 AM EDT Office Visit Orthopedic Surgery - [address] [phone] Case Roy, DPM Type II diabetes mellitus with peripheral circulatory disorder ([facility] V24, [facility] V28) (Primary Dx); Corns and callosities; Xerosis of skin; Tinea pedis of both feet; Dermatophytosis of nail from Last 3 Months Surgical History Surgery Date Site/Laterality Comments TUBAL LIGATION BLADDER SUSPENSION Medical History Medical History Date Comments Diabetes mellitus ([facility] V24, [facility] V28) Hypercholesteremia Depression Anxiety Chronic insomnia Family [...] EST Temperature 36.8 ??C (98.2 ??F) 09/11/2024 11:[address] Respiratory Rate 18 09/11/2024 11:51 AM EST Oxygen Saturation 100% 09/11/2024 11:55 AM EST Inhaled Oxygen Concentration - - Weight 58.1 kg (128 lb) 12/27/2024 9:45 AM EDT Height 157.5 cm (5' 2.01 ) 12/27/2024 9:45 AM ED T Body Mass Index 23.41 12/27/2024 9:45 AM EDT Plan of Treatment Upcoming Encounters Date Type Department Care Team (Late st Contact Info) Description 01/29/2025 2:15 PM EDT Office Visit Orthopedic Surgery - [place] [address] [phone] Case Roy, DPM [address] [address] Health Maintenance Due Date Last Done Comments [...] Diabetes: Blood Sugar Contro l Test (HGBA1C) 04/07/2025 10/08/2024, 05/29/2024 Influenza Vaccine (Season Ended) 2025 Cervical Cancer Screening: P ap Smear 09/01/2025 09/01/2022 Diabetes: Annual GFR (Glomerular Filtration Rate) 09/11/2025 09/11/2024, 09/10/2024, 06/18/2024 Depression Screening 09/26/2025 09/26/2024 DTaP,Tdap,and Td Vaccines (3 - Td or [...] Procedure Name Priority Date/Time Associated Diagnosis Comments BASIC METABOLIC PANEL Routine 09/11/2024 5:33 AM EST from Last 3 Months or Most Recently Relevant to Health Maintenance Results * (ABNORMAL) Basic metabolic panel (09/11/2024 5:33 [...] 73m2 LAB CHEMISTRY METHOD 09/11/2024 7:11 AM [facility] Comment:Calculation based on the??Chronic Kidney Disease Epidemiology Collaboration (CKD-EPI) equation refit??without adjustment for race. BUN/Creatinine Ratio 17.8 LAB CHEMISTRY METHOD 09/11/2024 7:11 AM [facility] Calcium 7.8(L) 8.5 - 10.5 mg/dL LAB CHEMISTRY METHOD 09/11/2024 7:11 AM [facility] Blood Venous blood specimen / Unknown Venipuncture / Unknown 09/11/2024 5:33 AM EST 09/11/2024 6:20 AM EST us Jessica Alves MD LAB BLOOD ORDERABLES Final Res ult [facility] [address] [place] [address], from Last 3 Months or Most Recently Relevant to Health Maintenance Additional Health Concerns Infection Onset Date Last Indicated Norovirus 09/10/2024 09/10/2024 Insurance MEDICAID [employer] Advance Directives Documents on File Type Date Recorded 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
--- OUTSIDE RECORDS SUMMARY | 2024-12-28 12:57 | XMS_ITS | Encounter Summary ---
Author Organization [employer] Address [address] [place] [address] Care Team Providers Care Press Department Manager Name Role Phone Name, Steve MCCURDY Primary Care Provider [phone] Pepe Tran RN Unavailable [phone] Reason for Visit * Reason Comments Med Refill Encounter Details Date Type Department Care Team (Late st Contact Info) Description 12/07/2023 Refill [facility] MEDICINE [address] [place], [place] [phone] Name, MD Steve [address] [place], [place] [phone] Social History Tobacco Use Types Packs/Day Years [...] Description 12/31/2024 3:00 PM EDT Office Visit [facility] OPTOMETRY [address] [place] [address] Fredi, Denisse, OD [address] [place] [address] 01/10/2025 10:30 AM EDT Office Visit [facility] MEDICINE [address] [place] [address] Name, MD Steve [address] [place] [address] documented as of this encounter Visit Diagnoses Not on filedocumented in this encounter Additional Health Concerns Assessment Noted Time PHQ-9 Depression Total Score: 16 023 3:49 PM EDT documented as of this encounter Care Teams Press Department Manager Relationship Specialty Start Date End Date Name, MD Steve [address] [place] [address] PCP - General Family Medicine 01/23/18 Pepe Tran RN [address] [place] [phone] Community Chest OfficerMining Engineering Technologist 09/27/24 [facility] 07/01/24 documented as of this encounter
--- OUTSIDE RECORDS SUMMARY | 2024-12-28 12:57 | XMS_ITS | Clinical Summary ---
Author Organization [employer] Address [address] [facility] [address] [place] [address] Care Team Providers Care Head Of Integrated Media Name Role Phone Name, Steve MCCURDY Primary Care Provider [phone] Pepe Tran RN Unavailable [phone] Allergies No known active allergies Medications omeprazole [...] 85 g 1 10/08/19 25 026 Active albuterol (Ventolin HFA) 108 (90 Base) MCG/ACT inhalerIndicat ions:Type 2 diabetes mellitus without complication, without long-term current use of insulin (CMS/HCC) INHALE 2 PUFFS BY MOUTH EVERY 4 TO 6 HOURS NEEDED 18 g 1 11/01/19 25 Active fluticasone (Flonase) 50 MCG/ACT nasal spray ADMINISTER 1 SPRAY INTO EACH NOSTRIL ONCE PER DAY. 32 mL 1 11/21/19 25 Active SUMAtriptan (Imitrex) 25 MG tablet TAKE 1 TAB BY MOUTH AT ONSET OF MIGRAINE MAY REPEAT AFTER 2 HOURS IF HEADACHE RETURNS MAX 200MG/24HR 9 tablet 12/01/19 25 Active lidocaine (Lidoderm) 5 % patchIndicatio ns:Type 2 diabetes mellitus without complication, without long-term current use of insulin (CMS/HCC) APPLY 1 PATCH EVERY DAY MAY WEAR UP TO 12 HOURS. 12 HOURS ON 12 HOURS OFF 30 patch 12/01/19 25 Active SUMAtriptan (Imitrex) 25 MG tablet TAKE 1 TAB BY MOUTH AT ONSET OF MIGRAINE MAY REPEAT AFTER 2 HOURS IF HEADACHE RETURNS MAX 200MG/24HR 9 tablet 11/01/19 25 025 Discontinued lidocaine (Lidoderm) 5 % patchIndicatio ns:Type 2 diabetes mellitus without complication, without long-term current use of insulin ([facility]) APPLY 1 PATCH EVERY DAY MAY WEAR UP TO 12 HOURS. 12 HOURS ON 12 HOURS OFF 30 patch 11/01/19 25 025 Discontinued Active Problems Problem Noted Date [...] Cough 05/10/2023 Emphysema, unspecified 05/10/2023 Overview (10/31/2023): [place] [address] Pulmonary Function Report Draft Patient: Benigno Pickett MR#: [id number] 03 : 1975 Acct:[id number] Age/Sex: 44 / F ADM Date: 07/08/20 Loc: HO.RESP Attending Dr: Angélica Pierre / [facility] Ordering Physician: ANGÉLICA PIERRE MD Date of Service: 07/08/20 Procedure(s): RT pulmonary function test Accession Number(s): [id number] cc: FLOWS: FEV1 of 97% of predicted [...] chronic lumbar back pain, seen before at [facility]. She has an MRI showing a broad based disc bulge L4-5. Using baclofen and Celebrex as a bridge pain management until her ortho appointment. Depression with anxiety 02/08/2018 Resolved Problems Problem Noted Date Diagnosed Date Resolved Date Suspected respiratory disease 05/10/2023 01/02/2024 Encounters Date Type Department Care Team Description 12/27/[address] [address] Steve Beatty MD Care Management (C3CM- f/u call lv) 12/27/2024 Patient Outreach [address] [address] Steve Beatty MD 12/24/2024 Travel 12/20/2024 Patient Outreach [address] [address] Steve Beatty MD Care Coordination (SDOH) 12/20/[address] [address] Steve Beatty MD Care Management (C3CM- f/u call) 12/13/2024 Orders Only GENERIC EXTERNAL DATA DEPARTMENT Provider, Generic External Data 12/10/[address] [address] Steve Beatty MD Care Management (C3CM- f/u call ) 12/10/2024 Patient Outreach [address] [place] [address] Steve Beatty MD Care Coordination (SDOH/PT1) 11/30/2024 Refill [facility] MEDICINE [address] [place] [phone] Steve Beatty MD Type 2 diabetes mellitus without complication, without long-term current use of insulin (CMS/HCC) 11/29/2024 Patient Outreach [facility] MEDICINE [address] [place] [phone] Steve Beatty MD Care Coordination (SDOH/appt reminder) 11/27/2024 Telephone [facility] MEDICINE [address] [place] [phone] Steve Beatty MD Care Management (C3CM- f/u call lvm) 11/20/2024 Patient Outreach [facility] MEDICINE [address] [place] [phone] Steve Beatty MD 11/20/2024 Refill [facility] WALK-IN CENTER [address] [place] [phone] Carolyn Novoa MD 11/15/2024 Telephone [facility] MEDICINE [address] [place] [phone] Steve Beatty MD Care Management (C3CM- f/u call) 11/08/2024 Patient Outreach [facility] MEDICINE [address] [place] [phone] Steve Beatty MD Care Coordination (PT1) 11/06/2024 Telephone [facility] MEDICINE [address] [place] [phone] Steve Beatty MD Care Management (C3CM- f/u call) 10/31/2024 Refill [facility] MEDICINE [address] [place] [phone] Steve Beatty MD Type 2 diabetes mellitus without complication, without long-term current use of insulin (CMS/HCC) 10/26/2024 Population Health Risk Score [facility] () [address] [phone] Provider, Population Health Generic 10/25/2024 Telephone [facility] MEDICINE [address] [place] [phone] Steve Beatty MD Care Management (C3CM- f/u call) 10/25/2024 Patient Outreach [address] [address] Steve Beatty MD Care Coordination (SDOH) 10/17/2024 Patient Outreach [address] [address] Steve Beatty MD Care Coordination (PT1) 10/11/2024 Patient Outreach [address] [address] Steve Beatty MD Care Coordination ([facility] f/u) 10/11/[address] [address] Steve Beatty MD Care Management (C3- f/u call) 10/09/[address] [address] Steve Beatty MD Durable Medical Equipment (Wrist splints) 10/08/2024 3:45 PM EST Office Visit [address] [address] Steve Beatty MD Type 2 diabetes mellitus without complication, without long-term current use of insulin (CMS/[facility]) (Primary Dx); Bilateral carpal tunnel syndrome; Hand swelling; Callus of foot; Tinea pedis of both feet 10/07/2024 Travel 10/05/2024 Patient Outreach [address] [address] Steve Beatty MD Care Coordination ([facility] f/u) 10/04/[address] [address] Steve Beatty MD 10/04/[address] [address] [place] [facility] Type 2 diabetes mellitus without complication, without long-term current use of insulin (CMS/HCC) 10/02/2024 Patient Outreach [address] [address] Steve Beatty MD Care Coordination (PT1) from Last 3 Months Immunizations Immunization Administration Dates Next Due Pfizer Covid-19 Vaccine [...] 3:00 PM EDT Office Visit [facility] OPTOMETRY [address] [place], [place] [phone] Fredi, Denisse, OD [address] [place] [address] 01/10/2025 10:30 AM EDT Office Visit [facility] MEDICINE [address] [place] [address] Name, MD Steve [address] [place], [place] [phone] Health Maintenance Due Date Last Done Comments [...] 04/09/2024 04/09/2022, 12/14, 02/09/2018 COVID-19 Vaccine ( season) 2024 05/06/2021, 04/15/2021 Influenza Vaccine (#1) 2024 SDOH Screening 05/10/2024 05/10/2023 Diabetes: Hemoglobin A1C 04/07/2025 025, 05/29/2024, 01/02/2024, [...] Procedure Name Priority Date/Time Associated Diagnosis Comments GLUCOSE, WHOLE BLOOD Routine 12/13/2024 9:36 AM EDT RHEUMATOID FACTOR Routine 10/12/2024 11: 13 AM [...] without long-term current use of insulin (CMS/HCC) ALBUMIN, RANDOM URINE W/CREATININE Routine 06/18/2024 8:30 [...] Relevant to Health Maintenance Results * (ABNORMAL) Glucose, Whole Blood (12/13/2024 9:36 AM EDT) Glucose, Whole Blood 131(H) 60 - 115 mg/dL [facility] Comment:METER #: [id number] 12/13/2024 9:36 AM EDT 12/13/2024 9:40 AM EDT Generic External Data Provider LAB BLOOD ORDERAB LES Final Result Performing Organization Address [facility] Co de Phone Number [facility] [address] [place] [phone] * (ABNORMAL) Sed Rate by Modified Hugoergren (10/12/2024 11:13 AM EST) Pathologist [facility] Erythrocyte Sedimentation Rate 23(H) 0 - 20 MM/HR [facility] Comment:Patients with polycy themia and many hemoglobin abnormalitiesmay have depressed sed rates whereas patients with anemiamay have elevated sed rates. Blood Venous blood specimen / Unknown 10/12/2024 11:13 AM EST 10/12/2024 1:14 PM EST Steve Beatty MD LAB BLOOD ORDERABLES Final Resul t Performing Organization Address [facility] Co de Phone Number [facility] [address] [place] [phone] * Rheumatoid Factor (10/12/2024 11:13 AM EST) [facility] Rheumatoid Factor <13.0 <15.0 IU/mL [facility] Blood Venous blood specimen / Unknown 10/12/2024 11:13 AM EST 10/12/2024 1:24 PM EST Steve Beatty MD LAB BLOOD ORDERABLES Final Resul t Performing Organization Address [facility] Co de Phone Number [facility] [address] [place] [phone] * POCT HGB A1C (10/08/2024 4:23 PM EST) Pathologist [facility] Hemoglobin A1C 5.8 4.0 - 6.0 % QC Media Lot # [id number] Lot# Expiration Date 42 Blood 10/08/2024 4:23 PM EST us Steve [...] TEST ENTER/EDIT OR DERABLES Final Result * Albumin, Random Urine W/Creatinine (06/18/2024 8:30 AM EST) Creatinine, Urine 250.66 mg/dL [facility] Microalbumin Urine 13.0 mg/L [facility] Microalbum Creatinine Ratio Ur 5.1 <30 ug/mg cr [facility] Comment:Albumin/Creatinine R atio Reference Ranges: Normal: < 30 ug/mg creatinine Microalbuminuria: 30 - 300 ug/mg creatinineClinical Albuminuria: > 300 ug/mg creatinine Urine (Urine, Random) 06/18/2024 8:30 AM EST 06/18/2024 11:13 AM EST us Steve Beatty MD LAB URINE ORDERABLES Final Resul t [facility] [address] [place] [phone] * (ABNORMAL) Lipid Panel, Standard (06/18/2024 8:30 AM EST) Triglycerides 151(H) <150 mg/dL [facility] Comment:Desirable Triglyceri de: less than 150 mg/dLBorderline High Triglyceride 150-199 mg/dLHigh Triglyceride: 200-499 mg/dLVery High Triglyceride: greater than or equal to 5OO mg/dL Cholesterol 277(H) <200 mg/dL [facility] Comment:Desirable Cholestero l: less than 200 mg/dLBorderline High Cholesterol: 200-239 mg/dLHigh Cholesterol: greater than 239 mg/dL LDL Cholesterol Calculated 186(H) <100 mg/dL [facility] Comment:Desirable LDL: less than 100 mg/dLNear Optimal/Above Optimal LDL: 110- 129 mg/dLBorderline High LDL: 130-159 mg/dLHigh LDL: 160-189 mg/dLVery High LDL: greater than or equal to 190 mg/dL HDL Cholesterol 61 >40 mg/dL [facility] Comment:Desirable HDL: great er than 40 mg/dL Note: This HDL assay may give artificially low results in patients with liver disease. Blood Venous blood specimen / Unknown 06/18/2024 8:30 AM EST 06/18/2024 11:10 AM EST us Steve Beatty MD LAB BLOOD ORDERABLES Final Resul t [facility] [address] [place] [phone] * HPV mRNA E6/E7 w/Reflex to HPV Genotypes 16, 18/45 (09/01/2022 3:17 PM EST) HPV nRNA E6/E7 Not Detected Not Detected [facility] Comment:Methodology: Transcr iption-Mediated AmplificationThis assay detects E6/E7 viral messenger RNA (mRNA) from 14high-risk HPV types (16,18,31,33,35,39,45,51,52,56,58,59,66,68).Cervical sources are required for HPV testing.If a vaginal source from a patient who has had atotal hysterectomy with removal of cervix wassubmitted, please contact the testing laboratoryfor alternative testing options.For additional information, please refer [email or web address](This link if provided for information/educational purposes only.)THIS TEST WAS PERFORMED AT:[facility] [place] [address] ([facility])[place] [phone] WAGGONER MD HPV mRNA E6/E7 TNP [facility] HPV 16 RNA TNP [facility] HPV 18/45 RNA TNP [facility] 09/01/2022 3:17 PM EST 09/01/2022 4:15 PM EST us [facility] External Provider LAB CYT OLOGY ORDERABLES Final Result [facility] [address] [place] [phone] [phone] * Pap Smear (09/01/2022 3:17 PM EST) 09/01/2022 3:17 PM EST 09/01/2022 4:15 PM EST Narrative [facility] - 09/17/2022 1:19 PM EST ----- ------- Name: Benigno Pickett ? Age/Sex: 46/F ? : 1975 Unit#: [id number] ?? Attend Dr: Efrem Samuel MD ?Re09/01/22 ?Status: DEP REF ? Location: HO.LNP ?Disch: ? ----- ------- SPEC : [id number] ? RECD: 09/01/22 ? STATUS: ??SOUT ? REQ NUM: [id number] ? CHARMAINE: 09/01/22 ? SUBM DR: Efrem Samuel MD ? ENTERED: ??09/01/22 ?SP TYPE: Pap Smr ?OTHR DR: Steve Beatty MD ? ORDERED: ??Pap Smear [...] 66, 68) ? HPV testing performed by [facility], [place], [place]. ??See reference laboratory ?? portion of the EMR for entire report. ?Clinical Information LMP: 08/11/2022 Previous PAP test: 2020, Abnormal Other history: HPV+ ? Material Received ?? ThinPrep-Cervical Copies To: ?? Name,Steve MCCURDY ?? [address] [facility] ?? [place] [address] ?? [phone] ?? Efrem Samuel MD ?? [address] [facility] ?? [place] [address] ?? [phone] ----- ------- Signed (signature on file) Holley Cerna Nicholas 09/17/22 1319 ? ----- ------- ? END OF REPORT ? us [facility] External Provider LAB CYT [facility] ORDERABLES Final Result [facility] [address] [place] [address] [phone] * Mammography Report 1 (04/09/2022 9:00 AM EDT) Anatomical Region Laterality Modality Breast Bilateral Mammography 04/09/2022 9:00 AM EDT Narrative 04/12/2022 10:00 AM EDT Refer to the Notes tab for result details [facility] Procedure: Mammography Report 1 Procedure Note Provider, MD Raisa - 11/07/2022 Refer to the Notes tab for result details [facility] Procedure: Mammography Report 1 Steve GUSMAN BI PROCEDURES Final Result from Last 3 Months or Most Recently Relevant to Health Maintenance [place] [address] C3 HS FULL Care Teams Head Of Integrated Media Relationship Specialty Start Date End Date Name, MD Steve [address] [place] [address] PCP - General Family Medicine 01/23/18 Pepe Tran RN [address] [place] [phone] Dairy InspectorApron Trimmer 09/27/24 [employer] [facility] 07/01/24
--- OUTSIDE RECORDS SUMMARY | 2024-12-28 12:57 | XMS_ITS | Encounter Summary ---
[facility] Organization [facility] Address [address] [place] [address] Care Team Providers Care Dirt Shoveler Name Role Phone Name, Steve MCCURDY Primary Care Provider [phone] Reason for Visit * Reason Comments Consult Corns and calluses * Consultation (Routine) - Authorized Specialty Diagnoses / Procedures Referred By Jacqueline zafar Referred To Contact Podiatry / Orthopaedic Surgery Diagnoses Corns and callosities Name, MD Steve 4 [place], [place] Phone: tel: fax: Case Roy DPM [address] [address] Phone: tel: fax: Referral ID Status Reason Start Date Expiration Date Visits Requested Visits Authorized [id number] Authorized Specialty Services Required 10/25/2024 10/25/2025 1 1 Encounter Details Date Type Department Care Team (Late st Contact Info) Description 12/27/2024 10:45 AM EDT Office Visit Orthopedic Surgery - [place] [address] [phone] Case Roy DPM [address] [address] Type II diabetes mellitus with peripheral circulatory disorder (CMS/HCC V24, CMS/HCC V28) (Primary Dx); Corns and callosities; Xerosis of skin; Tinea pedis of both feet; Dermatophytosis of nail Social History Tobacco Use Types Packs/Day Years Used Date Smoking Tobacco: Every Day Cigarettes Interpersonal Safety Answer Date Record ed Physical [...] Sign Reading Time Taken Comments Blood Pressure - - Pulse - - Temperature - - Respiratory Rate - - Oxygen Saturation - - Inhaled Oxygen Concentration - - Weight 58.1 kg (128 lb) 12/27/2024 9:45 AM EDT Height 157.5 cm (5' 2.01 ) 12/27/2024 9:45 AM ED T Body Mass Index 23.41 12/27/2024 9:45 AM EDT documented in this encounter Functional Status * Are you deaf or do you have serious difficulty hearing? Answer Date of Assessment Author No 09/10/2024 5:42 AM Re Lassiter RN * Are you blind or do you have serious difficulty seeing, even when wearing glasses? Answer Date of Assessment Author No 09/10/2024 5:42 AM Re Lassiter RN * Do you have serious difficulty walking or climbing stairs? Answer Date of Assessment Author No 09/10/2024 5:42 AM Re Lassiter RN * Do you have serious difficulty [...] Re Lassiter RN documented in this encounter Ordered Prescriptions Prescription Sig Dispense Quantity Refills Last Filled Start Date End Date terbinafine (LamISIL) 250 mg tablet Take 1 tablet (250 mg total) by mouth 1 (one) time each day. 30 each 12/27/2024 5 ammonium lactate (AmLactin) 12 % lotion Apply topically if needed for dry skin. 400 g 12/27/2024 6 documented in this encounter Progress Notes * Case Roy DPM - 12/27/2024 10:45 AM EDT Last PCP visit:Referring MD: Name, MD Steve IDENTIFIER: Nieves is a 49 y.o. year old female who presents for consultation. CC: Foot pain HPI: Nieves is a 49 y.o. year old female presents complaining of dryness of her skin she is she has very dry flaky skin she has used her in a topical medication antifungal with minimal improvement as well as skin softener states she is a type II diabetic denies numbness burning or tingling to her feetstates her pressure is well-controlled does endorse a time when it was above 8 but states more recent has been well-controlled follows closely with primary care ROS: GENERAL: Pt denies nausea, fever, vomiting, chills, or shortness of breath. Pt in NAD. CARDIOLOGY: pt denies chest pain, palpitations LUNGS: pt denies shortness of breath MUSCULOSKELETAL: See HPI, otherwise no joint pain or swelling, back pain, or muscle pain. SKIN: see HPI, otherwise no lesions, rash or itching NEURO: No persistent headache, weakness or numbness The remainder of the review of systems is noncontributory PAST MEDICAL HISTORY: Patient Active Problem List Diagnosis Hypotension Syncope Dehydration Acute gastroenteropathy due to Norovirus SOCIAL HISTORY: Social History Tobacco Use Smoking status: Every Day Current packs/day: 0.50 Types: Cigarettes Smokeless tobacco: Not on file Substance Use Topics Alcohol use: Not on file ACTIVE MEDICATIONS: No outpatient medications have been marked as taking for the 12/27/24 encounter (Office Visit) with Case Roy DPM. ALLERGIES: No Known Allergies PHYSICAL EXAM: Visit Vitals Ht 1.575 m (62.01 ) Wt 58.1 kg (128 lb) BMI 23.41 kg/m?? Smoking Status Every Day BSA 1.58 m?? PODIATRIC EXAMINATION: GENERAL: Patient appears well nourished, with NAD. VASCULAR: Dorsalis pedis pulses are 2/4 bilaterally and Posterior tibial pulses are 2/4 bilaterally. Capillary filling time within normal limits the digits. No pallor on elevation or rubor on dependency. No varicosities. Denies rest pain or claudication pain. NEUROLOGICAL: Sharp/dull sensation intact, protective sensation intact 10/10 with Ipswitch touch test bilaterally, vibratory sensation intact to the tibial tuberosity. ORTHOPEDIC: Good muscle strength 5/5 of all flexors and extensors. Dorsi flexion of ankle ,10 degrees, plantar flexion WNL. No muscle atrophy. DERMATOLOGICAL:. Toenails: Left Toenail(s) 1-5: subungual debris, discoloration, hypertrophic, Right Toenail(s) 1-5: subungual debris, discoloration, hypertrophic, Annular scaling bilateral feet moccasin distribution Skin thinning texture shiny appearance diffuse hyperpigmentation bilaterally pedal hair decreased BIOMECHANICS: Ankle ROM WNL, STJ ROM wnl, MTJ ROM wnl, 1st MPJ ROM wnl. IMAGING: IMPRESSION: 1. Type II diabetes mellitus with peripheral circulatory disorder (CMS/HCC V24, CMS/HCC V28) 2. Corns and callosities 3. Xerosis of skin 4. Tinea pedis of both feet 5. Dermatophytosis of nail PLAN: Pt was seen and examined, history reviewed. Discussed with patient regarding proper glucose control, exercise, and diet. Explained to patient proper shoe gear, and importance of daily foot checks. I reviewed neuropathy and why it occurs in diabetics. I educated the patient on proper blood sugar control and the importance of an HgBA1c of less than 7.0%. I reviewed the signs and symptoms of neuropathy with the patient Lamisil 30-day course prescribed Ammonium lactate prescribed Pt to return for another evaluation in 3 months. Case Roy DPM documented in this encounter Plan of Treatment Upcoming Encounters Date Type Department Care Team (Late st Contact Info) Description 01/29/2025 2:15 PM EDT Office Visit Orthopedic Surgery - [place] [address] [phone] Case Roy, DPM [address] [address] documented as of this encounter Visit Diagnoses Diagnosis Type II diabetes mellitus with peripheral circulatory disorder ([facility] V24, [facility] V28)- Primary Type II or unspecified type diabetes mellitus with peripheral circulatory disorders, not stated as uncontrolled Corns and callosities Xerosis of skin Tinea pedis of both feet Dermatophytosis of nail documented in this encounter Orders Outpatient Referral Count Last Ordered Date Fir st Ordered Date AMB REFERRAL TO PODIATRY 1 12/27/2024 documented in this encounter Additional Health Concerns Infection Onset Date Last Indicated Resolved Time Norovirus 09/10/2024 09/10/2024 documented as of this encounter Care Teams Dirt Shoveler Relationship Specialty Start Date End Date Name, MD Steve [address] [place] [address] PCP - General Internal Medicine 09/10/24 documented as of this encounter
--- OUTSIDE RECORDS SUMMARY | 2024-12-28 12:57 | XMS_ITS | Encounter Summary ---
Author Organization [employer] Address [address] [facility] [address] [place] [address] Care Team Providers Care Pest Control Worker Name Role Phone Name, Steve MCCURDY Primary Care Provider [phone] Pepe Tran RN Unavailable [phone] Reason for Visit * Reason Onset Date Comments Med Refill 09/16/2023 Encounter Details Date Type Department Care Team (Late st Contact Info) Description 09/16/2023 Refill [facility] MEDICINE [address] [place], [place] [phone] Name, MD Steve [address] [place], [place] [phone] Social History Tobacco Use Types Packs/Day Years [...] [facility] OPTOMETRY [address] [place] [address] Fredi, Denisse, OD 230 [place] [address] 01/10/2025 10:30 AM EDT Office Visit [facility] MEDICINE [address] [place] [address] Name, MD Steve [address] [place] [address] documented as of this encounter Visit Diagnoses Not on filedocumented in this encounter Additional Health Concerns Assessment Noted Time PHQ-9 Depression Total Score: 16 023 3:49 PM EDT documented as of this encounter Care Teams Pest Control Worker Relationship Specialty Start Date End Date Name, MD Steve [address] [place] [address] PCP - General Family Medicine 01/23/18 Ppee Tran RN [address] [place] [address] Deliverer PharmacyTransitions Rn Care Coordinator 09/27/24 [employer] [facility] 07/01/24 documented as of this encounter
--- OUTSIDE RECORDS SUMMARY | 2024-12-28 12:57 | XMS_ITS | Encounter Summary ---
Author Organization [employer] Address [address] [facility] 7t [place] [address] Care Team Providers Care Logistics Assistant Name Role Phone Name, Steve MCCURDY Primary Care Provider [phone] Pepe Tran RN Unavailable [phone] Reason for Visit * Reason Comments Med Refill Encounter Details Date Type Department Care Team (Late Contact Info) Description 09/21/2022 Refill [facility] MED & PEDS [address] [place], [place] [phone] Name, MD Steve [address] [place], [place] [phone] Tobacco use Social History Tobacco Use Types [...] Description 12/31/2024 3:00 PM EDT Office Visit [facility] OPTOMETRY [address] [place], [place] [phone] Fredi, Denisse, OD 230 [place] [address] 01/10/2025 10:30 AM EDT Office Visit [facility] MEDICINE 230 [place] [address] Name, MD Steve [address] [place] [address] documented as of this encounter Visit Diagnoses Diagnosis Tobacco use documented in this encounter Care Teams Logistics Assistant Relationship Specialty Start Date End Date Name, MD Steve [address] [place] [address] PCP - General Family Medicine 01/23/18 Pepe Tran RN [address] [place] [address] UrogynaecologistMachine Guide Base Winder 09/27/24 [employer] [facility] 07/01/24 documented as of this encounter
--- OUTSIDE RECORDS SUMMARY | 2024-12-28 12:57 | XMS_ITS | Encounter Summary ---
Author Organization [employer] Address [address] [facility] [address] 7[address] [place] [address] Care Team Providers Care Concrete Block Maker Name Role Phone Name, Steve MCCURDY Primary Care Provider [phone] Pepe Tran RN Unavailable [phone] Encounter Details Date Type Department Care Team (Latest Contact Info) Description 12/24/2024 Travel Social History Tobacco Use Types Packs/Day [...] 3:00 PM EDT Office Visit [facility] OPTOMETRY [address] [place] [address] FrediDenisse rice, OD 230 [place] [address] 01/10/2025 10:30 AM EDT Office Visit [facility] MEDICINE 230 [place] [address] Name, MD Steve 230 [place] [address] documented as of this encounter Visit Diagnoses Not on filedocumented in this encounter Additional Health Concerns Assessment Noted Time PHQ-9 Depression Total Score: 15 025 2:29 PM EST documented as of this encounter Care Teams Concrete Block Maker Relationship Specialty Start Date End Date Name, MD Steve 230 [place] [address] PCP - General Family Medicine 01/23/18 Pepe Tran RN [address] [place] [address] Seasonal DriverBiology Internship 09/27/24 [employer] [facility] 07/01/24 documented as of this encounter
--- OUTSIDE RECORDS SUMMARY | 2024-12-28 12:57 | XMS_ITS | Encounter Summary ---
Author Organization [employer] Address [address] [address] 7t [place] [address] Care Team Providers Care Job Estimator Name Role Phone Name, Steve MCCURDY Primary Care Provider [phone] Pepe Tran RN Unavailable Reason for Visit * Reason Comments Med Refill Encounter Details Date Type Department Care Team (Late st Contact Info) Description 05/01/2024 Refill [facility] [address] [place] [phone] Carolyn Novoa MD 230 [place], [place] [phone] Social History Tobacco Use Types Packs/Day Years [...] Description 12/31/2024 3:00 PM EDT Office Visit [facility] OPTOMETRY [address] [place] [address] Fredi, Denisse, OD 230 [place] [address] 01/10/2025 10:30 AM EDT Office Visit [facility] MEDICINE 230 [place] [address] Name, MD Steve [address] [place] [address] documented as of this encounter Visit Diagnoses Not on filedocumented in this encounter Additional Health Concerns Assessment Noted Time PHQ-9 Depression Total Score: 21 024 10:52 AM EDT documented as of this encounter Care Teams Job Estimator Relationship Specialty Start Date End Date Name, MD Steve 230 [place] [address] PCP - General Family Medicine 01/23/18 Pepe Tran RN [address] [place] [id number] Granulator Machine OperatorHerbologist 09/27/24 [employer] [facility] 07/01/24 documented as of this encounter
--- OUTSIDE RECORDS SUMMARY | 2024-12-28 12:57 | XMS_ITS | Encounter Summary ---
Author Organization [employer] Address [address] [address] 7[address] [place] [address] Care Team Providers Care Ground Support Equipment Assembler Name Role Phone Name, Steve MCCURDY Primary Care Provider [phone] Pepe Tran RN Unavailable [phone] Encounter Details Date Type Department Care Team (Late st Contact Info) Description 12/27/2024 Patient Outreach [facility] MEDICINE 230 [place], [place] [phone] Name, MD Steve 230 [place] [address] Social History Tobacco Use Types Packs/Day Years [...] encounter Progress Notes * Cristal Jacob - 12/27/2024 10:50 AM EDT CHW Cristal Jacob/CM Pepe Tran RN placed call to remind patient of appt for [facility]- Post op appt 12/28/24 at 1:15pm, PT1 will pick out hand patient at 1245pm, no answer at this time, unable to LVM,will send patient a message through [employer] for appt reminder. documented in this encounter Plan of Treatment Upcoming Encounters Date Type Department Care Team (Late st Contact Info) Description 12/31/2024 3:00 PM EDT Office Visit [facility] OPTOMETRY [address] [place] [address] Denisse Rai, OD 230 [place] [address] 01/10/2025 10:30 AM EDT Office Visit [facility] MEDICINE [address] [place] [address] Name, MD Steve [address] [place] [address] documented as of this encounter Visit Diagnoses Not on filedocumented in this encounter Additional Health Concerns Assessment Noted Time PHQ-9 Depression Total Score: 15 025 2:29 PM EST documented as of this encounter Care Teams Ground Support Equipment Assembler Relationship Specialty Start Date End Date Name, MD Steve [address] [place] [address] PCP - General Family Medicine 01/23/18 Pepe Tran RN 505 [place] [address] Foundry SupervisorCommissioned Fire Officer 09/27/24 [employer] [facility] 07/01/24 documented as of this encounter
--- OUTSIDE RECORDS SUMMARY | 2024-12-28 12:57 | XMS_ITS | Encounter Summary ---
Author Organization [employer] Address [address] [facility] 7t [place] [address] Care Team Providers Care Dumbwaiter Operator Name Role Phone Name, Steve MCCURDY Primary Care Provider [phone] Pepe Tran RN Unavailable [phone] Reason for Visit * Reason Onset Date Comments Care Management 12/27/2024 C3CM- f/u call [facility] Encounter Details Date Type Department Care Team ([facility] st Contact Info) Description 12/27/2024 Telephone [facility] MEDICINE 230 [place], [place] [phone] Name, MD Steve 230 [place], [place] [phone] Care Management (C3CM- f/u call [facility]) Social History Tobacco Use Types Packs/Day Years [...] Telephone Encounter - Pepe Tran RN - 12/27/2024 10:51 AM EDT CM Pepe Tran RN and Cristal Jacob placed outbound call for a follow up call to patient. No answer at this time. CM was unable to leave a voicemail. CM will follow up with patient within 10 business days. Sent appt reminder text via [facility] with upcoming appt details. Patient to f/u as needed. documented in this encounter Plan of Treatment Upcoming Encounters Date Type Department Care Team (Late st Contact Info) Description 12/31/2024 3:00 PM EDT Office Visit [facility] OPTOMETRY [address] [place] [address] Denisse Rai, OD 230 [place] [address] 01/10/2025 10:30 AM EDT Office Visit [facility] MEDICINE [address] [place] [address] Name, MD Steve [address] [place] [address] documented as of this encounter Visit Diagnoses Not on filedocumented in this encounter Additional Health Concerns Assessment Noted Time PHQ-9 Depression Total Score: 15 025 2:29 PM EST documented as of this encounter Care Teams Dumbwaiter Operator Relationship Specialty Start Date End Date Name, MD Steve 230 [place] [address] PCP - General Family Medicine 01/23/18 Pepe Tran RN 505 [place] [address] Silk OpenerSeat Cover Installer 09/27/24 [email or web address] [facility] 07/01/24 documented as of this encounter
[2024-12-28 13:04] VITALS: BMI 24.9
--- NOTE | 2024-12-28 13:04 | MHC.OFFVIS ---
Vital Signs 12/28/24 13:04 Height 5 ft 2 in Weight 136 lb BMI 24.9 Intake Visit Reasons: PO-Lt CTR 12/13/24 Intake Note: Benigno is a 49 year old right hand dominant female who presents today for her first post operative appointment s/p Left Carpal Tunnel Release 12/13/24. Sutures Removed and Steris Applied Allergies quetiapine [From SEROQUEL] Adverse Reaction (Intermediate, Verified 12/28/24 13:04) RLS symptoms HPI HPI PO-Lt CTR 12/13/24: Details: Benigno is a 49 year old right hand dominant female who presents today for her first post operative appointment s/p Left Carpal Tunnel Release 12/13/24. Patient reports that she is still experiencing numbness and tingling in the left hand, but she states that she expected this as she was experiencing dense numbness prior to surgery. 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 Surgical History History of tubal ligation History of bladder surgery H/O LEEP Tubal ligation status Family History Mother Heart disease Social History Household Members: Significant Other Housing: Apartment Alcohol intake: never Patient Tobacco Use Status: Current everyday Tobacco user Cigarette Packs Per Day: 1 Years Smoked: 25 Substance Use Type: Marijuana service: No Current occupational status: unemployed Sexual orientation: Straight/Heterosexual Gender identity: Female Female Reproductive History Menstrual Age of Menarche: 7 Review of Systems Const All systems reviewed & are unremarkable except as noted in HPI and below Physical Exam Vital Signs: BMI result Body Mass Index 24.9 Extrem Other: Neuro: Decreased sensation in the median nerve distribution of bilateral hands No thenar or intrinsic wasting. Good APB muscle firing and good finger cross. Vascular: Capillary refill brisk. ROM: Patient can make a fist and extend all their digits. Skin: Well approximated and well healing incision noted in the volar left wrist No lacerations or abrasions noted. General: No ecchymosis. No erythema or evidence of infection. [] Assessment & Plan Assessment & Plan (1) Bilateral carpal tunnel syndrome: Code(s): G56.03 - Carpal tunnel syndrome, bilateral upper limbs Category: Medical Plan 1. Status post left carpal tunnel release Dense numbness prior to surgery, still experiencing dense numbness DOS 12/13/2024 Patient appears to be recovering well postoperatively Patient is educated about the typical recovery course At this time, patient is informed that it can take up to 9 months for sensation to return, but at that point is when her symptoms are likely to persist Patient states understanding of this 1. Right carpal tunnel syndrome Dense numbness Patient would like to proceed with operative intervention on the right, would like to hold off on this at this time Patient is educated on the potential risks of prolonging treatment for carpal tunnel syndrome Patient is amenable to these Follow-up as needed to discuss right carpal tunnel release, sooner with any acute concerns Coding Level of Care Code Global (72806) Diagnoses Bilateral carpal tunnel syndrome G56.03
== END 2024-12-28 13:22 | disposition home or self-care (01) ==
LOC: HO.HOS 12:54
PROVIDERS: PCP Internal Medicine Geriatric Medicine
DX: G56.03 Carpal tunnel syndrome, bilateral upper limbs (principal)
CPT/HCPCS: 99024

== ENCOUNTER → 2024-12-28 12:54 | Outpatient (BNVA) | payer MEDICAID, SELFPAY | PROVIDERS: PCP Internal Medicine Geriatric Medicine | DX: R20.0 Anesthesia of skin (principal); G56.01 Carpal tunnel syndrome, right upper limb; Z48.811 Encounter for surgical aftercare following surgery on the nervous system; Z98.890 Other specified postprocedural states | CPT/HCPCS: 99212 ==

== ENCOUNTER 2025-01-28 09:31 | Outpatient (REF) | payer MEDICAID, SELFPAY ==
--- OUTSIDE RECORDS SUMMARY | 2025-01-28 10:20 | XMS_ITS | Encounter Summary ---
Author Organization [employer] Address [address] [facility] [address]t [place] [address] Care Team Providers Care Career Information Specialist Name Role Phone Name, Steve MCCURDY Primary Care Provider [phone] Pepe Tran RN Unavailable [phone] Reason for Visit * Reason Comments Med Change Request Encounter Details Date Type Department Care Team (Late st Contact Info) Description 05/10/2023 Refill [facility] MEDICINE 230 [place], [place] [phone] Name, MD Steve 230 [place] [address] Social History Tobacco Use Types Packs/Day Years [...] hopeless Nearly every day 05/10/2023 3:49 PM EDBrenda Shelby Trouble falling or staying asleep, or sleeping [...] as of this encounter Plan of Treatment Not on file documented as of this encounter Visit Diagnoses Not on filedocumented in this encounter Additional Health Concerns Assessment Noted Time PHQ-9 Depression Total Score: 16 023 3:49 PM EDT documented as of this encounter Care Teams Career Information Specialist Relationship Specialty Start Date End Date Name, MD Steve 230 [place] [address] PCP - General Family Medicine 01/23/18 Pepe Tran RN [address] [place] [address] Shot Hole DrillerCurb Builder 09/27/24 12/31/24 [employer] [facility] 07/01/24 documented as of this encounter
[2025-01-28 11:50] LABS: Alanine Aminotransferase 23 U/L (0-31); Albumin Level 4.5 g/dL (3.5-5.0); Alkaline Phosphatase 73 U/L (39-117); Anion Gap 12 (12-20); Aspartate Amino Transferase 30 U/L (5-31); Bilirubin Total 0.2 mg/dL (0.0-1.0); Blood Urea Nitrogen 13 mg/dL (9-16); Calcium 9.4 mg/dL (8.4-10.2); Carbon Dioxide 26 mmol/L (22-29); Chloride 107 mmol/L (96-108); Cholesterol 303 mg/dL (<200); Estimated Glomerular Filt Rate > 60; Glucose Random 128 mg/dL (60-115); HDL Cholesterol 53 mg/dL (>40); LDL Cholesterol Calculated 208 mg/dL (<100); Potassium 4.5 mmol/L (3.3-5.1); Sodium 140 mmol/L (135-145); Total Protein 7.6 g/dL (6.5-8.0); Triglycerides 212 mg/dL (<150)
[2025-01-28 12:08] LABS: Creatinine Urine 174.24 mg/dL; Microalbum/Creatinine Ratio Ur 5.7 ug/mg cr (<30)
[2025-01-28 12:12] LABS: TSH reflex Free T4 2.16 uIU/mL (0.32-4.0)
== END 2025-01-28 09:32 | disposition home or self-care (01) ==
LOC: HO.HHCL 09:31
PROVIDERS: Visit Provider Internal Medicine Geriatric Medicine
DX: E11.9 Type 2 diabetes mellitus without complications (principal); R79.89 Other specified abnormal findings of blood chemistry
CPT/HCPCS: 36415; 80053; 80061; 82043; 82570; 84443